=== PATIENT | female | born 1955 | race Caucasian/White ===

== ENCOUNTER 2017-03-26 12:11 | Emergency (ER) | payer OTHER ==
[2017-03-26 12:35] VITALS: BP 110/66; PULSE 65; TEMP 97.5; BMI 25.2
--- NOTE | 2017-03-26 13:30 | PDOC ---
History of Present Illness - General Chief Complaint: Abscess Boil Stated Complaint: PCP SENT Time Seen by Provider: 03/26/17 13:12 History Source: Patient Exam Limitations: No Limitations - History of Present Illness Initial Comments: 03/26/17 13:26 SEnt in for nuclear scan of left ankle by LMD Past History - Past Medical History Allergies/Adverse Reactions: Allergies Allergy/AdvReac Type Severity Reaction Status Date / Time No Known Allergies Allergy Verified 03/26/17 12:31 Home Medications: Ambulatory Orders Aspirin [ASA -] 81 mg PO DAILY 04/20/15 Furosemide [Lasix -] 40 mg PO DAILY 04/20/15 Levothyroxine [Synthroid -] 175 mcg PO DAILY 03/26/17 Mesalamine [Asacol Hd -] 800 mg PO TID 03/26/17 Raloxifene HCl 60 mg PO DAILY 03/26/17 Anemia: No Asthma: Yes Cancer: Yes (LEFT BREAST 1999) Cardiac Disorders: No CVA: No COPD: No CHF: No Dementia: No Diabetes: No GI Disorders: No Disorders: No HTN: No Hypercholesterolemia: No Liver Disease: No Seizures: No Thyroid Disease: Yes - Surgical History Abdominal Surgery: No Appendectomy: No Cardiac Surgery: No Cholecystectomy: No Lung Surgery: No Neurologic Surgery: No Orthopedic Surgery: No - Immunization History Immunization Up to Date: Yes - Psycho/Social/Smoking Cessation Hx Suicidal Ideation: No Smoking History: Never smoked Have you smoked in the past 12 months: No Hx Alcohol Use: No Drug/Substance Use Hx: No Substance Use Type: None Hx Substance Use Treatment: No Review of Systems - Review of Systems Constitutional: No: Symptoms Reported Integumentary: Yes: Lesions Neurological: No: Symptoms reported *Physical Exam - Vital Signs Last Vital Signs Temp Pulse Resp BP Pulse Ox 97.5 F L 65 17 110/66 100 03/26/17 12:31 03/26/17 12:31 03/26/17 12:31 03/26/17 12:31 03/26/17 12:31 - Physical Exam General Appearance: Yes: Appropriately Dressed Neck: positive: Tender, Supple. negative: Rigid Extremity: positive: Other (1 cm open wound left lateral ankle ; no pus expressed; no cellulitis) Medical Decision Making - Medical Decision Making 03/26/17 13:28 Referred to Xray department for [facility] nuclear scan of left ankle; no admission needed; had Recent ABX by local MD reports family *DC/Admit/Observation/Transfer Diagnosis at time of Disposition: Open wound - Discharge Dispostion Disposition: HOME Condition at time of disposition: Stable Admit: No - Patient Instructions Additional Instructions: referred to [facility] xray for nuclear scan
== END 2017-03-26 13:33 | disposition home or self-care (01) ==
LOC: JERFT 12:11
DX: S91.002A Unspecified open wound, left ankle, initial encounter (principal); X58.XXXA Exposure to other specified factors, initial encounter; Y93.9 Activity, unspecified; Y92.89 Other specified places as the place of occurrence of the external cause; E03.9 Hypothyroidism, unspecified; Z85.3 Personal history of malignant neoplasm of breast
CPT/HCPCS: 99281-25

== ENCOUNTER 2017-06-25 08:54 | Inpatient (IN) | payer OTHER ==
--- NOTE | 2017-06-25 08:58 | PDOC ---
History of Present Illness - General Stated Complaint: FALL Time Seen by Provider: 06/25/17 08:57 - History of Present Illness Initial Comments: 59 year old female with PMH of Down Syndrome and hypothyroidism presenting with decreasing ability to ambulate over the last few weeks. Per her relatives at home, they found her down by her bed and she does not remember what caused her fall. She did hit the right side of her head but denies LOC, syncope, palpitations, or new neuro deficit. The family at bedside admits that her left side has appeared weaker than usual over the past few weeks but are not sure exactly when. She has had difficulty bearing weight since the fall this morning. Denies fevers, chills, nausea, vomiting, diarrhea, constipation, cough , chest pain, or other symptoms. Patient is verbal at baseline with simple answers and can usually give moderately detailed information. 06/25/17 12:44 Past History - Past Medical History Allergies/Adverse Reactions: Allergies Allergy/AdvReac Type Severity Reaction Status Date / Time wheat Allergy Intermediate Rash Verified 06/25/17 08:59 wheat dextrin Allergy Intermediate Rash Verified 06/25/17 08:59 egg AdvReac Severe Nausea Verified 06/25/17 08:59 Egg Derived AdvReac Severe Nausea Verified 06/25/17 08:59 egg yolk AdvReac Severe Nausea Verified 06/25/17 08:59 Home Medications: Ambulatory Orders Furosemide [Lasix -] 40 mg PO DAILY 04/20/15 Levothyroxine [Synthroid -] 150 mcg PO DAILY 03/26/17 Mesalamine [Asacol Hd -] 80 mg PO TID 03/26/17 Raloxifene HCl 60 mg PO DAILY 03/26/17 Anemia: No Asthma: Yes Cancer: Yes (LEFT BREAST 1998) Cardiac Disorders: No CVA: No COPD: No CHF: No Dementia: No Diabetes: No GI Disorders: No Disorders: No HTN: No Hypercholesterolemia: No Liver Disease: No Seizures: No Thyroid Disease: Yes - Surgical History Abdominal Surgery: No Appendectomy: No Cardiac Surgery: No Cholecystectomy: No Lung Surgery: No Neurologic Surgery: No Orthopedic Surgery: No - Immunization History Immunization Up to Date: Yes - Suicide/Smoking/Psychosocial Hx Smoking History: Never smoked Have you smoked in the past 12 months: No Hx Alcohol Use: No Drug/Substance Use Hx: No Substance Use Type: None Hx Substance Use Treatment: No Review of Systems - Review of Systems Constitutional: No: Chills, Diaphoresis, Fever HEENTM: No: Blurred Vision Respiratory: No: Cough, Shortness of Breath Cardiac (ROS): Yes: Edema. No: Chest Pain, Chest Tightness ABD/GI: No: Diarrhea, Nausea, Vomiting, Tarry Stools : Yes: Incontinence. No: Burning, Dysuria, Discharge Integumentary: Yes: Bruising, Erythema Neurological: Yes: Weakness, Unsteady Gait. No: Headache, Numbness *Physical Exam - Physical Exam General Appearance: Yes: Nourished, Appropriately Dressed. No: Apparent Distress HEENT: positive: EOMI, ALECIA. negative: Normal ENT Inspection (ENT inspection consistent with downs syndrome. Bruising with some slight erythema over right supraorbital scalp.) Neck: positive: Trachea midline, Supple. negative: Tender, Rigid Respiratory/Chest: positive: Lungs Clear, Normal Breath Sounds. negative: Chest Tender, Respiratory Distress, Accessory Muscle Use Cardiovascular: positive: Regular Rhythm, Regular Rate Gastrointestinal/Abdominal: positive: Normal Bowel Sounds, Flat, Soft. negative : Tender Musculoskeletal: negative: Normal Inspection (Clean and dry wound over the left lateral malleolus. Swollen bilateral lower extremities with only trace pitting. ) Extremity: positive: Pelvis Stable. negative: Normal Inspection (Per above), Normal Range of Motion (Generally weak in bilateral lower extremities), Tender Integumentary: positive: Normal Color, Dry, Warm, Erythema, Bruising Neurologic: positive: legal transcriptionist II-XII NML intact, Alert. negative: Fully Oriented ( Person and place), Normal Mood/Affect (Consistent with downs. responsive with slight delay in answers.), Motor Strength 5/5 (Generally weak in bilateral lower extremities) ED Treatment Course - LABORATORY CBC & Chemistry Diagram: 06/25/17 09:22 06/25/17 09:22 Medical Decision Making - Medical Decision Making 61 year old with down syndrome presenting with two falls in the past month. Unclear etiology as she seems to have had progressive weakness and difficulty ambulating with acute disability this AM. Presented with hypothermia to 96 degrees All of her labs are WNL and her head CT does not show acute hemorrhage or defect. There is some comment regarding the odontoid process contacting the ventral medulla. This, along with the patient's hypothermia need to be worked up further potentially in the inpatient setting. Spoke to Dr. Birch and there will be further work up performed. This is likely advancement of early onset dementia which is common in patients with trisomy 13. 06/25/17 14:29 *DC/Admit/Observation/Transfer Diagnosis at time of Disposition: Weakness Hypothermia Qualifiers: Encounter type: initial encounter Qualified Code(s): T68.XXXA - Hypothermia, initial encounter - Discharge Dispostion Condition at time of disposition: Stable Admit: Yes - Referrals - Patient Instructions - Post Discharge Activity
--- NOTE | 2017-06-25 09:28 | PDOC ---
Attending Attestation - Resident Resident Name: JuliánAbameredithsandra - ED Attending Attestation I have performed the following: I have examined & evaluated the patient, The case was reviewed & discussed with the resident, I agree w/resident's findings & plan, Exceptions are as noted - HPI HPI: 61 yo F history , hypothyroid presents s/p mechanical fall. She denies any complaints at present, but is unable to give a reliable history. As per family, patient has been refusing to ambulate since the fall despite denying any pain. - Physicial Exam PE: GENERAL: Awake, alert, and fully oriented, in no acute distress HEAD: +Abrasions to R upper forehead. EYES: PERRLA, EOMI, sclera anicteric, conjunctiva clear ENT: Auricles normal inspection, hearing grossly normal, nares patent, oropharynx clear without exudates. Moist mucosa NECK: Normal ROM, supple, no lymphadenopathy, JVD, or masses LUNGS: Breath sounds equal, clear to auscultation bilaterally. No wheezes, and no crackles HEART: Regular rate and rhythm, normal S1 and S2, no murmurs, rubs or gallops ABDOMEN: Soft, nontender, normoactive bowel sounds. No guarding, no rebound. No masses EXTREMITIES: Normal range of motion, no edema. No clubbing or cyanosis. No cords, erythema, or tenderness NEUROLOGICAL: Cranial nerves II through XII grossly intact. Normal speech. Motor and sensation intact. SKIN: Warm, Dry, normal turgor, no rashes or lesions noted. - Medical Decision Making Pt with hypothermia, presenting s/p fall, refusing to ambulate. No obvious bony deformity, no bony tenderness. XR no fx. CTH no acute findings. Labs unremarkable (noted to have hypocalcemia, however, it corrects with the albumin) .
[2017-06-25 09:48] LABS: VENOUS PC02 44.8 mmHg (38-52); VENOUS PH 7.39 (7.32-7.42); VENOUS PO2 36.4 mmHg (28-48)
[2017-06-25 09:49] LABS: BASO % 1.1 % (0-2.0); EOS % 1.4 % (0-4.5); HEMATOCRIT 38.3 % (32.4-45.2); HEMOGLOBIN 12.5 GM/dL (10.7-15.3); LYMPH % 16.5 % (8-40); MCH 32.2 pg (25.7-33.7); MCHC 32.7 g/dl (32.0-36.0); MEAN CELL VOLUME 98.7 fl (80-96); MONO % 7.5 % (3.8-10.2); NEUT % 73.5 % (42.8-82.8); PLATELET COUNT 170 K/MM3 (134-434); RBC 3.88 M/mm3 (3.60-5.2); RDW 15.6 % (11.6-15.6)
[2017-06-25 10:08] LABS: INR 0.98 (0.82-1.09); PROTHROMBIN TIME (PATIENT) 11.1 SEC (9.98-11.88)
[2017-06-25 10:11] LABS: ACTIVATED PTT 26.4 SECONDS (26.9-34.4)
[2017-06-25 10:27] LABS: ANION GAP 5 (8-16); BILIRUBIN,TOTAL 0.4 mg/dL (0.2-1.0); BLOOD UREA NITROGEN 18 mg/dL (7-18); CALCIUM 7.8 mg/dL (8.5-10.1); CHLORIDE 106 mmol/L (98-107); CO2 27 mmol/L (21-32); GLUCOSE,RANDOM 116 mg/dL (74-106); POTASSIUM 3.6 mmol/L (3.5-5.1); SGOT/AST 25 U/L (15-37); SGPT/ALT 25 U/L (12-78); SODIUM 138 mmol/L (136-145); TOT PROT 7.3 g/dl (6.4-8.2)
[2017-06-25 10:29] LABS: ALK PHOS 105 U/L (45-117)
[2017-06-25 10:52] LABS: URINE APPEARANCE SLCLOUDY; URINE BILIRUBIN NEGATIVE (NEGATIVE); URINE BLOOD NEGATIVE (NEGATIVE); URINE COLOR YELLOW; URINE GLUCOSE (UA) NEGATIVE (NEGATIVE); URINE KETONE TRACE (NEGATIVE); URINE LEUK ESTERASE NEGATIVE (NEGATIVE); URINE NITRITE NEGATIVE (NEGATIVE); URINE UROBILINOGEN NEGATIVE mg/dL (0.2-1.0)
[2017-06-25 11:02] LABS: URINE PROTEIN 2+ (NEGATIVE)
[2017-06-25 12:08] LABS: EPI CELLS RARE /HPF (FEW); URINE MUCUS RARE
[2017-06-25] MEDS ORDERED: methylPREDNISolone NA SUCC 125 MG/2 ML VIAL IVPB ONE (12:28)
[2017-06-25] MEDS ORDERED: LEVOTHYROXINE NA 150 MCG TABLET PO ONE (13:23)
[2017-06-25] MEDS ORDERED: MESALAMINE 800 MG TABLET.DR PO SCH (14:00)
[2017-06-25] MEDS: LEVOTHYROXINE NA 150 MCG TABLET PO SCH (15:54)
[2017-06-25] MEDS: MESALAMINE 800 MG TABLET.DR PO SCH ×2 (15:54→22:00)
[2017-06-26 02:52] VITALS: BMI 28.7
[2017-06-26] MEDS: LEVOTHYROXINE NA 150 MCG TABLET PO SCH (06:23)
[2017-06-26] MEDS: MESALAMINE 800 MG TABLET.DR PO SCH ×3 (06:23→22:33)
--- NOTE | 2017-06-26 07:48 | CONSULT ---
Consultation: REQUESTING PROVIDER: CONSULT REQUEST: We have been asked to medically evaluate this patient for hypothermia. HISTORY OF PRESENT ILLNESS: 59 y/o F with PMH Down's syndrome, hypothyroidism, recent hospitalization in Dec for L ankle pressure ulcer-stage 3, who presented to ED s/p fall. As per pt' s family and nurse, pt has decreased ambulation over the last month and was found on the ground by family on AM of ED arrival. Pt injured R side of forehead and lacerated lip during fall. Denied LOC, syncope, palpitations before the event, and denied fever, chills, chest pain, or recent illnesses at time of admission. While in ED, pt was found to be hypothermic with temp 95.3F which has subsequently resolved. While in ED, pt had CXR, R and L foot x-rays, R and L hip x-rays, which were all WNL. Only notable finding was a decreased albumin level of 3, elevated TSH 5.04, and head CT which revealed odontoid process projecting into the foramen magnum and mass effect of ventral medulla and craniocervical junction. ID team consulted for hypothermia. PMH: Down's syndrome, hypothyroid PsxH: denies Meds: synthroid, ecotrin, asacol allergies: wheat, wheat dextrin, egg FH: pt denies SH: denies smoking, alcohol, or drug use denies infection, pet exposure REVIEW OF SYSTEMS: CONSTITUTIONAL: Absent: fever, chills, diaphoresis, generalized weakness, malaise, loss of appetite, weight change HEENT: Absent: rhinorrhea, nasal congestion, throat pain, throat swelling, difficulty swallowing, mouth swelling, ear pain, eye pain, visual changes CARDIOVASCULAR: Absent: chest pain, syncope, palpitations, irregular heart rate, lightheadedness , peripheral edema RESPIRATORY: Absent: cough, shortness of breath, dyspnea with exertion, orthopnea, wheezing, stridor, hemoptysis GASTROINTESTINAL: Absent: abdominal pain, abdominal distension, nausea, vomiting, diarrhea, constipation, melena, hematochezia GENITOURINARY: Absent: dysuria, frequency, urgency, hesitancy, hematuria, flank pain, genital pain MUSCULOSKELETAL: Absent: myalgia, arthralgia, joint swelling, back pain, neck pain SKIN: Absent: rash, itching, pallor HEMATOLOGIC/IMMUNOLOGIC: Absent: easy bleeding, easy bruising, lymphadenopathy, frequent infections ENDOCRINE: Absent: unexplained weight gain, unexplained weight loss, heat intolerance, cold intolerance NEUROLOGIC: Absent: headache, focal weakness or paresthesias, dizziness, unsteady gait, seizure, mental status changes, bladder or bowel incontinence PSYCHIATRIC: Absent: anxiety, depression, suicidal or homicidal ideation, hallucinations. PHYSICAL EXAMINATION Vital Signs - 24 hr 06/26/17 04:10 Temperature 97.7 F Pulse Rate 72 Pulse Rate [ Left Apical] Respiratory 18 Rate Blood Pressure 118/62 GENERAL: AAOx 1 (only to self), in no acute distress. HEAD: abrasions on R frontotemporal side of forehead EYES: Pupils equal, round and reactive to light, extraocular movements intact, sclera anicteric, conjunctiva clear. EARS, NOSE, THROAT: Ears normal, nares patent, oropharynx clear without exudates. LUNGS: Breath sounds equal, clear to auscultation bilaterally. No wheezes, and no crackles. No accessory muscle use. HEART: Regular rate and rhythm, normal S1 and S2 without murmur, rub or gallop. ABDOMEN: Soft, diffusely tender to palpation, not distended, normoactive bowel sounds, no guarding, no rebound, MUSCULOSKELETAL: Normal range of motion at all joints. LOWER EXTREMITIES: 2+ posterior tibial pulses, warm, well-perfused. L lateral malleolus ulcer appreciated- pink with heaped borders, mild purulent discharge. NEUROLOGICAL: Cranial nerves II-XII intact. PSYCHIATRIC: Cooperative. Laboratory Tests 06/25/17 06/25/17 06/25/17 09:22 09:22 10:35 WBC 5.0 D Hgb 12.5 Hct 38.3 Plt Count 170 D Albumin 3.0 L TSH 5.04 H Urine Protein 2+ H Urine Ketones Trace H Active Medications Generic Name Dose Route Start Last Admin Trade Name Freq PRN Reason Stop Dose Admin Aspirin 81 mg 06/26/17 10:00 Ecotrin - PO DAILY KELLE Levothyroxine Sodium 150 mcg 06/25/17 13:25 06/26/17 06:23 Synthroid - PO 150 mcg DAILY@0600 KELLE Administration Mesalamine 800 mg 06/25/17 14:00 06/26/17 06:23 Asacol Hd - PO 800 mg TID KELLE Administration Microbiology 06/25/17 09:22 Blood - Peripheral Venous Blood Culture - Preliminary NO GROWTH OBTAINED AFTER 24 HOURS, INCUBATION TO CONTINUE FOR 4 DAYS. 06/25/17 09:22 Blood - Peripheral Venous Blood Culture - Preliminary NO GROWTH OBTAINED AFTER 24 HOURS, INCUBATION TO CONTINUE FOR 4 DAYS. ASSESSMENT/PLAN: #Hypothermia-resolved -95.3F while in ED -has subsequently resolved, currently 97.7F -No overt signs of infectious process currently- pt afebrile, without white count -Blood cx (-) -F/u urine cx #L lateral malleolus pressure ulcer -L malleolus pressure ulcer- pink with heaped border, mild purulent drainage. Surrounding erythema -Wound care -As afebrile, without white count would not recommend need for current abx Pina Mckinney MD PGY-1 ID Team Dispo: We will continue to follow the patient. Thank you for this consultative opportunity. Visit type - Emergency Visit Emergency Visit: No - New Patient This patient is new to me today: Yes Date on this admission: 06/26/17 - Critical Care Critical Care patient: No
[2017-06-26] MEDS: ASPIRIN COATED 81 MG TABLET.EC PO SCH (09:24)
--- NOTE | 2017-06-26 10:10 | HP ---
Admitting History and Physical - Admission Chief Complaint: 59y/o fell last 2 days ago sustained rt forehead abration. h/ o trip fall 1 mth ago. sister stated weak legs ct braian neg. 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) Cardiovascular: Yes: Aortic Insufficiency, Mitral Insufficiency Pulmonary: Yes: Other Gastrointestinal: Yes: Ulcerative Colitis Hepatobiliary: Yes: Hepatitis B Reproductive: Yes: Other (unable to get preg) Heme/Onc: Yes: Myeloproliferative Synd Musculoskeletal: Yes: Other (c/s fusions) Endocrine: Yes: Hypothyroidism - Smoking History Smoking history: Never smoked Have you smoked in the past 12 months: No - Alcohol/Substance Use Hx Alcohol Use: No Home Medications - Allergies Allergies/Adverse Reactions: Allergies Allergy/AdvReac Type Severity Reaction Status Date / Time wheat Allergy Intermediate Rash Verified 06/25/17 08:59 wheat dextrin Allergy Intermediate Rash Verified 06/25/17 08:59 egg AdvReac Severe Nausea Verified 06/25/17 08:59 Egg Derived AdvReac Severe Nausea Verified 06/25/17 08:59 egg yolk AdvReac Severe Nausea Verified 06/25/17 08:59 - Home Medications Home Medications: Ambulatory Orders Furosemide [Lasix -] 40 mg PO DAILY 04/20/15 Levothyroxine [Synthroid -] 150 mcg PO DAILY 03/26/17 Mesalamine [Asacol Hd -] 800 mg PO TID 03/26/17 Raloxifene HCl 60 mg PO DAILY 03/26/17 Family Disease History - Family Disease History Family Disease History: Heart Disease: Mother Review of Systems - Review of Systems Constitutional: reports: Weakness Eyes: reports: Other (epicanthis eyes) HENT: reports: No Symptoms Neck: reports: Stiffness (neck) Cardiovascular: reports: No Symptoms Respiratory: reports: No Symptoms Gastrointestinal: reports: Other Genitourinary: reports: No Symptoms Breasts: reports: No Symptoms Reported Musculoskeletal: reports: No Symptoms Integumentary: reports: Wound (lt foot healing w good wd care) Neurological: reports: Weakness Endocrine: reports: No Symptoms Hematology/Lymphatic: reports: No Symptoms Psychiatric: reports: No Symptoms Physical Examination Vital Signs: Vital Signs Temperature 97.6 F 06/26/17 09:00 Pulse Rate 71 06/26/17 09:00 Respiratory Rate 20 06/26/17 09:00 Blood Pressure 92/40 06/26/17 09:00 O2 Sat by Pulse Oximetry (%) 98 06/25/17 20:00 Constitutional: Yes: Well Nourished Eyes: Yes: WNL HENT: Yes: WNL Neck: Yes: WNL Cardiovascular: Yes: WNL Respiratory: Yes: WNL Gastrointestinal: Yes: WNL, Soft ...Rectal Exam: Yes: Deferred Renal/: Yes: WNL Breast(s): Yes: WNL Musculoskeletal: Yes: WNL Extremities: Yes: Other (lt foot stage 2 ulcer healing) Edema: No Peripheral Pulses WNL: Yes Integumentary: Yes: WNL Wound/Incision: Yes: Clean/Dry Neurological: Yes: Unsteady Gait Labs: CBC, BMP 06/25/17 09:22 06/25/17 09:22 Problem List - Problems (1) Down syndrome Code(s): Q90.9 - DOWN SYNDROME, UNSPECIFIED (2) Puncture wound of left foot excluding toes with infection Code(s): S91.332A - PUNCTURE WOUND WITHOUT FOREIGN BODY, LEFT FOOT, INIT ENCNTR ; L08.9 - LOCAL INFECTION OF THE SKIN AND SUBCUTANEOUS TISSUE, UNSP (3) CHF (congestive heart failure) Code(s): I50.9 - HEART FAILURE, UNSPECIFIED (4) Mitral and aortic insufficiency Code(s): I08.0 - RHEUMATIC DISORDERS OF BOTH MITRAL AND AORTIC VALVES Assessment/Plan up synthroid to .175 po get mri brain brain local wd care lt foot consulst on going daniela
--- NOTE | 2017-06-26 10:16 | PN ---
Teaching Attending Note Name of Resident: Pina Mckinney ATTENDING PHYSICIAN STATEMENT I saw and evaluated the patient. I reviewed the resident's note and discussed the case with the resident. I agree with the resident's findings and plan as documented. SUBJECTIVE:Seen and examined with resident OBJECTIVE:Hypthermia transient Currently in NAD ASSESSMENT AND PLAN: Selected Entries 06/26/17 09:00 Temperature 97.6 F Pulse Rate 71 Respiratory 20 Rate Blood Pressure 92/40 Assessment NO indication for antibiotics at this time Lorna YOUNG
--- NOTE | 2017-06-27 01:35 | EKG ---
Test Reason : Blood Pressure : / mmHG Vent. Rate : 054 BPM Atrial Rate : 054 BPM P-R Int : 170 ms QRS Dur : 084 ms QT Int : 496 ms P-R-T Axes : 057 -16 013 degrees QTc Int : 470 ms SINUS BRADYCARDIA MODERATE VOLTAGE CRITERIA FOR LVH, MAY BE NORMAL VARIANT BORDERLINE ECG NO PREVIOUS ECGS AVAILABLE Confirmed by VISH MARQUEZ MD ([id number]) on 06/27/2017 1:35:30 AM Referred By: Confirmed By:VISH MARQUEZ MD
[2017-06-27] MEDS ORDERED: LEVOTHYROXINE NA 100 MCG TABLET (FP) ONE (06:15)
[2017-06-27] MEDS ORDERED: LEVOTHYROXINE NA 75 MCG TABLET (FP) ONE (06:15)
[2017-06-27] MEDS: MESALAMINE 800 MG TABLET.DR PO SCH ×2 (06:17→13:53)
[2017-06-27] MEDS: LEVOTHYROXINE 100 MCG, LEVOTHYROXINE 75 MCG PO SCH (06:18)
[2017-06-27] MEDS ORDERED: LEVOTHYROXINE NA 175 MCG TABLET PO SCH (07:00)
[2017-06-27 07:57] LABS: BASO % 1.9 % (0-2.0); EOS % 0.8 % (0-4.5); HEMATOCRIT 34.5 % (32.4-45.2); HEMOGLOBIN 11.4 GM/dL (10.7-15.3); LYMPH % 15.6 % (8-40); MCH 32.6 pg (25.7-33.7); MEAN CELL VOLUME 98.8 fl (80-96); MEAN PLT VOLUME 9.7 fl (7.5-11.1); MONO % 7.4 % (3.8-10.2); NEUT % 74.3 % (42.8-82.8); PLATELET COUNT 169 K/MM3 (134-434); RBC 3.49 M/mm3 (3.60-5.2); RDW 15.5 % (11.6-15.6); WHITE BLOOD COUNT 5.4 K/mm3 (4.0-10.0)
[2017-06-27 08:14] LABS: ANION GAP 10 (8-16); BLOOD UREA NITROGEN 15 mg/dL (7-18); CALCIUM 7.8 mg/dL (8.5-10.1); CHLORIDE 108 mmol/L (98-107); CO2 24 mmol/L (21-32); GLUCOSE,RANDOM 104 mg/dL (74-106); POTASSIUM 3.4 mmol/L (3.5-5.1); SODIUM 142 mmol/L (136-145)
[2017-06-27] MEDS ORDERED: POTASSIUM CHLORIDE TABS 20 MEQ TABLET.ER (FP) PO ONE (08:48)
--- NOTE | 2017-06-27 09:03 | PN ---
Progress Note, Physician - Current Medication List Current Medications: Active Medications Aspirin (Ecotrin -) 81 mg PO DAILY [facility] Last Admin: 06/26/17 09:24 Dose: 81 mg Levothyroxine Sodium 100 mcg/ (Levothyroxine Sodium 75 mcg) 175 mcg PO DAILY@ 0700 [facility] Last Admin: 06/27/17 06:18 Dose: 175 mcg Mesalamine (Asacol Hd -) 800 mg PO TID [facility] Last Admin: 06/27/17 06:17 Dose: 800 mg - Objective Vital Signs: Vital Signs Temperature 98.2 F 06/27/17 06:06 Pulse Rate 77 06/27/17 06:06 Respiratory Rate 20 06/27/17 06:06 Blood Pressure 128/60 06/27/17 06:06 O2 Sat by Pulse Oximetry (%) 96 06/26/17 22:00 Labs: CBC, BMP 06/27/17 06:00 06/27/17 06:00 INR, PTT INR 0.98 (0.82-1.09) 06/25/17 09:22 Problem List - Problems (1) Down syndrome Code(s): Q90.9 - DOWN SYNDROME, UNSPECIFIED (2) Puncture wound of left foot excluding toes with infection Code(s): S91.332A - PUNCTURE WOUND WITHOUT FOREIGN BODY, LEFT FOOT, INIT ENCNTR ; L08.9 - LOCAL INFECTION OF THE SKIN AND SUBCUTANEOUS TISSUE, UNSP (3) CHF (congestive heart failure) Code(s): I50.9 - HEART FAILURE, UNSPECIFIED (4) Mitral and aortic insufficiency Code(s): I08.0 - RHEUMATIC DISORDERS OF BOTH MITRAL AND AORTIC VALVES Assessment/Plan called and awaiying neuro eval to get mri brain narinder today p/t eval vns servs ? d/c rehab vs home ? in am ? replaced k po
[2017-06-27] MEDS: ASPIRIN COATED 81 MG TABLET.EC PO SCH (09:12)
--- NOTE | 2017-06-27 16:26 | PN ---
Physical Exam: SUBJECTIVE: Patient seen and examined at bedside. Resting comfortably, in NAD. Denies WARD, fever, chills, changes in urinary or bowel habits. No acute events overnight, pt has been afebrile. OBJECTIVE: Vital Signs Period Temp Pulse Resp BP Sys/Guo Pulse Ox Last 24 Hr 98.0 F-98.8 F 74-79 20-20 102-128/48-60 96 GENERAL: The patient is AAOx 1. NAD, resting comfortably. HEAD: abrasions on R frontotemporal side of forehead EYES: Pupils equal, round and reactive to light, extraocular movements intact, sclera anicteric, conjunctiva clear LUNGS: Breath sounds equal, clear to auscultation bilaterally. No wheezes, and no crackles. No accessory muscle use. HEART: Regular rate and rhythm, normal S1 and S2 without murmur, rub or gallop. ABDOMEN: Soft, nontender to palpation, not distended, normoactive bowel sounds, no guarding, no rebound MUSCULOSKELETAL: Normal range of motion at all joints. LOWER EXTREMITIES: 2+ posterior tibial pulses, warm, well-perfused. L lateral malleolus ulcer-no discharge noted today NEUROLOGICAL: Cranial nerves II-XII appear to be grossly intact. Laboratory Results - last 24 hr 06/27/17 06/27/17 06:00 06:00 WBC 5.4 RBC 3.49 L Hgb 11.4 Hct 34.5 MCV 98.8 H MCH 32.6 MCHC 33.0 RDW 15.5 Plt Count 169 MPV 9.7 Neutrophils % 74.3 Lymphocytes % 15.6 Monocytes % 7.4 Eosinophils % 0.8 Basophils % 1.9 Sodium 142 Potassium 3.4 L Chloride 108 H Carbon Dioxide 24 Anion Gap 10 BUN 15 Creatinine 1.0 Random Glucose 104 Calcium 7.8 L Active Medications Generic Name Dose Route Start Last Admin Trade Name Freq PRN Reason Stop Dose Admin Aspirin 81 mg 06/26/17 10:00 06/27/17 09:12 Ecotrin - PO 81 mg DAILY KELLE Administration Levothyroxine Sodium 100 mcg/ 175 mcg 06/27/17 07:00 06/27/17 06:18 Levothyroxine Sodium 75 mcg PO 175 mcg DAILY@0700 KELLE Administration Mesalamine 800 mg 06/25/17 14:00 06/27/17 13:53 Asacol Hd - PO 800 mg TID KELLE Administration ASSESSMENT/PLAN: #Hypothermia-resolved -95.3F while in ED -has subsequently resolved- -No overt signs of infectious process currently- pt afebrile, without white count -Blood cx (-) -urine cx (-) #L lateral malleolus pressure ulcer -L malleolus pressure ulcer- pink with heaped border, today without drainage. Surrounding erythema -Wound care -As afebrile, without white count- still would not recommend abx Thank you Pina Mckinney MD PGY-1 ID Team Visit type - Emergency Visit Emergency Visit: No - New Patient This patient is new to me today: No - Critical Care Critical Care patient: No
--- NOTE | 2017-06-27 19:29 | CON.NEURO ---
Consult - History of Present Illness History of Present Illness: 59 y/o F with PMH Down's syndrome, hypothyroidism, recent hospitalization in [facility] for L ankle pressure ulcer-stage 3, who presented to ED s/p fall. As per pt' s family and nurse, pt has decreased ambulation over the last month and was found on the ground by family on AM of ED arrival. Pt injured R side of forehead and lacerated lip during fall. Denied LOC, syncope, palpitations before the event, and denied fever, chills, chest pain, or recent illnesses at time of admission. as per family walks at baseline, hx of ulcer, though balance has been more of an issue over 1-2 months; she has left sided weakness post fall. CT HD Impression: 1. No acute intracranial hemorrhage. 2. No compelling evidence of cerebral infarction at this time. Please note that subacute cerebral infarctions may be indistinct on CT due to "fogging effect" approximately 2-3 weeks following infarction, requiring clinical correlation. If warranted, MRI may be obtained for further evaluation. 3. 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 MRI prelim : high signal upper spinal cord L; no acute stroke. 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) Cardio/Vascular: Yes: Aortic Insufficiency, Mitral Insufficiency Pulmonary: Yes: Other Gastrointestinal: Yes: Ulcerative Colitis Hepatobiliary: Yes: Hepatitis B Musculoskeletal: Yes: Other (c/s fusions) Endocrine: Yes: Hypothyroidism - Alcohol/Substance Use Hx Alcohol Use: No - Smoking History Smoking history: Never smoked Have you smoked in the past 12 months: No Home Medications - Allergies Allergies/Adverse Reactions: Allergies Allergy/AdvReac Type Severity Reaction Status Date / Time raspberry Allergy Severe Rash Verified 06/27/17 14:48 strawberry Allergy Severe Rash Verified 06/27/17 14:49 barley Allergy Intermediate Rash Verified 06/27/17 14:47 wheat Allergy Intermediate Rash Verified 06/25/17 08:59 egg AdvReac Severe Nausea Verified 06/25/17 08:59 egg yolk AdvReac Severe Nausea Verified 06/25/17 08:59 - Home Medications Home Medications: Ambulatory Orders Furosemide [Lasix -] 40 mg PO DAILY 04/20/15 Levothyroxine [Synthroid -] 150 mcg PO DAILY 03/26/17 Mesalamine [Asacol Hd -] 800 mg PO TID 03/26/17 Raloxifene HCl 60 mg PO DAILY 03/26/17 Family Disease History - Family Disease History Family Disease History: Heart Disease: Mother Physical Exam-Neuro Vital Signs: Vital Signs Temperature 98.0 F 06/27/17 14:00 Pulse Rate 74 06/27/17 09:00 Respiratory Rate 20 06/27/17 09:00 Blood Pressure 102/51 06/27/17 09:00 O2 Sat by Pulse Oximetry (%) 96 06/26/17 22:00 Constitutional: Yes: Well Nourished Labs: CBC, BMP 06/27/17 06:00 06/27/17 06:00 INR, PTT INR 0.98 (0.82-1.09) 06/25/17 09:22 - Neuro Exam Level Of Consciousness: Yes: Alert (awake, pleasant, family bedside, EOMI, no facila, left arm weakness TR 4/5, hand grasp 4/5, BL leg weakness, (? tetraplegic -limited effort), distal movements r foot only, plantars up BL, left leg inc tone >right, unable to ambulate ) Problem List - Problems (1) CHF (congestive heart failure) Code(s): I50.9 - HEART FAILURE, UNSPECIFIED (2) Down syndrome Code(s): Q90.9 - DOWN SYNDROME, UNSPECIFIED (3) Weakness Code(s): R53.1 - WEAKNESS Assessment/Plan 59 y/o F with PMH Down's syndrome, hypothyroidism, recent hospitalization in [facility] for L ankle pressure ulcer-stage 3, who presented to ED s/p fall. As per pt' s family and nurse, pt has decreased ambulation over the last month and was found on the ground by family on AM of ED arrival. Pt injured R side of forehead and lacerated lip during fall. on exam appears to have new left side and BL LE weakness, long tract pattern-- concerning for upper spinal cord compression HD suggested odontoid invagination into FM-- will review MRI brain and base of skull discussed with neurosurgery, Dr Sotelo, likely will need stabilization C1/C2 will get MRI C Spine and CT Cspine Start Solumedrol 1gm now rehab when stable D/W family Dr Alexis
--- NOTE | 2017-06-27 19:47 | PN ---
Progress Note, Physician Chief Complaint: n/c in statis - Current Medication List Current Medications: Active Medications Aspirin (Ecotrin -) 81 mg PO DAILY [facility] Last Admin: 06/27/17 09:12 Dose: 81 mg Levothyroxine Sodium 100 mcg/ (Levothyroxine Sodium 75 mcg) 175 mcg PO DAILY@ 0700 [facility] Last Admin: 06/27/17 06:18 Dose: 175 mcg Mesalamine (Asacol Hd -) 800 mg PO TID [facility] Last Admin: 06/27/17 13:53 Dose: 800 mg - Objective Vital Signs: Vital Signs Temperature 98.0 F 06/27/17 14:00 Pulse Rate 74 06/27/17 09:00 Respiratory Rate 20 06/27/17 09:00 Blood Pressure 102/51 06/27/17 09:00 O2 Sat by Pulse Oximetry (%) 96 06/26/17 22:00 Constitutional: Yes: Well Nourished Eyes: Yes: WNL HENT: Yes: WNL Neck: Yes: WNL Cardiovascular: Yes: WNL Respiratory: Yes: WNL Gastrointestinal: Yes: WNL ...Rectal Exam: Yes: Deferred Genitourinary: Yes: WNL Breast(s): Yes: WNL Musculoskeletal: Yes: WNL Extremities: Yes: WNL Edema: No Peripheral Pulses WNL: Yes Integumentary: Yes: WNL Neurological: Yes: Other (lt side weak) ...Motor Strength: LLE Psychiatric: Yes: Other (mild retardayion) Labs: CBC, BMP 06/27/17 06:00 06/27/17 06:00 INR, PTT INR 0.98 (0.82-1.09) 06/25/17 09:22 Problem List - Problems (1) Down syndrome Code(s): Q90.9 - DOWN SYNDROME, UNSPECIFIED (2) Puncture wound of left foot excluding toes with infection Code(s): S91.332A - PUNCTURE WOUND WITHOUT FOREIGN BODY, LEFT FOOT, INIT ENCNTR ; L08.9 - LOCAL INFECTION OF THE SKIN AND SUBCUTANEOUS TISSUE, UNSP (3) CHF (congestive heart failure) Code(s): I50.9 - HEART FAILURE, UNSPECIFIED (4) Mitral and aortic insufficiency Code(s): I08.0 - RHEUMATIC DISORDERS OF BOTH MITRAL AND AORTIC VALVES Assessment/Plan neurosx eval ct spine
[2017-06-27] MEDS ORDERED: methylPREDNISolone NA SUCC 1000 MG/8 ML VIAL IVPB ONE ×2 (20:05→23:30)
--- NOTE | 2017-06-27 22:33 | CONSULT ---
Consult - text type - Consultation Consultation Note: Neurosurgery Consultation Melany Santos is a 61 year old female with a past medical history of Trisomy 21, CHF and hypothyroidism who has a one month history of progressive gait decline. She fell on Monday night and struck her head with resulting Right forehead brusing and a small lip laceration/abrasion. She had no loss of consciousness noted and was brought to the [facility] ER by her family where she was noted to be weak in the Left upper and lower extremities. Concern for CVA prompted MRI and CT of the brain which did not suggest any ischemia. The patient is also noted to have Right leg weakness. Further review of this imaging suggested abnormalities at the craniocervical junction with some compression of the cervical-medullary junction from ventral pseudopannus surrounding the odontoid and severe degenerative stairstep deformity in the immediate subaxial cervical spine. The CT suggested that the atlantodental interval may be hypermobile (4mm on MRI and 2mm on CT) and there is significant sclerosis of the bones of the craniocervical junction. 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 There is Grade 2 spondylolisthesis of C7 on T1 which may be partially fused. There is severe canal stenosis and spondylosis resulting in spinal cord compression and deformation with T2 signal change at C34 & C45. I had a long discussion with the patient and family (mother and sister) regarding the nature of these findings and the natural history of such severe spinal cord compression. I discussed the risks, benefits and alternatives to Occipital Cervical Decompression and Fusion in great detail. I explained that the risks included, but were not limited to: , coma, paralysis, bleeding, infection, CSF leakage possibly requiring spinal drainage or additional surgery , instrumentation migration/malposition/malfunction and the failure to improve after surgery. I offered them the option of seeking another opinion or another surgeon. All questions were answered. Informed consent was obtained. I recommend that the patient be monitored in the ICU with a pulse oximeter since she may progress to respiratory compromise. Will discuss with Pulmonary and Anesthesia regarding the potential role for prophylactic intubation. I agree with the recommendation of Dr. Alexis to start Solumedrol with GI prophylaxis. PLAN - Transfer to ICU tonight - Cervical Collar - Solumedrol with GI Prophylaxis - NPO p Midnight for potential Surgery in AM - CT Cervical spine with Sagittal and Coronal Reconstructions for Surgical planning.
[2017-06-27] MEDS: PANTOPRAZOLE SODIUM 40 MG VIAL IVPUSH SCH (23:31)
--- NOTE | 2017-06-27 23:43 | CONSULT ---
Consult Consult Specialty:: Pulm/CCM Reason for Consultation:: Spinal injury - History of Present Illness Chief Complaint: LE weakness History of Present Illness: 61 zeinab with a PMHx Down's syndrome, CHF and hypothyroidism who was brought to the ED from home by family after a fall at home. Family reports that over 1 month has had progressive gait decline with weakness in the left upper and lower extremities. Fall resulted in rt foerhead bruising and lip laceration. She fell on Monday night and struck her head with resulting Right forehead brusing and a small lip laceration/abrasion. Imaging of spine and brain s/f abnormalities at the craniocervical junction with some compression of the cervical-medullary junction, cervical spinal fusion and some spondylolisthesis with resultant spinal cord compression. She was seen by Dr Jensen from neurosurgery with a plan to stabilize o/n with high dose steroids and repair in OR in the morning. She was transferred to ICU for monitoring. 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) Cardio/Vascular: Yes: Aortic Insufficiency, Mitral Insufficiency Pulmonary: Yes: Other Gastrointestinal: Yes: Ulcerative Colitis Hepatobiliary: Yes: Hepatitis B Musculoskeletal: Yes: Other (c/s fusions) Endocrine: Yes: Hypothyroidism - Alcohol/Substance Use Hx Alcohol Use: No - Smoking History Smoking history: Never smoked Have you smoked in the past 12 months: No Home Medications - Allergies Allergies/Adverse Reactions: Allergies Allergy/AdvReac Type Severity Reaction Status Date / Time raspberry Allergy Severe Rash Verified 06/27/17 14:48 strawberry Allergy Severe Rash Verified 06/27/17 14:49 barley Allergy Intermediate Rash Verified 06/27/17 14:47 wheat Allergy Intermediate Rash Verified 06/25/17 08:59 egg AdvReac Severe Nausea Verified 06/25/17 08:59 egg yolk AdvReac Severe Nausea Verified 06/25/17 08:59 - Home Medications Home Medications: Ambulatory Orders Furosemide [Lasix -] 40 mg PO DAILY 04/20/15 Levothyroxine [Synthroid -] 150 mcg PO DAILY 03/26/17 Mesalamine [Asacol Hd -] 800 mg PO TID 03/26/17 Raloxifene HCl 60 mg PO DAILY 03/26/17 Family Disease History - Family Disease History Family History: Unable to Obtain Family Disease History: Heart Disease: Mother Review of Systems Unable to obtain ROS, reason: Unable Physical Exam Vital Signs: Vital Signs Temperature 99.1 F 06/27/17 18:00 Pulse Rate 69 06/27/17 18:00 Respiratory Rate 20 06/27/17 21:00 Blood Pressure 105/52 06/27/17 18:00 O2 Sat by Pulse Oximetry (%) 96 06/26/17 22:00 Constitutional: Yes: Well Nourished, No Distress Eyes: Yes: PERRL HENT: Yes: Other (rt forehead and rt periorbital bruising) Neck: Yes: Supple Cardiovascular: Yes: Regular Rate and Rhythm, Murmur, S1, S2 Respiratory: Yes: CTA Bilaterally Gastrointestinal: Yes: Normal Bowel Sounds, Soft Renal/: Yes: Hill Present Edema: No Peripheral Pulses WNL: Yes Neurological: Yes: Alert, Oriented ...Motor Strength: LLE (weak and painful with movememnt) Psychiatric: Yes: Alert Labs: CBC, BMP 06/27/17 06:00 06/27/17 06:00 Imaging - Results Chest X-ray: Report Reviewed Cat Scan: Report Reviewed Problem List - Problems (1) CHF (congestive heart failure) Code(s): I50.9 - HEART FAILURE, UNSPECIFIED (2) Down syndrome Code(s): Q90.9 - DOWN SYNDROME, UNSPECIFIED (3) Weakness Code(s): R53.1 - WEAKNESS Assessment/Plan 61yow with Down's syndrome, CHF presenting with progressive Lt sided weakness and fall. Found to have cervical and thoracic spinal abnormalities leading to cord compression and resulting weakness. Transferred to ICU to monitor for respiratory or cardiac compromise. Plan for OR for repair in am Plan: -Pre-op plan as per neurosurgery -NCO2 for O2 sat>92% -Steroids-solumedrol 1G -IVF -NPO after MN -Neuro checks -Pulse ox monitor -GI proph ARTEMIO Irwin CC Time 35mins
[2017-06-28] MEDS: LEVOTHYROXINE 100 MCG, LEVOTHYROXINE 75 MCG PO SCH (06:20)
[2017-06-28 07:01] LABS: ANION GAP 5 (8-16); BLOOD UREA NITROGEN 17 mg/dL (7-18); CALCIUM 7.4 mg/dL (8.5-10.1); CHLORIDE 108 mmol/L (98-107); CO2 27 mmol/L (21-32); CREATININE 1.1 mg/dL (0.55-1.02); GLUCOSE,RANDOM 168 mg/dL (74-106); POTASSIUM 4.5 mmol/L (3.5-5.1); SODIUM 140 mmol/L (136-145)
[2017-06-28] MEDS ORDERED: LEVOTHYROXINE NA 100 MCG TABLET (FP) ONE (07:46)
[2017-06-28] MEDS ORDERED: LEVOTHYROXINE NA 75 MCG TABLET (FP) ONE (07:47)
[2017-06-28] MEDS: MESALAMINE 800 MG TABLET.DR PO SCH ×3 (07:57→22:00)
[2017-06-28] MEDS ORDERED: LIDOCAINE 1%/EPI 1:100000 (20 ML MULTI DOSE VIAL) ONE ×2 (09:01→10:09)
[2017-06-28] MEDS ORDERED: VANCOMYCIN 1,000 MG VIAL (RESTRICTED TO ID ONLY) ONE ×2 (09:01→12:42)
[2017-06-28] MEDS ORDERED: GENTAMICIN SO4 80 MG/2 ML VIAL ONE ×2 (09:01→10:27)
[2017-06-28] MEDS ORDERED: THROMBIN (BOVINE) 5,000 UNIT VIAL TP ONE (09:02)
[2017-06-28] MEDS ORDERED: BUPIVACAINE HCL/PF 0.5% (5MG/ML) 10 ML VIAL ONE ×2 (09:02→10:09)
[2017-06-28] MEDS: DEXAMETHASONE SOD PHOSPHATE 4 MG/1 ML VIAL IVPUSH SCH ×2 (09:33→17:09)
[2017-06-28] MEDS: ASPIRIN COATED 81 MG TABLET.EC PO SCH (09:34)
[2017-06-28] MEDS: PANTOPRAZOLE SODIUM 40 MG VIAL IVPUSH SCH (09:34)
[2017-06-28] MEDS ORDERED: DEXAMETHASONE 4 MG TABLET (FP) PO SCH (10:00)
[2017-06-28] MEDS ORDERED: GLYCOPYRROLATE 0.2 MG/1 ML VIAL ONE ×2 (10:02→15:17)
[2017-06-28] MEDS ORDERED: ROCURONIUM BROMIDE 50 MG/5 ML VIAL ONE ×2 (10:02→12:43)
[2017-06-28] MEDS ORDERED: fentaNYL CITRATE 250 MCG/5 ML VIAL ONE (10:02)
[2017-06-28] MEDS ORDERED: MIDAZOLAM HCL 2 MG/2 ML SINGLE DOSE VIAL ONE ×2 (10:02)
[2017-06-28] MEDS ORDERED: PROPOFOL 20 ML ONE ×2 (10:02→14:58)
[2017-06-28] MEDS ORDERED: SUCCINYLCHOLINE CHLORIDE 200 MG/10 ML VIAL ONE (10:02)
[2017-06-28] MEDS ORDERED: KETAMINE HCL 200 MG/20 ML VIAL ONE (10:02)
[2017-06-28] MEDS ORDERED: LIDOCAINE HCL/PF 2% SDV 5ML VIAL ONE (10:02)
[2017-06-28] MEDS ORDERED: ATROPINE SULFATE 1 MG/10 ML DISP.SYRIN ONE (10:02)
[2017-06-28] MEDS ORDERED: BACITRACIN 15 GM TUBE TOPICAL OINTMENT ONE (10:16)
--- NOTE | 2017-06-28 11:06 | PN ---
Physical Exam: SUBJECTIVE: Patient seen and examined No acute events overnight. Patient had minimal SOB this am, but patient denied SOB at the time she was examined. Vital signs were noted and unremarkable. OBJECTIVE: Vital Signs Period Temp Pulse Resp BP Sys/Guo Pulse Ox Last 24 Hr 97.7 F-99.1 F 47-69 16-20 88-122/52-62 95 GENERAL: The patient is awake, alert, and fully oriented, in no acute distress. HEAD: Normal with no signs of trauma. EYES: Extraocular movements intact, sclera anicteric, conjunctiva clear. No ptosis. ENT: Oropharynx clear without exudates, moist mucous membranes. NECK: Trachea midline, full range of motion, supple. LUNGS: Breath sounds equal--decreased at bases, clear to auscultation bilaterally, no wheezes, no crackles, no accessory muscle use. HEART: Regular rate and rhythm, S1, S2 without murmur, rub or gallop. ABDOMEN: Soft, nontender, nondistended, normoactive bowel sounds, no guarding, no rebound, no hepatosplenomegaly, no masses. EXTREMITIES: 2+ pulses, warm, well-perfused, no edema. PSYCH: Normal mood, normal affect. SKIN: Warm, dry, normal turgor, no rashes or lesions noted Laboratory Results - last 24 hr 06/28/17 06/28/17 06:20 10:20 Sodium 140 Potassium 4.5 D Chloride 108 H Carbon Dioxide 27 Anion Gap 5 L BUN 17 Creatinine 1.1 H Random Glucose 168 H D Calcium 7.4 L Crossmatch See Detail Active Medications Generic Name Dose Route Start Last Admin Trade Name Elise PRN Reason Stop Dose Admin Aspirin 81 mg 06/26/17 10:00 06/28/17 09:34 Ecotrin - PO Not Given DAILY KELLE Dexamethasone Sodium Phosphate 4 mg 06/28/17 10:00 06/28/17 09:33 Decadron Injection - IVPUSH 4 mg Q8H-IV KELLE Administration Levothyroxine Sodium 100 mcg/ 175 mcg 06/27/17 07:00 06/28/17 06:20 Levothyroxine Sodium 75 mcg PO Not Given DAILY@0700 KELLE Mesalamine 800 mg 06/25/17 14:00 06/28/17 07:57 Asacol Hd - PO Not Given TID KELLE Pantoprazole Sodium 40 mg 06/27/17 20:15 06/28/17 09:34 Protonix Iv IVPUSH 40 mg DAILY KELLE Administration ASSESSMENT/PLAN: 61 year old F with pmh of down syndrome, CHF, hypothyroidism presenting with progressive gait decline found to have craniocervical abnormalities on MRI admitted to surgery Neuro POD 0 s/p exploration of spinal fusion w/ C1-C6 laminectomies with occipital cervical fusion -Continue patient's decadron -Ancef 1gm q8h -Neurosurgery, Dr. Cruz Resp Monitor respiratory status Maintain O2 >90% Pulse ox checks FEN/GI -IVF @ 125 cc/hr -WNL -NPO, advance to clears and advance as tolerated PPx -heparin 5000 u sq tid for DVT ppx -IV protonix Dispo: continue to monitor in ICU Post-op Visit type - Emergency Visit Emergency Visit: Yes ED Registration Date: 06/25/17 Care time: The patient presented to the Emergency Department on the above date and was hospitalized for further evaluation of their emergent condition. - New Patient This patient is new to me today: Yes Date on this admission: 06/28/17 - Critical Care Critical Care patient: Yes Total Critical Care Time (in minutes): 35 Critical Care Statement: The care of this patient involved high complexity decision making to prevent further life threatening deterioration of the patient 's condition and/or to evaluate & treat vital organ system(s) failure or risk of failure.
--- NOTE | 2017-06-28 11:45 | PN ---
Teaching Attending Note Name of Resident: Heri Edwards ATTENDING PHYSICIAN STATEMENT I saw and evaluated the patient. I reviewed the resident's note and discussed the case with the resident. I agree with the resident's findings and plan as documented. SUBJECTIVE: Pt seen and examined in the ICU. Denies shortness of breath or chest pain. Some neck discomfort. OBJECTIVE: Last Vital Signs Temp Pulse Resp BP Pulse Ox 98 F 56 L 18 98/58 95 06/28/17 10:00 06/28/17 10:00 06/28/17 10:00 06/28/17 10:00 06/28/17 06:54 Intake & Output 06/25/17 06/26/17 06/27/17 06/28/17 23:59 23:59 23:59 23:59 Intake Total 200 480 320 250 Balance 200 480 320 250 Weight 147 lb 148 lb Gen: NAD at rest Heart: RRR Lung: decreased breath sounds at the bases Abd: soft, nontender Ext: no edema CBC, BMP 06/27/17 06:00 06/28/17 06:20 Active Medications Aspirin (Ecotrin -) 81 mg PO DAILY [facility] Last Admin: 06/28/17 09:34 Dose: Not Given Dexamethasone Sodium Phosphate (Decadron Injection -) 4 mg IVPUSH Q8H-IV [facility] Last Admin: 06/28/17 09:33 Dose: 4 mg Levothyroxine Sodium 100 mcg/ (Levothyroxine Sodium 75 mcg) 175 mcg PO DAILY@ 0700 [facility] Last Admin: 06/28/17 06:20 Dose: Not Given Mesalamine (Asacol Hd -) 800 mg PO TID [facility] Last Admin: 06/28/17 07:57 Dose: Not Given Pantoprazole Sodium (Protonix Iv) 40 mg IVPUSH DAILY [facility] Last Admin: 06/28/17 09:34 Dose: 40 mg ASSESSMENT AND PLAN: C3-C4 spinal stenosis with cord compression Down Syndrome CHF Hypothyroidism - continue decadron - IVF - O2 to keep SpO2 >90% - for OR today - ICU montoring post-op
[2017-06-28] MEDS ORDERED: ePHEDrine SULFATE 50 MG/1 ML AMPULE ONE (12:03)
[2017-06-28] MEDS ORDERED: ceFAZolin SODIUM 1 GM VIAL ONE (12:39)
[2017-06-28] MEDS ORDERED: ceFAZolin SODIUM 1 GM VIAL IVPB ONE (12:41)
[2017-06-28] MEDS ORDERED: VANCOMYCIN 1,000 MG VIAL (RESTRICTED TO ID ONLY) IVPB ONE (12:45)
[2017-06-28] MEDS ORDERED: LIDOCAINE 1%/EPI 1:100000 (20 ML MULTI DOSE VIAL) IJ ONE (12:46)
[2017-06-28] MEDS ORDERED: ESMOLOL HCL 100,000 MCG/10 ML VIAL ONE (12:54)
[2017-06-28] MEDS ORDERED: ONDANSETRON 4 MG/2 ML VIAL ONE (12:58)
[2017-06-28] MEDS ORDERED: SODIUM CHLORIDE 0.9% P/F 10 ML VIAL IJ ONE (12:58)
[2017-06-28] MEDS ORDERED: PHENYLEPHRINE HCL 10 MG/1 ML SINGLE DOSE VIAL ONE (12:59)
[2017-06-28] MEDS ORDERED: NEOSTIGMINE METHYLSULFATE 0.5 MG/ML - 10 ML MDV ONE (15:16)
[2017-06-28] MEDS ORDERED: BUPIVACAINE HCL/PF 0.5% (5MG/ML) 10 ML VIAL IJ ONE (15:20)
[2017-06-28] MEDS ORDERED: NALOXONE HCL 0.4 MG/ML VIAL ONE ×3 (16:24→16:25)
[2017-06-28] MEDS ORDERED: FLUMAZENIL 0.5 MG/5 ML VIAL ONE (16:50)
[2017-06-28] MEDS: SODIUM CHLORIDE 1,000 ML IV SCH (17:04)
[2017-06-28] MEDS: CEFAZOLIN 1 GM PUSH 1 GM/10 ML DISP.SYRIN IVPUSH SCH (17:09)
--- NOTE | 2017-06-28 17:45 | OP ---
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
--- NOTE | 2017-06-28 17:50 | SURG ---
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 For further detail, please refer to operative report. Visit type - Case Type Case Type: ED Admission - Emergency Emergency Visit: Yes ED Registration Date: 06/25/17 Care time: The patient presented to the Emergency Department on the above date and was hospitalized for further evaluation of their emergent condition. - New patient This patient is new to me today: Yes Date on this admission: 06/28/17
[2017-06-28] MEDS ORDERED: SODIUM CHLORIDE 500 ML IV STA (17:57)
--- NOTE | 2017-06-28 18:30 | PN ---
Progress Note (short form) - Note Progress Note: 59 y/o F with PMH Down's syndrome, hypothyroidism, recent hospitalization in [facility] for L ankle pressure ulcer-stage 3, who presented to ED s/p fall. As per pt' s family and nurse, pt has decreased ambulation over the last month and was found on the ground by family on AM of ED arrival. Pt injured R side of forehead and lacerated lip during fall. Denied LOC, syncope, palpitations before the event, and denied fever, chills, chest pain, or recent illnesses at time of admission. as per family walks at baseline, hx of ulcer, though balance has been more of an issue over 1-2 months; she has left sided weakness post fall. CT HD Impression: 1. No acute intracranial hemorrhage. 2. No compelling evidence of cerebral infarction at this time. Please note that subacute cerebral infarctions may be indistinct on CT due to "fogging effect" approximately 2-3 weeks following infarction, requiring clinical correlation. If warranted, MRI may be obtained for further evaluation. 3. 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) Cardio/Vascular: Yes: Aortic Insufficiency, Mitral Insufficiency Pulmonary: Yes: Other Gastrointestinal: Yes: Ulcerative Colitis Hepatobiliary: Yes: Hepatitis B Musculoskeletal: Yes: Other (c/s fusions) Endocrine: Yes: Hypothyroidism - Alcohol/Substance Use Hx Alcohol Use: No - Smoking History Smoking history: Never smoked Have you smoked in the past 12 months: No Home Medications - Allergies Allergies/Adverse Reactions: Allergies Allergy/AdvReac Type Severity Reaction Status Date / Time raspberry Allergy Severe Rash Verified 06/27/17 14:48 strawberry Allergy Severe Rash Verified 06/27/17 14:49 barley Allergy Intermediate Rash Verified 06/27/17 14:47 wheat Allergy Intermediate Rash Verified 06/25/17 08:59 egg AdvReac Severe Nausea Verified 06/25/17 08:59 egg yolk AdvReac Severe Nausea Verified 06/25/17 08:59 - Home Medications Home Medications: Ambulatory Orders Furosemide [Lasix -] 40 mg PO DAILY 04/20/15 Levothyroxine [Synthroid -] 150 mcg PO DAILY 03/26/17 Mesalamine [Asacol Hd -] 800 mg PO TID 03/26/17 Raloxifene HCl 60 mg PO DAILY 03/26/17 Family Disease History - Family Disease History Family Disease History: Heart Disease: Mother Physical Exam-Neuro Vital Signs: Vital Signs Temperature 94 F L 06/28/17 17:49 Pulse Rate 57 L 06/28/17 17:49 Respiratory Rate 13 06/28/17 17:49 Blood Pressure 85/55 06/28/17 17:49 O2 Sat by Pulse Oximetry (%) 99 06/28/17 17:49 Constitutional: Yes: Well Nourished Labs: CBC, BMP 06/27/17 06:00 06/27/17 06:00 INR, PTT INR 0.98 (0.82-1.09) 06/25/17 09:22 - Neuro Exam Level Of Consciousness: Yes: Alert (awake, pleasant, family bedside, EOMI, no facila, left arm weakness TR 4/5, hand grasp 4/5, BL leg weakness, (? tetraplegic -limited effort), distal movements r foot only, plantars up BL, left leg inc tone >right, unable to ambulate ) Problem List - Problems (1) CHF (congestive heart failure) Code(s): I50.9 - HEART FAILURE, UNSPECIFIED (2) Down syndrome Code(s): Q90.9 - DOWN SYNDROME, UNSPECIFIED (3) Weakness Code(s): R53.1 - WEAKNESS Assessment/Plan 59 y/o F with PMH Down's syndrome, hypothyroidism, recent hospitalization in [facility] for L ankle pressure ulcer-stage 3, who presented to ED s/p fall. As per pt' s family and nurse, pt has decreased ambulation over the last month and was found on the ground by family on AM of ED arrival. Pt injured R side of forehead and lacerated lip during fall. on exam appears to have new left side and BL LE weakness, long tract pattern-- concerning for upper spinal cord compression for high cervical decompression today Dr Alexis Problem List - Problems (1) CHF (congestive heart failure) Code(s): I50.9 - HEART FAILURE, UNSPECIFIED (2) Down syndrome Code(s): Q90.9 - DOWN SYNDROME, UNSPECIFIED (3) Weakness Code(s): R53.1 - WEAKNESS
[2017-06-28] MEDS ORDERED: PT OWN MED DRAWER 7, Y5N ONE (21:28)
[2017-06-28] MEDS: HEPARIN NA (PORCINE) 5,000 UNITS/ML 1ML VIAL SQ SCH (22:00)
[2017-06-28] MEDS: CHLORHEXIDINE GLUCONATE 4% CLEANSER FOR DECOLONIZATION TP SCH (22:00)
[2017-06-28] MEDS: MUPIROCIN 2% TOPICAL OINTMENT FOR DECOLONIZATION NS SCH (22:00)
[2017-06-28] MEDS: HYDROmorphone HCL CARPU-JECT 2 MG/1 ML DISP.SYRIN IVPB PRN (22:08)
[2017-06-29] MEDS: CEFAZOLIN 1 GM PUSH 1 GM/10 ML DISP.SYRIN IVPUSH SCH ×3 (02:38→17:19)
[2017-06-29] MEDS: DEXAMETHASONE SOD PHOSPHATE 4 MG/1 ML VIAL IVPUSH SCH ×3 (02:40→17:19)
[2017-06-29] MEDS ORDERED: LEVOTHYROXINE NA 100 MCG TABLET (FP) ONE (06:13)
[2017-06-29] MEDS ORDERED: PT OWN MED DRAWER 7, Y5N ONE ×2 (06:14→14:47)
[2017-06-29] MEDS ORDERED: LEVOTHYROXINE NA 75 MCG TABLET (FP) ONE (06:14)
[2017-06-29] MEDS: HEPARIN NA (PORCINE) 5,000 UNITS/ML 1ML VIAL SQ SCH ×3 (06:18→21:24)
[2017-06-29] MEDS: MESALAMINE 800 MG TABLET.DR PO SCH ×3 (06:18→21:25)
[2017-06-29] MEDS: LEVOTHYROXINE 100 MCG, LEVOTHYROXINE 75 MCG PO SCH (06:18)
[2017-06-29 06:25] LABS: HEMATOCRIT 33.3 % (32.4-45.2); HEMOGLOBIN 10.9 GM/dL (10.7-15.3); LYMPH % 3.2 % (8-40); MCH 32.3 pg (25.7-33.7); MCHC 32.6 g/dl (32.0-36.0); MEAN CELL VOLUME 99.4 fl (80-96); MEAN PLT VOLUME 10.1 fl (7.5-11.1); MONO % 6.3 % (3.8-10.2); NEUT % 90.5 % (42.8-82.8); PLATELET COUNT 183 K/MM3 (134-434); RBC 3.35 M/mm3 (3.60-5.2); WHITE BLOOD COUNT 16.5 K/mm3 (4.0-10.0)
[2017-06-29 06:42] LABS: ANION GAP 8 (8-16); BLOOD UREA NITROGEN 17 mg/dL (7-18); CALCIUM 7.2 mg/dL (8.5-10.1); CHLORIDE 112 mmol/L (98-107); CO2 24 mmol/L (21-32); CREATININE 0.9 mg/dL (0.55-1.02); GLUCOSE,RANDOM 128 mg/dL (74-106); POTASSIUM 4.4 mmol/L (3.5-5.1); SODIUM 144 mmol/L (136-145)
[2017-06-29] MEDS: MUPIROCIN 2% TOPICAL OINTMENT FOR DECOLONIZATION NS SCH ×2 (09:32→21:26)
[2017-06-29] MEDS: SODIUM CHLORIDE 1,000 ML IV SCH (09:39)
[2017-06-29] MEDS: PANTOPRAZOLE SODIUM 40 MG VIAL IVPUSH SCH (09:41)
--- NOTE | 2017-06-29 09:59 | PN ---
Progress Note (short form) - Note Progress Note: Patient sleeping in NAD. Left arm and bilateral leg weakness persists. Patient without complaints of pain. Nursing reported some drainage on dressing. Will coat wound with Dermabond and will follow with team. Patient will likely need to go to Rehab once medically stable and we are certain that the wound is healing. Case and surgery discussed with sister and mother in detail yesterday. All questions answered. I gave them contact information as well.
--- NOTE | 2017-06-29 10:03 | PN ---
Progress Note, Physician Chief Complaint: appers comfotable lt side exts slight movement to verbal commands low bp plan bolus 500cc slowly remember card stitus in downs compromoised [ain meds if needed cont steroids? f/u neurosx ? p/t today do not move out of icu yet cl levels high ? multifactoray h2o boluses may correct it f/ulabs in am - Current Medication List Current Medications: Active Medications Chlorhexidine Gluconate (Hibiclens For Decolonization -) 1 applic TP HS KELLE Last Admin: 06/28/17 22:00 Dose: 1 applic Dexamethasone Sodium Phosphate (Decadron Injection -) 4 mg IVPUSH Q8H-IV [facility] Last Admin: 06/29/17 09:40 Dose: 4 mg Heparin Sodium (Porcine) (Heparin -) 5,000 unit SQ TID [facility] Last Admin: 06/29/17 06:18 Dose: 5,000 unit Hydromorphone HCl (Dilaudid Injection -) 0.5 mg IVPB Q4H PRN PRN Reason: PAIN Last Admin: 06/28/17 22:08 Dose: 0.5 mg Cefazolin Sodium (Ancef -) 1 gm in 10 mls @ 100 mls/hr IVPUSH Q8H-IV [facility] Last Admin: 06/29/17 09:32 Dose: 100 mls/hr Sodium Chloride (Normal Saline -) 1,000 mls @ 125 mls/hr IV ASDIR KELLE Stop: 06/29/17 12:00 Last Admin: 06/29/17 09:39 Dose: 125 mls/hr Levothyroxine Sodium 100 mcg/ (Levothyroxine Sodium 75 mcg) 175 mcg PO DAILY@ 0700 [facility] Mesalamine (Asacol Hd -) 800 mg PO TID [facility] Mupirocin (Bactroban Ointment (For Decolonization) -) 1 applic NS BID KELLE Stop: 07/03/17 21:59 Last Admin: 06/29/17 09:32 Dose: 1 applic Pantoprazole Sodium (Protonix Iv) 40 mg IVPUSH DAILY [facility] Last Admin: 06/29/17 09:41 Dose: 40 mg - Objective Vital Signs: Vital Signs Temperature 98.5 F 06/29/17 08:00 Pulse Rate 61 06/29/17 08:00 Respiratory Rate 18 06/29/17 08:00 Blood Pressure 89/51 12/21/17 08:00 O2 Sat by Pulse Oximetry (%) 95 06/29/17 08:00 Labs: CBC, BMP 06/29/17 06:00 06/29/17 06:00 INR, PTT INR 0.98 (0.82-1.09) 06/25/17 09:22 Problem List - Problems (1) Down syndrome Code(s): Q90.9 - DOWN SYNDROME, UNSPECIFIED (2) Puncture wound of left foot excluding toes with infection Code(s): S91.332A - PUNCTURE WOUND WITHOUT FOREIGN BODY, LEFT FOOT, INIT ENCNTR ; L08.9 - LOCAL INFECTION OF THE SKIN AND SUBCUTANEOUS TISSUE, UNSP (3) CHF (congestive heart failure) Code(s): I50.9 - HEART FAILURE, UNSPECIFIED (4) Mitral and aortic insufficiency Code(s): I08.0 - RHEUMATIC DISORDERS OF BOTH MITRAL AND AORTIC VALVES
[2017-06-29] MEDS ORDERED: SODIUM CHLORIDE 500 ML IV STA ×2 (10:05→19:18)
--- NOTE | 2017-06-29 12:31 | PN ---
Physical Exam: SUBJECTIVE: Patient seen and examined Patient is POD#1 s/p cervical decompression, c1-c6 laminectomy, and repair of dural tear. Patient with pain overnight, but no complaints this am. OBJECTIVE: Vital Signs Period Temp Pulse Resp BP Sys/Guo Pulse Ox Last 24 Hr 94 F-100.2 F 57-77 13-20 80-117/50-64 94-99 GENERAL: The patient is awake, alert, and fully oriented, in no acute distress. HEAD: Normal with no signs of trauma. +right forehead abrasion. C-collar in place EYES: Extraocular movements intact, sclera anicteric, conjunctiva clear. No ptosis. ENT: Oropharynx clear without exudates, moist mucous membranes. NECK: Trachea midline, full range of motion, supple. LUNGS: Breath sounds equal--decreased at bases, clear to auscultation bilaterally, no wheezes, no crackles, no accessory muscle use. HEART: Regular rate and rhythm, S1, S2 without murmur, rub or gallop. ABDOMEN: Soft, nontender, nondistended, normoactive bowel sounds, no guarding, no rebound, no hepatosplenomegaly, no masses. EXTREMITIES: 2+ pulses, warm, well-perfused, no edema. PSYCH: Normal mood, normal affect. SKIN: Warm, dry, normal turgor, no rashes or lesions noted Neuro: B/l UE weakness (L>R), B/L LE weakness, moves toes and fingers. Unable to ambulate currently Laboratory Results - last 24 hr 06/29/17 06/29/17 06:00 06:00 WBC 16.5 H D RBC 3.35 L Hgb 10.9 Hct 33.3 MCV 99.4 H MCH 32.3 MCHC 32.6 RDW 16.0 H Plt Count 183 MPV 10.1 Neutrophils % 90.5 H D Lymphocytes % 3.2 L D Monocytes % 6.3 Eosinophils % 0.0 D Basophils % 0.0 Sodium 144 Potassium 4.4 Chloride 112 H Carbon Dioxide 24 Anion Gap 8 BUN 17 Creatinine 0.9 Random Glucose 128 H D Calcium 7.2 L Active Medications Generic Name Dose Route Start Last Admin Trade Name Freq PRN Reason Stop Dose Admin Chlorhexidine Gluconate 1 applic 06/28/17 22:00 06/28/17 22:00 Hibiclens For Decolonization - TP 1 applic HS KELLE Administration Dexamethasone Sodium Phosphate 4 mg 06/29/17 10:00 06/29/17 09:40 Decadron Injection - IVPUSH 4 mg Q8H-IV KELLE Administration Heparin Sodium (Porcine) 5,000 unit 06/28/17 22:00 06/29/17 06:18 Heparin - SQ 5,000 unit TID KELLE Administration Hydromorphone HCl 0.5 mg 06/28/17 16:29 06/28/17 22:08 Dilaudid Injection - IVPB 0.5 mg Q4H PRN Administration PAIN Cefazolin Sodium 1 gm in 10 mls @ 100 mls/hr 06/28/17 18:00 06/29/17 09:32 Ancef - IVPUSH 100 mls/hr Q8H-IV KELLE Administration Levothyroxine Sodium 100 mcg/ 175 mcg 06/30/17 07:00 Levothyroxine Sodium 75 mcg PO DAILY@0700 [facility] Mesalamine 800 mg 06/29/17 14:00 Asacol Hd - PO TID KELLE Mupirocin 1 applic 06/28/17 22:00 06/29/17 09:32 Bactroban Ointment (For Decolonization) - NS 07/03/17 21:59 1 applic BID KELLE Administration Pantoprazole Sodium 40 mg 06/29/17 10:00 06/29/17 09:41 Protonix Iv IVPUSH 40 mg DAILY [facility]LE Administration ASSESSMENT/PLAN: 61 year old F with pmh of down syndrome, CHF, hypothyroidism presenting with progressive gait decline found to have craniocervical abnormalities on MRI admitted to surgery Neuro POD 1 s/p exploration of spinal fusion w/ C1-C6 laminectomies with occipital cervical fusion -Continue decadron -Continue Ancef 1gm q8h -Continue pain control, IV dilaudid -Cervical collar in place -Neurosurgery, Dr. Cruz Resp Monitor respiratory status Maintain O2 >90% Pulse ox checks CV CHF Patient receiving IVF boluses for BP maintenance ENDO Hypothyroidism -Continue synthroid FEN/GI -IVF @ 125 cc/hr -WNL -NPO, advance to clears and advance as tolerated PPx -heparin 5000 u sq tid for DVT ppx -IV protonix 40 mg Dispo: continue to monitor in ICU Post-op Visit type - Emergency Visit Emergency Visit: Yes ED Registration Date: 06/25/17 Care time: The patient presented to the Emergency Department on the above date and was hospitalized for further evaluation of their emergent condition. - New Patient This patient is new to me today: Yes Date on this admission: 06/29/17 - Critical Care Critical Care patient: Yes Total Critical Care Time (in minutes): 35 Critical Care Statement: The care of this patient involved high complexity decision making to prevent further life threatening deterioration of the patient 's condition and/or to evaluate & treat vital organ system(s) failure or risk of failure.
--- NOTE | 2017-06-29 13:18 | PN ---
Teaching Attending Note Name of Resident: Heri Edwards ATTENDING PHYSICIAN STATEMENT I saw and evaluated the patient. I reviewed the resident's note and discussed the case with the resident. I agree with the resident's findings and plan as documented. SUBJECTIVE: Pt seen and examined in the ICU. s/p posterior laminectomy with fusion of C1-C6 , repair of dural tear. Currently denies pain. Weakness in all extremities but RUE still appears strongest. OBJECTIVE: Last Vital Signs Temp Pulse Resp BP Pulse Ox 98.6 F 60 18 104/56 96 06/29/17 12:00 06/29/17 12:47 06/29/17 12:47 06/29/17 12:47 06/29/17 10:37 Intake & Output 06/26/17 06/27/17 06/28/17 06/29/17 23:59 23:59 23:59 23:59 Intake Total 712 573 4237 700 Output Total 575 500 Balance 669 775 0258 200 Weight 67.132 kg 70.579 kg Gen: NAD in cervical collar Heart: RRR Lung: decreased breath sounds at the bases Abd: soft, nontender Ext: no edema CBC, BMP 06/29/17 06:00 06/29/17 06:00 Active Medications Chlorhexidine Gluconate (Hibiclens For Decolonization -) 1 applic TP HS [facility] Last Admin: 06/28/17 22:00 Dose: 1 applic Dexamethasone Sodium Phosphate (Decadron Injection -) 4 mg IVPUSH Q8H-IV [facility]EL[facility] Last Admin: 06/29/17 09:40 Dose: 4 mg Heparin Sodium (Porcine) (Heparin -) 5,000 unit SQ TID [facility] Last Admin: 06/29/17 06:18 Dose: 5,000 unit Hydromorphone HCl (Dilaudid Injection -) 0.5 mg IVPB Q4H PRN PRN Reason: PAIN Last Admin: 06/28/17 22:08 Dose: 0.5 mg Cefazolin Sodium (Ancef -) 1 gm in 10 mls @ 100 mls/hr IVPUSH Q8H-IV [facility] Last Admin: 06/29/17 09:32 Dose: 100 mls/hr Levothyroxine Sodium 100 mcg/ (Levothyroxine Sodium 75 mcg) 175 mcg PO DAILY@ 0700 [facility] Mesalamine (Asacol Hd -) 800 mg PO TID [facility] Mupirocin (Bactroban Ointment (For Decolonization) -) 1 applic NS BID [facility] Stop: 07/03/17 21:59 Last Admin: 06/29/17 09:32 Dose: 1 applic Pantoprazole Sodium (Protonix Iv) 40 mg IVPUSH DAILY [facility] Last Admin: 06/29/17 09:41 Dose: 40 mg ASSESSMENT AND PLAN: C3-C4 spinal stenosis with cord compression s/p posterior laminectomy with fusion of C1-C6, repair of dural tear Down Syndrome CHF Hypothyroidism - pain control - continue decadron - O2 to keep SpO2 >90% - PO as tolerated - continue ICU monitoring post-op
--- NOTE | 2017-06-29 13:26 | PN ---
Progress Note (short form) - Note Progress Note: Anesthesia post op note 61 y/o F s/p GA for cervical fusion POD#1, vss, alert and awake, in icu, no complaints. No anesthesia complications.
[2017-06-29] MEDS: HYDROmorphone HCL CARPU-JECT 2 MG/1 ML DISP.SYRIN IVPB PRN ×2 (14:39→21:49)
--- NOTE | 2017-06-29 15:32 | PN ---
Progress Note (short form) - Note Progress Note: 59 y/o F with PMH Down's syndrome, hypothyroidism, recent hospitalization in [facility] for L ankle pressure ulcer-stage 3, who presented to ED s/p fall. As per pt' s family and nurse, pt has decreased ambulation over the last month and was found on the ground by family on AM of ED arrival. Pt injured R side of forehead and lacerated lip during fall. Denied LOC, syncope, palpitations before the event, and denied fever, chills, chest pain, or recent illnesses at time of admission. as per family walks at baseline, hx of ulcer, though balance has been more of an issue over 1-2 months; she has left sided weakness post fall. CT HD Impression: 1. No acute intracranial hemorrhage. 2. No compelling evidence of cerebral infarction at this time. Please note that subacute cerebral infarctions may be indistinct on CT due to "fogging effect" approximately 2-3 weeks following infarction, requiring clinical correlation. If warranted, MRI may be obtained for further evaluati 3. 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 FU : s/p cervical spine surgery/fusion pt awake -- + weakness in Bl UE and LE wearing C collar - Past Medical History [employer]: Yes: Other (miid cognition impaired downs syn) Cardio/Vascular: Yes: Aortic Insufficiency, Mitral Insufficiency Pulmonary: Yes: Other Gastrointestinal: Yes: Ulcerative Colitis Hepatobiliary: Yes: Hepatitis B Musculoskeletal: Yes: Other (c/s fusions) Endocrine: Yes: Hypothyroidism - Alcohol/Substance Use Hx Alcohol Use: No - Smoking History Smoking history: Never smoked Have you smoked in the past 12 months: No Home Medications - Allergies Allergies/Adverse Reactions: Allergies Allergy/AdvReac Type Severity Reaction Status Date / Time raspberry Allergy Severe Rash Verified 06/27/17 14:48 strawberry Allergy Severe Rash Verified 06/27/17 14:49 barley Allergy Intermediate Rash Verified 06/27/17 14:47 wheat Allergy Intermediate Rash Verified 06/25/17 08:59 egg AdvReac Severe Nausea Verified 06/25/17 08:59 egg yolk AdvReac Severe Nausea Verified 06/25/17 08:59 - Home Medications Home Medications: Ambulatory Orders Furosemide [Lasix -] 40 mg PO DAILY 04/20/15 Levothyroxine [Synthroid -] 150 mcg PO DAILY 03/26/17 Mesalamine [Asacol Hd -] 800 mg PO TID 03/26/17 Raloxifene HCl 60 mg PO DAILY 03/26/17 Family Disease History - Family Disease History Family Disease History: Heart Disease: Mother Physical Exam-Neuro Vital Signs: Vital Signs Temperature 98.2 F 06/29/17 14:00 Pulse Rate 70 06/29/17 14:00 Respiratory Rate 18 06/29/17 14:00 Blood Pressure 91/50 06/29/17 14:00 O2 Sat by Pulse Oximetry (%) 96 06/29/17 10:37 Constitutional: Yes: Well Nourished Labs: CBCD WBC 16.5 K/mm3 (4.0-10.0) H D 06/29/17 06:00 RBC 3.35 M/mm3 (3.60-5.2) L 06/29/17 06:00 Hgb 10.9 GM/dL (10.7-15.3) 06/29/17 06:00 Hct 33.3 % (32.4-45.2) 06/29/17 06:00 MCV 99.4 fl (80-96) H 06/29/17 06:00 MCHC 32.6 g/dl (32.0-36.0) 06/29/17 06:00 RDW 16.0 % (11.6-15.6) H 06/29/17 06:00 Plt Count 183 K/MM3 (134-434) 06/29/17 06:00 MPV 10.1 fl (7.5-11.1) 06/29/17 06:00 CMP Sodium 144 mmol/L (136-145) 06/29/17 06:00 Potassium 4.4 mmol/L (3.5-5.1) 06/29/17 06:00 Chloride 112 mmol/L (98-107) H 06/29/17 06:00 Carbon Dioxide 24 mmol/L (21-32) 06/29/17 06:00 Anion Gap 8 (8-16) 06/29/17 06:00 BUN 17 mg/dL (7-18) 06/29/17 06:00 Creatinine 0.9 mg/dL (0.55-1.02) 06/29/17 06:00 Creat Clearance w eGFR 56.75 (>60) 06/25/17 09:22 Calcium 7.2 mg/dL (8.5-10.1) L 06/29/17 06:00 Total Bilirubin 0.4 mg/dL (0.2-1.0) D 06/25/17 09:22 AST 25 U/L (15-37) D 06/25/17 09:22 ALT 25 U/L (12-78) 06/25/17 09:22 Alkaline Phosphatase 105 U/L (45-117) D 06/25/17 09:22 Total Protein 7.3 g/dl (6.4-8.2) 06/25/17 09:22 Albumin 3.0 g/dl (3.4-5.0) L 06/25/17 09:22 - Neuro Exam Level Of Consciousness: Yes: Alert (awake, pleasant, family bedside, EOMI, no facila, left arm weakness TR 4/5, hand grasp 4/5, BL leg weakness, (? tetraplegic -limited effort), distal movements r foot only, plantars up BL, left leg inc tone >right, unable to ambulate ) Problem List - Problems (1) CHF (congestive heart failure) Code(s): I50.9 - HEART FAILURE, UNSPECIFIED (2) Down syndrome Code(s): Q90.9 - DOWN SYNDROME, UNSPECIFIED (3) Weakness Code(s): R53.1 - WEAKNESS Assessment/Plan 59 y/o F with PMH Down's syndrome, hypothyroidism, recent hospitalization in [facility] for L ankle pressure ulcer-stage 3, who presented to ED s/p fall. As per pt' s family and nurse, pt has decreased ambulation over the last month and was found on the ground by family on AM of ED arrival. found to have base of skull and high cervical spine deformity-- odontoid/dens instability s/p surgery Day 1 -- slight inc weakness of 4 limbs -- ? post surgical swelling NTD re screw placement adjancent to vert- no isgns of stroke etc --NS aware cont steroids x 24 hours then Dc by AM Rehab Dr Alexis Problem List - Problems (1) CHF (congestive heart failure) Code(s): I50.9 - HEART FAILURE, UNSPECIFIED (2) Down syndrome Code(s): Q90.9 - DOWN SYNDROME, UNSPECIFIED (3) Weakness Code(s): R53.1 - WEAKNESS
--- NOTE | 2017-06-29 16:10 | PN ---
Progress Note (short form) - Note Progress Note: Surgery POD #1 s/p posterior laminectomy with fusion of C1-C6, repair of dural tear, Patient seen and examined at bedside with nurse. Patient resting comfortably and responsive. Patient denies any headache, radicular pain, or paresthesias in upper and lower extremities. Nursing reports notable drainage on dressing overnight but not other concerns. Vital Signs Temp 98.2 F 06/29/17 14:00 Pulse 70 06/29/17 14:00 Resp 18 06/29/17 14:00 BP 91/50 06/29/17 14:00 Pulse Ox 96 06/29/17 10:37 Intake & Output 06/28/17 06/29/17 06/29/17 23:59 11:59 23:59 Intake Total 1050 700 620 Output Total 575 500 350 Balance 475 200 270 Weight 155 lb 9.6 oz Intake: IV 1050 700 500 18 L Hand 06/28 1000 700 Normal Saline - 1,000 ml 50 @ 125 mls/hr IV ASDIR KELLE Rx#:[id number] Normal Saline - 500 ml @ 500 500 mls/hr IV ASDIR STA Rx#:[id number] Oral 120 Output: Urine 375 500 350 Hill 500 350 Void 50 Estimated Blood Loss 200 Other: Voiding Method Indwelling Catheter Indwelling Catheter Bowel Movement No Weight Measurement Method Built in Bedscale CBC, BMP 06/29/17 06:00 06/29/17 06:00 PE: Patient is alert and responsive but unable to fully cooperate with exam, specifically motor/ strength testing but patient did demonstrate firm gripping with b/l upper extremities when turning on side. Unlabored resp on 2L NC Dressing completely saturated with olivia, dark blood most prominent at distal site. Incision with Serosanginous d/c oozing-light in color at distal incision, although when pressure applied to margins throughout, no evidence of fluctuance , or collection or active d/c. Surrounding tissue in tact with mild edema and no tracking erythema. Ava insitu. Redressed with dermabond and aquacel Patient moving all limbs without restriction or limitation b/l LE compartments soft, supple and non-tender with scds in place. Pediatric Karnes c-collar re-applied Assessment and Plan: POD #1 multilevel cerivcal fusion and repair or dural tear with immediate post op drainage, now appears to be slowing to a stop with mild oozing. 1) Continue Karnes collar at all times-removing only to shower 2) NO pillow behind head 3) Keep dressing clean and dry with daily changes -evaluate wound drainage 4) OOB to chair for meals and ambulate as tolerated with PT 5) Continue DVT prophylaxis with b/l tesd, scds and sq heparin. Evaluation and plan discussed with Dr Cruz
[2017-06-29] MEDS: CHLORHEXIDINE GLUCONATE 4% CLEANSER FOR DECOLONIZATION TP SCH (21:25)
[2017-06-30] MEDS: CEFAZOLIN 1 GM PUSH 1 GM/10 ML DISP.SYRIN IVPUSH SCH ×3 (01:02→17:14)
[2017-06-30] MEDS: DEXAMETHASONE SOD PHOSPHATE 4 MG/1 ML VIAL IVPUSH SCH ×2 (01:03→09:40)
[2017-06-30] MEDS: MESALAMINE 800 MG TABLET.DR PO SCH ×3 (05:13→21:33)
[2017-06-30] MEDS: HEPARIN NA (PORCINE) 5,000 UNITS/ML 1ML VIAL SQ SCH ×3 (05:13→21:33)
[2017-06-30] MEDS ORDERED: LEVOTHYROXINE NA 75 MCG TABLET (FP) ONE (06:13)
[2017-06-30] MEDS ORDERED: LEVOTHYROXINE NA 100 MCG TABLET (FP) ONE (06:13)
[2017-06-30 06:39] LABS: BASO % 0.1 % (0-2.0); HEMATOCRIT 29.9 % (32.4-45.2); HEMOGLOBIN 9.8 GM/dL (10.7-15.3); LYMPH % 2.7 % (8-40); MCH 32.7 pg (25.7-33.7); MCHC 32.8 g/dl (32.0-36.0); MEAN CELL VOLUME 99.5 fl (80-96); MEAN PLT VOLUME 10.2 fl (7.5-11.1); MONO % 3.7 % (3.8-10.2); NEUT % 93.5 % (42.8-82.8); PLATELET COUNT 149 K/MM3 (134-434); RDW 16.1 % (11.6-15.6); WHITE BLOOD COUNT 15.1 K/mm3 (4.0-10.0)
[2017-06-30] MEDS ORDERED: LEVOTHYROXINE 100 MCG, LEVOTHYROXINE 75 MCG PO SCH (07:00)
[2017-06-30 07:04] LABS: ANION GAP 7 (8-16); BLOOD UREA NITROGEN 16 mg/dL (7-18); CHLORIDE 114 mmol/L (98-107); CO2 23 mmol/L (21-32); CREATININE 0.9 mg/dL (0.55-1.02); GLUCOSE,RANDOM 128 mg/dL (74-106); POTASSIUM 4.3 mmol/L (3.5-5.1); SODIUM 144 mmol/L (136-145)
[2017-06-30] MEDS ORDERED: PT OWN MED DRAWER 7, Y5N ONE (09:38)
[2017-06-30] MEDS: PANTOPRAZOLE SODIUM 40 MG VIAL IVPUSH SCH (09:41)
[2017-06-30] MEDS: MUPIROCIN 2% TOPICAL OINTMENT FOR DECOLONIZATION NS SCH (09:41)
--- NOTE | 2017-06-30 12:54 | PN ---
Teaching Attending Note Name of Resident: Heri Edwards ATTENDING PHYSICIAN STATEMENT I saw and evaluated the patient. I reviewed the resident's note and discussed the case with the resident. I agree with the resident's findings and plan as documented. SUBJECTIVE: Patient seen and examined in the ICU. Awake and alert. Moving both LE (Left > Right) and right upper extremity. Not able to move LUE. Denies CP or SOB. Intake & Output 06/27/17 06/28/17 06/29/17 06/30/17 23:59 23:59 23:59 23:59 Intake Total 320 2700 2545 600 Output Total 575 1100 300 Balance 320 2125 1445 300 Weight 148 lb 155 lb 9.6 oz 160 lb 1 oz Last Vital Signs Temp Pulse Resp BP Pulse Ox 99.6 F 63 14 100/49 99 06/30/17 10:00 06/30/17 10:00 06/30/17 10:00 06/30/17 10:00 06/30/17 09:00 Active Medications Chlorhexidine Gluconate (Hibiclens For Decolonization -) 1 applic TP HS [facility] Last Admin: 06/29/17 21:25 Dose: 1 applic Dexamethasone Sodium Phosphate (Decadron Injection -) 4 mg IVPUSH Q8H-IV [facility] Last Admin: 06/30/17 09:40 Dose: 4 mg Heparin Sodium (Porcine) (Heparin -) 5,000 unit SQ TID [facility] Last Admin: 06/30/17 05:13 Dose: 5,000 unit Hydromorphone HCl (Dilaudid Injection -) 0.5 mg IVPB Q4H PRN PRN Reason: PAIN Last Admin: 06/29/17 21:49 Dose: 0.5 mg Cefazolin Sodium (Ancef -) 1 gm in 10 mls @ 100 mls/hr IVPUSH Q8H-IV [facility] Last Admin: 06/30/17 09:40 Dose: 100 mls/hr Levothyroxine Sodium 100 mcg/ (Levothyroxine Sodium 75 mcg) 175 mcg PO DAILY@ 0700 [facility] Last Admin: 06/30/17 06:14 Dose: 175 mcg Mesalamine (Asacol Hd -) 800 mg PO TID [facility] Last Admin: 06/30/17 05:13 Dose: 800 mg Mupirocin (Bactroban Ointment (For Decolonization) -) 1 applic NS BID [facility] Stop: 07/03/17 21:59 Last Admin: 06/30/17 09:41 Dose: 1 applic Pantoprazole Sodium (Protonix Iv) 40 mg IVPUSH DAILY [facility] Last Admin: 06/30/17 09:41 Dose: 40 mg Gen: NAD in cervical collar Heart: RRR Lung: decreased breath sounds at the bases Abd: soft, nontender Ext: no edema Laboratory Results - last 24 hr 06/30/17 06/30/17 06:20 06:20 WBC 15.1 H RBC 3.00 L Hgb 9.8 L D Hct 29.9 L MCV 99.5 H MCH 32.7 MCHC 32.8 RDW 16.1 H Plt Count 149 MPV 10.2 Absolute Neuts (auto) 14.1 L Absolute Lymphs (auto) 0.4 L Absolute Monos (auto) 0.6 L Absolute Eos (auto) 0.0 Absolute Basos (auto) 0.0 L Neutrophils % 93.5 H Lymphocytes % 2.7 L Monocytes % 3.7 L Eosinophils % 0.0 Basophils % 0.1 D Sodium 144 Potassium 4.3 Chloride 114 H Carbon Dioxide 23 Anion Gap 7 L BUN 16 Creatinine 0.9 Random Glucose 128 H Calcium 7.0 L ASSESSMENT AND PLAN: C3-C4 spinal stenosis with cord compression s/p posterior laminectomy with fusion of C1-C6, repair of dural tear Down Syndrome CHF Hypothyroidism - pain control - Decadron - O2 to keep SpO2 >90% - PO as tolerated - Floor if OK with Neurosurgery - VTE prophylaxis Dr Restrepo Critical care time spent in reviewing chart, evaluating patient and formulating plan - 36 minutes.
--- NOTE | 2017-06-30 13:26 | PN ---
Progress Note, Physician Chief Complaint: resting comfotably no upperexts bluishness no cold ness felt or noted - Current Medication List Current Medications: Active Medications Chlorhexidine Gluconate (Hibiclens For Decolonization -) 1 applic TP HS [facility] Last Admin: 06/29/17 21:25 Dose: 1 applic Dexamethasone Sodium Phosphate (Decadron Injection -) 4 mg IVPUSH Q8H-IV [facility] Last Admin: 06/30/17 09:40 Dose: 4 mg Heparin Sodium (Porcine) (Heparin -) 5,000 unit SQ TID [facility] Last Admin: 06/30/17 05:13 Dose: 5,000 unit Hydromorphone HCl (Dilaudid Injection -) 0.5 mg IVPB Q4H PRN PRN Reason: PAIN Last Admin: 06/29/17 21:49 Dose: 0.5 mg Cefazolin Sodium (Ancef -) 1 gm in 10 mls @ 100 mls/hr IVPUSH Q8H-IV [facility] Last Admin: 06/30/17 09:40 Dose: 100 mls/hr Levothyroxine Sodium 100 mcg/ (Levothyroxine Sodium 75 mcg) 175 mcg PO DAILY@ 0700 [facility] Last Admin: 06/30/17 06:14 Dose: 175 mcg Mesalamine (Asacol Hd -) 800 mg PO TID [facility] Last Admin: 06/30/17 05:13 Dose: 800 mg Mupirocin (Bactroban Ointment (For Decolonization) -) 1 applic NS BID [facility] Stop: 07/03/17 21:59 Last Admin: 06/30/17 09:41 Dose: 1 applic Pantoprazole Sodium (Protonix Iv) 40 mg IVPUSH DAILY [facility] Last Admin: 06/30/17 09:41 Dose: 40 mg - Objective Vital Signs: Vital Signs Temperature 99.6 F 06/30/17 10:00 Pulse Rate 63 06/30/17 10:00 Respiratory Rate 14 06/30/17 10:00 Blood Pressure 100/49 06/30/17 10:00 O2 Sat by Pulse Oximetry (%) 99 06/30/17 09:00 Constitutional: Yes: No Distress, Calm Eyes: Yes: WNL HENT: Yes: Other (neck brace) Cardiovascular: Yes: Regular Rate and Rhythm Respiratory: Yes: WNL Gastrointestinal: Yes: WNL ...Rectal Exam: Yes: Deferred Genitourinary: Yes: WNL Breast(s): Yes: WNL Musculoskeletal: Yes: Joint Stiffness Extremities: Yes: WNL Edema: No Peripheral Pulses WNL: Yes Integumentary: Yes: WNL Neurological: Yes: Other (downs snydrome related mild retardation) ...Motor Strength: WNL Psychiatric: Yes: WNL Labs: CBC, BMP 06/30/17 06:20 06/30/17 06:20 INR, PTT INR 0.98 (0.82-1.09) 06/25/17 09:22 Problem List - Problems (1) Down syndrome Code(s): Q90.9 - DOWN SYNDROME, UNSPECIFIED (2) Puncture wound of left foot excluding toes with infection Code(s): S91.332A - PUNCTURE WOUND WITHOUT FOREIGN BODY, LEFT FOOT, INIT ENCNTR ; L08.9 - LOCAL INFECTION OF THE SKIN AND SUBCUTANEOUS TISSUE, UNSP (3) CHF (congestive heart failure) Code(s): I50.9 - HEART FAILURE, UNSPECIFIED (4) Mitral and aortic insufficiency Code(s): I08.0 - RHEUMATIC DISORDERS OF BOTH MITRAL AND AORTIC VALVES Assessment/Plan vasc ? may not bbe needed p/t tx as per neurosx cont tx as is
--- NOTE | 2017-06-30 14:04 | PN ---
Physical Exam: SUBJECTIVE: Patient seen and examined No acute events overnight. Patient states pain is well controlled. Patient denies fever, chills, chest pain, shortness of breath OBJECTIVE: Vital Signs Period Temp Pulse Resp BP Sys/Guo Pulse Ox Last 24 Hr 98 F-99.6 F 63-77 12-27 89-104/43-64 96-99 GENERAL: The patient is awake, alert, and fully oriented, in no acute distress. HEAD: Normal with no signs of trauma. +right forehead abrasion. C-collar in place EYES: Extraocular movements intact, sclera anicteric, conjunctiva clear. No ptosis. ENT: Oropharynx clear without exudates, moist mucous membranes. NECK: Trachea midline, full range of motion, supple. LUNGS: Breath sounds equal--decreased at bases, clear to auscultation bilaterally, no wheezes, no crackles, no accessory muscle use. HEART: Regular rate and rhythm, S1, S2 without murmur, rub or gallop. ABDOMEN: Soft, nontender, nondistended, normoactive bowel sounds, no guarding, no rebound, no hepatosplenomegaly, no masses. EXTREMITIES: 2+ pulses, warm, well-perfused, no edema. PSYCH: Normal mood, normal affect. SKIN: Warm, dry, normal turgor, no rashes or lesions noted Neuro: B/l UE weakness (L>R), B/L LE weakness, moves toes and fingers. Unable to ambulate currently Laboratory Results - last 24 hr 06/30/17 06/30/17 06:20 06:20 WBC 15.1 H RBC 3.00 L Hgb 9.8 L D Hct 29.9 L MCV 99.5 H MCH 32.7 MCHC 32.8 RDW 16.1 H Plt Count 149 MPV 10.2 Absolute Neuts (auto) 14.1 L Absolute Lymphs (auto) 0.4 L Absolute Monos (auto) 0.6 L Absolute Eos (auto) 0.0 Absolute Basos (auto) 0.0 L Neutrophils % 93.5 H Lymphocytes % 2.7 L Monocytes % 3.7 L Eosinophils % 0.0 Basophils % 0.1 D Sodium 144 Potassium 4.3 Chloride 114 H Carbon Dioxide 23 Anion Gap 7 L BUN 16 Creatinine 0.9 Random Glucose 128 H Calcium 7.0 L Active Medications Generic Name Dose Route Start Last Admin Trade Name Freq PRN Reason Stop Dose Admin Chlorhexidine Gluconate 1 applic 06/28/17 22:00 06/29/17 21:25 Hibiclens For Decolonization - TP 1 applic HS KELLE Administration Dexamethasone Sodium Phosphate 4 mg 06/29/17 10:00 06/30/17 09:40 Decadron Injection - IVPUSH 4 mg Q8H-IV KELLE Administration Heparin Sodium (Porcine) 5,000 unit 06/28/17 22:00 06/30/17 05:13 Heparin - SQ 5,000 unit TID KELLE Administration Hydromorphone HCl 0.5 mg 06/28/17 16:29 06/29/17 21:49 Dilaudid Injection - IVPB 0.5 mg Q4H PRN Administration PAIN Cefazolin Sodium 1 gm in 10 mls @ 100 mls/hr 06/28/17 18:00 06/30/17 09:40 Ancef - IVPUSH 100 mls/hr Q8H-IV KELLE Administration Levothyroxine Sodium 100 mcg/ 175 mcg 06/30/17 07:00 06/30/17 06:14 Levothyroxine Sodium 75 mcg PO 175 mcg DAILY@0700 KELLE Administration Mesalamine 800 mg 06/29/17 14:00 06/30/17 05:13 Asacol Hd - PO 800 mg TID KELLE Administration Mupirocin 1 applic 06/28/17 22:00 06/30/17 09:41 Bactroban Ointment (For Decolonization) - NS 07/03/17 21:59 1 applic BID KELLE Administration Pantoprazole Sodium 40 mg 06/29/17 10:00 06/30/17 09:41 Protonix Iv IVPUSH 40 mg DAILY KELLE Administration ASSESSMENT/PLAN: 61 year old F with pmh of down syndrome, CHF, hypothyroidism presenting with progressive gait decline found to have craniocervical abnormalities on MRI admitted to surgery Neuro POD 1 s/p exploration of spinal fusion w/ C1-C6 laminectomies with occipital cervical fusion -Continue decadron -Continue Ancef 1gm q8h -Continue pain control, IV dilaudid -Cervical collar in place -Neurosurgery, Dr. Cruz Resp Monitor respiratory status Maintain O2 >90% Pulse ox checks CV CHF -Patient receiving IVF boluses for BP maintenance ENDO Hypothyroidism -Continue synthroid FEN/GI -No fluids -WNL -Puree diet PPx -heparin 5000 u sq tid for DVT ppx -IV protonix 40 mg Dispo: Transfer to med-surg Visit type - Emergency Visit Emergency Visit: Yes ED Registration Date: 06/25/17 Care time: The patient presented to the Emergency Department on the above date and was hospitalized for further evaluation of their emergent condition. - New Patient This patient is new to me today: Yes Date on this admission: 06/30/17 - Critical Care Critical Care patient: Yes Total Critical Care Time (in minutes): 35 Critical Care Statement: The care of this patient involved high complexity decision making to prevent further life threatening deterioration of the patient 's condition and/or to evaluate & treat vital organ system(s) failure or risk of failure.
--- NOTE | 2017-06-30 15:06 | PN ---
Progress Note (short form) - Note Progress Note: 59 y/o F with PMH Down's syndrome, hypothyroidism, recent hospitalization in [facility] for L ankle pressure ulcer-stage 3, who presented to ED s/p fall. As per pt' s family and nurse, pt has decreased ambulation over the last month and was found on the ground by family on AM of ED arrival. Pt injured R side of forehead and lacerated lip during fall. Denied LOC, syncope, palpitations before the event, and denied fever, chills, chest pain, or recent illnesses at time of admission. as per family walks at baseline, hx of ulcer, though balance has been more of an issue over 1-2 months; she has left sided weakness post fall. CT HD Impression: 1. No acute intracranial hemorrhage. 2. No compelling evidence of cerebral infarction at this time. Please note that subacute cerebral infarctions may be indistinct on CT due to "fogging effect" approximately 2-3 weeks following infarction, requiring clinical correlation. If warranted, MRI may be obtained for further evaluati 3. 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) Cardio/Vascular: Yes: Aortic Insufficiency, Mitral Insufficiency Pulmonary: Yes: Other Gastrointestinal: Yes: Ulcerative Colitis Hepatobiliary: Yes: Hepatitis B Musculoskeletal: Yes: Other (c/s fusions) Endocrine: Yes: Hypothyroidism - Alcohol/Substance Use Hx Alcohol Use: No - Smoking History Smoking history: Never smoked Have you smoked in the past 12 months: No Home Medications - Allergies Allergies/Adverse Reactions: Allergies Allergy/AdvReac Type Severity Reaction Status Date / Time raspberry Allergy Severe Rash Verified 06/27/17 14:48 strawberry Allergy Severe Rash Verified 06/27/17 14:49 barley Allergy Intermediate Rash Verified 06/27/17 14:47 wheat Allergy Intermediate Rash Verified 06/25/17 08:59 egg AdvReac Severe Nausea Verified 06/25/17 08:59 egg yolk AdvReac Severe Nausea Verified 06/25/17 08:59 - Home Medications Home Medications: Ambulatory Orders Furosemide [Lasix -] 40 mg PO DAILY 04/20/15 Levothyroxine [Synthroid -] 150 mcg PO DAILY 03/26/17 Mesalamine [Asacol Hd -] 800 mg PO TID 03/26/17 Raloxifene HCl 60 mg PO DAILY 03/26/17 Family Disease History - Family Disease History Family Disease History: Heart Disease: Mother Physical Exam-Neuro Vital Signs: Vital Signs Temperature 98.1 F 06/30/17 15:03 Pulse Rate 81 06/30/17 15:03 Respiratory Rate 18 06/30/17 15:03 Blood Pressure 109/50 06/30/17 15:03 O2 Sat by Pulse Oximetry (%) 99 06/30/17 09:00 Constitutional: Yes: Well Nourished Labs: CBCD WBC 16.5 K/mm3 (4.0-10.0) H D 06/29/17 06:00 RBC 3.35 M/mm3 (3.60-5.2) L 06/29/17 06:00 Hgb 10.9 GM/dL (10.7-15.3) 06/29/17 06:00 Hct 33.3 % (32.4-45.2) 06/29/17 06:00 MCV 99.4 fl (80-96) H 06/29/17 06:00 MCHC 32.6 g/dl (32.0-36.0) 06/29/17 06:00 RDW 16.0 % (11.6-15.6) H 06/29/17 06:00 Plt Count 183 K/MM3 (134-434) 06/29/17 06:00 MPV 10.1 fl (7.5-11.1) 06/29/17 06:00 CMP Sodium 144 mmol/L (136-145) 06/29/17 06:00 Potassium 4.4 mmol/L (3.5-5.1) 06/29/17 06:00 Chloride 112 mmol/L (98-107) H 06/29/17 06:00 Carbon Dioxide 24 mmol/L (21-32) 06/29/17 06:00 Anion Gap 8 (8-16) 06/29/17 06:00 BUN 17 mg/dL (7-18) 06/29/17 06:00 Creatinine 0.9 mg/dL (0.55-1.02) 06/29/17 06:00 Creat Clearance w eGFR 56.75 (>60) 06/25/17 09:22 Calcium 7.2 mg/dL (8.5-10.1) L 06/29/17 06:00 Total Bilirubin 0.4 mg/dL (0.2-1.0) D 06/25/17 09:22 AST 25 U/L (15-37) D 06/25/17 09:22 ALT 25 U/L (12-78) 06/25/17 09:22 Alkaline Phosphatase 105 U/L (45-117) D 06/25/17 09:22 Total Protein 7.3 g/dl (6.4-8.2) 06/25/17 09:22 Albumin 3.0 g/dl (3.4-5.0) L 06/25/17 09:22 - Neuro Exam Level Of Consciousness: Yes: Alert (awake, pleasant, family bedside, EOMI, no facila, left arm weakness TR 4/5, hand grasp 4/5, BL leg weakness, (? tetraplegic -limited effort), RUE 3-4/5 , distal movements feet BL , plantars up BL, left leg inc tone >right, unable to ambulate ) Problem List - Problems (1) CHF (congestive heart failure) Code(s): I50.9 - HEART FAILURE, UNSPECIFIED (2) Down syndrome Code(s): Q90.9 - DOWN SYNDROME, UNSPECIFIED (3) Weakness Code(s): R53.1 - WEAKNESS Assessment/Plan 59 y/o F with PMH Down's syndrome, hypothyroidism, recent hospitalization in [facility] for L ankle pressure ulcer-stage 3, who presented to ED s/p fall. As per pt' s family and nurse, pt has decreased ambulation over the last month and was found on the ground by family on AM of ED arrival. s/p posterior laminectomy with fusion of C1-C6, repair of dural tear neuro status stable, warm exe, RUe strength improving , BL leg weakness Dc decadron, to enhance healing recovery rehab when able Dr Alexis Problem List - Problems (1) CHF (congestive heart failure) Code(s): I50.9 - HEART FAILURE, UNSPECIFIED (2) Down syndrome Code(s): Q90.9 - DOWN SYNDROME, UNSPECIFIED (3) Weakness Code(s): R53.1 - WEAKNESS
[2017-06-30] MEDS ORDERED: DEXAMETHASONE SOD PHOSPHATE 4 MG/1 ML VIAL IVPUSH SCH (18:00)
--- NOTE | 2017-06-30 18:13 | PN ---
Progress Note (short form) - Note Progress Note: Vascular Surgery Pt seen and examined at bedside with family. Bilateral finger tips are pink and warm. Good cap refill. Pt has good radial and ulnar pulse. Cont present care. Jim Abdul DO
[2017-07-01] MEDS: CEFAZOLIN 1 GM PUSH 1 GM/10 ML DISP.SYRIN IVPUSH SCH ×3 (02:10→17:13)
[2017-07-01] MEDS: oxyCODONE HCL 5 MG TABLET PO PRN ×2 (02:20→07:58)
[2017-07-01] MEDS ORDERED: LEVOTHYROXINE NA 75 MCG TABLET (FP) ONE (06:10)
[2017-07-01] MEDS ORDERED: LEVOTHYROXINE NA 100 MCG TABLET (FP) ONE (06:11)
[2017-07-01] MEDS: LEVOTHYROXINE 100 MCG, LEVOTHYROXINE 75 MCG PO SCH (06:11)
[2017-07-01] MEDS: HEPARIN NA (PORCINE) 5,000 UNITS/ML 1ML VIAL SQ SCH ×3 (06:12→21:10)
[2017-07-01] MEDS: MESALAMINE 800 MG TABLET.DR PO SCH ×3 (06:12→21:10)
[2017-07-01] MEDS: PANTOPRAZOLE SODIUM 40 MG VIAL IVPUSH SCH (10:01)
[2017-07-01] MEDS: ACETAMINOPHEN 325 MG TABLET (FP) PO PRN ×2 (13:10→21:11)
--- NOTE | 2017-07-01 13:18 | PN ---
Progress Note (short form) - Note Progress Note: Pt. seen & examined last night on behalf of Dr. Cruz last night 06/30/2017. 61F s/p posterior decompression, C1-C6 posterior instrumented spinal fusion, & repair of dural tear POD #2. Pain well controlled. Pt. denies headache/chest pain/shortness of breath/nausea/vomiting/chills/ sweats. (+) Post-op wound drainage. No other acute post-op events. All labs and vitals reviewed. No pyrexia. PE: Alert & oriented, NAD. C-Spine: (+) Sero-sanguinous drainage on pillow. (+) Upper [place]-J collar intact & in place, w/sero-sanguinous fluid saturation. Dressing saturated with (+) sero- sanguinous drainage. No chanda-incisional erythema or inflammation. (+) Trickle of pink sero-sanguinous drainage from distal wound apex. Compressive gauze & combine dressing applied to incision. Unable to accurately assess UE & LE NV status d/t patient refusal to participate in exam. A/P: 61F p/w wound drainage s/p posterior decompression, C1-C6 posterior instrumented spinal fusion, & repair of dural tear POD #2. -Pain control. -Dry, compressive dressing changes as needed. -Head of bed elevated to 45-60 degrees at all times. -Incentive spirometry/aggressive pulmonary toilet. -PT/OT/Rehab, OOB. -WBAT B/L UE & LE. -f/u labs & vitals. -f/u medicine hospitalist team rec's. -Hill catheter care; remove Hill when patient is ambulating. -Will follow.
--- NOTE | 2017-07-01 14:48 | PN ---
Progress Note, Physician Chief Complaint: comfotable vss temp 100.3 this am lt side weakness n/c oob rehab p/t narinder ? nh for shor term rehab w/u temp insentive spiratomy cxr - Current Medication List Current Medications: Active Medications Acetaminophen (Tylenol -) 650 mg PO Q4H PRN PRN Reason: FEVER OR PAIN Last Admin: 07/01/17 13:10 Dose: 650 mg Heparin Sodium (Porcine) (Heparin -) 5,000 unit SQ TID [facility] Last Admin: 07/01/17 13:10 Dose: 5,000 unit Cefazolin Sodium (Ancef -) 1 gm in 10 mls @ 100 mls/hr IVPUSH Q8H-IV [facility] Last Admin: 07/01/17 10:02 Dose: 100 mls/hr Levothyroxine Sodium 100 mcg/ (Levothyroxine Sodium 75 mcg) 175 mcg PO DAILY@ 0700 [facility] Last Admin: 07/01/17 06:11 Dose: 175 mcg Mesalamine (Asacol Hd -) 800 mg PO TID [facility] Last Admin: 07/01/17 13:10 Dose: 800 mg Oxycodone HCl (Roxicodone -) 5 mg PO Q4H PRN PRN Reason: PAIN Last Admin: 07/01/17 07:58 Dose: 5 mg Pantoprazole Sodium (Protonix Iv) 40 mg IVPUSH DAILY [facility] Last Admin: 07/01/17 10:01 Dose: 40 mg - Objective Vital Signs: Vital Signs Temperature 98 F 07/01/17 08:36 Pulse Rate 64 07/01/17 08:36 Respiratory Rate 20 07/01/17 08:45 Blood Pressure 111/50 07/01/17 08:36 O2 Sat by Pulse Oximetry (%) 98 07/01/17 08:45 Labs: CBC, BMP 06/30/17 06:20 06/30/17 06:20 INR, PTT INR 0.98 (0.82-1.09) 06/25/17 09:22 Problem List - Problems (1) Down syndrome Code(s): Q90.9 - DOWN SYNDROME, UNSPECIFIED (2) Puncture wound of left foot excluding toes with infection Code(s): S91.332A - PUNCTURE WOUND WITHOUT FOREIGN BODY, LEFT FOOT, INIT ENCNTR ; L08.9 - LOCAL INFECTION OF THE SKIN AND SUBCUTANEOUS TISSUE, UNSP (3) CHF (congestive heart failure) Code(s): I50.9 - HEART FAILURE, UNSPECIFIED (4) Mitral and aortic insufficiency Code(s): I08.0 - RHEUMATIC DISORDERS OF BOTH MITRAL AND AORTIC VALVES
--- NOTE | 2017-07-01 16:04 | PN ---
Progress Note (short form) - Note Progress Note: 59 y/o F with PMH Down's syndrome, hypothyroidism, recent hospitalization in [facility] for L ankle pressure ulcer-stage 3, who presented to ED s/p fall. As per pt' s family and nurse, pt has decreased ambulation over the last month and was found on the ground by family on AM of ED arrival. Pt injured R side of forehead and lacerated lip during fall. Denied LOC, syncope, palpitations before the event, and denied fever, chills, chest pain, or recent illnesses at time of admission. as per family walks at baseline, hx of ulcer, though balance has been more of an issue over 1-2 months; she has left sided weakness post fall. CT HD Impression: 1. No acute intracranial hemorrhage. 2. No compelling evidence of cerebral infarction at this time. Please note that subacute cerebral infarctions may be indistinct on CT due to "fogging effect" approximately 2-3 weeks following infarction, requiring clinical correlation. If warranted, MRI may be obtained for further evaluati 3. 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 FU : s/p cervical spine surgery/fusion pt very sleepy now -- limited movements in exe mild fever-- chxry P, started on ancef, - Past Medical History [employer]: Yes: Other (miid cognition impaired downs syn) Cardio/Vascular: Yes: Aortic Insufficiency, Mitral Insufficiency Pulmonary: Yes: Other Gastrointestinal: Yes: Ulcerative Colitis Hepatobiliary: Yes: Hepatitis B Musculoskeletal: Yes: Other (c/s fusions) Endocrine: Yes: Hypothyroidism - Alcohol/Substance Use Hx Alcohol Use: No - Smoking History Smoking history: Never smoked Have you smoked in the past 12 months: No Home Medications - Allergies Allergies/Adverse Reactions: Allergies Allergy/AdvReac Type Severity Reaction Status Date / Time raspberry Allergy Severe Rash Verified 06/27/17 14:48 strawberry Allergy Severe Rash Verified 06/27/17 14:49 barley Allergy Intermediate Rash Verified 06/27/17 14:47 wheat Allergy Intermediate Rash Verified 06/25/17 08:59 egg AdvReac Severe Nausea Verified 06/25/17 08:59 egg yolk AdvReac Severe Nausea Verified 06/25/17 08:59 - Home Medications Home Medications: Ambulatory Orders Furosemide [Lasix -] 40 mg PO DAILY 04/20/15 Levothyroxine [Synthroid -] 150 mcg PO DAILY 03/26/17 Mesalamine [Asacol Hd -] 800 mg PO TID 03/26/17 Raloxifene HCl 60 mg PO DAILY 03/26/17 Family Disease History - Family Disease History Family Disease History: Heart Disease: Mother Physical Exam-Neuro Vital Signs: CBCD WBC 15.1 K/mm3 (4.0-10.0) H 06/30/17 06:20 RBC 3.00 M/mm3 (3.60-5.2) L 06/30/17 06:20 Hgb 9.8 GM/dL (10.7-15.3) L D 06/30/17 06:20 Hct 29.9 % (32.4-45.2) L 06/30/17 06:20 MCV 99.5 fl (80-96) H 06/30/17 06:20 MCHC 32.8 g/dl (32.0-36.0) 06/30/17 06:20 RDW 16.1 % (11.6-15.6) H 06/30/17 06:20 Plt Count 149 K/MM3 (134-434) 06/30/17 06:20 MPV 10.2 fl (7.5-11.1) 06/30/17 06:20 CMP Sodium 144 mmol/L (136-145) 06/30/17 06:20 Potassium 4.3 mmol/L (3.5-5.1) 06/30/17 06:20 Chloride 114 mmol/L (98-107) H 06/30/17 06:20 Carbon Dioxide 23 mmol/L (21-32) 06/30/17 06:20 Anion Gap 7 (8-16) L 06/30/17 06:20 BUN 16 mg/dL (7-18) 06/30/17 06:20 Creatinine 0.9 mg/dL (0.55-1.02) 06/30/17 06:20 Creat Clearance w eGFR 56.75 (>60) 06/25/17 09:22 Calcium 7.0 mg/dL (8.5-10.1) L 06/30/17 06:20 Total Bilirubin 0.4 mg/dL (0.2-1.0) D 06/25/17 09:22 AST 25 U/L (15-37) D 06/25/17 09:22 ALT 25 U/L (12-78) 06/25/17 09:22 Alkaline Phosphatase 105 U/L (45-117) D 06/25/17 09:22 Total Protein 7.3 g/dl (6.4-8.2) 06/25/17 09:22 Albumin 3.0 g/dl (3.4-5.0) L 06/25/17 09:22 Constitutional: Yes: Well Nourished Labs: CBCD WBC 16.5 K/mm3 (4.0-10.0) H D 06/29/17 06:00 RBC 3.35 M/mm3 (3.60-5.2) L 06/29/17 06:00 Hgb 10.9 GM/dL (10.7-15.3) 06/29/17 06:00 Hct 33.3 % (32.4-45.2) 06/29/17 06:00 MCV 99.4 fl (80-96) H 06/29/17 06:00 MCHC 32.6 g/dl (32.0-36.0) 06/29/17 06:00 RDW 16.0 % (11.6-15.6) H 06/29/17 06:00 Plt Count 183 K/MM3 (134-434) 06/29/17 06:00 MPV 10.1 fl (7.5-11.1) 06/29/17 06:00 CMP Sodium 144 mmol/L (136-145) 06/29/17 06:00 Potassium 4.4 mmol/L (3.5-5.1) 06/29/17 06:00 Chloride 112 mmol/L (98-107) H 06/29/17 06:00 Carbon Dioxide 24 mmol/L (21-32) 06/29/17 06:00 Anion Gap 8 (8-16) 06/29/17 06:00 BUN 17 mg/dL (7-18) 06/29/17 06:00 Creatinine 0.9 mg/dL (0.55-1.02) 06/29/17 06:00 Creat Clearance w eGFR 56.75 (>60) 06/25/17 09:22 Calcium 7.2 mg/dL (8.5-10.1) L 06/29/17 06:00 Total Bilirubin 0.4 mg/dL (0.2-1.0) D 06/25/17 09:22 AST 25 U/L (15-37) D 06/25/17 09:22 ALT 25 U/L (12-78) 06/25/17 09:22 Alkaline Phosphatase 105 U/L (45-117) D 06/25/17 09:22 Total Protein 7.3 g/dl (6.4-8.2) 06/25/17 09:22 Albumin 3.0 g/dl (3.4-5.0) L 06/25/17 09:22 - Neuro Exam Level Of Consciousness: Yes: Alert (awake, pleasant, family bedside, EOMI, no facila, left arm weakness TR 4/5, hand grasp 4/5, BL leg weakness, (? tetraplegic -limited effort), RUE 3-4/5 , distal movements feet BL , plantars up BL, left leg inc tone >right, unable to ambulate ) Problem List - Problems (1) CHF (congestive heart failure) Code(s): I50.9 - HEART FAILURE, UNSPECIFIED (2) Down syndrome Code(s): Q90.9 - DOWN SYNDROME, UNSPECIFIED (3) Weakness Code(s): R53.1 - WEAKNESS Assessment/Plan 59 y/o F with PMH Down's syndrome, hypothyroidism, recent hospitalization in [facility] for L ankle pressure ulcer-stage 3, who presented to ED s/p fall. As per pt' s family and nurse, pt has decreased ambulation over the last month and was found on the ground by family on AM of ED arrival. s/p posterior laminectomy with fusion of C1-C6, repair of dural tear neuro status stable, warm exe, RUe strength improving , BL leg weakness fever monitor and [place], will cltx if fever returns rehab when able Dr Alexis Problem List - Problems (1) CHF (congestive heart failure) Code(s): I50.9 - HEART FAILURE, UNSPECIFIED (2) Down syndrome Code(s): Q90.9 - DOWN SYNDROME, UNSPECIFIED (3) Weakness Code(s): R53.1 - WEAKNESS
[2017-07-01] MEDS ORDERED: PT OWN MED DRAWER 7, Y5N ONE (17:09)
--- NOTE | 2017-07-01 21:29 | PN ---
Progress Note (short form) - Note Progress Note: 61F s/p posterior decompression, C1-C6 posterior instrumented spinal fusion, & repair of dural tear POD #3. Pain well controlled. No acute events overnight. Pt. denies headache/chest pain/shortness of breath/nausea/vomiting/chills/sweats All labs and vitals reviewed. No concerning pyrexia. PE: Alert & oriented, NAD. C-Spine: Dressing C/D/I. Global L-side hemiparesis c/w reported post-traumatic NV status. A/P: 61F p/w wound drainage s/p posterior decompression, C1-C6 posterior instrumented spinal fusion, & repair of dural tear POD #3. -Pain control. -Dry, compressive dressing changes as needed. -Head of bed elevated to 45-60 degrees at all times. -Please emphasize incentive spirometry/aggressive pulmonary toilet d/t concern for pulmonary congestion. -PT/OT/Rehab, OOB. -WBAT B/L UE & LE. -f/u labs & vitals. -f/u medicine hospitalist team rec's. -Hill catheter care; remove Hill when patient is ambulating. -Will follow.
[2017-07-02] MEDS: oxyCODONE HCL 5 MG TABLET PO PRN (00:24)
[2017-07-02] MEDS: CEFAZOLIN 1 GM PUSH 1 GM/10 ML DISP.SYRIN IVPUSH SCH ×3 (02:35→17:26)
[2017-07-02] MEDS: MESALAMINE 800 MG TABLET.DR PO SCH ×3 (05:48→22:03)
[2017-07-02] MEDS: HEPARIN NA (PORCINE) 5,000 UNITS/ML 1ML VIAL SQ SCH ×3 (05:48→22:03)
[2017-07-02] MEDS ORDERED: LEVOTHYROXINE NA 100 MCG TABLET (FP) ONE (05:49)
[2017-07-02] MEDS ORDERED: LEVOTHYROXINE NA 75 MCG TABLET (FP) ONE (05:49)
[2017-07-02] MEDS: LEVOTHYROXINE 100 MCG, LEVOTHYROXINE 75 MCG PO SCH (05:59)
[2017-07-02 08:25] LABS: BASO % 0.1 % (0-2.0); EOS % 1.4 % (0-4.5); HEMATOCRIT 30.9 % (32.4-45.2); LYMPH % 13.7 % (8-40); MCH 32.1 pg (25.7-33.7); MCHC 32.2 g/dl (32.0-36.0); MEAN CELL VOLUME 99.6 fl (80-96); MEAN PLT VOLUME 10.1 fl (7.5-11.1); MONO % 9.4 % (3.8-10.2); NEUT % 75.4 % (42.8-82.8); PLATELET COUNT 129 K/MM3 (134-434); RBC 3.11 M/mm3 (3.60-5.2); RDW 15.3 % (11.6-15.6); WHITE BLOOD COUNT 8.5 K/mm3 (4.0-10.0)
[2017-07-02 08:56] LABS: ANION GAP 5 (8-16); BLOOD UREA NITROGEN 18 mg/dL (7-18); CALCIUM 7.2 mg/dL (8.5-10.1); CHLORIDE 111 mmol/L (98-107); CO2 26 mmol/L (21-32); CREATININE 0.9 mg/dL (0.55-1.02); GLUCOSE,RANDOM 97 mg/dL (74-106); POTASSIUM 3.8 mmol/L (3.5-5.1); SODIUM 142 mmol/L (136-145)
[2017-07-02] MEDS: PANTOPRAZOLE SODIUM 40 MG VIAL IVPUSH SCH (10:58)
--- NOTE | 2017-07-02 12:21 | PN ---
Progress Note (short form) - Note Progress Note: 61F s/p posterior decompression, C1-C6 posterior instrumented spinal fusion, & repair of dural tear POD #4. Pain well controlled. No acute events overnight. Pt. denies headache/chest pain/shortness of breath/nausea/vomiting/chills/sweats All labs and vitals reviewed. No pyrexia. No leukocytosis. PE: Alert & oriented, NAD. C-Spine: Dressing C/D/I. Incision/wound is dry. No changes. LUE & LLE Motor: Unchanged global left-sided hemiparesis; All muscles supplying left shoulder, elbow, wrist, hand, hip, knee, ankle, hind-foot, mid- foot, & fore-foot 1/5. RUE & RLE Motor: All muscles supplying right shoulder, elbow, wrist, hand, hip, knee, ankle, hind-foot, mid-foot, & fore-foot 3/5. Unable to assess sensation secondary to communication difficulties with patient. A/P: 61F p/w wound drainage s/p posterior decompression, C1-C6 posterior instrumented spinal fusion, & repair of dural tear POD #4. -Pain control. -Dry, compressive dressing changes as needed. -Head of bed elevated to 45-60 degrees at all times. -Please emphasize incentive spirometry/aggressive pulmonary toilet q1h. -PT/OT/Rehab, OOB: Long conversation held with patient and PT team to put all UE & LE joints through passive range of motion throughout the day. -WBAT B/L UE & LE. -Log roll q1-2h for position changes to minimize risk for decubitus ulcer formation; recommend air mattress. -f/u labs & vitals. -f/u medicine hospitalist team rec's. -Hill catheter care; remove Hill when patient is ambulating. -Will follow.
[2017-07-02] MEDS ORDERED: FUROSEMIDE 40 MG TABLET (FP) PO ONE (13:00)
[2017-07-02] MEDS ORDERED: PT OWN MED DRAWER 7, Y5N ONE (22:00)
[2017-07-03] MEDS: CEFAZOLIN 1 GM PUSH 1 GM/10 ML DISP.SYRIN IVPUSH SCH ×3 (02:02→18:19)
[2017-07-03] MEDS: oxyCODONE HCL 5 MG TABLET PO PRN ×2 (02:06→21:34)
[2017-07-03] MEDS ORDERED: LEVOTHYROXINE NA 75 MCG TABLET (FP) ONE (06:13)
[2017-07-03] MEDS ORDERED: LEVOTHYROXINE NA 100 MCG TABLET (FP) ONE (06:13)
[2017-07-03] MEDS: MESALAMINE 800 MG TABLET.DR PO SCH ×3 (06:19→21:34)
[2017-07-03] MEDS: HEPARIN NA (PORCINE) 5,000 UNITS/ML 1ML VIAL SQ SCH ×3 (06:19→21:34)
[2017-07-03] MEDS: LEVOTHYROXINE 100 MCG, LEVOTHYROXINE 75 MCG PO SCH (06:19)
[2017-07-03 08:13] LABS: HEMATOCRIT 30.8 % (32.4-45.2); MCH 31.7 pg (25.7-33.7); MCHC 32.4 g/dl (32.0-36.0); MEAN CELL VOLUME 97.9 fl (80-96); MEAN PLT VOLUME 10.4 fl (7.5-11.1); PLATELET COUNT 137 K/MM3 (134-434); RBC 3.15 M/mm3 (3.60-5.2); RDW 15.3 % (11.6-15.6); WHITE BLOOD COUNT 10.7 K/mm3 (4.0-10.0)
[2017-07-03 08:24] LABS: CHLORIDE 106 mmol/L (98-107); POTASSIUM 3.5 mmol/L (3.5-5.1); SODIUM 140 mmol/L (136-145)
[2017-07-03 08:28] LABS: ANION GAP 9 (8-16); BLOOD UREA NITROGEN 16 mg/dL (7-18); CALCIUM 7.2 mg/dL (8.5-10.1); CO2 25 mmol/L (21-32); CREATININE 0.9 mg/dL (0.55-1.02); GLUCOSE,RANDOM 103 mg/dL (74-106)
[2017-07-03] MEDS ORDERED: PT OWN MED DRAWER 7, Y5N ONE ×2 (09:51→18:07)
[2017-07-03] MEDS: PANTOPRAZOLE SODIUM 40 MG VIAL IVPUSH SCH (09:57)
--- NOTE | 2017-07-03 11:41 | PN ---
Progress Note, Physician Chief Complaint: resting po good bm nl History of Present Illness: pt doing rom exercizing only states pain when moving exts - Current Medication List Current Medications: Active Medications Acetaminophen (Tylenol -) 650 mg PO Q4H PRN PRN Reason: FEVER OR PAIN Last Admin: 07/01/17 21:11 Dose: 650 mg Furosemide (Lasix -) 20 mg PO DAILY [facility] Heparin Sodium (Porcine) (Heparin -) 5,000 unit SQ TID [facility] Last Admin: 07/03/17 06:19 Dose: 5,000 unit Cefazolin Sodium (Ancef -) 1 gm in 10 mls @ 100 mls/hr IVPUSH Q8H-IV [facility] Last Admin: 07/03/17 09:57 Dose: 100 mls/hr Levothyroxine Sodium 100 mcg/ (Levothyroxine Sodium 75 mcg) 175 mcg PO DAILY@ 0700 [facility] Last Admin: 07/03/17 06:19 Dose: 175 mcg Mesalamine (Asacol Hd -) 800 mg PO TID [facility] Last Admin: 07/03/17 06:19 Dose: 800 mg Oxycodone HCl (Roxicodone -) 5 mg PO Q4H PRN PRN Reason: PAIN Last Admin: 07/03/17 02:06 Dose: 5 mg Pantoprazole Sodium (Protonix Iv) 40 mg IVPUSH DAILY [facility] Last Admin: 07/03/17 09:57 Dose: 40 mg - Objective Vital Signs: Vital Signs Temperature 98.6 F 07/03/17 10:00 Pulse Rate 70 07/03/17 10:00 Respiratory Rate 20 07/03/17 10:00 Blood Pressure 112/62 07/03/17 10:00 O2 Sat by Pulse Oximetry (%) 95 07/03/17 09:00 Constitutional: Yes: Well Nourished Eyes: Yes: WNL HENT: Yes: Other (less pain in brace) Cardiovascular: Yes: Murmur Respiratory: Yes: WNL Gastrointestinal: Yes: WNL ...Rectal Exam: Yes: Deferred Genitourinary: Yes: WNL Breast(s): Yes: WNL Musculoskeletal: Yes: Joint Stiffness Extremities: Yes: WNL Edema: No Peripheral Pulses WNL: Yes Integumentary: Yes: Other (lt foot ulcer n/c) Wound/Incision: Yes: Clean/Dry Neurological: Yes: Unsteady Gait, Weakness Psychiatric: Yes: Other (mild retardation) Labs: CBC, BMP 07/03/17 06:30 07/03/17 06:30 INR, PTT INR 0.98 (0.82-1.09) 06/25/17 09:22 Problem List - Problems (1) Down syndrome Code(s): Q90.9 - DOWN SYNDROME, UNSPECIFIED (2) Puncture wound of left foot excluding toes with infection Code(s): S91.332A - PUNCTURE WOUND WITHOUT FOREIGN BODY, LEFT FOOT, INIT ENCNTR ; L08.9 - LOCAL INFECTION OF THE SKIN AND SUBCUTANEOUS TISSUE, UNSP (3) CHF (congestive heart failure) Code(s): I50.9 - HEART FAILURE, UNSPECIFIED (4) Mitral and aortic insufficiency Code(s): I08.0 - RHEUMATIC DISORDERS OF BOTH MITRAL AND AORTIC VALVES Assessment/Plan cont p/t nh adir short term f/u temps and wbc pton lasix 20 [place] now
--- NOTE | 2017-07-03 12:02 | PN ---
Progress Note (short form) - Note Progress Note: 59 y/o F with PMH Down's syndrome, hypothyroidism, recent hospitalization in [facility] for L ankle pressure ulcer-stage 3, who presented to ED s/p fall. As per pt' s family and nurse, pt has decreased ambulation over the last month and was found on the ground by family on AM of ED arrival. Pt injured R side of forehead and lacerated lip during fall. Denied LOC, syncope, palpitations before the event, and denied fever, chills, chest pain, or recent illnesses at time of admission. as per family walks at baseline, hx of ulcer, though balance has been more of an issue over 1-2 months; she has left sided weakness post fall. CT HD Impression: 1. No acute intracranial hemorrhage. 2. No compelling evidence of cerebral infarction at this time. Please note that subacute cerebral infarctions may be indistinct on CT due to "fogging effect" approximately 2-3 weeks following infarction, requiring clinical correlation. If warranted, MRI may be obtained for further evaluati 3. 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 FU : s/p cervical spine surgery/fusion Left arm plegic , right arm inconsistent effort R TR and hand grasp 3-4 /5 , LE moves toes distally, plantars up denies WARD, neck pain, SOB stage 2 sacral decub - Past Medical History [employer]: Yes: Other (miid cognition impaired downs syn) Cardio/Vascular: Yes: Aortic Insufficiency, Mitral Insufficiency Pulmonary: Yes: Other Gastrointestinal: Yes: Ulcerative Colitis Hepatobiliary: Yes: Hepatitis B Musculoskeletal: Yes: Other (c/s fusions) Endocrine: Yes: Hypothyroidism - Alcohol/Substance Use Hx Alcohol Use: No - Smoking History Smoking history: Never smoked Have you smoked in the past 12 months: No Home Medications - Allergies Allergies/Adverse Reactions: Allergies Allergy/AdvReac Type Severity Reaction Status Date / Time raspberry Allergy Severe Rash Verified 06/27/17 14:48 strawberry Allergy Severe Rash Verified 06/27/17 14:49 barley Allergy Intermediate Rash Verified 06/27/17 14:47 wheat Allergy Intermediate Rash Verified 06/25/17 08:59 egg AdvReac Severe Nausea Verified 06/25/17 08:59 egg yolk AdvReac Severe Nausea Verified 06/25/17 08:59 - Home Medications Home Medications: Ambulatory Orders Furosemide [Lasix -] 40 mg PO DAILY 04/20/15 Levothyroxine [Synthroid -] 150 mcg PO DAILY 03/26/17 Mesalamine [Asacol Hd -] 800 mg PO TID 03/26/17 Raloxifene HCl 60 mg PO DAILY 03/26/17 Family Disease History - Family Disease History Family Disease History: Heart Disease: Mother Physical Exam-Neuro Vital Signs: Vital Signs Temp 98.6 F 07/03/17 10:00 Pulse 70 07/03/17 10:00 Resp 20 07/03/17 10:00 BP 112/62 07/03/17 10:00 Pulse Ox 95 07/03/17 09:00 Intake & Output 07/02/17 07/03/17 07/03/17 23:59 11:59 23:59 Intake Total 600 Output Total 1650 225 Balance -1050 -225 Weight 158 lb Intake: Oral 600 Output: Urine 1650 225 O[place]nell 1650 225 Other: Voiding Method Indwelling Catheter Indwelling Catheter Bowel Movement No No Weight Measurement Method Built in [facility] Constitutional: Yes: Well Nourished Labs: 07/03/17 06:30 07/03/17 06:30 - Neuro Exam Level Of Consciousness: Yes: Alert (awake, pleasant, family bedside, EOMI, no facila, left arm weakness TR 4/5, hand grasp 4/5, BL leg weakness, (? tetraplegic -limited effort), RUE 3-4/5 , distal movements feet BL , plantars up BL, left leg inc tone >right, unable to ambulate ) Problem List - Problems (1) CHF (congestive heart failure) Code(s): I50.9 - HEART FAILURE, UNSPECIFIED (2) Down syndrome Code(s): Q90.9 - DOWN SYNDROME, UNSPECIFIED (3) Weakness Code(s): R53.1 - WEAKNESS Assessment/Plan 59 y/o F with PMH Down's syndrome, hypothyroidism, recent hospitalization in [facility] for L ankle pressure ulcer-stage 3, who presented to ED s/p fall. As per pt' s family and nurse, pt has decreased ambulation over the last month and was found on the ground by family on AM of ED arrival. s/p posterior laminectomy with fusion of C1-C6, afebrile, no neck pain needs continuous wound care was unable to sit /ambulate-- will need to DC odonnell wound care of incision and sacral decub stage 2 as per nurse rehab when able Dr Alexis Problem List - Problems (1) CHF (congestive heart failure) Code(s): I50.9 - HEART FAILURE, UNSPECIFIED (2) Down syndrome Code(s): Q90.9 - DOWN SYNDROME, UNSPECIFIED (3) Weakness Code(s): R53.1 - WEAKNESS
[2017-07-04] MEDS: CEFAZOLIN 1 GM PUSH 1 GM/10 ML DISP.SYRIN IVPUSH SCH ×3 (01:41→18:03)
[2017-07-04] MEDS ORDERED: LEVOTHYROXINE NA 75 MCG TABLET (FP) ONE (05:51)
[2017-07-04] MEDS ORDERED: LEVOTHYROXINE NA 100 MCG TABLET (FP) ONE (05:52)
[2017-07-04] MEDS: LEVOTHYROXINE 100 MCG, LEVOTHYROXINE 75 MCG PO SCH (05:59)
[2017-07-04] MEDS: MESALAMINE 800 MG TABLET.DR PO SCH ×3 (06:00→21:59)
[2017-07-04] MEDS: HEPARIN NA (PORCINE) 5,000 UNITS/ML 1ML VIAL SQ SCH ×3 (06:00→21:59)
[2017-07-04 08:29] LABS: HEMATOCRIT 30.1 % (32.4-45.2); HEMOGLOBIN 9.9 GM/dL (10.7-15.3); MCH 32.3 pg (25.7-33.7); MEAN CELL VOLUME 97.9 fl (80-96); MEAN PLT VOLUME 10.6 fl (7.5-11.1); PLATELET COUNT 146 K/MM3 (134-434); RBC 3.07 M/mm3 (3.60-5.2); RDW 15.4 % (11.6-15.6); WHITE BLOOD COUNT 8.9 K/mm3 (4.0-10.0)
[2017-07-04 08:55] LABS: ANION GAP 7 (8-16); BLOOD UREA NITROGEN 16 mg/dL (7-18); CALCIUM 7.2 mg/dL (8.5-10.1); CHLORIDE 105 mmol/L (98-107); CO2 27 mmol/L (21-32); CREATININE 0.8 mg/dL (0.55-1.02); GLUCOSE,RANDOM 109 mg/dL (74-106); POTASSIUM 3.7 mmol/L (3.5-5.1); SODIUM 139 mmol/L (136-145)
[2017-07-04] MEDS ORDERED: PT OWN MED DRAWER 7, Y5N ONE ×2 (09:17→16:42)
[2017-07-04] MEDS: PANTOPRAZOLE SODIUM 40 MG VIAL IVPUSH SCH (09:18)
[2017-07-04] MEDS: FUROSEMIDE 20 MG TABLET (FP) PO SCH (09:18)
--- NOTE | 2017-07-04 10:19 | PN ---
Progress Note, Physician Chief Complaint: no complaints nl bm good apetite History of Present Illness: sacral ulcer n/c lt foot n/c neck oozing slightly ser[place]anganouis fl legs less edemaeouis - Current Medication List Current Medications: Active Medications Acetaminophen (Tylenol -) 650 mg PO Q4H PRN PRN Reason: FEVER OR PAIN Last Admin: 07/01/17 21:11 Dose: 650 mg Furosemide (Lasix -) 20 mg PO DAILY [facility] Last Admin: 07/04/17 09:18 Dose: 20 mg Heparin Sodium (Porcine) (Heparin -) 5,000 unit SQ TID [facility] Last Admin: 07/04/17 06:00 Dose: 5,000 unit Cefazolin Sodium (Ancef -) 1 gm in 10 mls @ 100 mls/hr IVPUSH Q8H-IV [facility] Last Admin: 07/04/17 09:18 Dose: 100 mls/hr Levothyroxine Sodium 100 mcg/ (Levothyroxine Sodium 75 mcg) 175 mcg PO DAILY@ 0700 [facility] Last Admin: 07/04/17 05:59 Dose: 175 mcg Mesalamine (Asacol Hd -) 800 mg PO TID [facility] Last Admin: 07/04/17 06:00 Dose: 800 mg Oxycodone HCl (Roxicodone -) 5 mg PO Q4H PRN PRN Reason: PAIN Last Admin: 07/03/17 21:34 Dose: 5 mg Pantoprazole Sodium (Protonix Iv) 40 mg IVPUSH DAILY [facility] Last Admin: 07/04/17 09:18 Dose: 40 mg - Objective Vital Signs: Vital Signs Temperature 98.3 F 07/04/17 08:12 Pulse Rate 64 07/04/17 08:12 Respiratory Rate 20 07/04/17 08:12 Blood Pressure 108/60 07/04/17 08:12 O2 Sat by Pulse Oximetry (%) 95 07/03/17 09:00 Constitutional: Yes: No Distress, Calm Eyes: Yes: WNL Genitourinary: Yes: Hill Present Breast(s): Yes: WNL Musculoskeletal: Yes: WNL Extremities: Yes: WNL Edema: No Labs: CBC, BMP 07/04/17 07:45 07/04/17 07:45 INR, PTT INR 0.98 (0.82-1.09) 06/25/17 09:22 Problem List - Problems (1) Down syndrome Code(s): Q90.9 - DOWN SYNDROME, UNSPECIFIED (2) Puncture wound of left foot excluding toes with infection Code(s): S91.332A - PUNCTURE WOUND WITHOUT FOREIGN BODY, LEFT FOOT, INIT ENCNTR ; L08.9 - LOCAL INFECTION OF THE SKIN AND SUBCUTANEOUS TISSUE, UNSP (3) CHF (congestive heart failure) Code(s): I50.9 - HEART FAILURE, UNSPECIFIED (4) Mitral and aortic insufficiency Code(s): I08.0 - RHEUMATIC DISORDERS OF BOTH MITRAL AND AORTIC VALVES Assessment/Plan keep foly in until we see if improves ambulation vasc dr gusman ti see lt foot and sacral cont local wd care cont p/t tx neurosx f/u for incision neck site chk labs in am
--- NOTE | 2017-07-04 11:12 | PN ---
Progress Note, Physician History of Present Illness: F/U today ; No new complaints ; she denies any headache or neck pain . PE: Alert & awake, pleasant,NAD ; EOMI, no facial asymmetria or gaze preference Left arm weakness , only mildly squeeze my finger ; RUE 3-4/5 ; distal movements feet BL , plantars up BL, left leg inc tone >right, unable to ambulate - Current Medication List Current Medications: Active Medications Acetaminophen (Tylenol -) 650 mg PO Q4H PRN PRN Reason: FEVER OR PAIN Last Admin: 07/01/17 21:11 Dose: 650 mg Furosemide (Lasix -) 20 mg PO DAILY [facility] Last Admin: 07/04/17 09:18 Dose: 20 mg Heparin Sodium (Porcine) (Heparin -) 5,000 unit SQ TID [facility] Last Admin: 07/04/17 06:00 Dose: 5,000 unit Cefazolin Sodium (Ancef -) 1 gm in 10 mls @ 100 mls/hr IVPUSH Q8H-IV [facility] Last Admin: 07/04/17 09:18 Dose: 100 mls/hr Levothyroxine Sodium 100 mcg/ (Levothyroxine Sodium 75 mcg) 175 mcg PO DAILY@ 0700 [facility] Last Admin: 07/04/17 05:59 Dose: 175 mcg Mesalamine (Asacol Hd -) 800 mg PO TID [facility] Last Admin: 07/04/17 06:00 Dose: 800 mg Pantoprazole Sodium (Protonix Iv) 40 mg IVPUSH DAILY [facility] Last Admin: 07/04/17 09:18 Dose: 40 mg - Objective Vital Signs: Vital Signs Temperature 98.3 F 07/04/17 08:12 Pulse Rate 64 07/04/17 08:12 Respiratory Rate 20 07/04/17 08:12 Blood Pressure 108/60 07/04/17 08:12 O2 Sat by Pulse Oximetry (%) 95 07/03/17 09:00 Labs: CBC, BMP 07/04/17 07:45 07/04/17 07:45 INR, PTT INR 0.98 (0.82-1.09) 06/25/17 09:22 Assessment/Plan 59 y/o F with PMH Down's syndrome, hypothyroidism, recent hospitalization in [facility] for L ankle pressure ulcer-stage 3, who presented to ED s/p fall. As per pt' s family and nurse, pt has decreased ambulation over the last month and was found on the ground by family on AM of ED arrival. s/p posterior laminectomy with fusion of C1-C6, afebrile, no neck pain needs continuous wound care was unable to sit /ambulate-- will need to DC odonnell whenever possible. wound care of incision and sacral decub stage 2 as per nurse Rehab when able Health maintenance per primary team. Thank you. Chad Parrish MD [phone]
--- NOTE | 2017-07-04 11:18 | PN ---
Progress Note (short form) - Note Progress Note: Vascular Surgery Pt seen and examined. Dressings changed. Sacrum -- stage 2 ulcer. 4x1cm. Clean, pink, good granulation. Santyl to area daily. Please offload area. Left lateral ankle -- stage 2 ulcer. with some slough in center. 2x2cm. Santyl to area daily. offload. Will follow Jim gusman DO
[2017-07-04 12:30] LABS: PLATELET ESTIMATE DECREASED; TEAR DROP CELLS 1+
[2017-07-04] MEDS: COLLAGENASE CLOSTRIDIUM HIST. 30 GRAMS TUBE TP SCH (13:39)
--- NOTE | 2017-07-04 14:50 | PN ---
Progress Note (short form) - Note Progress Note: Surgery POD #6 s/p posterior laminectomy with fusion of C1-C6, repair of dural tear, Patient seen and examined at bedside. Patient resting comfortably and responsive. Patient denies any headache. Nursing reports no concerns or issues overnight. Dressing over incision was changed at 4:30pm last night. Vital Signs Temp 98.3 F 07/04/17 08:12 Pulse 64 07/04/17 08:12 Resp 20 07/04/17 08:12 BP 108/60 07/04/17 08:12 Pulse Ox 95 07/03/17 09:00 Intake & Output 07/03/17 12/07/04/17 23:59 11:59 23:59 Intake Total 100 300 Output Total 550 300 200 Balance -550 -200 100 Weight 156 lb 6 oz Intake: Oral 100 300 Output: Urine 550 300 200 Hill 550 300 200 Other: Voiding Method Indwelling Catheter Indwelling Catheter Incontinent Weight Measurement Method Built in [facility] CBC, BMP 07/04/17 07:45 07/04/17 07:45 PE: Patient is alert and responsive but unable to fully cooperate with exam, specifically motor/ strength testing. 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 Right LE with 4 /5 dorsi/plantar flexion. Left LE unable to dosri/plantar flex of wiggle toes on command. Unlabored resp on RA Dressing saturated with light pink d/c over distal site. Incision with light Serosanginous d/c oozing at distal incision, although when pressure applied to margins throughout, no evidence of fluctuance, or collection or active d/c. Surrounding tissue in tact without edema or tracking erythema. Ava insitu. Redressed with 4x4 pressure dressing b/l LE compartments soft, supple and non-tender with scds in place. pressure ulcer dressing over left ankle LE- c/d/i with surrounding tissue intact. Right Ankle and heel without evidence of breakdown. Pediatric Cantwell c-collar re-applied Assessment and Plan: POD #6 multilevel cervical fusion and repair or dural tear with immediate post op drainage, now appears to be slowing with mild oozing. 1) Continue Cantwell collar at all times-removing only to shower 2) NO pillow behind head 3) Keep dressing clean and dry with daily changes -evaluate wound drainage 4) OOB to chair for meals and ambulate as tolerated with PT, ROM or all joints if unable to get OOB 5) Continue DVT prophylaxis with b/l tesd, scds and sq heparin. Evaluation and plan discussed with Dr Cruz
[2017-07-04] MEDS: FERROUS SO4 325 MG TABLET (FP) PO SCH (18:03)
[2017-07-05] MEDS ORDERED: PT OWN MED DRAWER 7, Y5N ONE (01:05)
[2017-07-05] MEDS: CEFAZOLIN 1 GM PUSH 1 GM/10 ML DISP.SYRIN IVPUSH SCH ×3 (01:25→17:08)
[2017-07-05] MEDS ORDERED: LEVOTHYROXINE NA 75 MCG TABLET (FP) ONE (05:57)
[2017-07-05] MEDS ORDERED: LEVOTHYROXINE NA 100 MCG TABLET (FP) ONE (05:57)
[2017-07-05] MEDS: LEVOTHYROXINE 100 MCG, LEVOTHYROXINE 75 MCG PO SCH (06:08)
[2017-07-05] MEDS: MESALAMINE 800 MG TABLET.DR PO SCH ×3 (06:08→21:58)
[2017-07-05] MEDS: HEPARIN NA (PORCINE) 5,000 UNITS/ML 1ML VIAL SQ SCH ×3 (06:08→21:58)
[2017-07-05 08:47] LABS: HEMATOCRIT 30.8 % (32.4-45.2); MCH 31.7 pg (25.7-33.7); MCHC 32.5 g/dl (32.0-36.0); MEAN CELL VOLUME 97.4 fl (80-96); MEAN PLT VOLUME 10.4 fl (7.5-11.1); PLATELET COUNT 183 K/MM3 (134-434); RBC 3.16 M/mm3 (3.60-5.2); RDW 15.4 % (11.6-15.6); WHITE BLOOD COUNT 8.9 K/mm3 (4.0-10.0)
[2017-07-05 09:17] LABS: BLOOD UREA NITROGEN 14 mg/dL (7-18); CHLORIDE 102 mmol/L (98-107); POTASSIUM 3.6 mmol/L (3.5-5.1); SODIUM 136 mmol/L (136-145)
[2017-07-05 09:45] LABS: ANION GAP 9 (8-16); CO2 25 mmol/L (21-32); CREATININE 0.7 mg/dL (0.55-1.02); GLUCOSE,RANDOM 110 mg/dL (74-106)
[2017-07-05] MEDS: PANTOPRAZOLE SODIUM 40 MG VIAL IVPUSH SCH (10:22)
[2017-07-05] MEDS: FERROUS SO4 325 MG TABLET (FP) PO SCH ×2 (10:33→16:48)
[2017-07-05] MEDS: FUROSEMIDE 20 MG TABLET (FP) PO SCH (10:34)
[2017-07-05] MEDS: COLLAGENASE CLOSTRIDIUM HIST. 30 GRAMS TUBE TP SCH (10:35)
--- NOTE | 2017-07-05 13:05 | PN ---
Progress Note (short form) - Note Progress Note: 59 y/o F with PMH Down's syndrome, hypothyroidism, recent hospitalization in [facility] for L ankle pressure ulcer-stage 3, who presented to ED s/p fall. As per pt' s family and nurse, pt has decreased ambulation over the last month and was found on the ground by family on AM of ED arrival. Pt injured R side of forehead and lacerated lip during fall. Denied LOC, syncope, palpitations before the event, and denied fever, chills, chest pain, or recent illnesses at time of admission. as per family walks at baseline, hx of ulcer, though balance has been more of an issue over 1-2 months; she has left sided weakness post fall. CT HD Impression: 1. No acute intracranial hemorrhage. 2. No compelling evidence of cerebral infarction at this time. Please note that subacute cerebral infarctions may be indistinct on CT due to "fogging effect" approximately 2-3 weeks following infarction, requiring clinical correlation. If warranted, MRI may be obtained for further evaluati 3. 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 FU : s/p cervical spine surgery/fusion , remains weak L UE >R UE and distal LE denies WARD, neck pain, SOB seen by vascular wound care - Past Medical History [employer]: Yes: Other (miid cognition impaired downs syn) Cardio/Vascular: Yes: Aortic Insufficiency, Mitral Insufficiency Pulmonary: Yes: Other Gastrointestinal: Yes: Ulcerative Colitis Hepatobiliary: Yes: Hepatitis B Musculoskeletal: Yes: Other (c/s fusions) Endocrine: Yes: Hypothyroidism - Alcohol/Substance Use Hx Alcohol Use: No - Smoking History Smoking history: Never smoked Have you smoked in the past 12 months: No Home Medications - Allergies Allergies/Adverse Reactions: Allergies Allergy/AdvReac Type Severity Reaction Status Date / Time raspberry Allergy Severe Rash Verified 06/27/17 14:48 strawberry Allergy Severe Rash Verified 06/27/17 14:49 barley Allergy Intermediate Rash Verified 06/27/17 14:47 wheat Allergy Intermediate Rash Verified 06/25/17 08:59 egg AdvReac Severe Nausea Verified 06/25/17 08:59 egg yolk AdvReac Severe Nausea Verified 06/25/17 08:59 - Home Medications Home Medications: Ambulatory Orders Furosemide [Lasix -] 40 mg PO DAILY 04/20/15 Levothyroxine [Synthroid -] 150 mcg PO DAILY 03/26/17 Mesalamine [Asacol Hd -] 800 mg PO TID 03/26/17 Raloxifene HCl 60 mg PO DAILY 03/26/17 Family Disease History - Family Disease History Family Disease History: Heart Disease: Mother Physical Exam-Neuro Vital Signs: Vital Signs Temperature 99.2 F 07/05/17 06:00 Pulse Rate 75 07/05/17 06:00 Respiratory Rate 18 07/05/17 06:00 Blood Pressure 104/49 07/05/17 06:00 O2 Sat by Pulse Oximetry (%) 95 07/04/17 22:00 Constitutional: Yes: Well Nourished Labs: CBCD WBC 8.9 K/mm3 (4.0-10.0) 07/05/17 06:00 RBC 3.16 M/mm3 (3.60-5.2) L 07/05/17 06:00 Hgb 10.0 GM/dL (10.7-15.3) L 07/05/17 06:00 Hct 30.8 % (32.4-45.2) L 07/05/17 06:00 MCV 97.4 fl (80-96) H 07/05/17 06:00 MCHC 32.5 g/dl (32.0-36.0) 07/05/17 06:00 RDW 15.4 % (11.6-15.6) 07/05/17 06:00 Plt Count 183 K/MM3 (134-434) D 07/05/17 06:00 MPV 10.4 fl (7.5-11.1) 07/05/17 06:00 CMP Sodium 136 mmol/L (136-145) 07/05/17 06:00 Potassium 3.6 mmol/L (3.5-5.1) 07/05/17 06:00 Chloride 102 mmol/L (98-107) 07/05/17 06:00 Carbon Dioxide 25 mmol/L (21-32) 07/05/17 06:00 Anion Gap 9 (8-16) 07/05/17 06:00 BUN 14 mg/dL (7-18) 07/05/17 06:00 Creatinine 0.7 mg/dL (0.55-1.02) 07/05/17 06:00 Creat Clearance w eGFR 56.75 (>60) 06/25/17 09:22 Calcium 7.0 mg/dL (8.5-10.1) L 07/05/17 06:00 Total Bilirubin 0.4 mg/dL (0.2-1.0) D 06/25/17 09:22 AST 25 U/L (15-37) D 06/25/17 09:22 ALT 25 U/L (12-78) 06/25/17 09:22 Alkaline Phosphatase 105 U/L (45-117) D 06/25/17 09:22 Total Protein 7.3 g/dl (6.4-8.2) 06/25/17 09:22 Albumin 3.0 g/dl (3.4-5.0) L 06/25/17 09:22 - Neuro Exam Level Of Consciousness: Yes: Alert (awake, pleasant, family bedside, EOMI, no facila, left arm weakness TR 4/5, hand grasp 4/5, BL leg weakness, (? tetraplegic -limited effort), RUE 3-4/5 , distal movements feet BL , plantars up BL, left leg inc tone >right, unable to ambulate ) Problem List - Problems (1) CHF (congestive heart failure) Code(s): I50.9 - HEART FAILURE, UNSPECIFIED (2) Down syndrome Code(s): Q90.9 - DOWN SYNDROME, UNSPECIFIED (3) Weakness Code(s): R53.1 - WEAKNESS Assessment/Plan 59 y/o F with PMH Down's syndrome, hypothyroidism, recent hospitalization in [facility] for L ankle pressure ulcer-stage 3, who presented to ED s/p fall. As per pt' s family and nurse, pt has decreased ambulation over the last month and was found on the ground by family on AM of ED arrival. s/p posterior laminectomy with fusion of C1-C6, afebrile, no neck pain wound care odonnell care and Dc odonnell when able awaiting rehab Dr Alexis Problem List - Problems (1) CHF (congestive heart failure) Code(s): I50.9 - HEART FAILURE, UNSPECIFIED (2) Down syndrome Code(s): Q90.9 - DOWN SYNDROME, UNSPECIFIED (3) Weakness Code(s): R53.1 - WEAKNESS
[2017-07-05 13:45] LABS: PLATELET ESTIMATE ADEQUATE
--- NOTE | 2017-07-05 18:21 | PROC ---
Procedure Note Procedure: dressing changed with family at bedside. old dressing saturated with SS d/c light in color, unchanged from previous dressing change. Incision c/d/i with no active d/c surrounding tissue with no erythema or edema, no fluctuance or collection. no d/c when pressure applied to margins of incisions. redressed with dermabond application and 4x4 in pressure dressing fashion.
[2017-07-06] MEDS ORDERED: PT OWN MED DRAWER 7, Y5N ONE ×2 (01:18→06:27)
[2017-07-06] MEDS: CEFAZOLIN 1 GM PUSH 1 GM/10 ML DISP.SYRIN IVPUSH SCH ×3 (01:20→17:26)
[2017-07-06] MEDS ORDERED: LEVOTHYROXINE NA 75 MCG TABLET (FP) ONE (06:27)
[2017-07-06] MEDS ORDERED: LEVOTHYROXINE NA 100 MCG TABLET (FP) ONE (06:27)
[2017-07-06] MEDS: LEVOTHYROXINE 100 MCG, LEVOTHYROXINE 75 MCG PO SCH (06:28)
[2017-07-06] MEDS: MESALAMINE 800 MG TABLET.DR PO SCH ×3 (06:28→21:43)
[2017-07-06] MEDS: HEPARIN NA (PORCINE) 5,000 UNITS/ML 1ML VIAL SQ SCH ×3 (06:28→21:43)
[2017-07-06] MEDS: FERROUS SO4 325 MG TABLET (FP) PO SCH ×2 (08:12→17:26)
[2017-07-06 09:07] LABS: ANION GAP 7 (8-16); BLOOD UREA NITROGEN 15 mg/dL (7-18); CALCIUM 7.2 mg/dL (8.5-10.1); CHLORIDE 101 mmol/L (98-107); CO2 28 mmol/L (21-32); CREATININE 0.9 mg/dL (0.55-1.02); GLUCOSE,RANDOM 113 mg/dL (74-106); POTASSIUM 3.7 mmol/L (3.5-5.1); SODIUM 136 mmol/L (136-145)
--- NOTE | 2017-07-06 09:34 | PN ---
Progress Note, Physician - Current Medication List Current Medications: Active Medications Acetaminophen (Tylenol -) 650 mg PO Q4H PRN PRN Reason: FEVER OR PAIN Last Admin: 07/01/17 21:11 Dose: 650 mg Collagenase (Santyl -) 1 applic TP DAILY [facility] Last Admin: 07/05/17 10:35 Dose: 1 applic Ferrous Sulfate (Feosol -) 325 mg PO BIDWM [facility] Last Admin: 07/06/17 08:12 Dose: 325 mg Furosemide (Lasix -) 20 mg PO DAILY [facility] Last Admin: 07/05/17 10:34 Dose: 20 mg Heparin Sodium (Porcine) (Heparin -) 5,000 unit SQ TID [facility] Last Admin: 07/06/17 06:28 Dose: 5,000 unit Cefazolin Sodium (Ancef -) 1 gm in 10 mls @ 100 mls/hr IVPUSH Q8H-IV [facility] Last Admin: 07/06/17 01:20 Dose: 100 mls/hr Levothyroxine Sodium 100 mcg/ (Levothyroxine Sodium 75 mcg) 175 mcg PO DAILY@ 0700 [facility] Last Admin: 07/06/17 06:28 Dose: 175 mcg Mesalamine (Asacol Hd -) 800 mg PO TID [facility] Last Admin: 07/06/17 06:28 Dose: 800 mg Pantoprazole Sodium (Protonix Iv) 40 mg IVPUSH DAILY [facility] Last Admin: 07/05/17 10:22 Dose: 40 mg - Objective Vital Signs: Vital Signs Temperature 99.0 F 07/06/17 05:46 Pulse Rate 64 07/06/17 05:46 Respiratory Rate 18 07/06/17 05:46 Blood Pressure 99/51 07/06/17 05:46 O2 Sat by Pulse Oximetry (%) 96 07/05/17 21:00 Labs: CBC, BMP 07/05/17 06:00 07/06/17 08:00 INR, PTT INR 0.98 (0.82-1.09) 06/25/17 09:22 Problem List - Problems (1) Down syndrome Code(s): Q90.9 - DOWN SYNDROME, UNSPECIFIED (2) Puncture wound of left foot excluding toes with infection Code(s): S91.332A - PUNCTURE WOUND WITHOUT FOREIGN BODY, LEFT FOOT, INIT ENCNTR ; L08.9 - LOCAL INFECTION OF THE SKIN AND SUBCUTANEOUS TISSUE, UNSP (3) CHF (congestive heart failure) Code(s): I50.9 - HEART FAILURE, UNSPECIFIED (4) Mitral and aortic insufficiency Code(s): I08.0 - RHEUMATIC DISORDERS OF BOTH MITRAL AND AORTIC VALVES Assessment/Plan no d/c until we see serdical site leak csf vs debri from sx spoke to ortho sx dr nelson regarding pt and agrees ? may do c/s athrogram
--- NOTE | 2017-07-06 10:41 | PN ---
Progress Note (short form) - Note Progress Note: Surgery POD #8 s/p posterior laminectomy with fusion of C1-C6, repair of dural tear, Patient seen and examined at bedside. Patient resting comfortably and responsive. Patient denies any headache. Nursing reports no concerns or issues overnight. Spoke with care team including Dr Alexis, Dr Ozuna and Dr Birch regarding continued leak that appears to be improving as of today. Dr Cruz states the dressing must remain dry with no evidence of leak and patient must remain asymptomatic for 48-72 hours before discharge to rehab can be considered. Team agrees that we must also focus on mobilizing the patient. Nursing reports the patient was up to chair today for 3.5 hours via robert lift. Vital Signs Temp 99.0 F 07/06/17 05:46 Pulse 68 07/06/17 10:00 Resp 18 07/06/17 10:00 BP 95/44 07/06/17 10:00 Pulse Ox 96 07/05/17 21:00 Intake & Output 07/05/17 07/06/17 07/06/17 23:59 11:59 23:59 Intake Total 950 10 Output Total 800 150 Balance 150 -140 Weight 166 lb 7 oz Intake: IVPB 10 10 Oral 940 Output: Urine 800 150 Odonnell 800 150 Other: Voiding Method Indwelling Catheter Bedpan Bowel Movement No Yes # Bowel Movements 1 Weight Measurement Method Built in [facility] PE: Patient is alert and responsive but unable to fully cooperate with exam, right upper and extremity good gripping and motor testing 4/5. Right LE with 4/5 dorsi /plantar flexion. Left upper extremity exam slightly improved with more purposeful movement when prompted, still unable to tailor men's ready to wear or oppose digits. Left LE unable to dosri/plantar flex or wiggle toes on command but 3/5 resistance LE flexion when I attempt to straighten her leg. all extremities warm to touch and well perfused. Left ankle with 1cmx 1cm pressure ulcer clean with minimal slough , surrounding tissue in good condition with no evidence of breakdown. Stage 2 decubitus ulcer on buttocks with granulation tissue seen at base, surrounding tissue intact. Unlabored resp on RA. pressure dressing applied last night still completely dry and intact with no sign of d/c today. Surrounding tissue no evidence of erythema, edema or collection, non-tender to palpation at margins. b/l LE compartments soft, supple and non-tender with scds in place. Right Ankle and heel without evidence of breakdown. Pediatric Torres Martinez c-collar re-applied Assessment and Plan: POD #8 multilevel cervical fusion and repair or dural tear with immediate post op drainage, now appears to be improving. Left sided hemparesis also appears to be improving but difficult to gauge given minimal effort on exam. 1) Continue Torres Martinez collar at all times (23 hours/day)-removing only to shower 2) NO pillow behind head 3) Keep dressing clean and dry 4) OOB to chair for meals and ambulate as tolerated with PT, ROM or all joints if unable to get OOB 5) Continue DVT prophylaxis with b/l tesd, scds and sq heparin. 6) odonnell removed this morning- post void bladder scan ordered. 7) continue daily dressings to ulcers over buttocks and left ankle and continue Q2 positioning. 8) Dietary consult for nutrition status in regards to ulcers Evaluation and plan discussed with Dr Cruz
--- NOTE | 2017-07-06 10:47 | PN ---
Progress Note, Physician Chief Complaint: pain when touching knees no other complaints neck wd dry today - Current Medication List Current Medications: Active Medications Acetaminophen (Tylenol -) 650 mg PO Q4H PRN PRN Reason: FEVER OR PAIN Last Admin: 07/01/17 21:11 Dose: 650 mg Collagenase (Santyl -) 1 applic TP DAILY [facility] Last Admin: 07/05/17 10:35 Dose: 1 applic Ferrous Sulfate (Feosol -) 325 mg PO BIDWM [facility] Last Admin: 07/06/17 08:12 Dose: 325 mg Furosemide (Lasix -) 20 mg PO DAILY [facility] Last Admin: 07/05/17 10:34 Dose: 20 mg Heparin Sodium (Porcine) (Heparin -) 5,000 unit SQ TID [facility] Last Admin: 07/06/17 06:28 Dose: 5,000 unit Cefazolin Sodium (Ancef -) 1 gm in 10 mls @ 100 mls/hr IVPUSH Q8H-IV [facility] Last Admin: 07/06/17 01:20 Dose: 100 mls/hr Levothyroxine Sodium 100 mcg/ (Levothyroxine Sodium 75 mcg) 175 mcg PO DAILY@ 0700 [facility] Last Admin: 07/06/17 06:28 Dose: 175 mcg Mesalamine (Asacol Hd -) 800 mg PO TID [facility] Last Admin: 07/06/17 06:28 Dose: 800 mg Pantoprazole Sodium (Protonix Iv) 40 mg IVPUSH DAILY [facility] Last Admin: 07/05/17 10:22 Dose: 40 mg - Objective Vital Signs: Vital Signs Temperature 99.0 F 07/06/17 05:46 Pulse Rate 64 07/06/17 05:46 Respiratory Rate 18 07/06/17 05:46 Blood Pressure 99/51 07/06/17 05:46 O2 Sat by Pulse Oximetry (%) 96 07/05/17 21:00 Constitutional: Yes: No Distress, Calm Eyes: Yes: WNL HENT: Yes: Other (dry wd today durobond intact) Cardiovascular: Yes: Murmur Respiratory: Yes: WNL Genitourinary: Yes: Other (out today) Breast(s): Yes: WNL Musculoskeletal: Yes: Joint Stiffness Extremities: Yes: WNL Edema: No Peripheral Pulses WNL: Yes Integumentary: Yes: Other (lt foot sacral ulceres n/c) Neurological: Yes: Weakness Psychiatric: Yes: Other (downs syn feasures) Labs: CBC, BMP 07/05/17 06:00 07/06/17 08:00 INR, PTT INR 0.98 (0.82-1.09) 06/25/17 09:22 Problem List - Problems (1) Down syndrome Code(s): Q90.9 - DOWN SYNDROME, UNSPECIFIED (2) Puncture wound of left foot excluding toes with infection Code(s): S91.332A - PUNCTURE WOUND WITHOUT FOREIGN BODY, LEFT FOOT, INIT ENCNTR ; L08.9 - LOCAL INFECTION OF THE SKIN AND SUBCUTANEOUS TISSUE, UNSP (3) CHF (congestive heart failure) Code(s): I50.9 - HEART FAILURE, UNSPECIFIED (4) Mitral and aortic insufficiency Code(s): I08.0 - RHEUMATIC DISORDERS OF BOTH MITRAL AND AORTIC VALVES Assessment/Plan spoke to ortho covering dr dragan rudd to neuro rad dr frank mri will only show fl not site dranage arthrogram not done here mylogram needs to be done bl neurosx ? may dilute fluid by time gets to neck reasonable to wait 46?72 hrs to see if neckwd dry cont p/t d/c odonnell cont tx as is
[2017-07-06] MEDS: FUROSEMIDE 20 MG TABLET (FP) PO SCH (10:57)
[2017-07-06] MEDS: COLLAGENASE CLOSTRIDIUM HIST. 30 GRAMS TUBE TP SCH (10:58)
[2017-07-06] MEDS: PANTOPRAZOLE SODIUM 40 MG VIAL IVPUSH SCH (10:58)
--- NOTE | 2017-07-06 18:02 | PN ---
Progress Note (short form) - Note Progress Note: 59 y/o F with PMH Down's syndrome, hypothyroidism, recent hospitalization in [facility] for L ankle pressure ulcer-stage 3, who presented to ED s/p fall. As per pt' s family and nurse, pt has decreased ambulation over the last month and was found on the ground by family on AM of ED arrival. Pt injured R side of forehead and lacerated lip during fall. Denied LOC, syncope, palpitations before the event, and denied fever, chills, chest pain, or recent illnesses at time of admission. as per family walks at baseline, hx of ulcer, though balance has been more of an issue over 1-2 months; she has left sided weakness post fall. CT HD Impression: 1. No acute intracranial hemorrhage. 2. No compelling evidence of cerebral infarction at this time. Please note that subacute cerebral infarctions may be indistinct on CT due to "fogging effect" approximately 2-3 weeks following infarction, requiring clinical correlation. If warranted, MRI may be obtained for further evaluati 3. 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 (miid cognition impaired downs syn) Cardio/Vascular: Yes: Aortic Insufficiency, Mitral Insufficiency Pulmonary: Yes: Other Gastrointestinal: Yes: Ulcerative Colitis Hepatobiliary: Yes: Hepatitis B Musculoskeletal: Yes: Other (c/s fusions) Endocrine: Yes: Hypothyroidism - Alcohol/Substance Use Hx Alcohol Use: No - Smoking History Smoking history: Never smoked Have you smoked in the past 12 months: No Home Medications - Allergies Allergies/Adverse Reactions: Allergies Allergy/AdvReac Type Severity Reaction Status Date / Time raspberry Allergy Severe Rash Verified 06/27/17 14:48 strawberry Allergy Severe Rash Verified 06/27/17 14:49 barley Allergy Intermediate Rash Verified 06/27/17 14:47 wheat Allergy Intermediate Rash Verified 06/25/17 08:59 egg AdvReac Severe Nausea Verified 06/25/17 08:59 egg yolk AdvReac Severe Nausea Verified 06/25/17 08:59 - Home Medications Home Medications: Ambulatory Orders Furosemide [Lasix -] 40 mg PO DAILY 04/20/15 Levothyroxine [Synthroid -] 150 mcg PO DAILY 03/26/17 Mesalamine [Asacol Hd -] 800 mg PO TID 03/26/17 Raloxifene HCl 60 mg PO DAILY 03/26/17 Family Disease History - Family Disease History Family Disease History: Heart Disease: Mother Physical Exam-Neuro Vital Signs: Vital Signs Temperature 99.0 F 07/06/17 05:46 Pulse Rate 68 07/06/17 10:00 Respiratory Rate 18 07/06/17 10:00 Blood Pressure 95/44 07/06/17 10:00 O2 Sat by Pulse Oximetry (%) 96 07/05/17 21:00 Constitutional: Yes: Well Nourished Labs: CBCD WBC 8.9 K/mm3 (4.0-10.0) 07/05/17 06:00 RBC 3.16 M/mm3 (3.60-5.2) L 07/05/17 06:00 Hgb 10.0 GM/dL (10.7-15.3) L 07/05/17 06:00 Hct 30.8 % (32.4-45.2) L 07/05/17 06:00 MCV 97.4 fl (80-96) H 07/05/17 06:00 MCHC 32.5 g/dl (32.0-36.0) 07/05/17 06:00 RDW 15.4 % (11.6-15.6) 07/05/17 06:00 Plt Count 183 K/MM3 (134-434) D 07/05/17 06:00 MPV 10.4 fl (7.5-11.1) 07/05/17 06:00 CMP Sodium 136 mmol/L (136-145) 07/06/17 08:00 Potassium 3.7 mmol/L (3.5-5.1) 07/06/17 08:00 Chloride 101 mmol/L (98-107) 07/06/17 08:00 Carbon Dioxide 28 mmol/L (21-32) 07/06/17 08:00 Anion Gap 7 (8-16) L 07/06/17 08:00 BUN 15 mg/dL (7-18) 07/06/17 08:00 Creatinine 0.9 mg/dL (0.55-1.02) D 07/06/17 08:00 Creat Clearance w eGFR 56.75 (>60) 06/25/17 09:22 Calcium 7.2 mg/dL (8.5-10.1) L 07/06/17 08:00 Total Bilirubin 0.4 mg/dL (0.2-1.0) D 06/25/17 09:22 AST 25 U/L (15-37) D 06/25/17 09:22 ALT 25 U/L (12-78) 06/25/17 09:22 Alkaline Phosphatase 105 U/L (45-117) D 06/25/17 09:22 Total Protein 7.3 g/dl (6.4-8.2) 06/25/17 09:22 Albumin 3.0 g/dl (3.4-5.0) L 06/25/17 09:22 - Neuro Exam Level Of Consciousness: Yes: Alert (awake, pleasant, family bedside, EOMI, no facila, left arm weakness TR 4/5, hand grasp 4/5, BL leg weakness, (? tetraplegic -limited effort), RUE 3-4/5 , distal movements feet BL , plantars up BL, left leg inc tone >right, unable to ambulate ) Problem List - Problems (1) CHF (congestive heart failure) Code(s): I50.9 - HEART FAILURE, UNSPECIFIED (2) Down syndrome Code(s): Q90.9 - DOWN SYNDROME, UNSPECIFIED (3) Weakness Code(s): R53.1 - WEAKNESS Assessment/Plan 59 y/o F with PMH Down's syndrome, hypothyroidism, recent hospitalization in [facility] for L ankle pressure ulcer-stage 3, who presented to ED s/p fall. As per pt' s family and nurse, pt has decreased ambulation over the last month and was found on the ground by family on AM of ED arrival. s/p posterior laminectomy with fusion of C1-C6, with weakness L >R residual afebrile, wound care spoke to surgical PA -- agree to OOB to chair if possible remove odnonell if possible HEP SQ as per surgical PA , NS to see on monday rehab planning Dr Reuben Problem List - Problems (1) CHF (congestive heart failure) Code(s): I50.9 - HEART FAILURE, UNSPECIFIED (2) Down syndrome Code(s): Q90.9 - DOWN SYNDROME, UNSPECIFIED (3) Weakness Code(s): R53.1 - WEAKNESS
[2017-07-07] MEDS: CEFAZOLIN 1 GM PUSH 1 GM/10 ML DISP.SYRIN IVPUSH SCH ×2 (02:46→10:32)
[2017-07-07] MEDS ORDERED: LEVOTHYROXINE NA 75 MCG TABLET (FP) ONE (05:35)
[2017-07-07] MEDS ORDERED: LEVOTHYROXINE NA 100 MCG TABLET (FP) ONE (05:35)
[2017-07-07] MEDS: LEVOTHYROXINE 100 MCG, LEVOTHYROXINE 75 MCG PO SCH (06:15)
[2017-07-07] MEDS: MESALAMINE 800 MG TABLET.DR PO SCH ×3 (06:15→21:21)
[2017-07-07] MEDS: HEPARIN NA (PORCINE) 5,000 UNITS/ML 1ML VIAL SQ SCH ×3 (06:16→21:21)
[2017-07-07 07:33] LABS: BASO % 0.8 % (0-2.0); HEMATOCRIT 28.5 % (32.4-45.2); HEMOGLOBIN 9.3 GM/dL (10.7-15.3); LYMPH % 8.7 % (8-40); MCHC 32.8 g/dl (32.0-36.0); MEAN CELL VOLUME 97.6 fl (80-96); MEAN PLT VOLUME 10.5 fl (7.5-11.1); MONO % 4.7 % (3.8-10.2); NEUT % 83.8 % (42.8-82.8); PLATELET COUNT 188 K/MM3 (134-434); RBC 2.92 M/mm3 (3.60-5.2); RDW 15.6 % (11.6-15.6); WHITE BLOOD COUNT 9.5 K/mm3 (4.0-10.0)
[2017-07-07 07:58] LABS: ANION GAP 7 (8-16); BLOOD UREA NITROGEN 14 mg/dL (7-18); CALCIUM 7.4 mg/dL (8.5-10.1); CHLORIDE 104 mmol/L (98-107); CO2 27 mmol/L (21-32); CREATININE 0.7 mg/dL (0.55-1.02); GLUCOSE,RANDOM 95 mg/dL (74-106); SODIUM 138 mmol/L (136-145)
[2017-07-07 08:04] LABS: POTASSIUM 3.5 mmol/L (3.5-5.1)
[2017-07-07 08:29] LABS: PLATELET ESTIMATE ADEQUATE
--- NOTE | 2017-07-07 08:30 | PN ---
Progress Note (short form) - Note Progress Note: 59 y/o F with PMH Down's syndrome, hypothyroidism, recent hospitalization in [facility] for L ankle pressure ulcer-stage 3, who presented to ED s/p fall. As per pt' s family and nurse, pt has decreased ambulation over the last month and was found on the ground by family on AM of ED arrival. Pt injured R side of forehead and lacerated lip during fall. Denied LOC, syncope, palpitations before the event, and denied fever, chills, chest pain, or recent illnesses at time of admission. as per family walks at baseline, hx of ulcer, though balance has been more of an issue over 1-2 months; she has left sided weakness post fall. CT HD Impression: 1. No acute intracranial hemorrhage. 2. No compelling evidence of cerebral infarction at this time. Please note that subacute cerebral infarctions may be indistinct on CT due to "fogging effect" approximately 2-3 weeks following infarction, requiring clinical correlation. If warranted, MRI may be obtained for further evaluati 3. 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 (miid cognition impaired downs syn) Cardio/Vascular: Yes: Aortic Insufficiency, Mitral Insufficiency Pulmonary: Yes: Other Gastrointestinal: Yes: Ulcerative Colitis Hepatobiliary: Yes: Hepatitis B Musculoskeletal: Yes: Other (c/s fusions) Endocrine: Yes: Hypothyroidism - Alcohol/Substance Use Hx Alcohol Use: No - Smoking History Smoking history: Never smoked Have you smoked in the past 12 months: No Home Medications - Allergies Allergies/Adverse Reactions: Allergies Allergy/AdvReac Type Severity Reaction Status Date / Time raspberry Allergy Severe Rash Verified 06/27/17 14:48 strawberry Allergy Severe Rash Verified 06/27/17 14:49 barley Allergy Intermediate Rash Verified 06/27/17 14:47 wheat Allergy Intermediate Rash Verified 06/25/17 08:59 egg AdvReac Severe Nausea Verified 06/25/17 08:59 egg yolk AdvReac Severe Nausea Verified 06/25/17 08:59 - Home Medications Home Medications: Ambulatory Orders Furosemide [Lasix -] 40 mg PO DAILY 04/20/15 Levothyroxine [Synthroid -] 150 mcg PO DAILY 03/26/17 Mesalamine [Asacol Hd -] 800 mg PO TID 03/26/17 Raloxifene HCl 60 mg PO DAILY 03/26/17 Family Disease History - Family Disease History Family Disease History: Heart Disease: Mother Physical Exam-Neuro Vital Signs: Vital Signs Temperature 98.4 F 07/07/17 05:29 Pulse Rate 72 07/07/17 05:29 Respiratory Rate 18 07/07/17 05:29 Blood Pressure 106/48 07/07/17 05:29 O2 Sat by Pulse Oximetry (%) 96 07/06/17 21:00 Constitutional: Yes: Well Nourished Labs: CBCD WBC 9.5 K/mm3 (4.0-10.0) 07/07/17 06:50 RBC 2.92 M/mm3 (3.60-5.2) L 07/07/17 06:50 Hgb 9.3 GM/dL (10.7-15.3) L 07/07/17 06:50 Hct 28.5 % (32.4-45.2) L 07/07/17 06:50 MCV 97.6 fl (80-96) H 07/07/17 06:50 MCHC 32.8 g/dl (32.0-36.0) 07/07/17 06:50 RDW 15.6 % (11.6-15.6) 07/07/17 06:50 Plt Count 188 K/MM3 (134-434) 07/07/17 06:50 MPV 10.5 fl (7.5-11.1) 07/07/17 06:50 CMP Sodium 138 mmol/L (136-145) 07/07/17 06:50 Potassium 3.5 mmol/L (3.5-5.1) 07/07/17 06:50 Chloride 104 mmol/L (98-107) 07/07/17 06:50 Carbon Dioxide 27 mmol/L (21-32) 07/07/17 06:50 Anion Gap 7 (8-16) L 07/07/17 06:50 BUN 14 mg/dL (7-18) 07/07/17 06:50 Creatinine 0.7 mg/dL (0.55-1.02) D 07/07/17 06:50 Creat Clearance w eGFR 56.75 (>60) 06/25/17 09:22 Calcium 7.4 mg/dL (8.5-10.1) L 07/07/17 06:50 Total Bilirubin 0.4 mg/dL (0.2-1.0) D 06/25/17 09:22 AST 25 U/L (15-37) D 06/25/17 09:22 ALT 25 U/L (12-78) 06/25/17 09:22 Alkaline Phosphatase 105 U/L (45-117) D 06/25/17 09:22 Total Protein 7.3 g/dl (6.4-8.2) 06/25/17 09:22 Albumin 3.0 g/dl (3.4-5.0) L 06/25/17 09:22 - Neuro Exam Level Of Consciousness: Yes: Alert (awake, pleasant, family bedside, EOMI, no facila, left arm weakness TR 4/5, hand grasp 4/5, BL leg weakness, (? tetraplegic -limited effort), RUE 3-4/5 , distal movements feet BL , plantars up BL, left leg inc tone >right, unable to ambulate ) Problem List - Problems (1) CHF (congestive heart failure) Code(s): I50.9 - HEART FAILURE, UNSPECIFIED (2) Down syndrome Code(s): Q90.9 - DOWN SYNDROME, UNSPECIFIED (3) Weakness Code(s): R53.1 - WEAKNESS Assessment/Plan 59 y/o F with PMH Down's syndrome, hypothyroidism, recent hospitalization in [facility] for L ankle pressure ulcer-stage 3, who presented to ED s/p fall. As per pt' s family and nurse, pt has decreased ambulation over the last month and was found on the ground by family on AM of ED arrival. s/p posterior laminectomy with fusion of C1-C6, with weakness L >R residual afebrile, wound care as per surgical PA -- OOB to chair if possible HEP SQ as per surgical PA , NS to see on monday rehab planning / aggressive PT in meantime Dr Alexis Problem List - Problems (1) CHF (congestive heart failure) Code(s): I50.9 - HEART FAILURE, UNSPECIFIED (2) Down syndrome Code(s): Q90.9 - DOWN SYNDROME, UNSPECIFIED (3) Weakness Code(s): R53.1 - WEAKNESS
[2017-07-07] MEDS: FUROSEMIDE 20 MG TABLET (FP) PO SCH (10:36)
[2017-07-07] MEDS: FERROUS SO4 325 MG TABLET (FP) PO SCH ×2 (10:36→17:49)
[2017-07-07] MEDS: PANTOPRAZOLE SODIUM 40 MG VIAL IVPUSH SCH (10:36)
[2017-07-07] MEDS: COLLAGENASE CLOSTRIDIUM HIST. 30 GRAMS TUBE TP SCH (10:37)
--- NOTE | 2017-07-07 12:25 | PN ---
Progress Note (short form) - Note Progress Note: POD #9 Patient seen and examined at bedside with no new complaints, resting comfortably. Dressing over C-spine examined, still c/D/I with no evidence of d/c. surrounding tissue with no evidence of erythema, edema fluctuance or colleciton. area non-tender to palpation. Evaluation discussed with Dr Cruz. Plan to leave dressing in place as long as it remains dry. Nancy to see patient monday vs monday. d/c planning to rehab on Monday provided wound remains dry and patient remains stable.
[2017-07-08] MEDS ORDERED: LEVOTHYROXINE NA 100 MCG TABLET (FP) ONE (05:11)
[2017-07-08] MEDS ORDERED: LEVOTHYROXINE NA 75 MCG TABLET (FP) ONE (05:11)
[2017-07-08] MEDS: LEVOTHYROXINE 100 MCG, LEVOTHYROXINE 75 MCG PO SCH (06:27)
[2017-07-08] MEDS: MESALAMINE 800 MG TABLET.DR PO SCH ×3 (06:27→22:14)
[2017-07-08] MEDS: HEPARIN NA (PORCINE) 5,000 UNITS/ML 1ML VIAL SQ SCH ×3 (06:27→22:15)
[2017-07-08] MEDS: FERROUS SO4 325 MG TABLET (FP) PO SCH ×2 (08:53→17:49)
[2017-07-08] MEDS: FUROSEMIDE 20 MG TABLET (FP) PO SCH (09:00)
[2017-07-08] MEDS: PANTOPRAZOLE SODIUM 40 MG VIAL IVPUSH SCH (09:00)
[2017-07-08] MEDS: COLLAGENASE CLOSTRIDIUM HIST. 30 GRAMS TUBE TP SCH (11:07)
--- NOTE | 2017-07-08 11:30 | PN ---
Progress Note (short form) - Note Progress Note: Pt. seen and examined last night 07/07/2017 at 6:30pm. 61F s/p posterior decompression, C1-C6 posterior instrumented spinal fusion, & repair of dural tear POD #9. Pain well controlled. No acute events overnight. Pt. denies headache/chest pain/shortness of breath/nausea/vomiting/chills/ sweats. (+) Voiding; (+) Flatus; (+) BM. All labs and vitals reviewed. Again, no pyrexia & no leukocytosis. PE: Alert & oriented, NAD. C-Spine: Dressing C/D/I. No changes. LUE & LLE Motor: Unchanged global left-sided hemiparesis; All muscles supplying left shoulder, elbow, wrist, hand, hip, knee, ankle, hind-foot, mid- foot, & fore-foot 1/5. RUE & RLE Motor: All muscles supplying right shoulder, elbow, wrist, hand, hip, knee, ankle, hind-foot, mid-foot, & fore-foot 3/5. LUE & LLE Sensation: C5-T1 0/2; L2-S1 1/2. RUE & RLE Sensation: C5-T1, L2-S1 1/2. B/L UE & LE Vacular: Normal arterial supply & venous drainage B/L UE & LE. A/P: 61F p/w wound drainage s/p posterior decompression, C1-C6 posterior instrumented spinal fusion, & repair of dural tear POD #9. -Pain control. -Dry, compressive dressing changes as needed. -Head of bed elevated to 45-60 degrees at all times. -Please emphasize incentive spirometry/aggressive pulmonary toilet q1h. -PT/OT/Rehab, OOB: Long conversation held with patient & family to put all UE & LE joints through passive range of motion throughout the day. -WBAT B/L UE & LE. -Log roll q1-2h for position changes to minimize risk for decubitus ulcer formation; recommend air mattress. -f/u labs & vitals. -f/u medicine hospitalist team rec's. -Will follow.
[2017-07-08] MEDS ORDERED: guaiFENesin 200 MG/10 ML 10 ML UNIT-DOSE CUPS PO PRN (12:05)
--- NOTE | 2017-07-08 12:05 | PN ---
Progress Note, Physician - Current Medication List Current Medications: Active Medications Acetaminophen (Tylenol -) 650 mg PO Q4H PRN PRN Reason: FEVER OR PAIN Last Admin: 07/01/17 21:11 Dose: 650 mg Collagenase (Santyl -) 1 applic TP DAILY [facility] Last Admin: 07/08/17 11:07 Dose: 1 applic Ferrous Sulfate (Feosol -) 325 mg PO BIDWM [facility] Last Admin: 07/08/17 08:53 Dose: 325 mg Furosemide (Lasix -) 20 mg PO DAILY [facility] Last Admin: 07/08/17 09:00 Dose: 20 mg Heparin Sodium (Porcine) (Heparin -) 5,000 unit SQ TID [facility] Last Admin: 07/08/17 06:27 Dose: 5,000 unit Levothyroxine Sodium 100 mcg/ (Levothyroxine Sodium 75 mcg) 175 mcg PO DAILY@ 0700 [facility] Last Admin: 07/08/17 06:27 Dose: 175 mcg Mesalamine (Asacol Hd -) 800 mg PO TID [facility] Last Admin: 07/08/17 06:27 Dose: 800 mg Pantoprazole Sodium (Protonix Iv) 40 mg IVPUSH DAILY [facility] Last Admin: 07/08/17 09:00 Dose: 40 mg - Objective Vital Signs: Vital Signs Temperature 99.1 F 07/08/17 06:44 Pulse Rate 77 07/08/17 06:44 Respiratory Rate 20 07/08/17 06:44 Blood Pressure 109/60 07/08/17 06:44 O2 Sat by Pulse Oximetry (%) 96 07/06/17 21:00 Labs: CBC, BMP 07/07/17 06:50 07/07/17 06:50 INR, PTT INR 0.98 (0.82-1.09) 06/25/17 09:22 Problem List - Problems (1) Down syndrome Code(s): Q90.9 - DOWN SYNDROME, UNSPECIFIED (2) Puncture wound of left foot excluding toes with infection Code(s): S91.332A - PUNCTURE WOUND WITHOUT FOREIGN BODY, LEFT FOOT, INIT ENCNTR ; L08.9 - LOCAL INFECTION OF THE SKIN AND SUBCUTANEOUS TISSUE, UNSP (3) CHF (congestive heart failure) Code(s): I50.9 - HEART FAILURE, UNSPECIFIED (4) Mitral and aortic insufficiency Code(s): I08.0 - RHEUMATIC DISORDERS OF BOTH MITRAL AND AORTIC VALVES Assessment/Plan pt coughing ? phlem cxr wmusidanie prn hard for vhere to do incentive spiratomy cont tx as is ? d/c to [facility]? monday if cleared by neurosx dr gerardo
[2017-07-08] MEDS: ACETAMINOPHEN 325 MG TABLET (FP) PO PRN ×3 (12:19→23:54)
--- NOTE | 2017-07-08 14:45 | PN ---
Progress Note (short form) - Note Progress Note: called to re-assess for new fever to 102 today she is awake baseline mental status poor appetite congested cough Vital Signs Period Temp Pulse Resp BP Sys/Guo Pulse Ox Last 24 Hr 97.8 F-102.2 F 62-77 20-20 109-127/60-74 95 cor-rrr dressing over posterior neck is dry- changes per surgery lungs decreased bs at bases abd soft,nt ext no edema small ulcer left foot no erythema or drainage CBC, BMP 07/07/17 06:50 07/07/17 06:50 a/p new fevers post op day #10 s/p posterior cervical laminectomy blood cultures urine culture ua cxray influenza screen ordered vancomycin/zosyn pending the above surgery f/u for evaluation of surgical incision
[2017-07-08] MEDS ORDERED: PIPERACILLIN/TAZOB 3.375 GM/50 ML PRE-DOCKED IVPB SCH (15:00)
[2017-07-08] MEDS: PIPERACILLIN/TAZOB 3.375 GM 3.375 GM in DEXTROSE 5%-WATER - 100 ML IVPB SCH ×2 (15:38→22:00)
[2017-07-08 16:03] LABS: URINE APPEARANCE CLOUDY; URINE BILIRUBIN NEGATIVE (NEGATIVE); URINE BLOOD 1+ (NEGATIVE); URINE COLOR YELLOW; URINE GLUCOSE (UA) NEGATIVE (NEGATIVE); URINE KETONE NEGATIVE (NEGATIVE); URINE NITRITE NEGATIVE (NEGATIVE); URINE PROTEIN NEGATIVE (NEGATIVE); URINE UROBILINOGEN NEGATIVE mg/dL (0.2-1.0)
[2017-07-08 16:05] LABS: URINE LEUK ESTERASE 3+ (NEGATIVE)
[2017-07-08 16:08] LABS: EPI CELLS RARE /HPF (FEW); URINE BACTERIA MODERATE /hpf (NONE SEEN); URINE MUCUS RARE
[2017-07-08] MEDS: VANCOMYCIN 1,000 MG in DEXTROSE 5%-WATER - 250 ML IVPB SCH (16:16)
--- NOTE | 2017-07-08 19:12 | PN ---
Progress Note, Physician History of Present Illness: 59 y/o F with PMH Down's syndrome, hypothyroidism, recent hospitalization in [facility] for L ankle pressure ulcer-stage 3, who presented to ED s/p fall. As per pt' s family and nurse, pt has decreased ambulation over the last month and was found on the ground by family on AM of ED arrival. Pt injured R side of forehead and lacerated lip during fall. Denied LOC, syncope, palpitations before the event, and denied fever, chills, chest pain, or recent illnesses at time of admission. as per family walks at baseline, hx of ulcer, though balance has been more of an issue over 1-2 months; she has left sided weakness post fall. FU : s/p cervical spine surgery/fusion , moving R UE and L LE better ; has fever , flu +rajni. - Current Medication List Current Medications: Active Medications Acetaminophen (Tylenol -) 650 mg PO Q4H PRN PRN Reason: FEVER OR PAIN Last Admin: 07/08/17 18:52 Dose: 650 mg Collagenase (Santyl -) 1 applic TP DAILY [facility] Last Admin: 07/08/17 11:07 Dose: 1 applic Ferrous Sulfate (Feosol -) 325 mg PO BIDWM [facility] Last Admin: 07/08/17 17:49 Dose: 325 mg Furosemide (Lasix -) 20 mg PO DAILY [facility] Last Admin: 07/08/17 09:00 Dose: 20 mg Guaifenesin (Robitussin -) 10 ml PO Q8H PRN PRN Reason: COUGH Heparin Sodium (Porcine) (Heparin -) 5,000 unit SQ TID [facility] Last Admin: 07/08/17 15:07 Dose: 5,000 unit Vancomycin HCl 1,000 mg/ (Dextrose) 250 mls @ 250 mls/hr IVPB 0300,1500 [facility] PRN Reason: Protocol Last Admin: 07/08/17 16:16 Dose: 250 mls/hr Piperacillin Sod/Tazobactam (Sod 3.375 gm/ Dextrose) 100 mls @ 200 mls/hr IVPB Q6H-IV [facility] Last Admin: 07/08/17 15:38 Dose: 200 mls/hr Levothyroxine Sodium 100 mcg/ (Levothyroxine Sodium 75 mcg) 175 mcg PO DAILY@ 0700 [facility] Last Admin: 07/08/17 06:27 Dose: 175 mcg Mesalamine (Asacol Hd -) 800 mg PO TID [facility] Last Admin: 07/08/17 15:07 Dose: 800 mg Pantoprazole Sodium (Protonix Iv) 40 mg IVPUSH DAILY [facility] Last Admin: 07/08/17 09:00 Dose: 40 mg - Objective Vital Signs: Vital Signs Temperature 100.3 F H 07/08/17 18:53 Pulse Rate 67 07/08/17 15:09 Respiratory Rate 20 07/08/17 15:09 Blood Pressure 100/43 07/08/17 15:09 O2 Sat by Pulse Oximetry (%) 95 07/08/17 09:00 Labs: CBC, BMP 07/07/17 06:50 07/07/17 06:50 INR, PTT INR 0.98 (0.82-1.09) 06/25/17 09:22 Assessment/Plan - Neuro Exam Level Of Consciousness: Yes: Alert (awake, pleasant, family bedside, EOMI, no facila, left arm weakness TR 4/5, hand grasp 4/5, BL leg weakness, (? tetraplegic -limited effort), RUE 3-4/5 , distal movements feet BL , plantars up BL, left leg inc tone >right, unable to ambulate ) Problem List - Problems (1) CHF (congestive heart failure) Code(s): I50.9 - HEART FAILURE, UNSPECIFIED (2) Down syndrome Code(s): Q90.9 - DOWN SYNDROME, UNSPECIFIED (3) Weakness Code(s): R53.1 - WEAKNESS 59 y/o F with PMH Down's syndrome, hypothyroidism, recent hospitalization in [facility] for L ankle pressure ulcer-stage 3, who presented to ED s/p fall. As per pt' s family and nurse, pt has decreased ambulation over the last month and was found on the ground by family on AM of ED arrival. s/p posterior laminectomy with fusion of C1-C6, with weakness L >R residual . Pt has developed fever , flu +rajni isolation f/u ID wound care as per surgical PA -- OOB to chair if possible HEP SQ as per surgical PA , NS to see on monday rehab planning / aggressive PT in meantime Health maintenance per primary team. Thank you. Chad Parrish MD
[2017-07-08] MEDS: OSELTAMIVIR PHOSPHATE 75 MG CAPSULE PO SCH (22:14)
[2017-07-09] MEDS: PIPERACILLIN/TAZOB 3.375 GM 3.375 GM in DEXTROSE 5%-WATER - 100 ML IVPB SCH ×4 (02:17→21:06)
[2017-07-09] MEDS: VANCOMYCIN 1,000 MG in DEXTROSE 5%-WATER - 250 ML IVPB SCH ×2 (02:17→16:22)
[2017-07-09] MEDS ORDERED: LEVOTHYROXINE NA 100 MCG TABLET (FP) ONE (06:30)
[2017-07-09] MEDS ORDERED: LEVOTHYROXINE NA 75 MCG TABLET (FP) ONE (06:30)
[2017-07-09] MEDS: ACETAMINOPHEN 325 MG TABLET (FP) PO PRN ×2 (06:32→22:05)
[2017-07-09] MEDS: HEPARIN NA (PORCINE) 5,000 UNITS/ML 1ML VIAL SQ SCH ×3 (06:32→21:06)
[2017-07-09] MEDS: LEVOTHYROXINE 100 MCG, LEVOTHYROXINE 75 MCG PO SCH (06:32)
[2017-07-09] MEDS: MESALAMINE 800 MG TABLET.DR PO SCH ×3 (06:33→21:06)
[2017-07-09] MEDS: FERROUS SO4 325 MG TABLET (FP) PO SCH ×2 (08:11→17:12)
[2017-07-09 08:25] LABS: HEMOGLOBIN 8.6 GM/dL (10.7-15.3); MCH 31.6 pg (25.7-33.7); MCHC 31.9 g/dl (32.0-36.0); PLATELET COUNT 161 K/MM3 (134-434); RBC 2.73 M/mm3 (3.60-5.2); WHITE BLOOD COUNT 6.2 K/mm3 (4.0-10.0)
[2017-07-09 09:11] LABS: ANION GAP 11 (8-16); BLOOD UREA NITROGEN 13 mg/dL (7-18); CHLORIDE 102 mmol/L (98-107); CO2 25 mmol/L (21-32); GLUCOSE,RANDOM 95 mg/dL (74-106); POTASSIUM 3.1 mmol/L (3.5-5.1); SODIUM 138 mmol/L (136-145)
[2017-07-09 09:12] LABS: CREATININE 0.9 mg/dL (0.55-1.02)
[2017-07-09] MEDS ORDERED: KCL 10 MEQ IVPB 10 MEQ/100 ML INFUS.BAG IVPB SCH (10:00)
[2017-07-09] MEDS ORDERED: PT OWN MED DRAWER 7, Y5N ONE ×3 (10:01→20:36)
[2017-07-09] MEDS: PANTOPRAZOLE SODIUM 40 MG VIAL IVPUSH SCH (10:15)
[2017-07-09] MEDS ORDERED: POTASSIUM CHLORIDE 20 MEQ in SODIUM CHLORIDE 250 ML IVPB ONE (10:15)
[2017-07-09] MEDS: OSELTAMIVIR PHOSPHATE 75 MG CAPSULE PO SCH ×2 (10:15→21:06)
[2017-07-09] MEDS: FUROSEMIDE 20 MG TABLET (FP) PO SCH (10:15)
[2017-07-09 10:24] LABS: PLATELET ESTIMATE NORMAL
[2017-07-09] MEDS: COLLAGENASE CLOSTRIDIUM HIST. 30 GRAMS TUBE TP SCH (10:26)
[2017-07-09 10:40] LABS: CALCIUM 6.9 mg/dL (8.5-10.1)
--- NOTE | 2017-07-09 11:00 | PN ---
Progress Note (short form) - Note Progress Note: awake and alert neck collar in place poor appetite congested cough Vital Signs Period Temp Pulse Resp BP Sys/Guo Pulse Ox Last 24 Hr 99.8 F-101.7 F 67-68 20-20 99-116/43-49 cor-rrr llungs bilateral rhonchi abd soft,nt ext no edema CBC, BMP 07/09/17 07:17 07/09/17 07:17 Microbiology 07/08/17 19:50 Nasopharyngeal Swab Influenza Types A,B Antigen (MATILDE) - Final 07/08/17 19:50 Nasopharyngeal Swab - Final ua 90 wbc Active Medications Generic Name Dose Route Start Last Admin Trade Name Freq PRN Reason Stop Dose Admin Acetaminophen 650 mg 07/01/17 12:41 07/09/17 06:32 Tylenol - PO 650 mg Q4H PRN Administration FEVER OR PAIN Collagenase 1 applic 07/04/17 12:00 07/09/17 10:26 Santyl - TP 1 applic DAILY [facility] Administration Ferrous Sulfate 325 mg 07/04/17 17:30 07/09/17 08:11 Feosol - PO 325 mg BIDWM [facility] Administration Furosemide 20 mg 07/04/17 10:00 07/09/17 10:15 Lasix - PO 20 mg DAILY [facility] Administration Guaifenesin 10 ml 07/08/17 12:05 Robitussin - PO Q8H PRN COUGH Heparin Sodium (Porcine) 5,000 unit 06/30/17 22:00 07/09/17 06:32 Heparin - SQ 5,000 unit TID [facility] Administration Vancomycin HCl 1,000 mg/ 250 mls @ 250 mls/hr 07/08/17 15:00 07/09/17 02:17 Dextrose IVPB 250 mls/hr 0300,1500 [facility] Administration Protocol Piperacillin Sod/Tazobactam 100 mls @ 200 mls/hr 07/08/17 15:00 07/09/17 10: 15 Sod 3.375 gm/ Dextrose IVPB 200 mls/hr Q6H-IV [facility] Administration Potassium Chloride 20 meq/ 260 mls @ 130 mls/hr 07/09/17 10:15 Sodium Chloride IVPB 07/09/17 12:14 ONCE ONE Levothyroxine Sodium 100 mcg/ 175 mcg 07/01/17 07:00 07/09/17 06:32 Levothyroxine Sodium 75 mcg PO 175 mcg DAILY@0700 [facility] Administration Mesalamine 800 mg 06/30/17 22:00 07/09/17 06:33 Asacol Hd - PO 800 mg TID [facility] Administration Oseltamivir Phosphate 75 mg 07/08/17 22:00 07/09/17 10:15 Tamiflu - PO 07/13/17 10:01 75 mg BID [facility] Administration Pantoprazole Sodium 40 mg 07/01/17 10:00 07/09/17 10:15 Protonix Iv IVPUSH 40 mg DAILY [facility] Administration a/p new fevers-positive influenza A! post op day #11 s/p posterior cervical laminectomy cultures pending pyuria c/w UTI influenza A- on tamiflu uti- f/u cultures blood and urine- continue vanco/zosyn surgery to f/u to evaluate neck incision
[2017-07-09] MEDS ORDERED: CALCIUM GLUCONATE 10% - 1,000 MG/10 ML VIAL IVPB ONE (13:00)
[2017-07-09 13:39] LABS: ALBUMIN 1.7 g/dl (3.4-5.0)
--- NOTE | 2017-07-09 13:46 | PN ---
Progress Note, Physician History of Present Illness: nl bm good apetite vss vo temp today dx low calcium albumin stat correct w josue gluc if needed ekg t abn new ? low josue s/p fusion sx neck cont tx as is f/u nuerosx skip he back from vacation hypothriodism cont tx as is flu btpype a tamiflu id wants vanco continued? exts more movment pnd adir p/t tx if cleared bt nuerosx lt foot and sacral ulser slght improvment sx on mark f/u card enzymes pnd covering dr dr brock hospitalist [facility] - Current Medication List Current Medications: Active Medications Acetaminophen (Tylenol -) 650 mg PO Q4H PRN PRN Reason: FEVER OR PAIN Last Admin: 07/09/17 06:32 Dose: 650 mg Collagenase (Santyl -) 1 applic TP DAILY [facility] Last Admin: 07/09/17 10:26 Dose: 1 applic Ferrous Sulfate (Feosol -) 325 mg PO BIDWM [facility] Last Admin: 07/09/17 08:11 Dose: 325 mg Furosemide (Lasix -) 20 mg PO DAILY [facility] Last Admin: 07/09/17 10:15 Dose: 20 mg Guaifenesin (Robitussin -) 10 ml PO Q8H PRN PRN Reason: COUGH Heparin Sodium (Porcine) (Heparin -) 5,000 unit SQ TID [facility] Last Admin: 07/09/17 06:32 Dose: 5,000 unit Vancomycin HCl 1,000 mg/ (Dextrose) 250 mls @ 250 mls/hr IVPB 0300,1500 [facility] PRN Reason: Protocol Last Admin: 07/09/17 02:17 Dose: 250 mls/hr Piperacillin Sod/Tazobactam (Sod 3.375 gm/ Dextrose) 100 mls @ 200 mls/hr IVPB Q6H-IV [facility] Last Admin: 07/09/17 10:15 Dose: 200 mls/hr Levothyroxine Sodium 100 mcg/ (Levothyroxine Sodium 75 mcg) 175 mcg PO DAILY@ 0700 [facility] Last Admin: 07/09/17 06:32 Dose: 175 mcg Mesalamine (Asacol Hd -) 800 mg PO TID [facility] Last Admin: 07/09/17 06:33 Dose: 800 mg Oseltamivir Phosphate (Tamiflu -) 75 mg PO BID [facility] Stop: 07/13/17 10:01 Last Admin: 07/09/17 10:15 Dose: 75 mg Pantoprazole Sodium (Protonix Iv) 40 mg IVPUSH DAILY [facility] Last Admin: 07/09/17 10:15 Dose: 40 mg - Objective Vital Signs: Vital Signs Temperature 98.2 F 07/09/17 09:00 Pulse Rate 98 H 07/09/17 09:00 Respiratory Rate 20 07/09/17 09:00 Blood Pressure 109/46 07/09/17 09:00 O2 Sat by Pulse Oximetry (%) 95 07/09/17 09:00 Labs: CBC, BMP 07/09/17 07:17 07/09/17 07:17 INR, PTT INR 0.98 (0.82-1.09) 06/25/17 09:22 Problem List - Problems (1) Down syndrome Code(s): Q90.9 - DOWN SYNDROME, UNSPECIFIED (2) Puncture wound of left foot excluding toes with infection Code(s): S91.332A - PUNCTURE WOUND WITHOUT FOREIGN BODY, LEFT FOOT, INIT ENCNTR ; L08.9 - LOCAL INFECTION OF THE SKIN AND SUBCUTANEOUS TISSUE, UNSP (3) CHF (congestive heart failure) Code(s): I50.9 - HEART FAILURE, UNSPECIFIED (4) Mitral and aortic insufficiency Code(s): I08.0 - RHEUMATIC DISORDERS OF BOTH MITRAL AND AORTIC VALVES
--- NOTE | 2017-07-09 14:45 | EKG ---
Test Reason : Blood Pressure : / mmHG Vent. Rate : 067 BPM Atrial Rate : 067 BPM P-R Int : 154 ms QRS Dur : 090 ms QT Int : 410 ms P-R-T Axes : 042 -07 120 degrees QTc Int : 433 ms NORMAL SINUS RHYTHM T WAVE ABNORMALITY, CONSIDER LATERAL ISCHEMIA ABNORMAL ECG WHEN COMPARED WITH ECG OF 25-JUN-2017 10:06, NON-SPECIFIC CHANGE IN ST SEGMENT IN LATERAL LEADS CLINICAL CORRELATION IS RECOMMENDED Confirmed by KACY YOUNG, JEANCARLOS ([id number]) on 07/09/2017 2:44:49 PM Referred By: Dread FUNK Confirmed By:JEANCARLOS WOODRUFF MD
[2017-07-10] MEDS: PIPERACILLIN/TAZOB 3.375 GM 3.375 GM in DEXTROSE 5%-WATER - 100 ML IVPB SCH ×4 (02:00→21:44)
[2017-07-10] MEDS: VANCOMYCIN 1,000 MG in DEXTROSE 5%-WATER - 250 ML IVPB SCH ×2 (02:38→17:24)
[2017-07-10] MEDS ORDERED: LEVOTHYROXINE NA 100 MCG TABLET (FP) ONE (06:30)
[2017-07-10] MEDS ORDERED: LEVOTHYROXINE NA 75 MCG TABLET (FP) ONE (06:30)
[2017-07-10] MEDS: HEPARIN NA (PORCINE) 5,000 UNITS/ML 1ML VIAL SQ SCH ×3 (06:36→21:43)
[2017-07-10] MEDS: MESALAMINE 800 MG TABLET.DR PO SCH ×3 (06:37→21:43)
[2017-07-10] MEDS: LEVOTHYROXINE 100 MCG, LEVOTHYROXINE 75 MCG PO SCH (06:37)
[2017-07-10 07:59] LABS: BASO % 1.2 % (0-2.0); EOS % 1.2 % (0-4.5); HEMATOCRIT 29.8 % (32.4-45.2); HEMOGLOBIN 9.7 GM/dL (10.7-15.3); LYMPH % 19.8 % (8-40); MCH 32.2 pg (25.7-33.7); MCHC 32.5 g/dl (32.0-36.0); MEAN CELL VOLUME 98.9 fl (80-96); MEAN PLT VOLUME 10.2 fl (7.5-11.1); MONO % 8.8 % (3.8-10.2); PLATELET COUNT 173 K/MM3 (134-434); RBC 3.02 M/mm3 (3.60-5.2)
[2017-07-10 08:35] LABS: ALBUMIN 1.6 g/dl (3.4-5.0); ANION GAP 7 (8-16); BLOOD UREA NITROGEN 10 mg/dL (7-18); CHLORIDE 100 mmol/L (98-107); CO2 29 mmol/L (21-32); GLUCOSE,RANDOM 96 mg/dL (74-106); SGOT/AST 25 U/L (15-37); SGPT/ALT 15 U/L (12-78); SODIUM 136 mmol/L (136-145)
[2017-07-10 08:37] LABS: ALK PHOS 73 U/L (45-117); BILIRUBIN,TOTAL 0.5 mg/dL (0.2-1.0); TOT PROT 4.8 g/dl (6.4-8.2)
[2017-07-10 09:02] LABS: POTASSIUM 2.9 mmol/L (3.5-5.1)
[2017-07-10 09:03] LABS: CALCIUM 6.4 mg/dL (8.5-10.1)
[2017-07-10] MEDS ORDERED: POTASSIUM CHLORIDE TABS 20 MEQ TABLET.ER (FP) PO ONE (09:08)
[2017-07-10] MEDS ORDERED: PT OWN MED DRAWER 7, Y5N ONE (09:28)
[2017-07-10] MEDS: FUROSEMIDE 20 MG TABLET (FP) PO SCH (09:36)
[2017-07-10] MEDS: PANTOPRAZOLE SODIUM 40 MG VIAL IVPUSH SCH (09:36)
[2017-07-10] MEDS: FERROUS SO4 325 MG TABLET (FP) PO SCH ×2 (09:36→17:25)
[2017-07-10] MEDS: OSELTAMIVIR PHOSPHATE 75 MG CAPSULE PO SCH ×2 (09:36→21:43)
--- NOTE | 2017-07-10 11:09 | PN ---
Progress Note, Physician Chief Complaint: ID Temps trending down still low grade Zosyn and Oseltamivir ( 2) - Current Medication List Current Medications: Active Medications Acetaminophen (Tylenol -) 650 mg PO Q4H PRN PRN Reason: FEVER OR PAIN Last Admin: 07/09/17 22:05 Dose: 650 mg Collagenase (Santyl -) 1 applic TP DAILY [facility] Last Admin: 07/09/17 10:26 Dose: 1 applic Ferrous Sulfate (Feosol -) 325 mg PO BIDWM [facility] Last Admin: 07/10/17 09:36 Dose: 325 mg Furosemide (Lasix -) 20 mg PO DAILY [facility] Last Admin: 07/10/17 09:36 Dose: 20 mg Guaifenesin (Robitussin -) 10 ml PO Q8H PRN PRN Reason: COUGH Heparin Sodium (Porcine) (Heparin -) 5,000 unit SQ TID [facility] Last Admin: 07/10/17 06:36 Dose: 5,000 unit Vancomycin HCl 1,000 mg/ (Dextrose) 250 mls @ 250 mls/hr IVPB 0300,1500 [facility] PRN Reason: Protocol Last Admin: 07/10/17 02:38 Dose: 250 mls/hr Piperacillin Sod/Tazobactam (Sod 3.375 gm/ Dextrose) 100 mls @ 200 mls/hr IVPB Q6H-IV [facility] Last Admin: 07/10/17 09:35 Dose: 200 mls/hr Potassium Chloride (Potassium Chloride 10 Meq Premix Ivpb -) 30 meq in 300 mls @ 100 mls/hr IVPB Q60M [facility] Stop: 07/10/17 12:14 Potassium Chloride 30 meq/ (Sodium Chloride) 315 mls @ 88.333 mls/hr IVPB ONCE ONE Stop: 07/10/17 14:48 Levothyroxine Sodium 100 mcg/ (Levothyroxine Sodium 75 mcg) 175 mcg PO DAILY@ 0700 [facility] Last Admin: 07/10/17 06:37 Dose: 175 mcg Mesalamine (Asacol Hd -) 800 mg PO TID [facility] Last Admin: 07/10/17 06:37 Dose: 800 mg Oseltamivir Phosphate (Tamiflu -) 75 mg PO BID [facility] Stop: 07/13/17 10:01 Last Admin: 07/10/17 09:36 Dose: 75 mg Pantoprazole Sodium (Protonix Iv) 40 mg IVPUSH DAILY [facility] Last Admin: 07/10/17 09:36 Dose: 40 mg - Objective Vital Signs: Vital Signs Temperature 100 F H 07/10/17 09:49 Pulse Rate 66 07/10/17 09:49 Respiratory Rate 20 07/10/17 09:49 Blood Pressure 99/52 07/10/17 09:49 O2 Sat by Pulse Oximetry (%) 95 07/09/17 22:00 Neck: Yes: Other (Cervical collar) Labs: CBC, BMP 07/10/17 06:30 07/10/17 06:30 INR, PTT INR 0.98 (0.82-1.09) 06/25/17 09:22 Assessment/Plan Microbiology 07/08/17 19:50 Nasopharyngeal Swab Influenza Types A,B Antigen (MATILDE) - Final 07/08/17 19:50 Nasopharyngeal Swab - Final 07/08/17 15:00 Urine - Urine - Catheterized Urine Culture - Preliminary Non Lactose Fermenting Gnb 06/25/17 09:22 Blood - Peripheral Venous Blood Culture - Preliminary NO GROWTH OBTAINED AFTER 24 HOURS, INCUBATION TO CONTINUE FOR 4 DAYS. 06/25/17 09:22 Blood - Peripheral Venous Blood Culture - Preliminary NO GROWTH OBTAINED AFTER 24 HOURS, INCUBATION TO CONTINUE FOR 4 DAYS. Laboratory Tests 06/25/17 06/25/17 07/08/17 09:22 10:35 15:00 WBC 5.0 D Hgb 12.5 Hct 38.3 Plt Count 170 D Potassium Creatinine Creat Clearance w eGFR Ur Leukocyte Esterase 3+ H Urine WBC (Auto) 8 90 Urine RBC (Auto) 8 07/10/17 07/10/17 06:30 06:30 WBC 6.0 Hgb 9.7 L D Hct Plt Count 173 Potassium 2.9 L* Creatinine 1.0 Creat Clearance w eGFR 56.75 Ur Leukocyte Esterase Urine WBC (Auto) Urine RBC (Auto) Assessment Fever secondary influenza Incidental urinary infection gram neg Low potassium may due Zosyn Plan Continue current therapy Lorna YOUNG
[2017-07-10] MEDS ORDERED: POTASSIUM CHLORIDE 30 MEQ in SODIUM CHLORIDE 300 ML IVPB ONE (11:15)
[2017-07-10] MEDS: KCL 10 MEQ IVPB 30 MEQ/300 ML INFUS.BAG IVPB SCH (11:37)
--- NOTE | 2017-07-10 12:06 | PN ---
Progress Note (short form) - Note Progress Note: Medical coverage for Dr. Satya Birch Subjective: The patient was seen and examined at the bedside, she has no complaints at this time Current Medications Generic Name Dose Route Start Last Admin Trade Name Freq PRN Reason Stop Dose Admin Acetaminophen 650 mg 07/01/17 12:41 07/09/17 22:05 Tylenol - PO 650 mg Q4H PRN Administration FEVER OR PAIN Collagenase 1 applic 07/04/17 12:00 07/09/17 10:26 Santyl - TP 1 applic DAILY [facility] Administration Ferrous Sulfate 325 mg 07/04/17 17:30 07/10/17 09:36 Feosol - PO 325 mg BIDWM [facility] Administration Furosemide 20 mg 07/04/17 10:00 07/10/17 09:36 Lasix - PO 20 mg DAILY [facility] Administration Guaifenesin 10 ml 07/08/17 12:05 Robitussin - PO Q8H PRN COUGH Heparin Sodium (Porcine) 5,000 unit 06/30/17 22:00 07/10/17 06:36 Heparin - SQ 5,000 unit TID [facility] Administration Vancomycin HCl 1,000 mg/ 250 mls @ 250 mls/hr 07/08/17 15:00 07/10/17 02:38 Dextrose IVPB 250 mls/hr 0300,1500 [facility] Administration Protocol Piperacillin Sod/Tazobactam 100 mls @ 200 mls/hr 07/08/17 15:00 07/10/17 09: 35 Sod 3.375 gm/ Dextrose IVPB 200 mls/hr Q6H-IV [facility] Administration Potassium Chloride 30 meq/ 315 mls @ 88.333 mls/hr 07/10/17 11:15 Sodium Chloride IVPB 07/10/17 14:48 ONCE ONE Levothyroxine Sodium 100 mcg/ 175 mcg 07/01/17 07:00 07/10/17 06:37 Levothyroxine Sodium 75 mcg PO 175 mcg DAILY@0700 [facility] Administration Mesalamine 800 mg 06/30/17 22:00 07/10/17 06:37 Asacol Hd - PO 800 mg TID [facility] Administration Oseltamivir Phosphate 75 mg 07/08/17 22:00 07/10/17 09:36 Tamiflu - PO 07/13/17 10:01 75 mg BID [facility] Administration Pantoprazole Sodium 40 mg 07/01/17 10:00 07/10/17 09:36 Protonix Iv IVPUSH 40 mg DAILY [facility] Administration Objective: Vital Signs Period Temp Pulse Resp BP Sys/Guo Pulse Ox Last 24 Hr 98.2 F-101.0 F 63-83 20-20 99-110/45-52 95-95 Physical Exam: General: NAD Neck: C-collar in place. Dressing over c-spine Heart: RRR, S1S2 Lungs: B/l rhonchi, +cough Ext: warm, well-perfused. no edema CBCD WBC 6.0 K/mm3 (4.0-10.0) 07/10/17 06:30 RBC 3.02 M/mm3 (3.60-5.2) L 07/10/17 06:30 Hgb 9.7 GM/dL (10.7-15.3) L D 07/10/17 06:30 Hct 29.8 % (32.4-45.2) L 07/10/17 06:30 MCV 98.9 fl (80-96) H 07/10/17 06:30 MCHC 32.5 g/dl (32.0-36.0) 07/10/17 06:30 RDW 16.0 % (11.6-15.6) H 07/10/17 06:30 Plt Count 173 K/MM3 (134-434) 07/10/17 06:30 MPV 10.2 fl (7.5-11.1) 07/10/17 06:30 CMP Sodium 136 mmol/L (136-145) 07/10/17 06:30 Potassium 2.9 mmol/L (3.5-5.1) L* 07/10/17 06:30 Chloride 100 mmol/L (98-107) 07/10/17 06:30 Carbon Dioxide 29 mmol/L (21-32) 07/10/17 06:30 Anion Gap 7 (8-16) L 07/10/17 06:30 BUN 10 mg/dL (7-18) D 07/10/17 06:30 Creatinine 1.0 mg/dL (0.55-1.02) 07/10/17 06:30 Creat Clearance w eGFR 56.75 (>60) 07/10/17 06:30 Random Glucose 96 mg/dL (74-106) 07/10/17 06:30 Calcium 6.4 mg/dL (8.5-10.1) L* 07/10/17 06:30 Total Bilirubin 0.5 mg/dL (0.2-1.0) D 07/10/17 06:30 AST 25 U/L (15-37) 07/10/17 06:30 ALT 15 U/L (12-78) D 07/10/17 06:30 Alkaline Phosphatase 73 U/L (45-117) D 07/10/17 06:30 Total Protein 4.8 g/dl (6.4-8.2) L D 07/10/17 06:30 Albumin 1.6 g/dl (3.4-5.0) L 07/10/17 06:30 CARDIAC ENZYMES Creatine Kinase 283 IU/L (26-192) H 07/10/17 06:30 Troponin I 0.23 ng/ml (0.00-0.05) H 07/10/17 06:30 Microbiology 07/08/17 15:00 Urine - Urine - Catheterized Urine Culture - Preliminary Non Lactose Fermenting Gnb 07/08/17 14:30 Blood - Peripheral Venous Blood Culture - Preliminary NO GROWTH OBTAINED AFTER 24 HOURS, INCUBATION TO CONTINUE FOR 4 DAYS. 07/08/17 14:20 Blood - Peripheral Venous Blood Culture - Preliminary NO GROWTH OBTAINED AFTER 24 HOURS, INCUBATION TO CONTINUE FOR 4 DAYS. 07/08/17 19:50 Nasopharyngeal Swab Influenza Types A,B Antigen (MATILDE) - Final 07/08/17 19:50 Nasopharyngeal Swab - Final 06/25/17 09:22 Blood - Peripheral Venous Blood Culture - Final Propionibacterium Acnes 06/25/17 09:22 Blood - Peripheral Venous Blood Culture - Final NO GROWTH AFTER 5 DAYS INCUBATION 06/25/17 10:35 Urine - Urine Clean Catch Urine Culture - Final Assessment: This is a 61 year old female with PMHx of down syndrome and hypothyroidism who presented to the ED with decreasing ability to ambulate over the last few weeks. 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 - S/p posterior laminectomy with fusion of C1-C6, repair of dural tear on - Continue c-collar - Head of bed elevated to 45-60 degrees at all times - Pain control - WBAT per surgeon - Incentive spirometer - Appreciate surgical consult 2) Elevated troponins - Demand ischemia, NSTEMI - 0.14->0.23->0.2 - Start ASA - Start Toprol XL - Start Diovan - Conservative management - ECHO 06/30/2017: normal LV size and function, mild AI, trace TR with RVSP between 30-40 mmHg - F/u EKG - Appreciate cardiology consult 3) Post op fevers, Influenza A positive - Continue Tamiflu UTI - Urine culture with non-lactose fermenting GNB - Continue Zosyn and Vanco - Awaiting final culture 4) Hypothyroidism - Continue synthroid 5) F/E/N: - High protein diet - Monitor electrolytes 6) Prophylaxis: - Heparin 5,000u sq tid - PT 7) Dispo: - Requires continued inpatient care CODE STATUS: FULL CODE Visit type - Emergency Visit Emergency Visit: Yes ED Registration Date: 06/25/17 Care time: The patient presented to the Emergency Department on the above date and was hospitalized for further evaluation of their emergent condition. - New Patient This patient is new to me today: Yes Date on this admission: 07/10/17 - Critical Care Critical Care patient: No
[2017-07-10] MEDS: COLLAGENASE CLOSTRIDIUM HIST. 30 GRAMS TUBE TP SCH (12:34)
--- NOTE | 2017-07-10 13:06 | PN ---
Progress Note (short form) - Note Progress Note: Chief Complaint: Events noted, notes reviewed, no reported chest pain History of Present Illness: Seen and examined on telemetry. Full consult dictated Echocardiography dated 06/30/2017 revealed normal LV size and function, mild AI , trace TR with RVSP between 30-40 mmHg - Current Medication List Current Medications Acetaminophen (Tylenol -) 650 mg PO Q4H PRN PRN Reason: FEVER OR PAIN Last Admin: 07/09/17 22:05 Dose: 650 mg Collagenase (Santyl -) 1 applic TP DAILY [facility] Last Admin: 07/10/17 12:34 Dose: 1 applic Ferrous Sulfate (Feosol -) 325 mg PO BIDWM [facility] Last Admin: 07/10/17 09:36 Dose: 325 mg Furosemide (Lasix -) 20 mg PO DAILY [facility] Last Admin: 07/10/17 09:36 Dose: 20 mg Guaifenesin (Robitussin -) 10 ml PO Q8H PRN PRN Reason: COUGH Heparin Sodium (Porcine) (Heparin -) 5,000 unit SQ TID [facility] Last Admin: 07/10/17 06:36 Dose: 5,000 unit Vancomycin HCl 1,000 mg/ (Dextrose) 250 mls @ 250 mls/hr IVPB 0300,1500 [facility] PRN Reason: Protocol Last Admin: 07/10/17 02:38 Dose: 250 mls/hr Piperacillin Sod/Tazobactam (Sod 3.375 gm/ Dextrose) 100 mls @ 200 mls/hr IVPB Q6H-IV [facility] Last Admin: 07/10/17 09:35 Dose: 200 mls/hr Potassium Chloride 30 meq/ (Sodium Chloride) 315 mls @ 88.333 mls/hr IVPB ONCE ONE Stop: 07/10/17 14:48 Last Admin: 07/10/17 12:35 Dose: 88.333 mls/hr Levothyroxine Sodium 100 mcg/ (Levothyroxine Sodium 75 mcg) 175 mcg PO DAILY@ 0700 [facility] Last Admin: 07/10/17 06:37 Dose: 175 mcg Mesalamine (Asacol Hd -) 800 mg PO TID [facility] Last Admin: 07/10/17 06:37 Dose: 800 mg Oseltamivir Phosphate (Tamiflu -) 75 mg PO BID [facility] Stop: 07/13/17 10:01 Last Admin: 07/10/17 09:36 Dose: 75 mg Pantoprazole Sodium (Protonix Iv) 40 mg IVPUSH DAILY [facility] Last Admin: 07/10/17 09:36 Dose: 40 mg Review of Systems Unable to obtain - Objective Vital Signs: Last Vital Signs Temp Pulse Resp BP Pulse Ox 100 F H 66 20 99/52 95 07/10/17 09:49 07/10/17 09:49 07/10/17 09:49 07/10/17 09:49 07/10/17 09:00 Intake & Output 07/07/17 07/08/17 07/09/17 07/10/17 23:59 23:59 23:59 23:59 Intake Total 528 065 7975 450 Output Total 600 Balance -462 243 6697 450 Weight 150 lb 156 lb 3 oz 165 lb 6 oz 151 lb 9 oz Constitutional: No Distress Calm Neck: Supple Negative JVD No Bruit Respiratory: Diminished Breath Sounds at the Bases Cardiovascular: S1 S2 Regular Rate and Rhythm Gastrointestinal: Soft Benign Normal Bowel Sounds Ext: Negative Edema Labs: CBC, BMP 07/10/17 06:30 07/10/17 06:30 Hepatic Panel Total Bilirubin 0.5 mg/dL (0.2-1.0) D 07/10/17 06:30 AST 25 U/L (15-37) 07/10/17 06:30 ALT 15 U/L (12-78) D 07/10/17 06:30 Alkaline Phosphatase 73 U/L (45-117) D 07/10/17 06:30 Albumin 1.6 g/dl (3.4-5.0) L 07/10/17 06:30 INR, PTT INR 0.98 (0.82-1.09) 06/25/17 09:22 Assessment/Plan Assessment: 1. CAD with evidence of demand ischemic injury, non ST segment elevation [place], anterior lateral EKG changes, clinically difficult to assess related to Down syndrome 2. Transient LV dysfunction with class I NYHA classification LV failure, ischemia related resolved (diastolic LV dysfunction) 3. 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 Acute Influenza A 5. Down's syndrome 6. Hypothyroidism 7. Anemia 8. Hypokalemia PLAN: 1. Add B-Blockers with caution and hemodynamics permitting 2. Add ARBS with caution and hemodynamics permitting 3. Add ASA unless it is contraindicated 4. Lasix prn 5. Antibiotics as per the ID/primary team 6. Recommend conservative medical management for the above noted presentation considering her presentation and co-morbidities Mio Graves MD
[2017-07-10] MEDS: VALSARTAN 40 MG TABLET (FP) PO SCH (13:58)
[2017-07-10] MEDS: METOPROLOL SUCCINATE 25 MG TAB.SR.24H (FP) PO SCH (13:58)
[2017-07-10] MEDS: ASPIRIN COATED 81 MG TABLET.EC PO SCH (13:59)
--- NOTE | 2017-07-10 14:10 | EKG ---
Test Reason : Blood Pressure : / mmHG Vent. Rate : 065 BPM Atrial Rate : 065 BPM P-R Int : 140 ms QRS Dur : 080 ms QT Int : 458 ms P-R-T Axes : 060 -09 112 degrees QTc Int : 476 ms NORMAL SINUS RHYTHM T WAVE ABNORMALITY, CONSIDER ANTEROLATERAL ISCHEMIA PROLONGED QT ABNORMAL ECG WHEN COMPARED WITH ECG OF 09-JUL-2017 13:29, INVERTED T WAVES HAVE REPLACED NONSPECIFIC T WAVE ABNORMALITY IN ANTERIOR LEADS CLINICAL CORRELATION IS RECOMMENDED Confirmed by KACY YOUNG, JEANCARLOS ([id number]) on 07/10/2017 2:10:18 PM Referred By: Lucina ROJAS Confirmed By:JEANCARLOS WOODRUFF MD
--- NOTE | 2017-07-10 15:08 | CONS ---
DATE OF CONSULTATION: 07/10/2017 CONSULTATION REQUESTED BY: Hospitalist CHIEF COMPLAINT: Cardiovascular evaluation of an abnormal electrocardiogram and elevated troponin I. History was obtained from the chart. Patient with known history of Down syndrome. A 61-year-old female with known history of Down syndrome, hypothyroidism, ulcerative colitis, who was admitted to [facility] June 26, 2017 with a fall and subsequently, patient was noted to have evidence of craniocervical junction instability and tetraparesis requiring posterior laminectomy with fusion of C1 through C6, repair of dural tear, hospital course complicated by infection, sepsis and subsequently influenza A infection. The patient in addition was noted to have an abnormal chest x-ray with respiratory distress which revealed evidence of congestive heart failure requiring Lasix therapy initiation. The patient eventually was noted to have elevated troponin I level and in addition, she was noted to have ischemic EKG changes, in view of which, cardiology evaluation was requested. The patient currently is in a hard collar, does not appear to be in any distress. Upon directly questioning the patient, she denies any chest discomfort. No additional history is obtainable. PAST MEDICAL HISTORY: Down syndrome, hypothyroidism, ulcerative colitis. SOCIAL HISTORY: Resides at home. FAMILY HISTORY: No history of coronary artery disease. ALLERGIES: Multiple including RASPBERRIES, STRAWBERRIES, BARLEY, WHEAT EGG. MEDICAL THERAPY: Currently includes acetaminophen 650 mg every 4 hours as needed, Santyl applied to affected area, ferrous sulfate 325 mg twice a day, Lasix 20 mg once a day, Robitussin 10 mL every 8 hours as needed, subcutaneous heparin 5000 units 3 times a day, vancomycin once a day, piperacillin and tazobactam 3.375 g every 6 hours, potassium chloride supplementation, levothyroxine 175 mcg once a day, Asacol 800 mg 3 times a day, Tamiflu 75 mg twice a day, Protonix 40 mg IV daily. REVIEW OF SYSTEMS: Not obtainable. PHYSICAL EXAMINATION: Vital Signs: Blood pressure 99/52 mmHg, pulse rate is 66 beats per minute. Head and Neck: Pupils equally reactive to light and accommodation. Extraocular muscles intact. Anicteric sclerae. Neck: Negative JVD. No bruit appreciated. Chest: Bilateral scattered rhonchi. Cardiovascular: S1, S2 regular. No murmurs appreciated. Abdomen: Soft, benign, normoactive bowel sounds. Extremities: Negative edema. Intact distal pulses. No calf tenderness. Electrocardiogram reveals sinus rhythm with T wave inversion anterolateral leads , new in comparison to the prior study. Chest x-ray: Report was noted. CBC with a white cell count of 6.0, hemoglobin 9.7, platelet count 173. Basic metabolic profile revealed a sodium 136, potassium 2.9, BUN 10, creatinine 1.0, estimated GFR 56.75, glucose 96, calcium 6.4, albumin 1.6. Troponin 0.14, repeat 0.23 and subsequent repeat 0.20. Normal liver profile. ASSESSMENT: 1. Coronary artery disease with evidence of demand ischemic injury, non-ST segment elevation myocardial infarction, anterolateral electrocardiographic changes. Clinically difficult to assess, related to underlying Down syndrome. 2. Transient left ventricular dysfunction with class I [place] [employer] classification, left ventricular failure, ischemia related, resolved, diastolic left ventricular dysfunction. 3. 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 4. Acute influenza A infection. 5. Down syndrome. 6. Hypothyroidism. 7. Anemia. 8. Hypokalemia. RECOMMENDATIONS: 1. Additional beta blockers with caution and hemodynamics permitting. 2. Addition of angiotensin receptor demetrio therapy with caution and hemodynamics permitting. 3. Addition of aspirin unless it is absolutely contraindicated. 4. Utilization of Lasix on as-needed basis. 5. Antibiotics as per the ID and primary team. 6. Recommend conservative medical management for the above-noted cardiovascular presentation considering her general presentation and comorbidities. Thank you for the kind referral. JEANCARLOS WOODRUFF M.D. [id number] A
--- NOTE | 2017-07-10 16:10 | PN ---
Progress Note (short form) - Note Progress Note: Melany Santos is now 12 days status post posterior cervical decompression and fusion with C1-6 laminectomies for rapidly progressing tetraplegia. Patient's postoperative course has been remarkable for CSF drainage from the caudal aspect of her wound. Postoperative CT demonstrates slight lateral placement of Left C1 screw (occipital fixation not possible due to emergency nature of case and limited equipment). The patient's wound has been dry for almost 72 hours and I had recommended not disturbing the pressure dressing with the hopes that the wound will epithelialize. Patient also with recent cardiac changes and fevers with acute Influenza. I removed the dressing and note that there is some drainage on the deep guaze. I discussed the case and potential management strategies with the patient, sister and mother. The patient is making notable progress in terms of her Neurological deficits with recent improvement in Right arm function and ability to feed herself. If the wound were to be completely dry, I would feel comfortable preparing her for inpatient Rehabilitation. Given the drainage at 12 days postop, I feel that it would be best to augment the repair of the durotomy. I discussed the risks, benefits and alternatives to return to the OR and wound revision under GETA. I proposed cutting the sutures, inserting the retractors and augmenting the dural patch. This will require removal of the Left C1 screw and will allow replacement with a slightly medial trajectory. I explained that the risks included, but were not limited to: , coma, paralysis, bleeding, infection, CSF leakage possibly requiring spinal drainage or additional surgery , failure to fuse and instrumentation migration/malposition/malfunction. I explained that any potential surgery would have to be performed in the setting of coordination of her other active medical problems and their treatments. All questions were answered. Informed consent was obtained. I offered them the option of seeking another opinion or another surgeon. Will plan for patient to be NPO p Midnight and will determine whether surgery can safely be performed tomorrow.
[2017-07-11] MEDS: PIPERACILLIN/TAZOB 3.375 GM 3.375 GM in DEXTROSE 5%-WATER - 100 ML IVPB SCH ×4 (02:32→21:50)
[2017-07-11] MEDS: VANCOMYCIN 1,000 MG in DEXTROSE 5%-WATER - 250 ML IVPB SCH (03:12)
[2017-07-11] MEDS: MESALAMINE 800 MG TABLET.DR PO SCH ×3 (06:19→21:56)
[2017-07-11] MEDS ORDERED: LEVOTHYROXINE NA 100 MCG TABLET (FP) ONE (06:21)
[2017-07-11] MEDS ORDERED: LEVOTHYROXINE NA 75 MCG TABLET (FP) ONE (06:21)
[2017-07-11] MEDS: LEVOTHYROXINE 100 MCG, LEVOTHYROXINE 75 MCG PO SCH (06:23)
--- NOTE | 2017-07-11 07:46 | PN ---
Progress Note (short form) - Note Progress Note: 59 y/o F with PMH Down's syndrome, hypothyroidism, recent hospitalization in [facility] for L ankle pressure ulcer-stage 3, who presented to ED s/p fall. As per pt' s family and nurse, pt has decreased ambulation over the last month and was found on the ground by family on AM of ED arrival. Pt injured R side of forehead and lacerated lip during fall. Denied LOC, syncope, palpitations before the event, and denied fever, chills, chest pain, or recent illnesses at time of admission. as per family walks at baseline, hx of ulcer, though balance has been more of an issue over 1-2 months; she has left sided weakness post fall. CT HD Impression: 1. No acute intracranial hemorrhage. 2. No compelling evidence of cerebral infarction at this time. Please note that subacute cerebral infarctions may be indistinct on CT due to "fogging effect" approximately 2-3 weeks following infarction, requiring clinical correlation. If warranted, MRI may be obtained for further evaluati 3. 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) Cardio/Vascular: Yes: Aortic Insufficiency, Mitral Insufficiency Pulmonary: Yes: Other Gastrointestinal: Yes: Ulcerative Colitis Hepatobiliary: Yes: Hepatitis B Musculoskeletal: Yes: Other (c/s fusions) Endocrine: Yes: Hypothyroidism - Alcohol/Substance Use Hx Alcohol Use: No - Smoking History Smoking history: Never smoked Have you smoked in the past 12 months: No Home Medications - Allergies Allergies/Adverse Reactions: Allergies Allergy/AdvReac Type Severity Reaction Status Date / Time raspberry Allergy Severe Rash Verified 06/27/17 14:48 strawberry Allergy Severe Rash Verified 06/27/17 14:49 barley Allergy Intermediate Rash Verified 06/27/17 14:47 wheat Allergy Intermediate Rash Verified 06/25/17 08:59 egg AdvReac Severe Nausea Verified 06/25/17 08:59 egg yolk AdvReac Severe Nausea Verified 06/25/17 08:59 - Home Medications Home Medications: Ambulatory Orders Furosemide [Lasix -] 40 mg PO DAILY 04/20/15 Levothyroxine [Synthroid -] 150 mcg PO DAILY 03/26/17 Mesalamine [Asacol Hd -] 800 mg PO TID 03/26/17 Raloxifene HCl 60 mg PO DAILY 03/26/17 Family Disease History - Family Disease History Family Disease History: Heart Disease: Mother Physical Exam-Neuro Vital Signs: Vital Signs Temperature 98.8 F 07/11/17 06:00 Pulse Rate 64 07/11/17 06:00 Respiratory Rate 20 07/11/17 06:00 Blood Pressure 108/50 07/11/17 06:00 O2 Sat by Pulse Oximetry (%) 95 07/10/17 21:00 Constitutional: Yes: Well Nourished Labs: CBCD WBC 9.5 K/mm3 (4.0-10.0) 07/07/17 06:50 RBC 2.92 M/mm3 (3.60-5.2) L 07/07/17 06:50 Hgb 9.3 GM/dL (10.7-15.3) L 07/07/17 06:50 Hct 28.5 % (32.4-45.2) L 07/07/17 06:50 MCV 97.6 fl (80-96) H 07/07/17 06:50 MCHC 32.8 g/dl (32.0-36.0) 07/07/17 06:50 RDW 15.6 % (11.6-15.6) 07/07/17 06:50 Plt Count 188 K/MM3 (134-434) 07/07/17 06:50 MPV 10.5 fl (7.5-11.1) 07/07/17 06:50 CMP Sodium 138 mmol/L (136-145) 07/07/17 06:50 Potassium 3.5 mmol/L (3.5-5.1) 07/07/17 06:50 Chloride 104 mmol/L (98-107) 07/07/17 06:50 Carbon Dioxide 27 mmol/L (21-32) 07/07/17 06:50 Anion Gap 7 (8-16) L 07/07/17 06:50 BUN 14 mg/dL (7-18) 07/07/17 06:50 Creatinine 0.7 mg/dL (0.55-1.02) D 07/07/17 06:50 Creat Clearance w eGFR 56.75 (>60) 06/25/17 09:22 Calcium 7.4 mg/dL (8.5-10.1) L 07/07/17 06:50 Total Bilirubin 0.4 mg/dL (0.2-1.0) D 06/25/17 09:22 AST 25 U/L (15-37) D 06/25/17 09:22 ALT 25 U/L (12-78) 06/25/17 09:22 Alkaline Phosphatase 105 U/L (45-117) D 06/25/17 09:22 Total Protein 7.3 g/dl (6.4-8.2) 06/25/17 09:22 Albumin 3.0 g/dl (3.4-5.0) L 06/25/17 09:22 - Neuro Exam Level Of Consciousness: Yes: Alert (awake, pleasant, family bedside, EOMI, no facila, left arm weakness TR 4/5, hand grasp 4/5, BL leg weakness, (? tetraplegic -limited effort), RUE 3-4/5 , distal movements feet BL , plantars up BL, left leg inc tone >right, unable to ambulate ) Problem List - Problems (1) CHF (congestive heart failure) Code(s): I50.9 - HEART FAILURE, UNSPECIFIED (2) Down syndrome Code(s): Q90.9 - DOWN SYNDROME, UNSPECIFIED (3) Weakness Code(s): R53.1 - WEAKNESS Assessment/Plan 59 y/o F with PMH Down's syndrome, hypothyroidism, recent hospitalization in [facility] for L ankle pressure ulcer-stage 3, who presented to ED s/p fall. As per pt' s family and nurse, pt has decreased ambulation over the last month and was found on the ground by family on AM of ED arrival. s/p posterior laminectomy with fusion of C1-C6, with weakness L >R residual tetraparesis afebrile, planned surgical revision today Dr Alexis Problem List - Problems (1) CHF (congestive heart failure) Code(s): I50.9 - HEART FAILURE, UNSPECIFIED (2) Down syndrome Code(s): Q90.9 - DOWN SYNDROME, UNSPECIFIED (3) Weakness Code(s): R53.1 - WEAKNESS
[2017-07-11] MEDS ORDERED: PT OWN MED DRAWER 7, Y5N ONE ×3 (09:00→15:01)
[2017-07-11] MEDS: METOPROLOL SUCCINATE 25 MG TAB.SR.24H (FP) PO SCH (10:22)
[2017-07-11] MEDS: VALSARTAN 40 MG TABLET (FP) PO SCH (10:22)
[2017-07-11] MEDS: FUROSEMIDE 20 MG TABLET (FP) PO SCH (10:22)
[2017-07-11] MEDS: OSELTAMIVIR PHOSPHATE 75 MG CAPSULE PO SCH ×2 (10:22→21:57)
[2017-07-11] MEDS: PANTOPRAZOLE SODIUM 40 MG VIAL IVPUSH SCH (10:22)
[2017-07-11] MEDS: ASPIRIN COATED 81 MG TABLET.EC PO SCH (10:23)
[2017-07-11] MEDS: FERROUS SO4 325 MG TABLET (FP) PO SCH ×2 (10:24→17:07)
[2017-07-11] MEDS: ACETAMINOPHEN 325 MG TABLET (FP) PO PRN (10:27)
[2017-07-11 10:32] LABS: HEMATOCRIT 28.7 % (32.4-45.2); HEMOGLOBIN 9.3 GM/dL (10.7-15.3); MCH 31.7 pg (25.7-33.7); MCHC 32.3 g/dl (32.0-36.0); MEAN CELL VOLUME 98.3 fl (80-96); MEAN PLT VOLUME 9.9 fl (7.5-11.1); PLATELET COUNT 183 K/MM3 (134-434); RBC 2.92 M/mm3 (3.60-5.2); RDW 16.2 % (11.6-15.6); WHITE BLOOD COUNT 5.6 K/mm3 (4.0-10.0)
[2017-07-11] MEDS: COLLAGENASE CLOSTRIDIUM HIST. 30 GRAMS TUBE TP SCH (10:51)
[2017-07-11 11:14] LABS: ALBUMIN 1.6 g/dl (3.4-5.0); ANION GAP 10 (8-16); BLOOD UREA NITROGEN 10 mg/dL (7-18); CHLORIDE 99 mmol/L (98-107); CO2 25 mmol/L (21-32); GLUCOSE,RANDOM 92 mg/dL (74-106); MAGNESIUM 2.1 mg/dL (1.8-2.4); POTASSIUM 3.9 mmol/L (3.5-5.1); SODIUM 134 mmol/L (136-145)
[2017-07-11 11:19] LABS: ALK PHOS 70 U/L (45-117); BILIRUBIN,TOTAL 0.4 mg/dL (0.2-1.0); CREATININE 0.9 mg/dL (0.55-1.02); PHOSPHOROUS 2.6 mg/dL (2.5-4.9); SGOT/AST 34 U/L (15-37); SGPT/ALT 18 U/L (12-78)
[2017-07-11 11:24] LABS: CALCIUM 6.9 mg/dL (8.5-10.1)
--- NOTE | 2017-07-11 12:41 | PN ---
Progress Note (short form) - Note Progress Note: Patient with dry wound today and Cardiology concerns regarding recent myocardial ischemia. Will postpone surgical revision of wound until Monday or Monday when medically optimized. Patient to receive new ECHO to assess cardiac function. Will follow with team and will prepare for surgery once medically fit to undergo it.
--- NOTE | 2017-07-11 13:11 | PN ---
Progress Note, Physician Chief Complaint: Events noted Not in distress History of Present Illness: Patient was seen and examined. Awake and alert. Chart was reviewed Denies chest pain, SOB or palpitations - Current Medication List Current Medications: Active Medications Acetaminophen (Tylenol -) 650 mg PO Q4H PRN PRN Reason: FEVER OR PAIN Last Admin: 07/11/17 10:27 Dose: 650 mg Aspirin (Ecotrin -) 81 mg PO DAILY [facility] Last Admin: 07/11/17 10:23 Dose: 81 mg Collagenase (Santyl -) 1 applic TP DAILY [facility] Last Admin: 07/11/17 10:51 Dose: 1 applic Ferrous Sulfate (Feosol -) 325 mg PO BIDWM [facility] Last Admin: 07/11/17 10:24 Dose: 325 mg Furosemide (Lasix -) 20 mg PO DAILY [facility] Last Admin: 07/11/17 10:22 Dose: 20 mg Guaifenesin (Robitussin -) 10 ml PO Q8H PRN PRN Reason: COUGH Heparin Sodium (Porcine) (Heparin -) 5,000 unit SQ TID [facility] Last Admin: 07/10/17 21:43 Dose: 5,000 unit Vancomycin HCl 1,000 mg/ (Dextrose) 250 mls @ 250 mls/hr IVPB 0300,1500 KELLE PRN Reason: Protocol Last Admin: 07/11/17 03:12 Dose: 250 mls/hr Piperacillin Sod/Tazobactam (Sod 3.375 gm/ Dextrose) 100 mls @ 200 mls/hr IVPB Q6H-IV [facility] Last Admin: 07/11/17 10:21 Dose: 200 mls/hr Levothyroxine Sodium 100 mcg/ (Levothyroxine Sodium 75 mcg) 175 mcg PO DAILY@ 0700 [facility] Last Admin: 07/11/17 06:23 Dose: 175 mcg Mesalamine (Asacol Hd -) 800 mg PO TID [facility] Last Admin: 07/11/17 06:19 Dose: Not Given Metoprolol Succinate (Toprol Xl -) 12.5 mg PO DAILY [facility] Last Admin: 07/11/17 10:22 Dose: 12.5 mg Oseltamivir Phosphate (Tamiflu -) 75 mg PO BID [facility] Stop: 07/13/17 10:01 Last Admin: 07/11/17 10:22 Dose: 75 mg Pantoprazole Sodium (Protonix Iv) 40 mg IVPUSH DAILY [facility] Last Admin: 07/11/17 10:22 Dose: 40 mg Valsartan (Diovan -) 40 mg PO DAILY [facility] Last Admin: 07/11/17 10:22 Dose: 40 mg - Objective Vital Signs: Vital Signs Temperature 98.8 F 07/11/17 06:00 Pulse Rate 64 07/11/17 06:00 Respiratory Rate 20 07/11/17 06:00 Blood Pressure 108/50 07/11/17 06:00 O2 Sat by Pulse Oximetry (%) 95 07/10/17 21:00 Eyes: Yes: PERRL HENT: Yes: Atraumatic Neck: Yes: Supple Cardiovascular: Yes: Regular Rate and Rhythm, S1, S2 Respiratory: Yes: CTA Bilaterally Gastrointestinal: Yes: Normal Bowel Sounds, Soft. No: Tenderness Edema: No Labs: CBC, BMP 07/11/17 10:05 07/11/17 10:05 Problem List - Problems (1) CHF (congestive heart failure) Code(s): I50.9 - HEART FAILURE, UNSPECIFIED Qualifiers: Congestive heart failure type: diastolic Congestive heart failure chronicity: acute on chronic Qualified Code(s): I50.33 - Acute on chronic diastolic (congestive) heart failure (2) Down syndrome Code(s): Q90.9 - DOWN SYNDROME, UNSPECIFIED (3) Mitral and aortic insufficiency Code(s): I08.0 - RHEUMATIC DISORDERS OF BOTH MITRAL AND AORTIC VALVES (4) CAD (coronary artery disease) Code(s): I25.10 - ATHSCL HEART DISEASE OF [place] CORONARY ARTERY W/O ANG PCTRS Qualifiers: Coronary Disease-Associated Artery/Lesion type: [place] artery [place] vs. transplanted heart: [place] heart Associated angina: without angina Qualified Code(s): I25.10 - Atherosclerotic heart disease of [place] coronary artery without angina pectoris (5) Demand ischemia Code(s): I24.8 - OTHER FORMS OF ACUTE ISCHEMIC HEART DISEASE Assessment/Plan 1. CAD with evidence of demand ischemic injury, non ST segment elevation LA, anterior lateral EKG changes 2. Transient LV dysfunction with class I NYHA classification LV failure - diastolic LV dysfunction 3. 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 History of acute Influenza A 5. Down's syndrome 6. Hypothyroidism 7. Anemia 8. Hypokalemia PLAN: 1. Continue Metoprolol ER and Diovan as tolerated 2. Continue ASA as tolerated 3. Lasix as needed 4. Antibiotics coverage 5. Recommend conservative medical management for the above noted presentation considering her presentation and co-morbidities 6. Neurosurgery input noted 7. Transthoracic echocardiography to assess LV/RV and valvular function Further plans are to follow You Martin MD
--- NOTE | 2017-07-11 14:45 | PN ---
Progress Note (short form) - Note Progress Note: awake and alert neck collar in place afebrile Vital Signs Period Temp Pulse Resp BP Sys/Guo Pulse Ox Last 24 Hr 97.7 F-100 F 63-65 20-20 100-108/39-56 95-95 cor-rrr llungs clear abd soft,nt ext no edema cervical collar in place CBC, BMP 07/11/17 10:05 07/11/17 10:05 Microbiology 07/08/17 14:30 Blood - Peripheral Venous Blood Culture - Preliminary NO GROWTH OBTAINED AFTER 72 HOURS, INCUBATION TO CONTINUE FOR 2 DAYS. 07/08/17 14:20 Blood - Peripheral Venous Blood Culture - Preliminary NO GROWTH OBTAINED AFTER 72 HOURS, INCUBATION TO CONTINUE FOR 2 DAYS. 07/08/17 15:00 Urine - Urine - Catheterized Urine Culture - Final Pseudomonas Aeruginosa a/p new fevers-positive influenza A post op day #13 s/p posterior cervical laminectomy pseudomonas UTI influenza A- on tamiflu day 3 of 5 uti-pseudomonas continue zosyn cardiology evaluation neurosurgery f/u ongoing
[2017-07-11] MEDS: HEPARIN NA (PORCINE) 5,000 UNITS/ML 1ML VIAL SQ SCH ×2 (15:07→21:56)
[2017-07-12] MEDS: PIPERACILLIN/TAZOB 3.375 GM 3.375 GM in DEXTROSE 5%-WATER - 100 ML IVPB SCH ×4 (02:40→21:38)
[2017-07-12] MEDS ORDERED: LEVOTHYROXINE NA 100 MCG TABLET (FP) ONE (04:42)
[2017-07-12] MEDS ORDERED: LEVOTHYROXINE NA 75 MCG TABLET (FP) ONE (04:42)
[2017-07-12] MEDS: HEPARIN NA (PORCINE) 5,000 UNITS/ML 1ML VIAL SQ SCH ×3 (06:00→21:38)
[2017-07-12] MEDS: MESALAMINE 800 MG TABLET.DR PO SCH ×3 (06:01→21:38)
[2017-07-12] MEDS: LEVOTHYROXINE 100 MCG, LEVOTHYROXINE 75 MCG PO SCH (06:01)
[2017-07-12] MEDS: ACETAMINOPHEN 325 MG TABLET (FP) PO PRN ×2 (06:53→22:42)
[2017-07-12] MEDS: FERROUS SO4 325 MG TABLET (FP) PO SCH ×2 (07:58→17:19)
[2017-07-12 08:11] LABS: MCH 31.7 pg (25.7-33.7); MCHC 32.3 g/dl (32.0-36.0); MEAN CELL VOLUME 98.2 fl (80-96); MEAN PLT VOLUME 10.1 fl (7.5-11.1); PLATELET COUNT 181 K/MM3 (134-434); RBC 2.85 M/mm3 (3.60-5.2); WHITE BLOOD COUNT 5.9 K/mm3 (4.0-10.0)
[2017-07-12 08:21] LABS: ALBUMIN 1.7 g/dl (3.4-5.0); ALK PHOS 76 U/L (45-117); ANION GAP 7 (8-16); BILIRUBIN,TOTAL 0.4 mg/dL (0.2-1.0); BLOOD UREA NITROGEN 10 mg/dL (7-18); CHLORIDE 98 mmol/L (98-107); CO2 27 mmol/L (21-32); CREATININE 0.9 mg/dL (0.55-1.02); GLUCOSE,RANDOM 88 mg/dL (74-106); POTASSIUM 3.7 mmol/L (3.5-5.1); SGOT/AST 31 U/L (15-37); SGPT/ALT 21 U/L (12-78); SODIUM 132 mmol/L (136-145); TOT PROT 5.3 g/dl (6.4-8.2)
[2017-07-12 10:31] LABS: CALCIUM 6.9 mg/dL (8.5-10.1)
--- NOTE | 2017-07-12 10:39 | PN ---
Progress Note (short form) - Note Progress Note: Patient remains stable. Awaiting Cardiology assessment as to fitness to undergo wound revision. Will take down dressing and inspect wound later today.
[2017-07-12] MEDS: METOPROLOL SUCCINATE 25 MG TAB.SR.24H (FP) PO SCH (11:08)
[2017-07-12] MEDS: ASPIRIN COATED 81 MG TABLET.EC PO SCH (11:09)
[2017-07-12] MEDS: FUROSEMIDE 20 MG TABLET (FP) PO SCH (11:09)
[2017-07-12] MEDS: OSELTAMIVIR PHOSPHATE 75 MG CAPSULE PO SCH ×2 (11:09→21:39)
[2017-07-12] MEDS: PANTOPRAZOLE SODIUM 40 MG VIAL IVPUSH SCH (11:09)
[2017-07-12] MEDS: VALSARTAN 40 MG TABLET (FP) PO SCH (11:09)
--- NOTE | 2017-07-12 12:24 | PN ---
Progress Note (short form) - Note Progress Note: Medical coverage for Dr. Satya Birch Subjective: The patient was seen and examined at the bedside, she has no complaints at this time Febrile to 101.5 this morning, cultures resent Current Medications Generic Name Dose Route Start Last Admin Trade Name Freq PRN Reason Stop Dose Admin Acetaminophen 650 mg 07/01/17 12:41 07/12/17 06:53 Tylenol - PO 650 mg Q4H PRN Administration FEVER OR PAIN Aspirin 81 mg 07/10/17 13:30 07/12/17 11:09 Ecotrin - PO 81 mg DAILY KELLE Administration Collagenase 1 applic 07/04/17 12:00 07/11/17 10:51 Santyl - TP 1 applic DAILY KELLE Administration Ferrous Sulfate 325 mg 07/04/17 17:30 07/12/17 07:58 Feosol - PO 325 mg BIDWM KELLE Administration Furosemide 20 mg 07/04/17 10:00 07/12/17 11:09 Lasix - PO 20 mg DAILY KELLE Administration Guaifenesin 10 ml 07/08/17 12:05 Robitussin - PO Q8H PRN COUGH Heparin Sodium (Porcine) 5,000 unit 06/30/17 22:00 07/12/17 06:00 Heparin - SQ 5,000 unit TID KELLE Administration Piperacillin Sod/Tazobactam 100 mls @ 200 mls/hr 07/08/17 15:00 07/12/17 11: 08 Sod 3.375 gm/ Dextrose IVPB 200 mls/hr Q6H-IV KELLE Administration Levothyroxine Sodium 100 mcg/ 175 mcg 07/01/17 07:00 07/12/17 06:01 Levothyroxine Sodium 75 mcg PO 175 mcg DAILY@0700 KELLE Administration Mesalamine 800 mg 06/30/17 22:00 07/12/17 06:01 Asacol Hd - PO 800 mg TID KELLE Administration Metoprolol Succinate 12.5 mg 07/10/17 13:30 07/12/17 11:08 Toprol Xl - PO Not Given DAILY KELLE Oseltamivir Phosphate 75 mg 07/08/17 22:00 07/12/17 11:09 Tamiflu - PO 07/13/17 10:01 75 mg BID KELLE Administration Pantoprazole Sodium 40 mg 07/01/17 10:00 07/12/17 11:09 Protonix Iv IVPUSH 40 mg DAILY KELLE Administration Valsartan 40 mg 07/10/17 13:30 07/12/17 11:09 Diovan - PO Not Given DAILY KELLE Objective: Vital Signs Period Temp Pulse Resp BP Sys/Guo Pulse Ox Last 24 Hr 98.4 F-101.5 F 55-66 20-20 97-106/45-60 95 Physical Exam: General: NAD Neck: C-collar in place. Dressing over c-spine Heart: RRR, S1S2 Lungs: B/l rhonchi, +cough Ext: warm, well-perfused. no edema CBCD WBC 5.9 K/mm3 (4.0-10.0) 07/12/17 06:30 RBC 2.85 M/mm3 (3.60-5.2) L 07/12/17 06:30 Hgb 9.0 GM/dL (10.7-15.3) L 07/12/17 06:30 Hct 28.0 % (32.4-45.2) L 07/12/17 06:30 MCV 98.2 fl (80-96) H 07/12/17 06:30 MCHC 32.3 g/dl (32.0-36.0) 07/12/17 06:30 RDW 16.0 % (11.6-15.6) H 07/12/17 06:30 Plt Count 181 K/MM3 (134-434) 07/12/17 06:30 MPV 10.1 fl (7.5-11.1) 07/12/17 06:30 CMP Sodium 132 mmol/L (136-145) L 07/12/17 06:30 Potassium 3.7 mmol/L (3.5-5.1) 07/12/17 06:30 Chloride 98 mmol/L (98-107) 07/12/17 06:30 Carbon Dioxide 27 mmol/L (21-32) 07/12/17 06:30 Anion Gap 7 (8-16) L 07/12/17 06:30 BUN 10 mg/dL (7-18) 07/12/17 06:30 Creatinine 0.9 mg/dL (0.55-1.02) 07/12/17 06:30 Creat Clearance w eGFR > 60 (>60) 07/12/17 06:30 Random Glucose 88 mg/dL (74-106) 07/12/17 06:30 Calcium 6.9 mg/dL (8.5-10.1) L* 07/12/17 06:30 Total Bilirubin 0.4 mg/dL (0.2-1.0) 07/12/17 06:30 AST 31 U/L (15-37) 07/12/17 06:30 ALT 21 U/L (12-78) 07/12/17 06:30 Alkaline Phosphatase 76 U/L (45-117) 07/12/17 06:30 Total Protein 5.3 g/dl (6.4-8.2) L 07/12/17 06:30 Albumin 1.7 g/dl (3.4-5.0) L 07/12/17 06:30 CARDIAC ENZYMES Creatine Kinase 328 IU/L (26-192) H 07/10/17 12:40 Troponin I 0.20 ng/ml (0.00-0.05) H 07/10/17 12:40 Microbiology 07/08/17 14:30 Blood - Peripheral Venous Blood Culture - Preliminary NO GROWTH OBTAINED AFTER 72 HOURS, INCUBATION TO CONTINUE FOR 2 DAYS. 07/08/17 14:20 Blood - Peripheral Venous Blood Culture - Preliminary NO GROWTH OBTAINED AFTER 72 HOURS, INCUBATION TO CONTINUE FOR 2 DAYS. 07/08/17 15:00 Urine - Urine - Catheterized Urine Culture - Final Pseudomonas Aeruginosa 07/08/17 19:50 Nasopharyngeal Swab Influenza Types A,B Antigen (MATILDE) - Final 07/08/17 19:50 Nasopharyngeal Swab - Final 06/25/17 09:22 Blood - Peripheral Venous Blood Culture - Final Propionibacterium Acnes 06/25/17 09:22 Blood - Peripheral Venous Blood Culture - Final NO GROWTH AFTER 5 DAYS INCUBATION 06/25/17 10:35 Urine - Urine Clean Catch Urine Culture - Final Assessment: This is a 61 year old female with PMHx of down syndrome and hypothyroidism who presented to the ED with decreasing ability to ambulate over the last few weeks. 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 Awaiting cardiology clearance - Continue c-collar - Head of bed elevated to 45-60 degrees at all times - Pain control - WBAT per surgeon - Incentive spirometer - Appreciate surgical consult 2) Elevated troponins - Demand ischemia, NSTEMI - 0.14->0.23->0.2 - Continue ASA - Continue Toprol XL - Continue Diovan - Conservative management - ECHO 06/30/2017: normal LV size and function, mild AI, trace TR with RVSP between 30-40 mmHg - Appreciate cardiology consult 3) Post op fevers, Influenza A positive - Continue Tamiflu UTI - Urine culture with pseudomonas - Continue Zosyn - Off vancomycin - Awaiting final culture 4) Hypothyroidism - Continue synthroid 5) F/E/N: - High protein diet - Monitor electrolytes 6) Prophylaxis: - Heparin 5,000u sq tid - PT 7) Dispo: - Requires continued inpatient care CODE STATUS: FULL CODE Visit type - Emergency Visit Emergency Visit: Yes ED Registration Date: 06/25/17 Care time: The patient presented to the Emergency Department on the above date and was hospitalized for further evaluation of their emergent condition. - New Patient This patient is new to me today: No - Critical Care Critical Care patient: No
--- NOTE | 2017-07-12 12:34 | PN ---
Progress Note (short form) - Note Progress Note: Medical coverage for Dr. Satya Birch Subjective: The patient was seen and examined at the bedside, she has no complaints at this time Per surgery, to be taken to OR for surgical revision once cleared by cardiology Current Medications Generic Name Dose Route Start Last Admin Trade Name Freq PRN Reason Stop Dose Admin Acetaminophen 650 mg 07/01/17 12:41 07/12/17 06:53 Tylenol - PO 650 mg Q4H PRN Administration FEVER OR PAIN Aspirin 81 mg 07/10/17 13:30 07/12/17 11:09 Ecotrin - PO 81 mg DAILY KELLE Administration Collagenase 1 applic 07/04/17 12:00 07/11/17 10:51 Santyl - TP 1 applic DAILY KELLE Administration Ferrous Sulfate 325 mg 07/04/17 17:30 07/12/17 07:58 Feosol - PO 325 mg BIDWM KELLE Administration Furosemide 20 mg 07/04/17 10:00 07/12/17 11:09 Lasix - PO 20 mg DAILY KELLE Administration Guaifenesin 10 ml 07/08/17 12:05 Robitussin - PO Q8H PRN COUGH Heparin Sodium (Porcine) 5,000 unit 06/30/17 22:00 07/12/17 06:00 Heparin - SQ 5,000 unit TID KELLE Administration Piperacillin Sod/Tazobactam 100 mls @ 200 mls/hr 07/08/17 15:00 07/12/17 11: 08 Sod 3.375 gm/ Dextrose IVPB 200 mls/hr Q6H-IV KELLE Administration Levothyroxine Sodium 100 mcg/ 175 mcg 07/01/17 07:00 07/12/17 06:01 Levothyroxine Sodium 75 mcg PO 175 mcg DAILY@0700 KELLE Administration Mesalamine 800 mg 06/30/17 22:00 07/12/17 06:01 Asacol Hd - PO 800 mg TID KELLE Administration Metoprolol Succinate 12.5 mg 07/10/17 13:30 07/12/17 11:08 Toprol Xl - PO Not Given DAILY KELLE Oseltamivir Phosphate 75 mg 07/08/17 22:00 07/12/17 11:09 Tamiflu - PO 07/13/17 10:01 75 mg BID KELLE Administration Pantoprazole Sodium 40 mg 07/01/17 10:00 07/12/17 11:09 Protonix Iv IVPUSH 40 mg DAILY KELLE Administration Valsartan 40 mg 07/10/17 13:30 07/12/17 11:09 Diovan - PO Not Given DAILY KELLE Objective: Vital Signs Period Temp Pulse Resp BP Sys/Guo Pulse Ox Last 24 Hr 98.4 F-101.5 F 55-66 20-20 97-106/45-60 95 Physical Exam: General: NAD Neck: C-collar in place. Dressing over c-spine Heart: RRR, S1S2 Lungs: B/l rhonchi, +cough Ext: warm, well-perfused. no edema Laboratory Tests 07/09/17 07/10/17 07/10/17 13:15 06:30 12:40 WBC RBC Hgb Hct MCV MCH MCHC RDW Plt Count MPV Sodium Potassium Chloride Carbon Dioxide Anion Gap BUN Creatinine Creat Clearance w eGFR Calcium Troponin I 0.14 H 0.23 H 0.20 H Total Protein Albumin 07/11/17 07/11/17 10:05 10:05 WBC 5.6 RBC 2.92 L Hgb 9.3 L Hct 28.7 L MCV 98.3 H MCH 31.7 MCHC 32.3 RDW 16.2 H Plt Count 183 MPV 9.9 Sodium 134 L Potassium 3.9 D Chloride 99 Carbon Dioxide 25 Anion Gap 10 BUN 10 Creatinine 0.9 Creat Clearance w eGFR > 60 Calcium 6.9 L* Troponin I Total Protein 5.0 L Albumin 1.6 L Microbiology 07/08/17 14:30 Blood - Peripheral Venous Blood Culture - Preliminary NO GROWTH OBTAINED AFTER 72 HOURS, INCUBATION TO CONTINUE FOR 2 DAYS. 07/08/17 14:20 Blood - Peripheral Venous Blood Culture - Preliminary NO GROWTH OBTAINED AFTER 72 HOURS, INCUBATION TO CONTINUE FOR 2 DAYS. 07/08/17 15:00 Urine - Urine - Catheterized Urine Culture - Final Pseudomonas Aeruginosa 07/08/17 19:50 Nasopharyngeal Swab Influenza Types A,B Antigen (MATILDE) - Final 07/08/17 19:50 Nasopharyngeal Swab - Final 06/25/17 09:22 Blood - Peripheral Venous Blood Culture - Final Propionibacterium Acnes 06/25/17 09:22 Blood - Peripheral Venous Blood Culture - Final NO GROWTH AFTER 5 DAYS INCUBATION 06/25/17 10:35 Urine - Urine Clean Catch Urine Culture - Final Assessment: This is a 61 year old female with PMHx of down syndrome and hypothyroidism who presented to the ED with decreasing ability to ambulate over the last few weeks. 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 Awaiting cardiology clearance - Continue c-collar - Head of bed elevated to 45-60 degrees at all times - Pain control - WBAT per surgeon - Incentive spirometer - Appreciate surgical consult 2) Elevated troponins - Demand ischemia, NSTEMI - 0.14->0.23->0.2 - Continue ASA - Continue Toprol XL - Continue Diovan - Conservative management - ECHO 06/30/2017: normal LV size and function, mild AI, trace TR with RVSP between 30-40 mmHg - Appreciate cardiology consult 3) Post op fevers, Influenza A positive - Continue Tamiflu UTI - Urine culture with pseudomonas - Continue Zosyn and Vanco - Awaiting final culture 4) Hypothyroidism - Continue synthroid 5) F/E/N: - High protein diet - Monitor electrolytes 6) Prophylaxis: - Heparin 5,000u sq tid - PT 7) Dispo: - Requires continued inpatient care CODE STATUS: FULL CODE Visit type - Emergency Visit Emergency Visit: Yes ED Registration Date: 06/25/17 Care time: The patient presented to the Emergency Department on the above date and was hospitalized for further evaluation of their emergent condition. - New Patient This patient is new to me today: No - Critical Care Critical Care patient: No
--- NOTE | 2017-07-12 13:48 | PN ---
Progress Note (short form) - Note Progress Note: surgery Dressing change: dressing saturated with mostly clear d/c with some slight evidence of yellow and pink colored d/c. c-spine incision clean and intact with dermabond peeling away in various areas, estelle insitu. Active clear drainage dripping from distal incision site, surrounding tissue intact with no evidence of tracking erythema, edema or SQ collection. pressure dressing applied with 4x4 and op sties
[2017-07-12] MEDS ORDERED: PT OWN MED DRAWER 7, Y5N ONE ×3 (15:31→22:39)
[2017-07-12] MEDS: COLLAGENASE CLOSTRIDIUM HIST. 30 GRAMS TUBE TP SCH (15:35)
--- NOTE | 2017-07-12 16:14 | PN ---
Progress Note, Physician History of Present Illness: Denies chest pain or dyspnea. - Current Medication List Current Medications: Active Medications Acetaminophen (Tylenol -) 650 mg PO Q4H PRN PRN Reason: FEVER OR PAIN Last Admin: 07/12/17 06:53 Dose: 650 mg Aspirin (Ecotrin -) 81 mg PO DAILY [facility] Last Admin: 07/12/17 11:09 Dose: 81 mg Collagenase (Santyl -) 1 applic TP DAILY [facility] Last Admin: 07/12/17 15:35 Dose: 1 applic Ferrous Sulfate (Feosol -) 325 mg PO BIDWM [facility] Last Admin: 07/12/17 07:58 Dose: 325 mg Furosemide (Lasix -) 20 mg PO DAILY [facility] Last Admin: 07/12/17 11:09 Dose: 20 mg Guaifenesin (Robitussin -) 10 ml PO Q8H PRN PRN Reason: COUGH Heparin Sodium (Porcine) (Heparin -) 5,000 unit SQ TID [facility] Last Admin: 07/12/17 15:35 Dose: 5,000 unit Piperacillin Sod/Tazobactam (Sod 3.375 gm/ Dextrose) 100 mls @ 200 mls/hr IVPB Q6H-IV [facility] Last Admin: 07/12/17 15:36 Dose: 200 mls/hr Levothyroxine Sodium 100 mcg/ (Levothyroxine Sodium 75 mcg) 175 mcg PO DAILY@ 0700 [facility] Last Admin: 07/12/17 06:01 Dose: 175 mcg Mesalamine (Asacol Hd -) 800 mg PO TID [facility] Last Admin: 07/12/17 15:35 Dose: 800 mg Metoprolol Succinate (Toprol Xl -) 12.5 mg PO DAILY [facility] Last Admin: 07/12/17 11:08 Dose: Not Given Oseltamivir Phosphate (Tamiflu -) 75 mg PO BID [facility] Stop: 07/13/17 10:01 Last Admin: 07/12/17 11:09 Dose: 75 mg Pantoprazole Sodium (Protonix Iv) 40 mg IVPUSH DAILY [facility] Last Admin: 07/12/17 11:09 Dose: 40 mg Valsartan (Diovan -) 40 mg PO DAILY [facility] Last Admin: 07/12/17 11:09 Dose: Not Given - Objective Vital Signs: Vital Signs Temperature 98.1 F 07/12/17 15:30 Pulse Rate 59 L 07/12/17 15:30 Respiratory Rate 20 07/12/17 15:30 Blood Pressure 102/52 07/12/17 15:30 O2 Sat by Pulse Oximetry (%) 95 07/11/17 20:22 Constitutional: Yes: No Distress, Calm, Thin Neck: Yes: Supple Cardiovascular: Yes: Regular Rate and Rhythm, Murmur (1/6 SM) Respiratory: Yes: Regular, Diminished Gastrointestinal: Yes: Normal Bowel Sounds, Soft Edema: No Labs: CBC, BMP 07/12/17 06:30 07/12/17 06:30 INR, PTT INR 0.98 (0.82-1.09) 06/25/17 09:22 - ....Imaging Chest X-ray: Report Reviewed (Congestion improved with small effusions) Problem List - Problems (1) Diastolic dysfunction Code(s): I51.9 - HEART DISEASE, UNSPECIFIED (2) CAD (coronary artery disease) Code(s): I25.10 - ATHSCL HEART DISEASE OF [place] CORONARY ARTERY W/O ANG PCTRS Qualifiers: Coronary Disease-Associated Artery/Lesion type: [place] artery [place] vs. transplanted heart: [place] heart Associated angina: without angina Qualified Code(s): I25.10 - Atherosclerotic heart disease of [place] coronary artery without angina pectoris (3) Demand ischemia Code(s): I24.8 - OTHER FORMS OF ACUTE ISCHEMIC HEART DISEASE (4) Down syndrome Code(s): Q90.9 - DOWN SYNDROME, UNSPECIFIED (5) Open wound Code(s): T14.8 - OTHER INJURY OF UNSPECIFIED BODY REGION * DO NOT USE * (6) Hypothyroidism Code(s): E03.9 - HYPOTHYROIDISM, UNSPECIFIED Qualifiers: Hypothyroidism type: unspecified Qualified Code(s): E03.9 - Hypothyroidism , unspecified (7) Influenza A Code(s): J10.1 - FLU DUE TO OTH IDENT INFLUENZA VIRUS W OTH RESP MANIFEST (8) UTI (urinary tract infection) Code(s): N39.0 - URINARY TRACT INFECTION, SITE NOT SPECIFIED (9) Anemia Code(s): D64.9 - ANEMIA, UNSPECIFIED Qualifiers: Anemia type: unspecified type Qualified Code(s): D64.9 - Anemia, unspecified Assessment/Plan 06/30/2017 Echo: Normal LV fxn, mild AR, TR 1. CAD with evidence of demand ischemic injury, non ST segment elevation [place], anterior lateral EKG changes 2. Transient LV dysfunction with class I NYHA classification LV failure - diastolic LV dysfunction 3. 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 Acute Influenza A, pseudomonas UTI 5. Down's syndrome 6. Hypothyroidism 7. Anemia PLAN: 1. Continue Metoprolol ER 12.5 qd and Diovan 40 qd as tolerated 2. Continue ASA 81 qd 3. Lasix 20 qd as needed 4. Complete antibiotics and Tamiflu coverage per ID 5. Recommend conservative medical management for the above noted presentation considering her presentation and co-morbidities 6. Neurosurgery f/u appreciated
--- NOTE | 2017-07-12 17:06 | PN ---
Progress Note (short form) - Note Progress Note: much more alert still with cough mother at bedside isolated temp this am, now resolved Vital Signs Period Temp Pulse Resp BP Sys/Guo Pulse Ox Last 24 Hr 98.1 F-101.5 F 59-66 20-20 102-106/48-60 95 cervical collar intact cor-rrr lungs scattered rhonchi abd soft,nt ext no edema CBC, BMP 07/12/17 06:30 07/12/17 06:30 cxray- mild improvement Microbiology 07/08/17 14:30 Blood - Peripheral Venous Blood Culture - Preliminary NO GROWTH OBTAINED AFTER 96 HOURS, INCUBATION TO CONTINUE FOR 1 DAYS. 07/08/17 14:20 Blood - Peripheral Venous Blood Culture - Preliminary NO GROWTH OBTAINED AFTER 96 HOURS, INCUBATION TO CONTINUE FOR 1 DAYS. a/p new fevers-recultured this am, restart vancomycin post op day #14 s/p posterior cervical laminectomy-neurosurgical f/u ongoing influenza A completing 5 days tamiflu pseudomonas UTI- day #4 alejandro d/w hospitalist
[2017-07-12] MEDS ORDERED: VANCOMYCIN 1 GRAM (PRE-DOCKED) 1,000 MG/250 ML BAG IVPB SCH (22:00)
[2017-07-12] MEDS: VANCOMYCIN 1,000 MG in DEXTROSE 5%-WATER - 250 ML IVPB SCH (22:15)
[2017-07-12] MEDS ORDERED: ALBUTEROL SO4 2.5/IPRATROPIUM 0.5 INH SOL 3 ML VIAL.NEB. NEB PRN (23:40)
[2017-07-13] MEDS ORDERED: PT OWN MED DRAWER 7, Y5N ONE ×3 (02:18→12:52)
[2017-07-13] MEDS: PIPERACILLIN/TAZOB 3.375 GM 3.375 GM in DEXTROSE 5%-WATER - 100 ML IVPB SCH ×2 (02:37→08:28)
[2017-07-13] MEDS ORDERED: LEVOTHYROXINE NA 75 MCG TABLET (FP) ONE (06:47)
[2017-07-13] MEDS ORDERED: LEVOTHYROXINE NA 100 MCG TABLET (FP) ONE (06:48)
[2017-07-13] MEDS: LEVOTHYROXINE 100 MCG, LEVOTHYROXINE 75 MCG PO SCH (06:56)
[2017-07-13] MEDS: HEPARIN NA (PORCINE) 5,000 UNITS/ML 1ML VIAL SQ SCH ×3 (06:56→21:55)
[2017-07-13] MEDS: MESALAMINE 800 MG TABLET.DR PO SCH ×3 (06:57→21:55)
[2017-07-13] MEDS: FERROUS SO4 325 MG TABLET (FP) PO SCH ×2 (08:28→18:06)
[2017-07-13 08:39] LABS: HEMATOCRIT 29.8 % (32.4-45.2); HEMOGLOBIN 9.5 GM/dL (10.7-15.3); MCH 31.9 pg (25.7-33.7); MEAN CELL VOLUME 99.6 fl (80-96); MEAN PLT VOLUME 10.2 fl (7.5-11.1); PLATELET COUNT 167 K/MM3 (134-434); WHITE BLOOD COUNT 4.8 K/mm3 (4.0-10.0)
[2017-07-13 09:10] LABS: ALBUMIN 1.7 g/dl (3.4-5.0); ANION GAP 6 (8-16); BILIRUBIN,TOTAL 0.5 mg/dL (0.2-1.0); BLOOD UREA NITROGEN 10 mg/dL (7-18); CHLORIDE 100 mmol/L (98-107); CO2 28 mmol/L (21-32); CREATININE 0.9 mg/dL (0.55-1.02); GLUCOSE,RANDOM 98 mg/dL (74-106); POTASSIUM 3.4 mmol/L (3.5-5.1); SGOT/AST 22 U/L (15-37); SGPT/ALT 22 U/L (12-78); SODIUM 134 mmol/L (136-145); TOT PROT 5.3 g/dl (6.4-8.2)
[2017-07-13 09:11] LABS: ALK PHOS 80 U/L (45-117); CALCIUM 7.2 mg/dL (8.5-10.1)
[2017-07-13] MEDS: PANTOPRAZOLE SODIUM 40 MG VIAL IVPUSH SCH (10:00)
[2017-07-13] MEDS: ASPIRIN COATED 81 MG TABLET.EC PO SCH (10:00)
[2017-07-13] MEDS: METOPROLOL SUCCINATE 25 MG TAB.SR.24H (FP) PO SCH (10:01)
[2017-07-13] MEDS: OSELTAMIVIR PHOSPHATE 75 MG CAPSULE PO SCH (10:02)
[2017-07-13] MEDS: VALSARTAN 40 MG TABLET (FP) PO SCH (10:02)
[2017-07-13] MEDS: FUROSEMIDE 20 MG TABLET (FP) PO SCH (10:02)
[2017-07-13] MEDS: VANCOMYCIN 1,000 MG in DEXTROSE 5%-WATER - 250 ML IVPB SCH ×2 (10:03→10:13)
[2017-07-13] MEDS: COLLAGENASE CLOSTRIDIUM HIST. 30 GRAMS TUBE TP SCH (10:05)
--- NOTE | 2017-07-13 10:09 | PN ---
Progress Note, Physician Chief Complaint: ID Zosyn day 5 Given Vancomycin afebrile now Drainage form cerivcal area - Current Medication List Current Medications: Active Medications Acetaminophen (Tylenol -) 650 mg PO Q4H PRN PRN Reason: FEVER OR PAIN Last Admin: 07/12/17 22:42 Dose: 650 mg Albuterol/Ipratropium (Duoneb -) 1 amp NEB Q4H PRN PRN Reason: SHORTNESS OF BREATH Last Admin: 07/13/17 00:03 Dose: 1 amp Aspirin (Ecotrin -) 81 mg PO DAILY [facility] Last Admin: 07/12/17 11:09 Dose: 81 mg Collagenase (Santyl -) 1 applic TP DAILY [facility] Last Admin: 07/12/17 15:35 Dose: 1 applic Ferrous Sulfate (Feosol -) 325 mg PO BIDWM [facility] Last Admin: 07/13/17 08:28 Dose: 325 mg Furosemide (Lasix -) 20 mg PO DAILY [facility] Last Admin: 07/12/17 11:09 Dose: 20 mg Guaifenesin (Robitussin -) 10 ml PO Q8H PRN PRN Reason: COUGH Heparin Sodium (Porcine) (Heparin -) 5,000 unit SQ TID [facility] Last Admin: 07/13/17 06:56 Dose: 5,000 unit Piperacillin Sod/Tazobactam (Sod 3.375 gm/ Dextrose) 100 mls @ 200 mls/hr IVPB Q6H-IV [facility] Last Admin: 07/13/17 08:28 Dose: 200 mls/hr Vancomycin HCl 1,000 mg/ (Dextrose) 250 mls @ 166.667 mls/hr IVPB Q12H [facility] Last Admin: 07/12/17 22:15 Dose: 166.667 mls/hr Levothyroxine Sodium 100 mcg/ (Levothyroxine Sodium 75 mcg) 175 mcg PO DAILY@ 0700 [facility] Last Admin: 07/13/17 06:56 Dose: 175 mcg Mesalamine (Asacol Hd -) 800 mg PO TID [facility] Last Admin: 07/13/17 06:57 Dose: 800 mg Metoprolol Succinate (Toprol Xl -) 12.5 mg PO DAILY [facility] Last Admin: 07/12/17 11:08 Dose: Not Given Pantoprazole Sodium (Protonix Iv) 40 mg IVPUSH DAILY [facility]ELLE Last Admin: 07/12/17 11:09 Dose: 40 mg Valsartan (Diovan -) 40 mg PO DAILY [facility] Last Admin: 07/12/17 11:09 Dose: Not Given - Objective Vital Signs: Vital Signs Temperature 98.8 F 07/13/17 08:10 Pulse Rate 71 07/13/17 08:10 Respiratory Rate 18 07/13/17 08:10 Blood Pressure 105/55 07/13/17 08:10 O2 Sat by Pulse Oximetry (%) 95 07/12/17 21:00 Labs: CBC, BMP 07/13/17 08:20 07/13/17 08:20 INR, PTT INR 0.98 (0.82-1.09) 06/25/17 09:22 Problem List - Problems (1) Influenza A Code(s): J10.1 - FLU DUE TO OTH IDENT INFLUENZA VIRUS W OTH RESP MANIFEST (2) UTI (urinary tract infection) Code(s): N39.0 - URINARY TRACT INFECTION, SITE NOT SPECIFIED Assessment/Plan Microbiology 07/08/17 15:00 Urine - Urine - Catheterized Urine Culture - Final Pseudomonas Aeruginosa 06/25/17 09:22 Blood - Peripheral Venous Blood Culture - Final Propionibacterium Acnes 06/25/17 09:22 Blood - Peripheral Venous Blood Culture - Final NO GROWTH AFTER 5 DAYS INCUBATION 07/08/17 14:20 Blood - Peripheral Venous Blood Culture - Preliminary NO GROWTH OBTAINED AFTER 96 HOURS, INCUBATION TO CONTINUE FOR 1 DAYS. 07/12/17 07:05 Blood - Peripheral Venous Blood Culture - Preliminary NO GROWTH OBTAINED AFTER 24 HOURS, INCUBATION TO CONTINUE FOR 4 DAYS. 07/12/17 07:00 Blood - Peripheral Venous Blood Culture - Preliminary NO GROWTH OBTAINED AFTER 24 HOURS, INCUBATION TO CONTINUE FOR 4 DAYS. Laboratory Tests 07/13/17 07/13/17 08:20 08:20 WBC 4.8 Hgb 9.5 L Hct 29.8 L Plt Count 167 Creatinine 0.9 Creat Clearance w eGFR > 60 Assessment Post laminectomy with drainage UTI Fever ? Cultures neg this am Plan Stop all antibiotics and moniter fever Lorna YOUNG
--- NOTE | 2017-07-13 13:39 | PN ---
Physical Exam: SUBJECTIVE: Patient seen and examined OBJECTIVE: Vital Signs Period Temp Pulse Resp BP Sys/Guo Pulse Ox Last 24 Hr 97.8 F-101.5 F 59-73 18-24 98-110/43-55 95 GENERAL: The patient is awake, alert, and fully oriented, in no acute distress. HEAD: Normal with no signs of trauma. NECK: [place]-J in place. Dressing c/d/i. LUNGS: Breath sounds equal, clear to auscultation bilaterally, no wheezes, no crackles, no accessory muscle use. HEART: Regular rate and rhythm, S1, S2 without murmur, rub or gallop. ABDOMEN: SNTND NEUROLOGICAL: Cranial nerves II through XII grossly intact. Normal speech, gait not observed. Laboratory Results - last 24 hr 07/07/17 07/09/17 07/13/17 06:50 13:15 08:20 WBC 4.8 RBC 3.00 L Hgb 9.5 L Hct 29.8 L MCV 99.6 H MCH 31.9 MCHC 32.0 RDW 16.0 H Plt Count 167 MPV 10.2 Sodium Potassium Chloride Carbon Dioxide Anion Gap BUN Creatinine Creat Clearance w eGFR Random Glucose Calcium 7.1 L Total Bilirubin AST ALT Alkaline Phosphatase Total Protein Albumin Vitamin C 0.1 L PTH Intact 37 PTH Intact Intraop 0 m 07/13/17 08:20 WBC RBC Hgb Hct MCV MCH MCHC RDW Plt Count MPV Sodium 134 L Potassium 3.4 L Chloride 100 Carbon Dioxide 28 Anion Gap 6 L BUN 10 Creatinine 0.9 Creat Clearance w eGFR > 60 Random Glucose 98 Calcium 7.2 L Total Bilirubin 0.5 D AST 22 D ALT 22 Alkaline Phosphatase 80 Total Protein 5.3 L Albumin 1.7 L Vitamin C PTH Intact PTH Intact Intraop 0 m Active Medications Generic Name Dose Route Start Last Admin Trade Name Freq PRN Reason Stop Dose Admin Acetaminophen 650 mg 07/01/17 12:41 07/12/17 22:42 Tylenol - PO 650 mg Q4H PRN Administration FEVER OR PAIN Albuterol/Ipratropium 1 amp 07/12/17 23:40 07/13/17 00:03 Duoneb - NEB 1 amp Q4H PRN Administration SHORTNESS OF BREATH Aspirin 81 mg 07/10/17 13:30 07/13/17 10:00 Ecotrin - PO 81 mg DAILY KELLE Administration Collagenase 1 applic 07/04/17 12:00 07/13/17 10:05 Santyl - TP 1 applic DAILY KELLE Administration Ferrous Sulfate 325 mg 07/04/17 17:30 07/13/17 08:28 Feosol - PO 325 mg BIDWM KELLE Administration Furosemide 20 mg 07/04/17 10:00 07/13/17 10:02 Lasix - PO 20 mg DAILY KELLE Administration Guaifenesin 10 ml 07/08/17 12:05 Robitussin - PO Q8H PRN COUGH Heparin Sodium (Porcine) 5,000 unit 06/30/17 22:00 07/13/17 06:56 Heparin - SQ 5,000 unit TID KELLE Administration Levothyroxine Sodium 100 mcg/ 175 mcg 07/01/17 07:00 07/13/17 06:56 Levothyroxine Sodium 75 mcg PO 175 mcg DAILY@0700 KELLE Administration Mesalamine 800 mg 06/30/17 22:00 07/13/17 06:57 Asacol Hd - PO 800 mg TID KELLE Administration Metoprolol Succinate 12.5 mg 07/10/17 13:30 07/13/17 10:01 Toprol Xl - PO 12.5 mg DAILY KELLE Administration Pantoprazole Sodium 40 mg 07/01/17 10:00 07/13/17 10:00 Protonix Iv IVPUSH 40 mg DAILY KELLE Administration Valsartan 40 mg 07/10/17 13:30 07/13/17 10:02 Diovan - PO 40 mg DAILY KELLE Administration ECHO 06/30/2017: normal LV size and function, mild AI, trace TR with RVSP between 30-40 mmHg ASSESSMENT/PLAN: A: 61 year old female with PMHx of down syndrome and hypothyroidism who presented to the ED with decreasing ability to ambulate over the last few weeks. 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 - S/p posterior laminectomy with fusion of C1-C6, repair of dural tear on 06/28 - For OR for surgical revision s/p cardiology clearance - Continue [place]-J - Head of bed elevated to 45-60 degrees at all times - Pain control - WBAT per surgeon - IS - Neurosurg following Elevated troponins - Demand ischemia, NSTEMI - 0.14->0.23->0.2 - Continue ASA - Continue Toprol XL - Continue Diovan - Conservative management per cards - Cards following Post op fevers, Influenza A positive - Tamiflu completed UTI - abx d/c'd per ID - monitor off Abx - ID following Hypothyroidism - Continue synthroid F/E/N - High protein diet - Monitor electrolytes PPX - sqh - PT Dispo- Requires continued inpatient care Visit type - Emergency Visit Emergency Visit: Yes ED Registration Date: 06/25/17 Care time: The patient presented to the Emergency Department on the above date and was hospitalized for further evaluation of their emergent condition. - New Patient This patient is new to me today: Yes Date on this admission: 07/13/17 - Critical Care Critical Care patient: No
--- NOTE | 2017-07-13 13:52 | PN ---
Progress Note, Physician History of Present Illness: Denies chest pain or dyspnea. - Current Medication List Current Medications: Active Medications Acetaminophen (Tylenol -) 650 mg PO Q4H PRN PRN Reason: FEVER OR PAIN Last Admin: 07/12/17 22:42 Dose: 650 mg Albuterol/Ipratropium (Duoneb -) 1 amp NEB Q4H PRN PRN Reason: SHORTNESS OF BREATH Last Admin: 07/13/17 00:03 Dose: 1 amp Aspirin (Ecotrin -) 81 mg PO DAILY [facility] Last Admin: 07/13/17 10:00 Dose: 81 mg Collagenase (Santyl -) 1 applic TP DAILY [facility] Last Admin: 07/13/17 10:05 Dose: 1 applic Ferrous Sulfate (Feosol -) 325 mg PO BIDWM [facility] Last Admin: 07/13/17 08:28 Dose: 325 mg Furosemide (Lasix -) 20 mg PO DAILY [facility] Last Admin: 07/13/17 10:02 Dose: 20 mg Guaifenesin (Robitussin -) 10 ml PO Q8H PRN PRN Reason: COUGH Heparin Sodium (Porcine) (Heparin -) 5,000 unit SQ TID [facility] Last Admin: 07/13/17 06:56 Dose: 5,000 unit Levothyroxine Sodium 100 mcg/ (Levothyroxine Sodium 75 mcg) 175 mcg PO DAILY@ 0700 [facility] Last Admin: 07/13/17 06:56 Dose: 175 mcg Mesalamine (Asacol Hd -) 800 mg PO TID [facility] Last Admin: 07/13/17 06:57 Dose: 800 mg Metoprolol Succinate (Toprol Xl -) 12.5 mg PO DAILY [facility] Last Admin: 07/13/17 10:01 Dose: 12.5 mg Pantoprazole Sodium (Protonix Iv) 40 mg IVPUSH DAILY [facility] Last Admin: 07/13/17 10:00 Dose: 40 mg Valsartan (Diovan -) 40 mg PO DAILY [facility] Last Admin: 07/13/17 10:02 Dose: 40 mg - Objective Vital Signs: Vital Signs Temperature 98.8 F 07/13/17 08:10 Pulse Rate 71 07/13/17 08:10 Respiratory Rate 18 07/13/17 08:10 Blood Pressure 105/55 07/13/17 08:10 O2 Sat by Pulse Oximetry (%) 95 07/12/17 21:00 Constitutional: Yes: No Distress, Calm Neck: Yes: Supple Cardiovascular: Yes: Regular Rate and Rhythm Respiratory: Yes: Regular, Diminished Gastrointestinal: Yes: Normal Bowel Sounds, Soft Edema: No Labs: CBC, BMP 07/13/17 08:20 07/13/17 08:20 INR, PTT INR 0.98 (0.82-1.09) 06/25/17 09:22 Problem List - Problems (1) Diastolic dysfunction Code(s): I51.9 - HEART DISEASE, UNSPECIFIED (2) CAD (coronary artery disease) Code(s): I25.10 - ATHSCL HEART DISEASE OF [place] CORONARY ARTERY W/O ANG PCTRS Qualifiers: Coronary Disease-Associated Artery/Lesion type: [place] artery [place] vs. transplanted heart: [place] heart Associated angina: without angina Qualified Code(s): I25.10 - Atherosclerotic heart disease of [place] coronary artery without angina pectoris (3) Demand ischemia Code(s): I24.8 - OTHER FORMS OF ACUTE ISCHEMIC HEART DISEASE (4) Down syndrome Code(s): Q90.9 - DOWN SYNDROME, UNSPECIFIED (5) Open wound Code(s): T14.8 - OTHER INJURY OF UNSPECIFIED BODY REGION * DO NOT USE * (6) Hypothyroidism Code(s): E03.9 - HYPOTHYROIDISM, UNSPECIFIED Qualifiers: Hypothyroidism type: unspecified Qualified Code(s): E03.9 - Hypothyroidism , unspecified (7) Influenza A Code(s): J10.1 - FLU DUE TO OTH IDENT INFLUENZA VIRUS W OTH RESP MANIFEST (8) UTI (urinary tract infection) Code(s): N39.0 - URINARY TRACT INFECTION, SITE NOT SPECIFIED (9) Anemia Code(s): D64.9 - ANEMIA, UNSPECIFIED Qualifiers: Anemia type: unspecified type Qualified Code(s): D64.9 - Anemia, unspecified Assessment/Plan 06/30/2017 Echo: Normal LV fxn, mild AR, TR 1. CAD with evidence of demand ischemic injury, non ST segment elevation [place], anterior lateral EKG changes 2. Transient LV dysfunction with class I NYHA classification LV failure - diastolic LV dysfunction 3. 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 Acute Influenza A, pseudomonas UTI 5. Down's syndrome 6. Hypothyroidism 7. Anemia PLAN: 1. Continue Metoprolol ER 12.5 qd and Diovan 40 qd as tolerated 2. Continue ASA 81 qd 3. Lasix 20 qd as needed 4. Observe off antibiotics per ID 5. Recommend conservative medical management for the above noted presentation considering her presentation and co-morbidities 6. Neurosurgery f/u appreciated 7. DVT and GI prophylaxis
[2017-07-13] MEDS: ACETAMINOPHEN 325 MG TABLET (FP) PO PRN ×2 (17:05→21:55)
--- NOTE | 2017-07-13 20:27 | PN ---
Progress Note (short form) - Note Progress Note: 59 y/o F with PMH Down's syndrome, hypothyroidism, recent hospitalization in [facility] for L ankle pressure ulcer-stage 3, who presented to ED s/p fall. As per pt' s family and nurse, pt has decreased ambulation over the last month and was found on the ground by family on AM of ED arrival. Pt injured R side of forehead and lacerated lip during fall. Denied LOC, syncope, palpitations before the event, and denied fever, chills, chest pain, or recent illnesses at time of admission. as per family walks at baseline, hx of ulcer, though balance has been more of an issue over 1-2 months; she has left sided weakness post fall. CT HD Impression: 1. No acute intracranial hemorrhage. 2. No compelling evidence of cerebral infarction at this time. Please note that subacute cerebral infarctions may be indistinct on CT due to "fogging effect" approximately 2-3 weeks following infarction, requiring clinical correlation. If warranted, MRI may be obtained for further evaluati 3. 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 FU : awake , though may get confused, very pleasant and smiles, moving RUE > LUe better , residual weakness LE being treated for flu/UTI -off ABX denies WARD, neck pain, SOB - Past Medical History PROMOTIONAL MODEL: Yes: Other (miid cognition impaired downs syn) Cardio/Vascular: Yes: Aortic Insufficiency, Mitral Insufficiency Pulmonary: Yes: Other Gastrointestinal: Yes: Ulcerative Colitis Hepatobiliary: Yes: Hepatitis B Musculoskeletal: Yes: Other (c/s fusions) Endocrine: Yes: Hypothyroidism - Alcohol/Substance Use Hx Alcohol Use: No - Smoking History Smoking history: Never smoked Have you smoked in the past 12 months: No Home Medications - Allergies Allergies/Adverse Reactions: Allergies Allergy/AdvReac Type Severity Reaction Status Date / Time raspberry Allergy Severe Rash Verified 06/27/17 14:48 strawberry Allergy Severe Rash Verified 06/27/17 14:49 barley Allergy Intermediate Rash Verified 06/27/17 14:47 wheat Allergy Intermediate Rash Verified 06/25/17 08:59 egg AdvReac Severe Nausea Verified 06/25/17 08:59 egg yolk AdvReac Severe Nausea Verified 06/25/17 08:59 - Home Medications Home Medications: Ambulatory Orders Furosemide [Lasix -] 40 mg PO DAILY 04/20/15 Levothyroxine [Synthroid -] 150 mcg PO DAILY 03/26/17 Mesalamine [Asacol Hd -] 800 mg PO TID 03/26/17 Raloxifene HCl 60 mg PO DAILY 03/26/17 Family Disease History - Family Disease History Family Disease History: Heart Disease: Mother Physical Exam-Neuro Vital Signs: Vital Signs Temperature 97.8 F 07/13/17 15:39 Pulse Rate 66 07/13/17 15:39 Respiratory Rate 22 07/13/17 15:39 Blood Pressure 115/55 07/13/17 15:39 O2 Sat by Pulse Oximetry (%) 95 07/12/17 21:00 Constitutional: Yes: Well Nourished Labs: CBCD WBC 4.8 K/mm3 (4.0-10.0) 07/13/17 08:20 RBC 3.00 M/mm3 (3.60-5.2) L 07/13/17 08:20 Hgb 9.5 GM/dL (10.7-15.3) L 07/13/17 08:20 Hct 29.8 % (32.4-45.2) L 07/13/17 08:20 MCV 99.6 fl (80-96) H 07/13/17 08:20 MCHC 32.0 g/dl (32.0-36.0) 07/13/17 08:20 RDW 16.0 % (11.6-15.6) H 07/13/17 08:20 Plt Count 167 K/MM3 (134-434) 07/13/17 08:20 MPV 10.2 fl (7.5-11.1) 07/13/17 08:20 CMP Sodium 134 mmol/L (136-145) L 07/13/17 08:20 Potassium 3.4 mmol/L (3.5-5.1) L 07/13/17 08:20 Chloride 100 mmol/L (98-107) 07/13/17 08:20 Carbon Dioxide 28 mmol/L (21-32) 07/13/17 08:20 Anion Gap 6 (8-16) L 07/13/17 08:20 BUN 10 mg/dL (7-18) 07/13/17 08:20 Creatinine 0.9 mg/dL (0.55-1.02) 07/13/17 08:20 Creat Clearance w eGFR > 60 (>60) 07/13/17 08:20 Calcium 7.2 mg/dL (8.5-10.1) L 07/13/17 08:20 Total Bilirubin 0.5 mg/dL (0.2-1.0) D 07/13/17 08:20 AST 22 U/L (15-37) D 07/13/17 08:20 ALT 22 U/L (12-78) 07/13/17 08:20 Alkaline Phosphatase 80 U/L (45-117) 07/13/17 08:20 Total Protein 5.3 g/dl (6.4-8.2) L 07/13/17 08:20 Albumin 1.7 g/dl (3.4-5.0) L 07/13/17 08:20 - Neuro Exam Level Of Consciousness: Yes: Alert (awake, pleasant, family bedside, EOMI, no facila, left arm weakness TR 4/5, hand grasp 4/5, BL leg weakness, (? tetraplegic -limited effort), RUE 3-4/5 , distal movements feet BL , plantars up BL, left leg inc tone >right, unable to ambulate ) Problem List - Problems (1) CHF (congestive heart failure) Code(s): I50.9 - HEART FAILURE, UNSPECIFIED (2) Down syndrome Code(s): Q90.9 - DOWN SYNDROME, UNSPECIFIED (3) Weakness Code(s): R53.1 - WEAKNESS Assessment/Plan 59 y/o F with PMH Down's syndrome, hypothyroidism, recent hospitalization in [facility] for L ankle pressure ulcer-stage 3, who presented to ED s/p fall. As per pt' s family and nurse, pt has decreased ambulation over the last month and was found on the ground by family on AM of ED arrival. s/p posterior laminectomy with fusion of C1-C6, with weakness L >R residual tetraparesis moving UE better R >L; afebrile and off ABX rehab planning Dr Alexis Problem List - Problems (1) CHF (congestive heart failure) Code(s): I50.9 - HEART FAILURE, UNSPECIFIED Qualifiers: Congestive heart failure type: diastolic Congestive heart failure chronicity: acute on chronic Qualified Code(s): I50.33 - Acute on chronic diastolic (congestive) heart failure (2) Down syndrome Code(s): Q90.9 - DOWN SYNDROME, UNSPECIFIED (3) Weakness Code(s): R53.1 - WEAKNESS
[2017-07-14] MEDS: MESALAMINE 800 MG TABLET.DR PO SCH ×3 (06:07→21:26)
[2017-07-14] MEDS: HEPARIN NA (PORCINE) 5,000 UNITS/ML 1ML VIAL SQ SCH ×2 (06:08→21:29)
[2017-07-14] MEDS: LEVOTHYROXINE 100 MCG, LEVOTHYROXINE 75 MCG PO SCH (06:09)
[2017-07-14] MEDS ORDERED: LEVOTHYROXINE NA 75 MCG TABLET (FP) ONE (06:09)
[2017-07-14] MEDS ORDERED: LEVOTHYROXINE NA 100 MCG TABLET (FP) ONE (06:09)
--- NOTE | 2017-07-14 07:52 | PN ---
Physical Exam: SUBJECTIVE: Patient seen and examined. She denies sob, cp, palpitations, informed of possible surgery today. OBJECTIVE: Vital Signs Period Temp Pulse Resp BP Sys/Guo Pulse Ox Last 24 Hr 97.8 F-98.8 F 66-71 18-22 96-115/51-58 95 PE Neuro: alert, awake, cn 2-12intact + C collar, posterior cervical dressing in tact Pulm: b/l scattered rhonchi anteriorly CV: s1 s2 rrr no mrg Abd: s nt nd + bs Ext: b/l heel dressing, no le edema AM labs pending Laboratory Results - last 24 hr 06/28/17 07/13/17 07/13/17 10:20 08:20 08:20 WBC 4.8 RBC 3.00 L Hgb 9.5 L Hct 29.8 L MCV 99.6 H MCH 31.9 MCHC 32.0 RDW 16.0 H Plt Count 167 MPV 10.2 Sodium 134 L Potassium 3.4 L Chloride 100 Carbon Dioxide 28 Anion Gap 6 L BUN 10 Creatinine 0.9 Creat Clearance w eGFR > 60 Random Glucose 98 Calcium 7.2 L Total Bilirubin 0.5 D AST 22 D ALT 22 Alkaline Phosphatase 80 Total Protein 5.3 L Albumin 1.7 L Crossmatch See Detail Active Medications Generic Name Dose Route Start Last Admin Trade Name Freq PRN Reason Stop Dose Admin Acetaminophen 650 mg 07/01/17 12:41 07/13/17 21:55 Tylenol - PO 650 mg Q4H PRN Administration FEVER OR PAIN Albuterol/Ipratropium 1 amp 07/12/17 23:40 07/13/17 00:03 Duoneb - NEB 1 amp Q4H PRN Administration SHORTNESS OF BREATH Aspirin 81 mg 07/10/17 13:30 07/13/17 10:00 Ecotrin - PO 81 mg DAILY KELLE Administration Collagenase 1 applic 07/04/17 12:00 07/13/17 10:05 Santyl - TP 1 applic DAILY KELLE Administration Ferrous Sulfate 325 mg 07/04/17 17:30 07/13/17 18:06 Feosol - PO 325 mg BIDWM KELLE Administration Furosemide 20 mg 07/04/17 10:00 07/13/17 10:02 Lasix - PO 20 mg DAILY KELLE Administration Guaifenesin 10 ml 07/08/17 12:05 Robitussin - PO Q8H PRN COUGH Heparin Sodium (Porcine) 5,000 unit 06/30/17 22:00 07/14/17 06:08 Heparin - SQ Not Given TID KELLE Levothyroxine Sodium 100 mcg/ 175 mcg 07/01/17 07:00 07/14/17 06:09 Levothyroxine Sodium 75 mcg PO 175 mcg DAILY@0700 KELLE Administration Mesalamine 800 mg 06/30/17 22:00 07/14/17 06:07 Asacol Hd - PO Not Given TID KELLE Metoprolol Succinate 12.5 mg 07/10/17 13:30 07/13/17 10:01 Toprol Xl - PO 12.5 mg DAILY KELLE Administration Pantoprazole Sodium 40 mg 07/01/17 10:00 07/13/17 10:00 Protonix Iv IVPUSH 40 mg DAILY KELLE Administration Valsartan 40 mg 07/10/17 13:30 07/13/17 10:02 Diovan - PO 40 mg DAILY KELLE Administration Imaging: - ECHO 06/30/2017: normal LV size and function, mild AI, trace TR with RVSP between 30-40 mmHg Assessment: 61 year old female with PMHx of down syndrome and hypothyroidism presented with decreasing ability to ambulate over the last few weeks and s/p fall. Plan: 1. 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 CAD, diastolic LV dysfunction - Likely d/t demand ischemia, NSTEMI - Continue ASA - Continue Toprol XL 12.5mg daily - Continue Diovan 40mg daily 3. Influenza A positive - Off abx x24hr, afebrile - Completed Tamiflu course 4. UTI d/t pseudomonas - Zosyn stopped 06/12 5. Hypothyroidism - Continue synthroid 6. Prophylaxis - Hold Heparin 5,000u sq tid - PT Visit type - Emergency Visit Emergency Visit: Yes ED Registration Date: 06/25/17 Care time: The patient presented to the Emergency Department on the above date and was hospitalized for further evaluation of their emergent condition. - New Patient This patient is new to me today: Yes Date on this admission: 07/14/17 - Critical Care Critical Care patient: No
[2017-07-14] MEDS: FERROUS SO4 325 MG TABLET (FP) PO SCH ×2 (08:10→20:24)
[2017-07-14 08:27] LABS: BASO % 1.4 % (0-2.0); EOS % 3.9 % (0-4.5); HEMATOCRIT 31.3 % (32.4-45.2); LYMPH % 23.6 % (8-40); MCH 31.7 pg (25.7-33.7); MEAN CELL VOLUME 99.2 fl (80-96); MEAN PLT VOLUME 10.1 fl (7.5-11.1); MONO % 8.7 % (3.8-10.2); NEUT % 62.4 % (42.8-82.8); PLATELET COUNT 173 K/MM3 (134-434); RBC 3.15 M/mm3 (3.60-5.2); RDW 16.2 % (11.6-15.6); WHITE BLOOD COUNT 4.8 K/mm3 (4.0-10.0)
[2017-07-14] MEDS ORDERED: BUPIVACAINE HCL/PF 0.5% (5MG/ML) 10 ML VIAL ONE (08:29)
[2017-07-14] MEDS ORDERED: LIDOCAINE 1%/EPI 1:100000 (20 ML MULTI DOSE VIAL) ONE (08:29)
[2017-07-14] MEDS ORDERED: VANCOMYCIN 1,000 MG VIAL (RESTRICTED TO ID ONLY) ONE (08:29)
[2017-07-14] MEDS ORDERED: GENTAMICIN SO4 80 MG/2 ML VIAL ONE (08:29)
[2017-07-14] MEDS ORDERED: BACITRACIN 15 GM TUBE TOPICAL OINTMENT ONE (09:02)
[2017-07-14] MEDS: VALSARTAN 40 MG TABLET (FP) PO SCH (10:36)
[2017-07-14] MEDS: ASPIRIN COATED 81 MG TABLET.EC PO SCH (10:36)
[2017-07-14] MEDS: COLLAGENASE CLOSTRIDIUM HIST. 30 GRAMS TUBE TP SCH (10:37)
[2017-07-14] MEDS: METOPROLOL SUCCINATE 25 MG TAB.SR.24H (FP) PO SCH (10:37)
[2017-07-14] MEDS: FUROSEMIDE 20 MG TABLET (FP) PO SCH (10:37)
[2017-07-14] MEDS ORDERED: MIDAZOLAM HCL 2 MG/2 ML SINGLE DOSE VIAL ONE (10:49)
[2017-07-14] MEDS ORDERED: VANCOMYCIN 1,000 MG VIAL (RESTRICTED TO ID ONLY) IVPB ONE (11:00)
[2017-07-14] MEDS ORDERED: PROPOFOL 20 ML ONE ×2 (11:01)
[2017-07-14] MEDS ORDERED: ROCURONIUM BROMIDE 50 MG/5 ML VIAL ONE (11:01)
[2017-07-14] MEDS ORDERED: LIDOCAINE 1%/EPI 1:100000 (20 ML MULTI DOSE VIAL) IJ ONE (11:30)
[2017-07-14] MEDS ORDERED: THROMBIN (BOVINE) 5,000 UNIT VIAL TP ONE (12:00)
[2017-07-14] MEDS ORDERED: GELATIN, ABSORBABLE 100 EACH SPONGE TP ONE (12:00)
[2017-07-14] MEDS ORDERED: HYDROmorphone HCL CARPU-JECT 1 MG/1 ML DISP.SYRIN IVPB PRN (14:18)
[2017-07-14] MEDS ORDERED: ONDANSETRON 4 MG/2 ML VIAL IVPUSH PRN (14:27)
[2017-07-14 14:28] LABS: ALBUMIN 1.8 g/dl (3.4-5.0); ALK PHOS 84 U/L (45-117); ANION GAP 5 (8-16); BILIRUBIN,TOTAL 0.2 mg/dL (0.2-1.0); BLOOD UREA NITROGEN 9 mg/dL (7-18); CHLORIDE 104 mmol/L (98-107); CO2 29 mmol/L (21-32); CREATININE 0.8 mg/dL (0.55-1.02); GLUCOSE,RANDOM 88 mg/dL (74-106); POTASSIUM 3.5 mmol/L (3.5-5.1); SGOT/AST 20 U/L (15-37); SGPT/ALT 28 U/L (12-78); SODIUM 138 mmol/L (136-145); TOT PROT 5.3 g/dl (6.4-8.2)
[2017-07-14] MEDS ORDERED: LACTATED RINGERS SOLUTION 1,000 ML IV SCH (14:30)
--- NOTE | 2017-07-14 14:33 | OP ---
Operative Note - Note: Operative Date: 07/14/17 Pre-Operative Diagnosis: pseudomenigocele Operation: revision of left C1 screw, repair of meningocele, debridment and advancement flaps Surgeon: Ata Cruz Reinsurance Claim Analyst: Barbara Wallace Anesthesiologist/CARRIER LOADER: Yamileth Damico MD Anesthesia: General Specimens Removed: skin Estimated Blood Loss (mls): 30 Drains, Volume Out (mls): 200 (odonnell) Fluid Volume Replaced (mls): 700 Operative Report Dictated: Yes
--- NOTE | 2017-07-14 14:34 | SURG ---
Surgery Computer Application Developer Note Computer Application Developer: Barbara Wallace PA-C Date of Service: 07/14/17 Diagnosis: pseudomenigocele Procedure: revision of left C1 screw, repair of meningocele, debridment and advancement flaps I was present for the entirety of the operative procedure. For further detail, please refer to operative report. Visit type - Case Type Case Type: ED Admission - Emergency Emergency Visit: Yes ED Registration Date: 06/25/17 Care time: The patient presented to the Emergency Department on the above date and was hospitalized for further evaluation of their emergent condition. - New patient This patient is new to me today: No
[2017-07-14 14:43] LABS: CALCIUM 6.9 mg/dL (8.5-10.1)
[2017-07-14] MEDS ORDERED: guaiFENesin 200 MG/10 ML 10 ML UNIT-DOSE CUPS PO PRN (14:57)
[2017-07-14] MEDS ORDERED: ACETAMINOPHEN 325 MG TABLET (FP) PO PRN (14:57)
[2017-07-14] MEDS ORDERED: ALBUTEROL SO4 2.5/IPRATROPIUM 0.5 INH SOL 3 ML VIAL.NEB. NEB PRN (14:57)
--- NOTE | 2017-07-14 15:14 | EKG ---
Test Reason : Blood Pressure : / mmHG Vent. Rate : 067 BPM Atrial Rate : 067 BPM P-R Int : 152 ms QRS Dur : 082 ms QT Int : 454 ms P-R-T Axes : 051 -08 106 degrees QTc Int : 479 ms NORMAL SINUS RHYTHM T WAVE ABNORMALITY, CONSIDER LATERAL ISCHEMIA PROLONGED QT ABNORMAL ECG WHEN COMPARED WITH ECG OF 10-JUL-2017 10:14, T WAVE INVERSION LESS EVIDENT IN LATERAL LEADS Confirmed by NINFA MARTINEZ MD ([id number]) on 07/14/2017 3:13:53 PM Referred By: DEVONTE PADILLA Confirmed By:NINFA MARTINEZ MD
[2017-07-14] MEDS ORDERED: D5-1/2NS+20 MEQ KCL - 20 MEQ/1,000 ML INFUS.BAG IV SCH ×2 (15:15→18:55)
[2017-07-14 15:56] LABS: ANION GAP 8 (8-16); BLOOD UREA NITROGEN 9 mg/dL (7-18); CHLORIDE 104 mmol/L (98-107); CO2 27 mmol/L (21-32); CREATININE 0.7 mg/dL (0.55-1.02); GLUCOSE,RANDOM 112 mg/dL (74-106); POTASSIUM 3.4 mmol/L (3.5-5.1); SODIUM 139 mmol/L (136-145)
[2017-07-14] MEDS ORDERED: ceFAZolin SODIUM 1 GM VIAL IVPB ONE (20:15)
[2017-07-14] MEDS ORDERED: ceFAZolin SODIUM 1 GM VIAL ONE (20:16)
[2017-07-14] MEDS: CEFAZOLIN 1 GM PUSH 1 GM/10 ML DISP.SYRIN IVPUSH SCH (21:26)
[2017-07-14] MEDS: MUPIROCIN 2% TOPICAL OINTMENT FOR DECOLONIZATION NS SCH (21:27)
[2017-07-14] MEDS ORDERED: MUPIROCIN 2% TOPICAL OINTMENT FOR DECOLONIZATION NS SCH ×2 (22:00)
[2017-07-14] MEDS ORDERED: CHLORHEXIDINE GLUCONATE 4% CLEANSER FOR DECOLONIZATION TP SCH ×2 (22:00)
--- NOTE | 2017-07-14 23:15 | PN ---
Progress Note (short form) - Note Progress Note: PULM CCM SUBJECTIVE: Returns to ICU after :revision of left C1 screw, repair of meningocele, debridment and advancement flaps post op course uneventful Vital Signs Temp 98.6 F 07/14/17 22:00 Pulse 66 07/14/17 22:00 Resp 20 07/14/17 22:00 BP 119/53 07/14/17 22:00 Pulse Ox 100 07/14/17 21:00 Intake & Output 07/13/17 07/14/17 07/14/17 23:59 11:59 23:59 Intake Total 500 700 900 Output Total 250 650 Balance 500 450 250 Weight 71.894 kg Intake: IV 700 900 Oral 500 Output: Drainage 50 Urine 200 600 Estimated Blood Loss 50 Other: Voiding Method Incontinent Incontinent Indwelling Catheter # Unmeasured Voids Void 1 1 Bowel Movement Yes Yes # Bowel Movements 2 1 Weight Measurement Method Built in [facility] Current Medications Acetaminophen (Tylenol -) 650 mg PO Q4H PRN PRN Reason: FEVER OR PAIN Albuterol/Ipratropium (Duoneb -) 1 amp NEB Q4H PRN PRN Reason: SHORTNESS OF BREATH Aspirin (Ecotrin -) 81 mg PO DAILY [facility] Chlorhexidine Gluconate (Hibiclens For Decolonization -) 1 applic TP HS [facility] Last Admin: 07/14/17 21:29 Dose: 1 applic Collagenase (Santyl -) 1 applic TP DAILY KELLE Ferrous Sulfate (Feosol -) 325 mg PO BIDWM [facility] Last Admin: 07/14/17 20:24 Dose: Not Given Furosemide (Lasix -) 20 mg PO DAILY [facility] Guaifenesin (Robitussin -) 10 ml PO Q8H PRN PRN Reason: COUGH Heparin Sodium (Porcine) (Heparin -) 5,000 unit SQ TID [facility] Last Admin: 07/14/17 21:29 Dose: 5,000 unit Hydromorphone HCl (Dilaudid Injection -) 1 mg IVPB Q6H PRN PRN Reason: PAIN LEVEL 6-10 Cefazolin Sodium (Ancef -) 1 gm in 10 mls @ 120 mls/hr IVPUSH Q8H-IV [facility] Last Admin: 07/14/17 21:26 Dose: Not Given Potassium Chloride/Dextrose/Sod Cl (D5-1/2ns+20 Meq Kcl -) 20 meq in 1,000 mls @ 60 mls/hr IV ASDIR [facility] Stop: 07/15/17 07:54 Last Admin: 07/14/17 19:45 Dose: 0 mls Levothyroxine Sodium 100 mcg/ (Levothyroxine Sodium 75 mcg) 175 mcg PO DAILY@ 0700 [facility] Mesalamine (Asacol Hd -) 800 mg PO TID [facility] Last Admin: 07/14/17 21:26 Dose: Not Given Metoprolol Succinate (Toprol Xl -) 12.5 mg PO DAILY [facility] Mupirocin (Bactroban Ointment (For Decolonization) -) 1 applic NS BID [facility] Stop: 07/19/17 21:59 Last Admin: 07/14/17 21:27 Dose: 1 applic Ondansetron HCl (Zofran Injection) 4 mg IVPUSH Q6H PRN PRN Reason: NAUSEA AND/OR VOMITING Valsartan (Diovan -) 40 mg PO DAILY [facility] CBCD WBC 4.8 K/mm3 (4.0-10.0) 07/14/17 06:00 RBC 3.15 M/mm3 (3.60-5.2) L 07/14/17 06:00 Hgb 10.0 GM/dL (10.7-15.3) L 07/14/17 06:00 Hct 31.3 % (32.4-45.2) L 07/14/17 06:00 MCV 99.2 fl (80-96) H 07/14/17 06:00 MCHC 32.0 g/dl (32.0-36.0) 07/14/17 06:00 RDW 16.2 % (11.6-15.6) H 07/14/17 06:00 Plt Count 173 K/MM3 (134-434) 07/14/17 06:00 MPV 10.1 fl (7.5-11.1) 07/14/17 06:00 CMP Sodium 139 mmol/L (136-145) 07/14/17 15:00 Potassium 3.4 mmol/L (3.5-5.1) L 07/14/17 15:00 Chloride 104 mmol/L (98-107) 07/14/17 15:00 Carbon Dioxide 27 mmol/L (21-32) 07/14/17 15:00 Anion Gap 8 (8-16) 07/14/17 15:00 BUN 9 mg/dL (7-18) 07/14/17 15:00 Creatinine 0.7 mg/dL (0.55-1.02) 07/14/17 15:00 Creat Clearance w eGFR > 60 (>60) 07/14/17 06:00 Random Glucose 112 mg/dL (74-106) H D 07/14/17 15:00 Calcium 7.0 mg/dL (8.5-10.1) L 07/14/17 15:00 Total Bilirubin 0.2 mg/dL (0.2-1.0) D 07/14/17 06:00 AST 20 U/L (15-37) 07/14/17 06:00 ALT 28 U/L (12-78) D 07/14/17 06:00 Alkaline Phosphatase 84 U/L (45-117) 07/14/17 06:00 Total Protein 5.3 g/dl (6.4-8.2) L 07/14/17 06:00 Albumin 1.8 g/dl (3.4-5.0) L 07/14/17 06:00 CARDIAC ENZYMES Creatine Kinase 80 IU/L (26-192) 07/14/17 15:00 Troponin I 0.07 ng/ml (0.00-0.05) H 07/14/17 15:00 Gen: NAD in cervical collar Heart: RRR Lung: decreased breath sounds at the bases Abd: soft, nontender Ext: no edema ASSESSMENT AND PLAN: C3-C4 spinal stenosis with cord compression s/p posterior laminectomy with fusion of C1-C6, repair of dural tear s/p C1 screw re-op repair PSA UTI NSTEMI Down Syndrome CHF Hypothyroidism - pain control - neuro checks - Vanco and P/T for UTI and post op abx as per ID - O2 to keep SpO2 >90% - Cards following, ASA ok, BB - PO as tolerated - Floor if OK with Neurosurgery in am - VTE prophylaxis Monster Overton ACNP [id number] Critical care time spent in reviewing chart, evaluating patient and formulating plan - 36 minutes.
[2017-07-15] MEDS: CEFAZOLIN 1 GM PUSH 1 GM/10 ML DISP.SYRIN IVPUSH SCH ×3 (01:05→20:16)
[2017-07-15] MEDS: HEPARIN NA (PORCINE) 5,000 UNITS/ML 1ML VIAL SQ SCH ×2 (05:43→22:06)
[2017-07-15] MEDS ORDERED: LEVOTHYROXINE NA 75 MCG TABLET (FP) ONE (06:35)
[2017-07-15] MEDS ORDERED: LEVOTHYROXINE NA 100 MCG TABLET (FP) ONE (06:35)
[2017-07-15] MEDS: MESALAMINE 800 MG TABLET.DR PO SCH ×2 (06:38→22:06)
--- NOTE | 2017-07-15 06:57 | PN ---
Progress Note, Physician Chief Complaint: ID S/P repair of meningocele yesterday with revision of C 1 screw Uneventful night per nursing staff Afebrile and Cefazolin perioperatively Still on isolation for Influenza - Current Medication List Current Medications: Active Medications Acetaminophen (Tylenol -) 650 mg PO Q4H PRN PRN Reason: FEVER OR PAIN Albuterol/Ipratropium (Duoneb -) 1 amp NEB Q4H PRN PRN Reason: SHORTNESS OF BREATH Aspirin (Ecotrin -) 81 mg PO DAILY [facility] Chlorhexidine Gluconate (Hibiclens For Decolonization -) 1 applic TP HS [facility] Last Admin: 07/14/17 21:29 Dose: 1 applic Collagenase (Santyl -) 1 applic TP DAILY [facility] Ferrous Sulfate (Feosol -) 325 mg PO BIDWM [facility] Last Admin: 07/14/17 20:24 Dose: Not Given Furosemide (Lasix -) 20 mg PO DAILY [facility] Guaifenesin (Robitussin -) 10 ml PO Q8H PRN PRN Reason: COUGH Heparin Sodium (Porcine) (Heparin -) 5,000 unit SQ TID [facility] Last Admin: 07/15/17 05:43 Dose: 5,000 unit Hydromorphone HCl (Dilaudid Injection -) 1 mg IVPB Q6H PRN PRN Reason: PAIN LEVEL 6-10 Last Admin: 07/15/17 05:43 Dose: 1 mg Cefazolin Sodium (Ancef -) 1 gm in 10 mls @ 120 mls/hr IVPUSH Q8H-IV [facility] Last Admin: 07/15/17 01:05 Dose: 120 mls/hr Potassium Chloride/Dextrose/Sod Cl (D5-1/2ns+20 Meq Kcl -) 20 meq in 1,000 mls @ 60 mls/hr IV ASDIR [facility] Stop: 07/15/17 07:54 Last Admin: 07/14/17 19:45 Dose: 0 mls Levothyroxine Sodium 100 mcg/ (Levothyroxine Sodium 75 mcg) 175 mcg PO DAILY@ 0700 [facility] Last Admin: 07/15/17 06:38 Dose: 175 mcg Mesalamine (Asacol Hd -) 800 mg PO TID [facility] Last Admin: 07/15/17 06:38 Dose: 800 mg Metoprolol Succinate (Toprol Xl -) 12.5 mg PO DAILY [facility] Mupirocin (Bactroban Ointment (For Decolonization) -) 1 applic NS BID [facility] Stop: 07/19/17 21:59 Last Admin: 07/14/17 21:27 Dose: 1 applic Ondansetron HCl (Zofran Injection) 4 mg IVPUSH Q6H PRN PRN Reason: NAUSEA AND/OR VOMITING Valsartan (Diovan -) 40 mg PO DAILY [facility] - Objective Vital Signs: Vital Signs Temperature 98.6 F 07/15/17 06:00 Pulse Rate 66 07/15/17 06:00 Respiratory Rate 20 07/15/17 06:00 Blood Pressure 91/49 07/15/17 06:00 O2 Sat by Pulse Oximetry (%) 100 07/14/17 21:00 Constitutional: Yes: No Distress Cardiovascular: Yes: S1, S2 Respiratory: Yes: WNL, Regular, CTA Bilaterally Gastrointestinal: Yes: WNL, Normal Bowel Sounds, Soft Labs: CBC, BMP 07/14/17 06:00 INR, PTT INR 0.98 (0.82-1.09) 06/25/17 09:22 Problem List - Problems (1) Influenza A Code(s): J10.1 - FLU DUE TO OTH IDENT INFLUENZA VIRUS W OTH RESP MANIFEST (2) UTI (urinary tract infection) Code(s): N39.0 - URINARY TRACT INFECTION, SITE NOT SPECIFIED Assessment/Plan Assessment Post revision C1 screw and repair of meningocele Influenza Pseudomonas UTI Plan Continue current management and discontinue antibiotic today 3 doses
[2017-07-15] MEDS ORDERED: LEVOTHYROXINE 100 MCG, LEVOTHYROXINE 75 MCG PO SCH (07:00)
[2017-07-15 07:16] LABS: ANION GAP 8 (8-16); BLOOD UREA NITROGEN 7 mg/dL (7-18); CHLORIDE 104 mmol/L (98-107); CO2 26 mmol/L (21-32); CREATININE 0.5 mg/dL (0.55-1.02); GLUCOSE,RANDOM 122 mg/dL (74-106); POTASSIUM 3.8 mmol/L (3.5-5.1); SODIUM 138 mmol/L (136-145)
--- NOTE | 2017-07-15 09:14 | PN ---
Progress Note (short form) - Note Progress Note: POD #1 - s/p cervical wound exploration/CSF leak repair/reposition of screw under general anesthesia. VSS. Pt. resting in bed, sedated after given dilaudid. No apparent anesthetic complications noted. Continue current care.
[2017-07-15] MEDS ORDERED: METOPROLOL SUCCINATE 25 MG TAB.SR.24H (FP) PO SCH (10:00)
[2017-07-15] MEDS ORDERED: COLLAGENASE CLOSTRIDIUM HIST. 30 GRAMS TUBE TP SCH (10:00)
[2017-07-15] MEDS ORDERED: FUROSEMIDE 20 MG TABLET (FP) PO SCH (10:00)
[2017-07-15] MEDS ORDERED: VALSARTAN 40 MG TABLET (FP) PO SCH (10:00)
[2017-07-15] MEDS ORDERED: ASPIRIN COATED 81 MG TABLET.EC PO SCH (10:00)
--- NOTE | 2017-07-15 10:11 | PN ---
Physical Exam: SUBJECTIVE: Patient seen and examined in ICU. Currently appears in no distress, no post op complications. Tele: - SB OBJECTIVE: Vital Signs Period Temp Pulse Resp BP Sys/Guo Pulse Ox Last 24 Hr 97.5 F-98.6 F 57-79 16-20 85-140/36-58 98-100 PE Neuro: arousable, cn 2-12intact + C collar, posterior cervical dressing in tact HEENT: R underbaster neck MARS drain serosanguinous fluid Pulm: b/l scattered rhonchi anteriorly CV: s1 s2 rrr no mrg Abd: s nt nd + bs Ext: b/l heel dressing, no le edema, L arm a line Laboratory Results - last 24 hr 07/14/17 07/14/17 07/15/17 15:00 15:00 05:30 Sodium 139 138 Potassium 3.4 L 3.8 Chloride 104 104 Carbon Dioxide 27 26 Anion Gap 8 8 BUN 9 7 D Creatinine 0.7 0.5 L D Creat Clearance w eGFR Random Glucose 112 H D 122 H Calcium 7.0 L Cancelled 7.0 L Total Bilirubin AST ALT Alkaline Phosphatase Creatine Kinase 80 77 Troponin I 0.07 H 0.06 H Total Protein Albumin Blood Type Antibody Screen Crossmatch IS Only Active Medications Generic Name Dose Route Start Last Admin Trade Name Freq PRN Reason Stop Dose Admin Acetaminophen 650 mg 07/14/17 14:57 Tylenol - PO Q4H PRN FEVER OR PAIN Albuterol/Ipratropium 1 amp 07/14/17 14:57 Duoneb - NEB Q4H PRN SHORTNESS OF BREATH Aspirin 81 mg 07/15/17 10:00 Ecotrin - PO DAILY KELLE Chlorhexidine Gluconate 1 applic 07/14/17 22:00 07/14/17 21:29 Hibiclens For Decolonization - TP 1 applic HS KELLE Administration Collagenase 1 applic 07/15/17 10:00 Santyl - TP DAILY KELLE Ferrous Sulfate 325 mg 07/14/17 17:30 07/14/17 20:24 Feosol - PO Not Given BIDWM KELLE Furosemide 20 mg 07/15/17 10:00 Lasix - PO DAILY K[facility] Guaifenesin 10 ml 07/14/17 14:57 Robitussin - PO Q8H PRN COUGH Heparin Sodium (Porcine) 5,000 unit 07/14/17 22:00 07/15/17 05:43 Heparin - SQ 5,000 unit TID KELLE Administration Hydromorphone HCl 1 mg 07/14/17 14:18 07/15/17 05:43 Dilaudid Injection - IVPB 1 mg Q6H PRN Administration PAIN LEVEL 6-10 Cefazolin Sodium 1 gm in 10 mls @ 120 mls/hr 07/14/17 18:00 07/15/17 01:05 Ancef - IVPUSH 120 mls/hr Q8H-IV KELLE Administration Levothyroxine Sodium 100 mcg/ 175 mcg 07/15/17 07:00 07/15/17 06:38 Levothyroxine Sodium 75 mcg PO 175 mcg DAILY@0700 KELLE Administration Mesalamine 800 mg 07/14/17 22:00 07/15/17 06:38 Asacol Hd - PO 800 mg TID KELLE Administration Metoprolol Succinate 12.5 mg 07/15/17 10:00 Toprol Xl - PO DAILY [facility] Mupirocin 1 applic 07/14/17 22:00 07/14/17 21:27 Bactroban Ointment (For Decolonization) - NS 07/19/17 21:59 1 applic BID KELLE Administration Ondansetron HCl 4 mg 07/14/17 14:27 Zofran Injection IVPUSH Q6H PRN NAUSEA AND/OR VOMITING Valsartan 40 mg 07/15/17 10:00 Diovan - PO DAILY [facility] Imaging: - ECHO 06/30/2017: normal LV size and function, mild AI, trace TR with RVSP between 30-40 mmHg Assessment: 61 year old female with PMHx of down syndrome and hypothyroidism presented with decreasing ability to ambulate over the last few weeks and s/p fall,s/p posterior laminectomy with fusion of C1-C6, repair of dural tear on . Hospital Course complicated by UTI, influenza + s/p abx course, NSTEMI c/ w demand ischemia, now with cervical revision on 07/14. Plan: 1. 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 CAD, diastolic LV dysfunction - Likely d/t demand ischemia, NSTEMI - Continue ASA - Continue Toprol XL 12.5mg daily - Continue Diovan 40mg daily 3. Influenza A positive - Off abx x48hr, afebrile - Completed Tamiflu course 4. UTI d/t pseudomonas - Zosyn stopped 06/12 5. Hypothyroidism - Continue synthroid 6. Hypokalemia - Resolved - Discontinue fluids 7. Prophylaxis - Heparin 5,000u sq tid - PT Dispo: - Transfer to med surg Visit type - Emergency Visit Emergency Visit: Yes ED Registration Date: 06/25/17 Care time: The patient presented to the Emergency Department on the above date and was hospitalized for further evaluation of their emergent condition. - New Patient This patient is new to me today: No - Critical Care Critical Care patient: No
[2017-07-15] MEDS ORDERED: PT OWN MED DRAWER 7, Y5N ONE (10:40)
[2017-07-15] MEDS: FERROUS SO4 325 MG TABLET (FP) PO SCH ×2 (10:56→17:42)
[2017-07-15] MEDS: MUPIROCIN 2% TOPICAL OINTMENT FOR DECOLONIZATION NS SCH (10:57)
--- NOTE | 2017-07-15 10:58 | PN ---
Progress Note, Physician History of Present Illness: 59 y/o F with PMH Down's syndrome, hypothyroidism, recent hospitalization in [facility] for L ankle pressure ulcer-stage 3, who presented to ED s/p fall. As per pt' s family and nurse, pt has decreased ambulation over the last month and was found on the ground by family on AM of ED arrival. Pt injured R side of forehead and lacerated lip during fall. Denied LOC, syncope, palpitations before the event, and denied fever, chills, chest pain, or recent illnesses at time of admission. as per family walks at baseline, hx of ulcer, though balance has been more of an issue over 1-2 months; she has left sided weakness post fall. CT HD Impression: 1. No acute intracranial hemorrhage. 2. No compelling evidence of cerebral infarction at this time. Please note that subacute cerebral infarctions may be indistinct on CT due to "fogging effect" approximately 2-3 weeks following infarction, requiring clinical correlation. If warranted, MRI may be obtained for further evaluati 3. 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 FU : S/P sx, respond to call. PE: Respond to call, open her eyes, denies headache ; wiggle her toes , slightly squeeze r hand when asked. A/P: POD #1 , S/P repair CSF leak , C1 screw and repair Flu+ pseudomonas UTI Health maintenance per primary team. THX Chad Parrish MD - Current Medication List Current Medications: Active Medications Acetaminophen (Tylenol -) 650 mg PO Q4H PRN PRN Reason: FEVER OR PAIN Albuterol/Ipratropium (Duoneb -) 1 amp NEB Q4H PRN PRN Reason: SHORTNESS OF BREATH Aspirin (Ecotrin -) 81 mg PO DAILY [facility] Chlorhexidine Gluconate (Hibiclens For Decolonization -) 1 applic TP HS [facility] Last Admin: 07/14/17 21:29 Dose: 1 applic Collagenase (Santyl -) 1 applic TP DAILY [facility] Ferrous Sulfate (Feosol -) 325 mg PO BIDWM [facility] Last Admin: 07/14/17 20:24 Dose: Not Given Furosemide (Lasix -) 20 mg PO DAILY [facility] Guaifenesin (Robitussin -) 10 ml PO Q8H PRN PRN Reason: COUGH Heparin Sodium (Porcine) (Heparin -) 5,000 unit SQ TID [facility] Last Admin: 07/15/17 05:43 Dose: 5,000 unit Hydromorphone HCl (Dilaudid Injection -) 1 mg IVPB Q6H PRN PRN Reason: PAIN LEVEL 6-10 Last Admin: 07/15/17 05:43 Dose: 1 mg Cefazolin Sodium (Ancef -) 1 gm in 10 mls @ 120 mls/hr IVPUSH Q8H-IV [facility] Last Admin: 07/15/17 01:05 Dose: 120 mls/hr Levothyroxine Sodium 100 mcg/ (Levothyroxine Sodium 75 mcg) 175 mcg PO DAILY@ 0700 [facility] Last Admin: 07/15/17 06:38 Dose: 175 mcg Mesalamine (Asacol Hd -) 800 mg PO TID [facility] Last Admin: 07/15/17 06:38 Dose: 800 mg Metoprolol Succinate (Toprol Xl -) 12.5 mg PO DAILY [facility] Mupirocin (Bactroban Ointment (For Decolonization) -) 1 applic NS BID [facility] Stop: 07/19/17 21:59 Last Admin: 07/14/17 21:27 Dose: 1 applic Ondansetron HCl (Zofran Injection) 4 mg IVPUSH Q6H PRN PRN Reason: NAUSEA AND/OR VOMITING Valsartan (Diovan -) 40 mg PO DAILY [facility] - Objective Vital Signs: Vital Signs Temperature 98.6 F 07/15/17 06:00 Pulse Rate 58 L 07/15/17 08:00 Respiratory Rate 16 07/15/17 08:00 Blood Pressure 89/51 07/15/17 08:00 O2 Sat by Pulse Oximetry (%) 98 07/15/17 08:55 Labs: CBC, BMP 07/14/17 06:00 07/15/17 05:30 INR, PTT INR 0.98 (0.82-1.09) 06/25/17 09:22
--- NOTE | 2017-07-15 13:47 | PN ---
Progress Note (short form) - Note Progress Note: Patient stable after wound/hardware revision. Dressing is clean, dry and intact Neurologically stable Cardiac stable MARS drainage [address] shows good position of replaced Left C1 screw PLAN -continue MARS -continue collar -Physical Therapy -completion of cardiac evaluation after surgery -planning for discharge to Rehabilitation later this week
[2017-07-15] MEDS ORDERED: ONDANSETRON 4 MG/2 ML VIAL IVPUSH PRN (14:41)
--- NOTE | 2017-07-15 15:44 | PN ---
Progress Note, Physician Chief Complaint: Events noted Transferred to floor Post revision of left C1 screw, repair of meningocele, debridment and advancement flaps History of Present Illness: Patient was seen and examined. Awake and alert. Chart was reviewed Denies chest pain, SOB or palpitations - Current Medication List Current Medications: Active Medications Acetaminophen (Tylenol -) 650 mg PO Q4H PRN PRN Reason: FEVER OR PAIN Albuterol/Ipratropium (Duoneb -) 1 amp NEB Q4H PRN PRN Reason: SHORTNESS OF BREATH Aspirin (Ecotrin -) 81 mg PO DAILY [facility] Chlorhexidine Gluconate (Hibiclens For Decolonization -) 1 applic TP HS [facility] Collagenase (Santyl -) 1 applic TP DAILY [facility] Ferrous Sulfate (Feosol -) 325 mg PO BIDWM [facility] Furosemide (Lasix -) 20 mg PO DAILY [facility] Guaifenesin (Robitussin -) 10 ml PO Q8H PRN PRN Reason: COUGH Heparin Sodium (Porcine) (Heparin -) 5,000 unit SQ TID [facility] Hydromorphone HCl (Dilaudid Injection -) 1 mg IVPB Q6H PRN PRN Reason: PAIN LEVEL 6-10 Cefazolin Sodium (Ancef -) 1 gm in 10 mls @ 120 mls/hr IVPUSH Q8H-IV [facility] Levothyroxine Sodium 100 mcg/ (Levothyroxine Sodium 75 mcg) 175 mcg PO DAILY@ 0700 [facility] Mesalamine (Asacol Hd -) 800 mg PO TID [facility] Metoprolol Succinate (Toprol Xl -) 12.5 mg PO DAILY [facility] Ondansetron HCl (Zofran Injection) 4 mg IVPUSH Q6H PRN PRN Reason: NAUSEA AND/OR VOMITING Valsartan (Diovan -) 40 mg PO DAILY [facility] - Objective Vital Signs: Vital Signs Temperature 99.0 F 07/15/17 14:31 Pulse Rate 62 07/15/17 14:31 Respiratory Rate 22 07/15/17 14:31 Blood Pressure 90/59 07/15/17 14:31 O2 Sat by Pulse Oximetry (%) 98 07/15/17 08:55 Neck: Yes: Supple Cardiovascular: Yes: Regular Rate and Rhythm, S1, S2 Respiratory: Yes: Diminished Gastrointestinal: Yes: Normal Bowel Sounds, Soft. No: Tenderness Edema: No Labs: CBC, BMP 07/14/17 06:00 07/15/17 05:30 Problem List - Problems (1) CHF (congestive heart failure) Code(s): I50.9 - HEART FAILURE, UNSPECIFIED Qualifiers: Congestive heart failure type: diastolic Congestive heart failure chronicity: acute on chronic Qualified Code(s): I50.33 - Acute on chronic diastolic (congestive) heart failure (2) Down syndrome Code(s): Q90.9 - DOWN SYNDROME, UNSPECIFIED (3) Mitral and aortic insufficiency Code(s): I08.0 - RHEUMATIC DISORDERS OF BOTH MITRAL AND AORTIC VALVES (4) CAD (coronary artery disease) Code(s): I25.10 - ATHSCL HEART DISEASE OF [place] CORONARY ARTERY W/O ANG PCTRS Qualifiers: Coronary Disease-Associated Artery/Lesion type: [place] artery [place] vs. transplanted heart: [place] heart Associated angina: without angina Qualified Code(s): I25.10 - Atherosclerotic heart disease of [place] coronary artery without angina pectoris (5) Demand ischemia Code(s): I24.8 - OTHER FORMS OF ACUTE ISCHEMIC HEART DISEASE Assessment/Plan 1. CAD with evidence of demand ischemic injury, non ST segment elevation [place], anterior lateral EKG changes 2. Transient LV dysfunction with class I NYHA classification LV failure - diastolic LV dysfunction 3. 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 History of acute Influenza A 5. Down's syndrome 6. Hypothyroidism 7. Anemia 8. Hypokalemia PLAN: 1. Continue Metoprolol ER and Diovan as tolerated 2. Continue ASA as tolerated 3. Lasix as needed 4. Antibiotics coverage 5. Neurosurgery follow up 6. Post op management Patient was seen and spoke with her mother bedside 20 minutes Further plans are to follow You Martin MD
[2017-07-15] MEDS ORDERED: MUPIROCIN 2% TOPICAL OINTMENT FOR DECOLONIZATION NS SCH (22:00)
[2017-07-15] MEDS: CHLORHEXIDINE GLUCONATE 4% CLEANSER FOR DECOLONIZATION TP SCH (22:07)
[2017-07-15] MEDS: HYDROmorphone HCL CARPU-JECT 1 MG/1 ML DISP.SYRIN IVPB PRN (23:34)
[2017-07-16] MEDS: CEFAZOLIN 1 GM PUSH 1 GM/10 ML DISP.SYRIN IVPUSH SCH ×3 (03:05→18:13)
[2017-07-16] MEDS ORDERED: LEVOTHYROXINE NA 100 MCG TABLET (FP) ONE (06:02)
[2017-07-16] MEDS ORDERED: LEVOTHYROXINE NA 75 MCG TABLET (FP) ONE (06:02)
[2017-07-16] MEDS: MESALAMINE 800 MG TABLET.DR PO SCH ×5 (06:17→22:50)
[2017-07-16] MEDS: LEVOTHYROXINE 100 MCG, LEVOTHYROXINE 75 MCG PO SCH (06:17)
[2017-07-16] MEDS: HEPARIN NA (PORCINE) 5,000 UNITS/ML 1ML VIAL SQ SCH ×4 (06:17→22:51)
[2017-07-16] MEDS ORDERED: PT OWN MED DRAWER 7, Y5N ONE ×3 (06:49→13:23)
[2017-07-16] MEDS ORDERED: INSULIN DETEMIR 100 UNITS/ML MDV SQ ONE (06:49)
[2017-07-16] MEDS: FERROUS SO4 325 MG TABLET (FP) PO SCH ×2 (08:57→17:58)
[2017-07-16] MEDS: VALSARTAN 40 MG TABLET (FP) PO SCH (08:59)
[2017-07-16] MEDS: METOPROLOL SUCCINATE 25 MG TAB.SR.24H (FP) PO SCH (09:00)
[2017-07-16] MEDS: FUROSEMIDE 20 MG TABLET (FP) PO SCH (09:00)
[2017-07-16] MEDS: ASPIRIN COATED 81 MG TABLET.EC PO SCH (09:01)
[2017-07-16] MEDS: COLLAGENASE CLOSTRIDIUM HIST. 30 GRAMS TUBE TP SCH (09:05)
[2017-07-16] MEDS: HYDROmorphone HCL CARPU-JECT 1 MG/1 ML DISP.SYRIN IVPB PRN (09:17)
--- NOTE | 2017-07-16 12:25 | PN ---
Progress Note, Physician Chief Complaint: i am back for coverage notofied hosp dr brock today s/p revision neck c? jul 14 resting comfortably\tolerating clear i\liq bm ok yessterday lt side weak rt side better neurologicaly plan f/u neurosx p/t shouid be ongoing lt foot wd n/c sacral ulceer n/cdry chk labs today - Current Medication List Current Medications: Active Medications Acetaminophen (Tylenol -) 650 mg PO Q4H PRN PRN Reason: FEVER OR PAIN Albuterol/Ipratropium (Duoneb -) 1 amp NEB Q4H PRN PRN Reason: SHORTNESS OF BREATH Aspirin (Ecotrin -) 81 mg PO DAILY [facility] Last Admin: 07/16/17 09:01 Dose: 81 mg Chlorhexidine Gluconate (Hibiclens For Decolonization -) 1 applic TP HS [facility] Last Admin: 07/15/17 22:07 Dose: Not Given Collagenase (Santyl -) 1 applic TP DAILY [facility] Last Admin: 07/16/17 09:05 Dose: 1 applic Ferrous Sulfate (Feosol -) 325 mg PO BIDWM [facility] Last Admin: 07/16/17 08:57 Dose: 325 mg Furosemide (Lasix -) 20 mg PO DAILY [facility] Last Admin: 07/16/17 09:00 Dose: 20 mg Guaifenesin (Robitussin -) 10 ml PO Q8H PRN PRN Reason: COUGH Heparin Sodium (Porcine) (Heparin -) 5,000 unit SQ TID [facility] Last Admin: 07/16/17 06:17 Dose: 5,000 unit Hydromorphone HCl (Dilaudid Injection -) 1 mg IVPB Q6H PRN PRN Reason: PAIN LEVEL 6-10 Last Admin: 07/16/17 09:17 Dose: 1 mg Cefazolin Sodium (Ancef -) 1 gm in 10 mls @ 120 mls/hr IVPUSH Q8H-IV [facility] Last Admin: 07/16/17 09:01 Dose: 120 mls/hr Levothyroxine Sodium 100 mcg/ (Levothyroxine Sodium 75 mcg) 175 mcg PO DAILY@ 0700 [facility] Last Admin: 07/16/17 06:17 Dose: 175 mcg Mesalamine (Asacol Hd -) 800 mg PO TID [facility] Last Admin: 07/16/17 06:17 Dose: 800 mg Metoprolol Succinate (Toprol Xl -) 12.5 mg PO DAILY [facility] Last Admin: 07/16/17 09:00 Dose: 12.5 mg Ondansetron HCl (Zofran Injection) 4 mg IVPUSH Q6H PRN PRN Reason: NAUSEA AND/OR VOMITING Valsartan (Diovan -) 40 mg PO DAILY [facility] Last Admin: 07/16/17 08:59 Dose: 40 mg - Objective Vital Signs: Vital Signs Temperature 98.0 F 07/15/17 21:00 Pulse Rate 68 07/16/17 08:50 Respiratory Rate 18 07/16/17 08:50 Blood Pressure 114/50 07/16/17 08:50 O2 Sat by Pulse Oximetry (%) 98 07/15/17 21:00 Constitutional: Yes: Well Nourished Eyes: Yes: WNL HENT: Yes: WNL Neck: Yes: Decreased ROM, Other (neck brace) Cardiovascular: Yes: WNL, S4 Respiratory: Yes: WNL, SOB on Exertion ...Rectal Exam: Yes: Deferred Genitourinary: Yes: WNL Breast(s): Yes: WNL Musculoskeletal: Yes: Joint Stiffness Extremities: Yes: Other (lt foot wd) Edema: No Peripheral Pulses WNL: Yes Integumentary: Yes: Pressure Ulcer Wound/Incision: Yes: Clean/Dry Neurological: Yes: Weakness ...Motor Strength: LUE, LLE Psychiatric: Yes: Other (sammie n/c) Labs: CBC, BMP 07/14/17 06:00 07/15/17 05:30 INR, PTT INR 0.98 (0.82-1.09) 06/25/17 09:22 Problem List - Problems (1) Down syndrome Code(s): Q90.9 - DOWN SYNDROME, UNSPECIFIED (2) Puncture wound of left foot excluding toes with infection Code(s): S91.332A - PUNCTURE WOUND WITHOUT FOREIGN BODY, LEFT FOOT, INIT ENCNTR ; L08.9 - LOCAL INFECTION OF THE SKIN AND SUBCUTANEOUS TISSUE, UNSP (3) CHF (congestive heart failure) Code(s): I50.9 - HEART FAILURE, UNSPECIFIED Qualifiers: Congestive heart failure type: diastolic Congestive heart failure chronicity: acute on chronic Qualified Code(s): I50.33 - Acute on chronic diastolic (congestive) heart failure (4) Mitral and aortic insufficiency Code(s): I08.0 - RHEUMATIC DISORDERS OF BOTH MITRAL AND AORTIC VALVES Assessment/Plan see above fist note
--- NOTE | 2017-07-16 15:47 | PN ---
Progress Note (short form) - Note Progress Note: Patient continuing to recover after wound/hardware revision Left arm strength slightly improved no complaints of pain dressing is clean, dry and intact MARS output reducing PLAN -d/c MARS in AM -Physical Therapy -Patient should be ready for discharge to Rehabilitation early this week from Neurosurgery standpoint.
[2017-07-16] MEDS: guaiFENesin 200 MG/10 ML 10 ML UNIT-DOSE CUPS PO PRN (18:01)
--- NOTE | 2017-07-16 22:49 | PN ---
Progress Note, Physician Chief Complaint: Tolerating therapy Post revision of left C1 screw, repair of meningocele, debridment and advancement flaps Receiving pain meds History of Present Illness: Patient was seen and examined. Awake and alert. Chart was reviewed Denies chest pain, SOB or palpitations Neck brace in place - Current Medication List Current Medications: Active Medications Acetaminophen (Tylenol -) 650 mg PO Q4H PRN PRN Reason: FEVER OR PAIN Albuterol/Ipratropium (Duoneb -) 1 amp NEB Q4H PRN PRN Reason: SHORTNESS OF BREATH Aspirin (Ecotrin -) 81 mg PO DAILY [facility] Last Admin: 07/16/17 09:01 Dose: 81 mg Chlorhexidine Gluconate (Hibiclens For Decolonization -) 1 applic TP HS [facility] Last Admin: 07/15/17 22:07 Dose: Not Given Collagenase (Santyl -) 1 applic TP DAILY [facility] Last Admin: 07/16/17 09:05 Dose: 1 applic Ferrous Sulfate (Feosol -) 325 mg PO BIDWM [facility] Last Admin: 07/16/17 17:58 Dose: 325 mg Furosemide (Lasix -) 20 mg PO DAILY [facility] Last Admin: 07/16/17 09:00 Dose: 20 mg Guaifenesin (Robitussin -) 10 ml PO Q8H PRN PRN Reason: COUGH Last Admin: 07/16/17 18:01 Dose: 10 ml Heparin Sodium (Porcine) (Heparin -) 5,000 unit SQ TID [facility] Last Admin: 07/16/17 13:12 Dose: 5,000 unit Hydromorphone HCl (Dilaudid Injection -) 1 mg IVPB Q6H PRN PRN Reason: PAIN LEVEL 6-10 Last Admin: 07/16/17 09:17 Dose: 1 mg Cefazolin Sodium (Ancef -) 1 gm in 10 mls @ 120 mls/hr IVPUSH Q8H-IV [facility] Last Admin: 07/16/17 18:13 Dose: 120 mls/hr Levothyroxine Sodium 100 mcg/ (Levothyroxine Sodium 75 mcg) 175 mcg PO DAILY@ 0700 [facility] Last Admin: 07/16/17 06:17 Dose: 175 mcg Mesalamine (Asacol Hd -) 800 mg PO TID [facility] Last Admin: 07/16/17 13:33 Dose: Not Given Metoprolol Succinate (Toprol Xl -) 12.5 mg PO DAILY [facility] Last Admin: 07/16/17 09:00 Dose: 12.5 mg Ondansetron HCl (Zofran Injection) 4 mg IVPUSH Q6H PRN PRN Reason: NAUSEA AND/OR VOMITING Valsartan (Diovan -) 40 mg PO DAILY [facility] Last Admin: 07/16/17 08:59 Dose: 40 mg - Objective Vital Signs: Vital Signs Temperature 98.8 F 07/16/17 18:00 Pulse Rate 74 07/16/17 18:00 Respiratory Rate 20 07/16/17 18:00 Blood Pressure 98/43 07/16/17 18:00 O2 Sat by Pulse Oximetry (%) 95 07/16/17 09:00 HENT: Yes: Atraumatic Neck: Yes: Supple Cardiovascular: Yes: Regular Rate and Rhythm, S1, S2 Respiratory: Yes: Diminished Gastrointestinal: Yes: Normal Bowel Sounds, Soft. No: Tenderness Edema: No Problem List - Problems (1) CHF (congestive heart failure) Code(s): I50.9 - HEART FAILURE, UNSPECIFIED Qualifiers: Congestive heart failure type: diastolic Congestive heart failure chronicity: acute on chronic Qualified Code(s): I50.33 - Acute on chronic diastolic (congestive) heart failure (2) Down syndrome Code(s): Q90.9 - DOWN SYNDROME, UNSPECIFIED (3) Mitral and aortic insufficiency Code(s): I08.0 - RHEUMATIC DISORDERS OF BOTH MITRAL AND AORTIC VALVES (4) CAD (coronary artery disease) Code(s): I25.10 - ATHSCL HEART DISEASE OF [place] CORONARY ARTERY W/O ANG PCTRS Qualifiers: Coronary Disease-Associated Artery/Lesion type: [place] artery [place] vs. transplanted heart: [place] heart Associated angina: without angina Qualified Code(s): I25.10 - Atherosclerotic heart disease of [place] coronary artery without angina pectoris (5) Demand ischemia Code(s): I24.8 - OTHER FORMS OF ACUTE ISCHEMIC HEART DISEASE Assessment/Plan 1. CAD with evidence of demand ischemic injury, non ST segment elevation [place], anterior lateral EKG changes 2. Transient LV dysfunction with class I NYHA classification LV failure - diastolic LV dysfunction 3. 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 History of acute Influenza A 5. Down's syndrome 6. Hypothyroidism 7. Anemia 8. Hypokalemia PLAN: 1. Continue Metoprolol ER and Diovan as tolerated 2. Continue ASA as tolerated 3. Lasix as needed 4. Antibiotics coverage and analgesics 6. Post op management Further plans are to follow You Martin MD
[2017-07-16] MEDS: ACETAMINOPHEN 325 MG TABLET (FP) PO PRN (22:51)
[2017-07-16] MEDS: CHLORHEXIDINE GLUCONATE 4% CLEANSER FOR DECOLONIZATION TP SCH (22:52)
[2017-07-17] MEDS: CEFAZOLIN 1 GM PUSH 1 GM/10 ML DISP.SYRIN IVPUSH SCH ×3 (03:33→17:41)
[2017-07-17] MEDS ORDERED: LEVOTHYROXINE NA 100 MCG TABLET (FP) ONE (06:31)
[2017-07-17] MEDS ORDERED: LEVOTHYROXINE NA 75 MCG TABLET (FP) ONE (06:31)
[2017-07-17] MEDS: HEPARIN NA (PORCINE) 5,000 UNITS/ML 1ML VIAL SQ SCH ×3 (06:34→22:07)
[2017-07-17] MEDS: MESALAMINE 800 MG TABLET.DR PO SCH ×3 (06:34→22:07)
[2017-07-17] MEDS: LEVOTHYROXINE 100 MCG, LEVOTHYROXINE 75 MCG PO SCH (06:34)
--- NOTE | 2017-07-17 08:02 | PN ---
Progress Note (short form) - Note Progress Note: Progress Note: 59 y/o F with PMH Down's syndrome, hypothyroidism, recent hospitalization in Dec for L ankle pressure ulcer-stage 3, who presented to ED s/p fall. As per pt' s family and nurse, pt has decreased ambulation over the last month and was found on the ground by family on AM of ED arrival. Pt injured R side of forehead and lacerated lip during fall. Denied LOC, syncope, palpitations before the event, and denied fever, chills, chest pain, or recent illnesses at time of admission. as per family walks at baseline, hx of ulcer, though balance has been more of an issue over 1-2 months; she has left sided weakness post fall. CT HD Impression: 1. No acute intracranial hemorrhage. 2. No compelling evidence of cerebral infarction at this time. Please note that subacute cerebral infarctions may be indistinct on CT due to "fogging effect" approximately 2-3 weeks following infarction, requiring clinical correlation. If warranted, MRI may be obtained for further evaluati 3. 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 S/P surgical revision/screw in place. Offers no complaints now (except that my hands were cold. 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 (miid cognition impaired downs syn) Cardio/Vascular: Yes: Aortic Insufficiency, Mitral Insufficiency Pulmonary: Yes: Other Gastrointestinal: Yes: Ulcerative Colitis Hepatobiliary: Yes: Hepatitis B Musculoskeletal: Yes: Other (c/s fusions) Endocrine: Yes: Hypothyroidism - Alcohol/Substance Use Hx Alcohol Use: No - Smoking History Smoking history: Never smoked Have you smoked in the past 12 months: No Home Medications - Allergies Allergies/Adverse Reactions: Allergies Allergy/AdvReac Type Severity Reaction Status Date / Time raspberry Allergy Severe Rash Verified 06/27/17 14:48 strawberry Allergy Severe Rash Verified 06/27/17 14:49 barley Allergy Intermediate Rash Verified 06/27/17 14:47 wheat Allergy Intermediate Rash Verified 06/25/17 08:59 egg AdvReac Severe Nausea Verified 06/25/17 08:59 egg yolk AdvReac Severe Nausea Verified 06/25/17 08:59 - Home Medications Home Medications: Ambulatory Orders Furosemide [Lasix -] 40 mg PO DAILY 04/20/15 Levothyroxine [Synthroid -] 150 mcg PO DAILY 03/26/17 Mesalamine [Asacol Hd -] 800 mg PO TID 03/26/17 Raloxifene HCl 60 mg PO DAILY 03/26/17 Family Disease History - Family Disease History Family Disease History: Heart Disease: Mother Physical Exam-Neuro Vital Signs: Vital Signs Temperature 97.8 F 07/13/17 15:39 Pulse Rate 66 07/13/17 15:39 Respiratory Rate 22 07/13/17 15:39 Blood Pressure 115/55 07/13/17 15:39 O2 Sat by Pulse Oximetry (%) 95 07/12/17 21:00 Constitutional: Yes: Well Nourished Labs: CBCD WBC 4.8 K/mm3 (4.0-10.0) 07/13/17 08:20 RBC 3.00 M/mm3 (3.60-5.2) L 07/13/17 08:20 Hgb 9.5 GM/dL (10.7-15.3) L 07/13/17 08:20 Hct 29.8 % (32.4-45.2) L 07/13/17 08:20 MCV 99.6 fl (80-96) H 07/13/17 08:20 MCHC 32.0 g/dl (32.0-36.0) 07/13/17 08:20 RDW 16.0 % (11.6-15.6) H 07/13/17 08:20 Plt Count 167 K/MM3 (134-434) 07/13/17 08:20 MPV 10.2 fl (7.5-11.1) 07/13/17 08:20 CMP Sodium 134 mmol/L (136-145) L 07/13/17 08:20 Potassium 3.4 mmol/L (3.5-5.1) L 07/13/17 08:20 Chloride 100 mmol/L (98-107) 07/13/17 08:20 Carbon Dioxide 28 mmol/L (21-32) 07/13/17 08:20 Anion Gap 6 (8-16) L 07/13/17 08:20 BUN 10 mg/dL (7-18) 07/13/17 08:20 Creatinine 0.9 mg/dL (0.55-1.02) 07/13/17 08:20 Creat Clearance w eGFR > 60 (>60) 07/13/17 08:20 Calcium 7.2 mg/dL (8.5-10.1) L 07/13/17 08:20 Total Bilirubin 0.5 mg/dL (0.2-1.0) D 07/13/17 08:20 AST 22 U/L (15-37) D 07/13/17 08:20 ALT 22 U/L (12-78) 07/13/17 08:20 Alkaline Phosphatase 80 U/L (45-117) 07/13/17 08:20 Total Protein 5.3 g/dl (6.4-8.2) L 07/13/17 08:20 Albumin 1.7 g/dl (3.4-5.0) L 07/13/17 08:20 - Neuro Exam Level Of Consciousness: Yes: Alert (awake, pleasant, family bedside, EOMI, no facila, left arm weakness TR 4/5, hand grasp 4/5, BL leg weakness, (? tetraplegic -limited effort), RUE 3-4/5 , distal movements feet BL , plantars up BL, left leg inc tone >right, unable to ambulate ) Problem List - Problems (1) CHF (congestive heart failure) Code(s): I50.9 - HEART FAILURE, UNSPECIFIED (2) Down syndrome Code(s): Q90.9 - DOWN SYNDROME, UNSPECIFIED (3) Weakness Code(s): R53.1 - WEAKNESS Assessment/Plan 59 y/o F with PMH Down's syndrome, hypothyroidism, recent hospitalization in [facility] for L ankle pressure ulcer-stage 3, who presented to ED s/p fall. As per pt' s family and nurse, pt has decreased ambulation over the last month and was found on the ground by family on AM of ED arrival. s/p posterior laminectomy with fusion of C1-C6, with weakness L >R residual tetraparesis lifts both arms up from the elbow but reduced cooperation with me in legs and proximal arms. afebrile and off ABX rehab planning Problem List - Problems (1) CHF (congestive heart failure) Code(s): I50.9 - HEART FAILURE, UNSPECIFIED Qualifiers: Congestive heart failure type: diastolic Congestive heart failure chronicity: acute on chronic Qualified Code(s): I50.33 - Acute on chronic diastolic (congestive) heart failure (2) Down syndrome Code(s): Q90.9 - DOWN SYNDROME, UNSPECIFIED (3) Weakness Code(s): R53.1 - WEAKNESS
[2017-07-17 08:37] LABS: ANION GAP 6 (8-16); BLOOD UREA NITROGEN 5 mg/dL (7-18); CALCIUM 7.2 mg/dL (8.5-10.1); CHLORIDE 106 mmol/L (98-107); CO2 27 mmol/L (21-32); CREATININE 0.6 mg/dL (0.55-1.02); GLUCOSE,RANDOM 93 mg/dL (74-106); POTASSIUM 3.7 mmol/L (3.5-5.1); SODIUM 139 mmol/L (136-145)
[2017-07-17] MEDS: FERROUS SO4 325 MG TABLET (FP) PO SCH ×2 (09:00→17:41)
[2017-07-17] MEDS: ASPIRIN COATED 81 MG TABLET.EC PO SCH (09:55)
[2017-07-17] MEDS: METOPROLOL SUCCINATE 25 MG TAB.SR.24H (FP) PO SCH (09:56)
[2017-07-17] MEDS ORDERED: PT OWN MED DRAWER 7, Y5N ONE ×5 (10:08→20:13)
[2017-07-17] MEDS: COLLAGENASE CLOSTRIDIUM HIST. 30 GRAMS TUBE TP SCH (10:09)
[2017-07-17] MEDS: ALBUTEROL SO4 2.5/IPRATROPIUM 0.5 INH SOL 3 ML VIAL.NEB. NEB PRN (10:39)
--- NOTE | 2017-07-17 12:22 | CONSULT ---
Admitting History and Physical - Primary Care Physician PCP: Satya Birch - Admission History of Present Illness: Per EMR: "59 y/o F with PMH Down's syndrome, hypothyroidism, recent hospitalization in Jun for L ankle pressure ulcer-stage 3, who presented to ED s/p fall. As per pt' s family and nurse, pt has decreased ambulation over the last month and was found on the ground by family on AM of ED arrival. Pt injured R side of forehead and lacerated lip during fall. Denied LOC, syncope, palpitations before the event, and denied fever, chills, chest pain, or recent illnesses at time of admission. as per family walks at baseline, hx of ulcer, though balance has been more of an issue over 1-2 months; she has left sided weakness post fall. No acute intracranial hemorrhage. Pt was puree and thin liquid, now on clear liquid following surgery. She had the flu here, and has had a cough and congestion. Selected Entries 07/15/17 07/15/17 07/15/17 02:05 06:00 10:59 Breakfast Diet Tolerated Lunch Temperature 98.5 F 98.6 F 98 F 07/15/17 07/15/17 07/15/17 12:00 14:31 18:30 Breakfast Diet Tolerated Lunch Temperature 98.9 F 99.0 F 97.7 F 07/15/17 07/16/17 07/16/17 21:00 09:54 14:32 Breakfast 25% Diet Tolerated Fair Poor Lunch 25% Temperature 98.0 F 98.3 F 07/16/17 07/16/17 07/17/17 18:00 22:00 06:02 Breakfast Diet Tolerated Lunch Temperature 98.8 F 98.2 F 98.1 F 07/17/17 07/17/17 10:00 11:16 Breakfast 25% Diet Tolerated Poor Lunch Temperature 98.0 F Laboratory Tests 07/14/17 06:00 WBC 4.8 - Past Medical History 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) Cardiovascular: Yes: Aortic Insufficiency, Mitral Insufficiency Pulmonary: Yes: Other Gastrointestinal: Yes: Ulcerative Colitis Hepatobiliary: Yes: Hepatitis B Heme/Onc: Yes: Myeloproliferative Synd Musculoskeletal: Yes: Other (c/s fusions) Endocrine: Yes: Hypothyroidism - Smoking History Smoking history: Never smoked Have you smoked in the past 12 months: No - Alcohol/Substance Use Hx Alcohol Use: No History - Admission Reason For Visit: WEAKNESS,HYPTHERMIA - Diagnostics X-ray: Report Reviewed (CXR 07/12 improving congestion.) - General Mental Status: Awake and Alert, Able to Follow Commands Attention: Distractible, Mild Impairment Ability to Follow Directions: Fair Head/Neck Control: Needs Assist (Neck brace) - Hearing Hearing: Functional Speech Evaluation - Communication Primary Language: PORTUGUESE Communication: Yes: Simple Responses Oral Expression Ability: Yes: Mild Impairment - Speech Production Able to Make Needs Known: Yes: Mildly Impaired Intelligibility: Yes: Mildly Impaired - Speech Characteristics Voice Loudness: Mildly Soft/Quiet Voice Pitch: Yes: Normal Voice Phonatory-based Quality: Yes: Normal Speech Clarity: < 75% Nasal Resonance: Normal Articulation: Yes: Imprecise Rate of Speech: Too Fast - Language/Auditory Comprehension Follows: Yes: 1 Stage Simple Commands - Language/Verbal Expression Able to Communicate Wants and Needs: Yes: WNL - Swallow Evaluation/Bedside Assessment Current Nutritional Intake: Clear Liquids Oral Secretions: Yes: WFL (cough. congested. Last CXR 07/12 improving. Last WBC 07/14 WNL) Dentition: Yes: Missing Teeth Facial Symmetry at Rest: Symmetrical Facial Symmetry on Retraction: Symmetrical Against Resistance Opening: Normal Against Resistance Closing: Normal Pucker Lips: Normal Smile: Normal Lingual Movement: Normal, Symmetric Lingual Movement Characteristics: Normal Velopharyngeal Movement: Normal Laryngeal Movement: Able to Palpate Bolus Size: WFL Labial Seal: WFL Oral Prep Time: WFL A-P Transit: WFL Timing of Swallow: Delayed Coughing/Throat Clear: Yes (with and without po trials) Recommendations - Speech Evaluation, Impression/Plan Impression: Cough with and without po trials. Congested. Last CXR 07/12/17 improving. Last WBC 07/14/17 WNL. Overtly able to tolerate puree.Pt's sister reports she ate very soft foods at home eg fish, soft pasta, at home. - Dysphagia Impressions/Plan Dysphagia Impressions: Mild Impairment, Ongoing Evaluation *Silent aspiration: cannot be R/O at bedside Dysphagia Treatment Plan: Chin Tuck/Down (as tolerated. Can neck brace be opened for PO feedings, to facilitate improved head positioning for po diet?), Elevate HOB during feed Recommendations: Modified Barium Swallow (if cough persists meal time.) - Recommendations Diet Consistency: Dysphagia Pureed Medication Administration: Crushed with applesauce Liquids: Thin Liquids (if cough persists, consider MBS) Supplement: Ensure
[2017-07-17] MEDS: FUROSEMIDE 20 MG TABLET (FP) PO SCH (12:45)
[2017-07-17] MEDS: VALSARTAN 40 MG TABLET (FP) PO SCH (12:46)
--- NOTE | 2017-07-17 13:54 | PN ---
Progress Note, Physician History of Present Illness: Denies chest pain or dyspnea. Post revision of left C1 screw, repair of meningocele, debridment and advancement flaps - Current Medication List Current Medications: Active Medications Acetaminophen (Tylenol -) 650 mg PO Q4H PRN PRN Reason: FEVER OR PAIN Last Admin: 07/16/17 22:51 Dose: 650 mg Albuterol/Ipratropium (Duoneb -) 1 amp NEB Q4H PRN PRN Reason: SHORTNESS OF BREATH Last Admin: 07/17/17 10:39 Dose: 1 amp Aspirin (Ecotrin -) 81 mg PO DAILY [facility] Last Admin: 07/17/17 09:55 Dose: 81 mg Chlorhexidine Gluconate (Hibiclens For Decolonization -) 1 applic TP HS [facility] Last Admin: 07/16/17 22:52 Dose: Not Given Collagenase (Santyl -) 1 applic TP DAILY [facility] Last Admin: 07/17/17 10:09 Dose: 1 applic Ferrous Sulfate (Feosol -) 325 mg PO BIDWM [facility] Last Admin: 07/17/17 09:00 Dose: 325 mg Furosemide (Lasix -) 20 mg PO DAILY [facility] Last Admin: 07/17/17 12:45 Dose: Not Given Guaifenesin (Robitussin -) 10 ml PO Q8H PRN PRN Reason: COUGH Last Admin: 07/16/17 18:01 Dose: 10 ml Heparin Sodium (Porcine) (Heparin -) 5,000 unit SQ TID [facility] Last Admin: 07/17/17 06:34 Dose: 5,000 unit Cefazolin Sodium (Ancef -) 1 gm in 10 mls @ 120 mls/hr IVPUSH Q8H-IV [facility] Last Admin: 07/17/17 10:09 Dose: 120 mls/hr Levothyroxine Sodium 100 mcg/ (Levothyroxine Sodium 75 mcg) 175 mcg PO DAILY@ 0700 [facility] Last Admin: 07/17/17 06:34 Dose: 175 mcg Mesalamine (Asacol Hd -) 800 mg PO TID [facility] Last Admin: 07/17/17 06:34 Dose: 800 mg Metoprolol Succinate (Toprol Xl -) 12.5 mg PO DAILY [facility] Last Admin: 07/17/17 09:56 Dose: Not Given Ondansetron HCl (Zofran Injection) 4 mg IVPUSH Q6H PRN PRN Reason: NAUSEA AND/OR VOMITING - Objective Vital Signs: Vital Signs Temperature 98.0 F 07/17/17 10:00 Pulse Rate 73 07/17/17 10:00 Respiratory Rate 19 07/17/17 10:00 Blood Pressure 92/52 07/17/17 10:00 O2 Sat by Pulse Oximetry (%) 98 07/17/17 09:00 Constitutional: Yes: No Distress, Calm, Thin Neck: Yes: Supple Cardiovascular: Yes: Regular Rate and Rhythm Respiratory: Yes: Regular, Diminished Gastrointestinal: Yes: Normal Bowel Sounds, Soft Edema: No Labs: CBC, BMP 07/14/17 06:00 07/17/17 07:16 INR, PTT INR 0.98 (0.82-1.09) 06/25/17 09:22 Problem List - Problems (1) Diastolic dysfunction Code(s): I51.9 - HEART DISEASE, UNSPECIFIED (2) CAD (coronary artery disease) Code(s): I25.10 - ATHSCL HEART DISEASE OF [place] CORONARY ARTERY W/O ANG PCTRS Qualifiers: Coronary Disease-Associated Artery/Lesion type: [place] artery [place] vs. transplanted heart: [place] heart Associated angina: without angina Qualified Code(s): I25.10 - Atherosclerotic heart disease of [place] coronary artery without angina pectoris (3) Demand ischemia Code(s): I24.8 - OTHER FORMS OF ACUTE ISCHEMIC HEART DISEASE (4) Down syndrome Code(s): Q90.9 - DOWN SYNDROME, UNSPECIFIED (5) Hypothyroidism Code(s): E03.9 - HYPOTHYROIDISM, UNSPECIFIED Qualifiers: Hypothyroidism type: unspecified Qualified Code(s): E03.9 - Hypothyroidism , unspecified (6) Influenza A Code(s): J10.1 - FLU DUE TO OTH IDENT INFLUENZA VIRUS W OTH RESP MANIFEST (7) UTI (urinary tract infection) Code(s): N39.0 - URINARY TRACT INFECTION, SITE NOT SPECIFIED (8) Anemia Code(s): D64.9 - ANEMIA, UNSPECIFIED Qualifiers: Anemia type: unspecified type Qualified Code(s): D64.9 - Anemia, unspecified Assessment/Plan 1. CAD with evidence of demand ischemic injury, non ST segment elevation [place], anterior lateral EKG changes 2. Transient LV dysfunction with class I NYHA classification LV failure - diastolic LV dysfunction 3. 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 History of acute Influenza A 5. Down's syndrome 6. Hypothyroidism 7. Anemia PLAN: 1. Continue Metoprolol ER 12.5 qd and Diovan 40 qd held as hemodynamics tolerate 2. Continue ASA 81 qd 3. Lasix 20 qd as needed 4. Antibiotics coverage and analgesics 5. DVT prophylaxis
--- NOTE | 2017-07-17 14:09 | PN ---
Progress Note (short form) - Note Progress Note: Surgery POD#3 61 yo female s/p revision of left C1 screw, repair of meningocele, debridment and advancement flaps. Seen and examined at bedside with no new complaints. Patient resting comfortably, denies Headache Vital Signs Temp 98.0 F 07/17/17 10:00 Pulse 73 07/17/17 10:00 Resp 19 07/17/17 10:00 BP 92/52 07/17/17 10:00 Pulse Ox 98 07/17/17 09:00 Intake & Output 07/16/17 07/17/17 07/17/17 23:59 11:59 23:59 Intake Total 150 Output Total 360 970 Balance -210 -970 Intake: IVPB 50 Oral 100 Output: Drainage 110 70 right upper back 110 70 Urine 250 900 Hill 250 900 Other: Voiding Method Indwelling Catheter Indwelling Catheter Bowel Movement Yes CBC, BMP 07/14/17 06:00 07/17/17 07:16 PE: A&O, NAD audible ronchi at rest, unlabored resp on RA incision, c/d/I with estelle and dermabond, no evidence of edema or tracking erythema, no discharge or evidence of collection. Redressed with dermabond and aquacell. j/p drain in place with clear d/c Moving all extremities, strength not tested as patient not cooperative. distal extremities well perfused and warm to touch. Assessment: s/p c-spine revision and debridement with clear discharge in MARS likely CSF. Plan: 1) MARS drain to passive collection only, no suction 2) continue [place] collar 23hrs/day 3) DVT prophylaxis b/l scds and sq heparin 4) pain control 5) OOB to chair for meals and oob with PT as tolerated-mobilize all extremities daily 6) will plan for 2-4 days of passive drainage then will consider d/c to rehab if appropriate. 7) appreciate nutrition following Evaluation and plan discussed with Dr. Cruz
--- NOTE | 2017-07-17 15:38 | PN ---
Progress Note, Physician Chief Complaint: pt states no problems but pt cognition poor to beleive speech swall apreciated vss rodney drain less fluid foot sacraul ulcer better start p/t diet as recomended watch bp - Current Medication List Current Medications: Active Medications Acetaminophen (Tylenol -) 650 mg PO Q4H PRN PRN Reason: FEVER OR PAIN Last Admin: 07/16/17 22:51 Dose: 650 mg Albuterol/Ipratropium (Duoneb -) 1 amp NEB Q4H PRN PRN Reason: SHORTNESS OF BREATH Last Admin: 07/17/17 10:39 Dose: 1 amp Aspirin (Ecotrin -) 81 mg PO DAILY [facility] Last Admin: 07/17/17 09:55 Dose: 81 mg Chlorhexidine Gluconate (Hibiclens For Decolonization -) 1 applic TP HS [facility] Last Admin: 07/16/17 22:52 Dose: Not Given Collagenase (Santyl -) 1 applic TP DAILY [facility] Last Admin: 07/17/17 10:09 Dose: 1 applic Ferrous Sulfate (Feosol -) 325 mg PO BIDWM [facility] Last Admin: 07/17/17 09:00 Dose: 325 mg Furosemide (Lasix -) 20 mg PO DAILY [facility] Last Admin: 07/17/17 12:45 Dose: Not Given Guaifenesin (Robitussin -) 10 ml PO Q8H PRN PRN Reason: COUGH Last Admin: 07/16/17 18:01 Dose: 10 ml Heparin Sodium (Porcine) (Heparin -) 5,000 unit SQ TID [facility] Last Admin: 07/17/17 14:19 Dose: 5,000 unit Cefazolin Sodium (Ancef -) 1 gm in 10 mls @ 120 mls/hr IVPUSH Q8H-IV [facility] Last Admin: 07/17/17 10:09 Dose: 120 mls/hr Levothyroxine Sodium 100 mcg/ (Levothyroxine Sodium 75 mcg) 175 mcg PO DAILY@ 0700 [facility] Last Admin: 07/17/17 06:34 Dose: 175 mcg Mesalamine (Asacol Hd -) 800 mg PO TID [facility] Last Admin: 07/17/17 06:34 Dose: 800 mg Metoprolol Succinate (Toprol Xl -) 12.5 mg PO DAILY [facility] Last Admin: 07/17/17 09:56 Dose: Not Given Ondansetron HCl (Zofran Injection) 4 mg IVPUSH Q6H PRN PRN Reason: NAUSEA AND/OR VOMITING - Objective Vital Signs: Vital Signs Temperature 98.0 F 07/17/17 10:00 Pulse Rate 73 07/17/17 10:00 Respiratory Rate 19 07/17/17 10:00 Blood Pressure 92/52 07/17/17 10:00 O2 Sat by Pulse Oximetry (%) 98 07/17/17 09:00 Labs: CBC, BMP 07/14/17 06:00 07/17/17 07:16 INR, PTT INR 0.98 (0.82-1.09) 06/25/17 09:22 Problem List - Problems (1) Down syndrome Code(s): Q90.9 - DOWN SYNDROME, UNSPECIFIED (2) Puncture wound of left foot excluding toes with infection Code(s): S91.332A - PUNCTURE WOUND WITHOUT FOREIGN BODY, LEFT FOOT, INIT ENCNTR ; L08.9 - LOCAL INFECTION OF THE SKIN AND SUBCUTANEOUS TISSUE, UNSP (3) CHF (congestive heart failure) Code(s): I50.9 - HEART FAILURE, UNSPECIFIED Qualifiers: Congestive heart failure type: diastolic Congestive heart failure chronicity: acute on chronic Qualified Code(s): I50.33 - Acute on chronic diastolic (congestive) heart failure (4) Mitral and aortic insufficiency Code(s): I08.0 - RHEUMATIC DISORDERS OF BOTH MITRAL AND AORTIC VALVES
--- NOTE | 2017-07-17 16:29 | PATH ---
Surgical Pathology Report Patient Name: DANIKA RUDOLPH [facility]. Rec. #: [id number] /Age/Gender: 1955 (Age: 61) / F Account: [id number] Location: [address] [place] [address]/[facility] Taken: 07/14/2017 Received: 07/14/2017 Reported: 07/17/2017 Physicians: Domi Restrepo M.D. Specimen(s) Received SKIN EDGES FROM INCISION Clinical History C1, CSF leak Final Diagnosis SKIN, EDGES FROM INCISION, EXCISION: SKIN WITH UNDERLYING SOFT TISSUE WITH FOCAL ACUTE AND CHRONIC INFLAMMATION AND DERMAL FIBROSIS CONSISTENT WITH SCAR. Electronically Signed Danielle Irvin M.D. Gross Description Received in formalin labeled "skin edges from incision," are 2 lopez, elongated, unoriented portions of skin measuring 12.0 x 0.6 cm and 13.0 x 0.6 cm. The epidermal surfaces display a healed scar. Shirt Finisher sections are submitted in 2 cassettes. /07/14/2017 saudi07/14/2017
[2017-07-17] MEDS: ACETAMINOPHEN 325 MG TABLET (FP) PO PRN (19:46)
[2017-07-17] MEDS: CHLORHEXIDINE GLUCONATE 4% CLEANSER FOR DECOLONIZATION TP SCH (22:08)
[2017-07-18] MEDS ORDERED: PT OWN MED DRAWER 7, Y5N ONE ×3 (01:36→17:56)
[2017-07-18] MEDS: CEFAZOLIN 1 GM PUSH 1 GM/10 ML DISP.SYRIN IVPUSH SCH ×3 (01:55→18:10)
[2017-07-18] MEDS ORDERED: LEVOTHYROXINE NA 100 MCG TABLET (FP) ONE (05:37)
[2017-07-18] MEDS ORDERED: LEVOTHYROXINE NA 75 MCG TABLET (FP) ONE (05:38)
[2017-07-18] MEDS: MESALAMINE 800 MG TABLET.DR PO SCH ×3 (06:06→23:24)
[2017-07-18] MEDS: HEPARIN NA (PORCINE) 5,000 UNITS/ML 1ML VIAL SQ SCH ×3 (06:06→23:25)
[2017-07-18] MEDS: LEVOTHYROXINE 100 MCG, LEVOTHYROXINE 75 MCG PO SCH (06:07)
[2017-07-18 08:19] LABS: BASO % 1.4 % (0-2.0); HEMATOCRIT 31.9 % (32.4-45.2); HEMOGLOBIN 10.1 GM/dL (10.7-15.3); MCH 31.5 pg (25.7-33.7); MCHC 31.6 g/dl (32.0-36.0); MEAN CELL VOLUME 99.8 fl (80-96); MEAN PLT VOLUME 10.3 fl (7.5-11.1); MONO % 4.8 % (3.8-10.2); NEUT % 81.8 % (42.8-82.8); PLATELET COUNT 197 K/MM3 (134-434); RBC 3.19 M/mm3 (3.60-5.2); RDW 17.3 % (11.6-15.6); WHITE BLOOD COUNT 5.9 K/mm3 (4.0-10.0)
[2017-07-18] MEDS: FERROUS SO4 325 MG TABLET (FP) PO SCH ×2 (08:24→18:11)
[2017-07-18 08:43] LABS: ANION GAP 10 (8-16); BLOOD UREA NITROGEN 4 mg/dL (7-18); CALCIUM 7.6 mg/dL (8.5-10.1); CHLORIDE 106 mmol/L (98-107); CO2 25 mmol/L (21-32); CREATININE 0.6 mg/dL (0.55-1.02); GLUCOSE,RANDOM 92 mg/dL (74-106); SODIUM 141 mmol/L (136-145)
[2017-07-18] MEDS: FUROSEMIDE 20 MG TABLET (FP) PO SCH (10:46)
[2017-07-18] MEDS: COLLAGENASE CLOSTRIDIUM HIST. 30 GRAMS TUBE TP SCH (10:47)
--- NOTE | 2017-07-18 10:51 | PN ---
Progress Note, GAS REVERSER - Note Progress Note: Pt's diet upgraded to Dys puree/thyin liquid. Nursing has noticed increased coughing/congestion. Selected Entries 07/17/17 07/17/17 07/17/17 06:02 10:00 11:16 Breakfast 25% Lunch Supper Temperature 98.1 F 98.0 F 07/17/17 07/17/17 07/17/17 14:52 18:35 22:00 Breakfast Lunch 25% Supper 50% Temperature 99.1 F 98.2 F 98 F 07/18/17 06:00 Breakfast Lunch Supper Temperature 97.8 F Laboratory Tests 07/18/17 07:30 WBC 5.9 Consider MBS to r/o silent aspiration. Request orders by surgeon regarding if it is ok to open neck brace meal time, or contraindicated.
[2017-07-18] MEDS: ASPIRIN COATED 81 MG TABLET.EC PO SCH (10:54)
--- NOTE | 2017-07-18 11:04 | PN ---
Progress Note, Physician History of Present Illness: pt has audible crakles lung vss coghs when fed barium swallow neck brace off when feeding cxr p/t today do not add or increace bp meds if bp low - Current Medication List Current Medications: Active Medications Acetaminophen (Tylenol -) 650 mg PO Q4H PRN PRN Reason: FEVER OR PAIN Last Admin: 07/17/17 19:46 Dose: 650 mg Albuterol/Ipratropium (Duoneb -) 1 amp NEB Q4H PRN PRN Reason: SHORTNESS OF BREATH Last Admin: 07/17/17 10:39 Dose: 1 amp Aspirin (Ecotrin -) 81 mg PO DAILY [facility] Last Admin: 07/18/17 10:54 Dose: 81 mg Chlorhexidine Gluconate (Hibiclens For Decolonization -) 1 applic TP HS [facility] Last Admin: 07/17/17 22:08 Dose: Not Given Collagenase (Santyl -) 1 applic TP DAILY [facility] Last Admin: 07/18/17 10:47 Dose: 1 applic Ferrous Sulfate (Feosol -) 325 mg PO BIDWM [facility] Last Admin: 07/18/17 08:24 Dose: 325 mg Furosemide (Lasix -) 20 mg PO DAILY [facility] Last Admin: 07/18/17 10:46 Dose: 20 mg Guaifenesin (Robitussin -) 10 ml PO Q8H PRN PRN Reason: COUGH Last Admin: 07/16/17 18:01 Dose: 10 ml Heparin Sodium (Porcine) (Heparin -) 5,000 unit SQ TID [facility] Last Admin: 07/18/17 06:06 Dose: 5,000 unit Cefazolin Sodium (Ancef -) 1 gm in 10 mls @ 120 mls/hr IVPUSH Q8H-IV [facility] Last Admin: 07/18/17 10:46 Dose: 120 mls/hr Levothyroxine Sodium 100 mcg/ (Levothyroxine Sodium 75 mcg) 175 mcg PO DAILY@ 0700 [facility] Last Admin: 07/18/17 06:07 Dose: 175 mcg Mesalamine (Asacol Hd -) 800 mg PO TID [facility] Last Admin: 07/18/17 06:06 Dose: 800 mg Metoprolol Succinate (Toprol Xl -) 12.5 mg PO DAILY [facility] Last Admin: 07/17/17 09:56 Dose: Not Given Ondansetron HCl (Zofran Injection) 4 mg IVPUSH Q6H PRN PRN Reason: NAUSEA AND/OR VOMITING - Objective Vital Signs: Vital Signs Temperature 97.8 F 07/18/17 06:00 Pulse Rate 86 07/18/17 06:00 Respiratory Rate 20 07/18/17 06:00 Blood Pressure 107/70 07/18/17 06:00 O2 Sat by Pulse Oximetry (%) 98 07/17/17 20:56 Labs: CBC, BMP 07/18/17 07:30 07/18/17 07:30 INR, PTT INR 0.98 (0.82-1.09) 06/25/17 09:22 Problem List - Problems (1) Down syndrome Code(s): Q90.9 - DOWN SYNDROME, UNSPECIFIED (2) Puncture wound of left foot excluding toes with infection Code(s): S91.332A - PUNCTURE WOUND WITHOUT FOREIGN BODY, LEFT FOOT, INIT ENCNTR ; L08.9 - LOCAL INFECTION OF THE SKIN AND SUBCUTANEOUS TISSUE, UNSP (3) CHF (congestive heart failure) Code(s): I50.9 - HEART FAILURE, UNSPECIFIED Qualifiers: Congestive heart failure type: diastolic Congestive heart failure chronicity: acute on chronic Qualified Code(s): I50.33 - Acute on chronic diastolic (congestive) heart failure (4) Mitral and aortic insufficiency Code(s): I08.0 - RHEUMATIC DISORDERS OF BOTH MITRAL AND AORTIC VALVES
[2017-07-18] MEDS: METOPROLOL SUCCINATE 25 MG TAB.SR.24H (FP) PO SCH (11:34)
--- NOTE | 2017-07-18 11:59 | PN ---
Progress Note, Physician Chief Complaint: Tolerating therapy Post revision of left C1 screw, repair of meningocele, debridment and advancement flaps No in acute distress History of Present Illness: Patient was seen and examined. Awake and alert. Chart was reviewed Denies chest pain, SOB or palpitations Neck brace in place - Current Medication List Current Medications: Active Medications Acetaminophen (Tylenol -) 650 mg PO Q4H PRN PRN Reason: FEVER OR PAIN Last Admin: 07/17/17 19:46 Dose: 650 mg Albuterol/Ipratropium (Duoneb -) 1 amp NEB Q4H PRN PRN Reason: SHORTNESS OF BREATH Last Admin: 07/17/17 10:39 Dose: 1 amp Aspirin (Ecotrin -) 81 mg PO DAILY [facility] Last Admin: 07/18/17 10:54 Dose: 81 mg Chlorhexidine Gluconate (Hibiclens For Decolonization -) 1 applic TP HS [facility] Last Admin: 07/17/17 22:08 Dose: Not Given Collagenase (Santyl -) 1 applic TP DAILY [facility] Last Admin: 07/18/17 10:47 Dose: 1 applic Ferrous Sulfate (Feosol -) 325 mg PO BIDWM [facility] Last Admin: 07/18/17 08:24 Dose: 325 mg Furosemide (Lasix -) 20 mg PO DAILY [facility] Last Admin: 07/18/17 10:46 Dose: 20 mg Guaifenesin (Robitussin -) 10 ml PO Q8H PRN PRN Reason: COUGH Last Admin: 07/16/17 18:01 Dose: 10 ml Heparin Sodium (Porcine) (Heparin -) 5,000 unit SQ TID [facility] Last Admin: 07/18/17 06:06 Dose: 5,000 unit Cefazolin Sodium (Ancef -) 1 gm in 10 mls @ 120 mls/hr IVPUSH Q8H-IV [facility] Last Admin: 07/18/17 10:46 Dose: 120 mls/hr Levothyroxine Sodium 100 mcg/ (Levothyroxine Sodium 75 mcg) 175 mcg PO DAILY@ 0700 [facility] Last Admin: 07/18/17 06:07 Dose: 175 mcg Mesalamine (Asacol Hd -) 800 mg PO TID [facility] Last Admin: 07/18/17 06:06 Dose: 800 mg Metoprolol Succinate (Toprol Xl -) 12.5 mg PO DAILY [facility] Last Admin: 07/18/17 11:34 Dose: 12.5 mg Ondansetron HCl (Zofran Injection) 4 mg IVPUSH Q6H PRN PRN Reason: NAUSEA AND/OR VOMITING - Objective Vital Signs: Vital Signs Temperature 97.8 F 07/18/17 06:00 Pulse Rate 86 07/18/17 06:00 Respiratory Rate 20 07/18/17 06:00 Blood Pressure 107/70 07/18/17 06:00 O2 Sat by Pulse Oximetry (%) 98 07/17/17 20:56 Neck: Yes: Supple Cardiovascular: Yes: Regular Rate and Rhythm, S1, S2 Respiratory: Yes: CTA Bilaterally Gastrointestinal: Yes: Normal Bowel Sounds, Soft. No: Tenderness Edema: No Labs: CBC, BMP 07/18/17 07:30 07/18/17 07:30 Problem List - Problems (1) CHF (congestive heart failure) Code(s): I50.9 - HEART FAILURE, UNSPECIFIED Qualifiers: Congestive heart failure type: diastolic Congestive heart failure chronicity: acute on chronic Qualified Code(s): I50.33 - Acute on chronic diastolic (congestive) heart failure (2) Down syndrome Code(s): Q90.9 - DOWN SYNDROME, UNSPECIFIED (3) Mitral and aortic insufficiency Code(s): I08.0 - RHEUMATIC DISORDERS OF BOTH MITRAL AND AORTIC VALVES (4) CAD (coronary artery disease) Code(s): I25.10 - ATHSCL HEART DISEASE OF [place] CORONARY ARTERY W/O ANG PCTRS Qualifiers: Coronary Disease-Associated Artery/Lesion type: [place] artery [place] vs. transplanted heart: [place] heart Associated angina: without angina Qualified Code(s): I25.10 - Atherosclerotic heart disease of [place] coronary artery without angina pectoris (5) Demand ischemia Code(s): I24.8 - OTHER FORMS OF ACUTE ISCHEMIC HEART DISEASE Assessment/Plan 1. CAD with evidence of demand ischemic injury, non ST segment elevation [place] 2. Transient LV dysfunction with class I NYHA classification LV failure - diastolic LV dysfunction 3. 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 History of acute Influenza A 5. Down's syndrome 6. Hypothyroidism 7. Anemia PLAN: 1. Continue Metoprolol ER and Diovan as tolerated. BP stable at this time 2. Continue ASA as tolerated 3. Lasix as needed 4. Antibiotics coverage and analgesics 6. Post op management as per Neurosurgery. Continue thyroid replacement therapy Further plans are to follow You Martin MD
[2017-07-18 12:05] LABS: PLATELET ESTIMATE NORMAL
--- NOTE | 2017-07-18 14:49 | PN ---
Progress Note (short form) - Note Progress Note: Patient comfortable in bed. Reduced MARS drainage with passive collection. Wound clean, dry and intact. Left arm strength improving. Collar may be removed for feeding/grooming Continue passive MARS (if patient ready for discharge, will remove MARS) Continue Physical Therapy
--- NOTE | 2017-07-18 18:21 | PN ---
Progress Note (short form) - Note Progress Note: 59 y/o F with PMH Down's syndrome, hypothyroidism, recent hospitalization in [facility] for L ankle pressure ulcer-stage 3, who presented to ED s/p fall. As per pt' s family and nurse, pt has decreased ambulation over the last month and was found on the ground by family on AM of ED arrival. Pt injured R side of forehead and lacerated lip during fall. Denied LOC, syncope, palpitations before the event, and denied fever, chills, chest pain, or recent illnesses at time of admission. as per family walks at baseline, hx of ulcer, though balance has been more of an issue over 1-2 months; she has left sided weakness post fall. CT HD Impression: 1. No acute intracranial hemorrhage. 2. No compelling evidence of cerebral infarction at this time. Please note that subacute cerebral infarctions may be indistinct on CT due to "fogging effect" approximately 2-3 weeks following infarction, requiring clinical correlation. If warranted, MRI may be obtained for further evaluati 3. 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) Cardio/Vascular: Yes: Aortic Insufficiency, Mitral Insufficiency Pulmonary: Yes: Other Gastrointestinal: Yes: Ulcerative Colitis Hepatobiliary: Yes: Hepatitis B Musculoskeletal: Yes: Other (c/s fusions) Endocrine: Yes: Hypothyroidism - Alcohol/Substance Use Hx Alcohol Use: No - Smoking History Smoking history: Never smoked Have you smoked in the past 12 months: No Home Medications - Allergies Allergies/Adverse Reactions: Allergies Allergy/AdvReac Type Severity Reaction Status Date / Time raspberry Allergy Severe Rash Verified 06/27/17 14:48 strawberry Allergy Severe Rash Verified 06/27/17 14:49 barley Allergy Intermediate Rash Verified 06/27/17 14:47 wheat Allergy Intermediate Rash Verified 06/25/17 08:59 egg AdvReac Severe Nausea Verified 06/25/17 08:59 egg yolk AdvReac Severe Nausea Verified 06/25/17 08:59 - Home Medications Home Medications: Ambulatory Orders Furosemide [Lasix -] 40 mg PO DAILY 04/20/15 Levothyroxine [Synthroid -] 150 mcg PO DAILY 03/26/17 Mesalamine [Asacol Hd -] 800 mg PO TID 03/26/17 Raloxifene HCl 60 mg PO DAILY 03/26/17 Family Disease History - Family Disease History Family Disease History: Heart Disease: Mother Physical Exam-Neuro Vital Signs: Vital Signs Temperature 98.0 F 07/18/17 14:09 Pulse Rate 81 07/18/17 14:09 Respiratory Rate 20 07/18/17 14:09 Blood Pressure 118/64 07/18/17 14:09 O2 Sat by Pulse Oximetry (%) 98 07/18/17 09:00 Constitutional: Yes: Well Nourished Labs: CBCD WBC 4.8 K/mm3 (4.0-10.0) 07/13/17 08:20 RBC 3.00 M/mm3 (3.60-5.2) L 07/13/17 08:20 Hgb 9.5 GM/dL (10.7-15.3) L 07/13/17 08:20 Hct 29.8 % (32.4-45.2) L 07/13/17 08:20 MCV 99.6 fl (80-96) H 07/13/17 08:20 MCHC 32.0 g/dl (32.0-36.0) 07/13/17 08:20 RDW 16.0 % (11.6-15.6) H 07/13/17 08:20 Plt Count 167 K/MM3 (134-434) 07/13/17 08:20 MPV 10.2 fl (7.5-11.1) 07/13/17 08:20 CMP Sodium 134 mmol/L (136-145) L 07/13/17 08:20 Potassium 3.4 mmol/L (3.5-5.1) L 07/13/17 08:20 Chloride 100 mmol/L (98-107) 07/13/17 08:20 Carbon Dioxide 28 mmol/L (21-32) 07/13/17 08:20 Anion Gap 6 (8-16) L 07/13/17 08:20 BUN 10 mg/dL (7-18) 07/13/17 08:20 Creatinine 0.9 mg/dL (0.55-1.02) 07/13/17 08:20 Creat Clearance w eGFR > 60 (>60) 07/13/17 08:20 Calcium 7.2 mg/dL (8.5-10.1) L 07/13/17 08:20 Total Bilirubin 0.5 mg/dL (0.2-1.0) D 07/13/17 08:20 AST 22 U/L (15-37) D 07/13/17 08:20 ALT 22 U/L (12-78) 07/13/17 08:20 Alkaline Phosphatase 80 U/L (45-117) 07/13/17 08:20 Total Protein 5.3 g/dl (6.4-8.2) L 07/13/17 08:20 Albumin 1.7 g/dl (3.4-5.0) L 07/13/17 08:20 - Neuro Exam Level Of Consciousness: Yes: Alert (awake, pleasant, family bedside, EOMI, no facila, left arm weakness TR 4/5, hand grasp 4/5, BL leg weakness, (? tetraplegic -limited effort), RUE 3-4/5 , distal movements feet BL , plantars up BL, left leg inc tone >right, unable to ambulate ) Problem List - Problems (1) CHF (congestive heart failure) Code(s): I50.9 - HEART FAILURE, UNSPECIFIED (2) Down syndrome Code(s): Q90.9 - DOWN SYNDROME, UNSPECIFIED (3) Weakness Code(s): R53.1 - WEAKNESS Assessment/Plan 59 y/o F with PMH Down's syndrome, hypothyroidism, recent hospitalization in [facility] for L ankle pressure ulcer-stage 3, who presented to ED s/p fall. As per pt' s family and nurse, pt has decreased ambulation over the last month and was found on the ground by family on AM of ED arrival. s/p posterior laminectomy with fusion of C1-C6, with weakness L >R residual tetraparesis, s/p revision left C1 screw, repair of meningocele, moving UE better R >L; on ABX for PNA rehab planning for later this week (ideally by end of week) Dr Alexis Problem List - Problems (1) CHF (congestive heart failure) Code(s): I50.9 - HEART FAILURE, UNSPECIFIED Qualifiers: Congestive heart failure type: diastolic Congestive heart failure chronicity: acute on chronic Qualified Code(s): I50.33 - Acute on chronic diastolic (congestive) heart failure (2) Down syndrome Code(s): Q90.9 - DOWN SYNDROME, UNSPECIFIED (3) Weakness Code(s): R53.1 - WEAKNESS
[2017-07-18] MEDS: CHLORHEXIDINE GLUCONATE 4% CLEANSER FOR DECOLONIZATION TP SCH (23:25)
[2017-07-18] MEDS: ACETAMINOPHEN 325 MG TABLET (FP) PO PRN (23:26)
[2017-07-19] MEDS: CEFAZOLIN 1 GM PUSH 1 GM/10 ML DISP.SYRIN IVPUSH SCH ×3 (01:19→17:17)
[2017-07-19] MEDS ORDERED: LEVOTHYROXINE NA 75 MCG TABLET (FP) ONE (05:26)
[2017-07-19] MEDS ORDERED: LEVOTHYROXINE NA 100 MCG TABLET (FP) ONE (05:26)
[2017-07-19] MEDS: MESALAMINE 800 MG TABLET.DR PO SCH ×3 (06:04→21:20)
[2017-07-19] MEDS: LEVOTHYROXINE 100 MCG, LEVOTHYROXINE 75 MCG PO SCH (06:05)
[2017-07-19] MEDS: HEPARIN NA (PORCINE) 5,000 UNITS/ML 1ML VIAL SQ SCH ×3 (06:05→21:20)
[2017-07-19] MEDS: guaiFENesin 200 MG/10 ML 10 ML UNIT-DOSE CUPS PO PRN ×2 (06:41→17:39)
[2017-07-19] MEDS: ALBUTEROL SO4 2.5/IPRATROPIUM 0.5 INH SOL 3 ML VIAL.NEB. NEB PRN ×2 (06:45→11:05)
[2017-07-19] MEDS ORDERED: PT OWN MED DRAWER 7, Y5N ONE ×2 (08:18→16:47)
[2017-07-19 08:24] LABS: ANION GAP 10 (8-16); BLOOD UREA NITROGEN 5 mg/dL (7-18); CALCIUM 7.6 mg/dL (8.5-10.1); CHLORIDE 101 mmol/L (98-107); CO2 26 mmol/L (21-32); GLUCOSE,RANDOM 107 mg/dL (74-106); POTASSIUM 3.7 mmol/L (3.5-5.1); SODIUM 137 mmol/L (136-145)
[2017-07-19 08:26] LABS: CREATININE 0.7 mg/dL (0.55-1.02)
[2017-07-19] MEDS: ASPIRIN COATED 81 MG TABLET.EC PO SCH (09:11)
[2017-07-19] MEDS: FUROSEMIDE 20 MG TABLET (FP) PO SCH ×2 (09:11→10:16)
[2017-07-19] MEDS: FERROUS SO4 325 MG TABLET (FP) PO SCH ×2 (09:11→17:16)
[2017-07-19] MEDS: METOPROLOL SUCCINATE 25 MG TAB.SR.24H (FP) PO SCH (09:12)
[2017-07-19] MEDS: ACETAMINOPHEN 325 MG TABLET (FP) PO PRN ×2 (13:10→17:33)
[2017-07-19] MEDS: COLLAGENASE CLOSTRIDIUM HIST. 30 GRAMS TUBE TP SCH (13:29)
--- NOTE | 2017-07-19 13:31 | PN ---
Progress Note, Physician Chief Complaint: PT W COUGH N/C ASP PRECAUTIONS ON GOING TAKE NECK BRACE OFF FOR FEEDING ID TO SEE PT PULM PND - Current Medication List Current Medications: Active Medications Acetaminophen (Tylenol -) 650 mg PO Q4H PRN PRN Reason: FEVER OR PAIN Last Admin: 07/18/17 23:26 Dose: 650 mg Albuterol/Ipratropium (Duoneb -) 1 amp NEB Q4H PRN PRN Reason: SHORTNESS OF BREATH Last Admin: 07/19/17 11:05 Dose: 1 amp Aspirin (Ecotrin -) 81 mg PO DAILY [facility] Last Admin: 07/19/17 09:11 Dose: 81 mg Chlorhexidine Gluconate (Hibiclens For Decolonization -) 1 applic TP HS [facility] Last Admin: 07/18/17 23:25 Dose: Not Given Collagenase (Santyl -) 1 applic TP DAILY [facility] Last Admin: 07/18/17 10:47 Dose: 1 applic Ferrous Sulfate (Feosol -) 325 mg PO BIDWM [facility] Last Admin: 07/19/17 09:11 Dose: 325 mg Guaifenesin (Robitussin -) 10 ml PO Q8H PRN PRN Reason: COUGH Last Admin: 07/19/17 06:41 Dose: 10 ml Heparin Sodium (Porcine) (Heparin -) 5,000 unit SQ TID [facility] Last Admin: 07/19/17 06:05 Dose: 5,000 unit Cefazolin Sodium (Ancef -) 1 gm in 10 mls @ 120 mls/hr IVPUSH Q8H-IV [facility] Last Admin: 07/19/17 09:11 Dose: 120 mls/hr Levothyroxine Sodium 100 mcg/ (Levothyroxine Sodium 75 mcg) 175 mcg PO DAILY@ 0700 [facility] Last Admin: 07/19/17 06:05 Dose: 175 mcg Mesalamine (Asacol Hd -) 800 mg PO TID [facility] Last Admin: 07/19/17 06:04 Dose: 800 mg Ondansetron HCl (Zofran Injection) 4 mg IVPUSH Q6H PRN PRN Reason: NAUSEA AND/OR VOMITING - Objective Vital Signs: Vital Signs Temperature 100.0 F H 07/19/17 06:00 Pulse Rate 76 07/19/17 09:00 Respiratory Rate 20 07/19/17 09:00 Blood Pressure 92/48 07/19/17 09:00 O2 Sat by Pulse Oximetry (%) 98 07/18/17 21:00 Constitutional: Yes: Calm Eyes: Yes: WNL HENT: Yes: WNL Respiratory: Yes: Cough Gastrointestinal: Yes: WNL ...Rectal Exam: Yes: Deferred Genitourinary: Yes: Hill Present Breast(s): Yes: WNL Musculoskeletal: Yes: WNL Extremities: Yes: WNL Edema: No Peripheral Pulses WNL: Yes Integumentary: Yes: Venous Stasis Changes, Other (SACRAL LT FOOT HEALING) Wound/Incision: Yes: Clean/Dry ...Motor Strength: WNL Labs: CBC, BMP 07/18/17 07:30 07/19/17 07:00 INR, PTT INR 0.98 (0.82-1.09) 06/25/17 09:22 Problem List - Problems (1) Down syndrome Code(s): Q90.9 - DOWN SYNDROME, UNSPECIFIED (2) Puncture wound of left foot excluding toes with infection Code(s): S91.332A - PUNCTURE WOUND WITHOUT FOREIGN BODY, LEFT FOOT, INIT ENCNTR ; L08.9 - LOCAL INFECTION OF THE SKIN AND SUBCUTANEOUS TISSUE, UNSP (3) CHF (congestive heart failure) Code(s): I50.9 - HEART FAILURE, UNSPECIFIED Qualifiers: Congestive heart failure type: diastolic Congestive heart failure chronicity: acute on chronic Qualified Code(s): I50.33 - Acute on chronic diastolic (congestive) heart failure (4) Mitral and aortic insufficiency Code(s): I08.0 - RHEUMATIC DISORDERS OF BOTH MITRAL AND AORTIC VALVES Assessment/Plan PULM ID F/U FEED WITHOUT NECK BRACE RLL PNEUMONIA? CHK LAB S IN AM
--- NOTE | 2017-07-19 14:48 | PN ---
Progress Note (short form) - Note Progress Note: PULMONARY DAY # 5 CEFAZOLIN LOW GRADE TEMP FAMILY PRESENT REPORTS MORE CONGESTION ASKED TO RE-EVAL NECK BRACE/PALE BILATERAL EXP RHONCHI ANTERIOR S1S2 BS+ NO EDEMA LABS/MEDS/NOTES/IMAGES/MICRO REVIEWED FEVER/CONGESTION/INCREASED MARKINGS RIGHT BASE DOWN'S SYNDROME S/P POSTERIOR C1-C6 LAMINECTOMY W FUSION S/P REVISION LEFT C1 SCREW/REPAIR MENINGOCELE S/P LEFT ANKLE STG 3 PRESSURE ULCER HYPOTHYROIDISM RECENT INFLUENZA A PSEUDOMONAS UTI O2 SUPPLEMENTATION/BRIEF COURSE IV STEROIDS/BRONCHODILATORS ID TO ADJUST ANTIBIOTICS NEEDED REPEAT CXR Gilbert DRIVER MD
--- NOTE | 2017-07-19 15:15 | PN ---
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
[2017-07-19] MEDS: methylPREDNISolone NA SUCC 40 MG/1 ML VIAL IVPB SCH ×2 (17:16→17:53)
--- NOTE | 2017-07-19 18:44 | PN ---
Progress Note, Physician History of Present Illness: Febrile, increased congestion. Post revision of left C1 screw, repair of meningocele, debridment and advancement flaps - Current Medication List Current Medications: Active Medications Acetaminophen (Tylenol -) 650 mg PO Q4H PRN PRN Reason: FEVER OR PAIN Last Admin: 07/19/17 17:33 Dose: 650 mg Albuterol/Ipratropium (Duoneb -) 1 amp NEB RQID [facility] Aspirin (Ecotrin -) 81 mg PO DAILY [facility] Last Admin: 07/19/17 09:11 Dose: 81 mg Chlorhexidine Gluconate (Hibiclens For Decolonization -) 1 applic TP HS [facility] Last Admin: 07/18/17 23:25 Dose: Not Given Collagenase (Santyl -) 1 applic TP DAILY [facility] Last Admin: 07/19/17 13:29 Dose: 1 applic Ferrous Sulfate (Feosol -) 325 mg PO BIDWM [facility] Last Admin: 07/19/17 17:16 Dose: 325 mg Guaifenesin (Robitussin -) 10 ml PO Q8H PRN PRN Reason: COUGH Last Admin: 07/19/17 17:39 Dose: 10 ml Heparin Sodium (Porcine) (Heparin -) 5,000 unit SQ TID [facility] Last Admin: 07/19/17 13:29 Dose: 5,000 unit Cefazolin Sodium (Ancef -) 1 gm in 10 mls @ 120 mls/hr IVPUSH Q8H-IV [facility] Last Admin: 07/19/17 17:17 Dose: 120 mls/hr Levothyroxine Sodium 100 mcg/ (Levothyroxine Sodium 75 mcg) 175 mcg PO DAILY@ 0700 [facility] Last Admin: 07/19/17 06:05 Dose: 175 mcg Mesalamine (Asacol Hd -) 800 mg PO TID [facility] Last Admin: 07/19/17 13:29 Dose: 800 mg Methylprednisolone Sodium Succinate (Solu-Medrol -) 40 mg IVPB Q8H-IV [facility] Last Admin: 07/19/17 17:53 Dose: Not Given Ondansetron HCl (Zofran Injection) 4 mg IVPUSH Q6H PRN PRN Reason: NAUSEA AND/OR VOMITING - Objective Vital Signs: Vital Signs Temperature 101.6 F H 07/19/17 14:35 Pulse Rate 93 H 07/19/17 14:35 Respiratory Rate 20 07/19/17 14:35 Blood Pressure 109/42 07/19/17 14:35 O2 Sat by Pulse Oximetry (%) 95 07/19/17 09:00 Constitutional: Yes: No Distress, Calm Neck: Yes: Supple Cardiovascular: Yes: Regular Rate and Rhythm Respiratory: Yes: Regular, Diminished Gastrointestinal: Yes: Normal Bowel Sounds, Soft Edema: No Labs: CBC, BMP 07/18/17 07:30 07/19/17 07:00 INR, PTT INR 0.98 (0.82-1.09) 06/25/17 09:22 - ....Imaging Chest X-ray: Report Reviewed (RLL asp PNA) Problem List - Problems (1) Diastolic dysfunction Code(s): I51.9 - HEART DISEASE, UNSPECIFIED (2) CAD (coronary artery disease) Code(s): I25.10 - ATHSCL HEART DISEASE OF [place] CORONARY ARTERY W/O ANG PCTRS Qualifiers: Coronary Disease-Associated Artery/Lesion type: [place] artery [place] vs. transplanted heart: [place] heart Associated angina: without angina Qualified Code(s): I25.10 - Atherosclerotic heart disease of [place] coronary artery without angina pectoris (3) Demand ischemia Code(s): I24.8 - OTHER FORMS OF ACUTE ISCHEMIC HEART DISEASE (4) Down syndrome Code(s): Q90.9 - DOWN SYNDROME, UNSPECIFIED (5) Hypothyroidism Code(s): E03.9 - HYPOTHYROIDISM, UNSPECIFIED Qualifiers: Hypothyroidism type: unspecified Qualified Code(s): E03.9 - Hypothyroidism , unspecified (6) Influenza A Code(s): J10.1 - FLU DUE TO OTH IDENT INFLUENZA VIRUS W OTH RESP MANIFEST (7) UTI (urinary tract infection) Code(s): N39.0 - URINARY TRACT INFECTION, SITE NOT SPECIFIED (8) Anemia Code(s): D64.9 - ANEMIA, UNSPECIFIED Qualifiers: Anemia type: unspecified type Qualified Code(s): D64.9 - Anemia, unspecified Assessment/Plan 1. CAD with evidence of demand ischemic injury, non ST segment elevation [place], anterior lateral EKG changes 2. Transient LV dysfunction with class I NYHA classification LV failure - diastolic LV dysfunction 3. 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 RLL asp PNA, Pseudomonas UTI, history of acute Influenza A 5. Down's syndrome 6. Hypothyroidism 7. Anemia PLAN: 1. Continue Metoprolol ER 12.5 qd and Diovan 40 qd held as hemodynamics tolerate 2. Continue ASA 81 qd 3. Complete antibiotics coverage, O2 as needed and analgesics 4. DVT prophylaxis, Post op management as per Neurosurgery
[2017-07-19] MEDS: ALBUTEROL SO4 2.5/IPRATROPIUM 0.5 INH SOL 3 ML VIAL.NEB. NEB SCH (20:50)
[2017-07-19] MEDS: CHLORHEXIDINE GLUCONATE 4% CLEANSER FOR DECOLONIZATION TP SCH (21:21)
[2017-07-20] MEDS: CEFAZOLIN 1 GM PUSH 1 GM/10 ML DISP.SYRIN IVPUSH SCH ×2 (02:58→11:26)
[2017-07-20] MEDS: methylPREDNISolone NA SUCC 40 MG/1 ML VIAL IVPB SCH ×3 (02:58→18:33)
[2017-07-20] MEDS ORDERED: LEVOTHYROXINE NA 100 MCG TABLET (FP) ONE (06:21)
[2017-07-20] MEDS ORDERED: LEVOTHYROXINE NA 75 MCG TABLET (FP) ONE (06:22)
[2017-07-20] MEDS: LEVOTHYROXINE 100 MCG, LEVOTHYROXINE 75 MCG PO SCH (06:43)
[2017-07-20] MEDS: ACETAMINOPHEN 325 MG TABLET (FP) PO PRN ×2 (06:43→22:10)
[2017-07-20] MEDS: MESALAMINE 800 MG TABLET.DR PO SCH ×3 (06:44→22:07)
[2017-07-20] MEDS ORDERED: INSULIN DETEMIR 100 UNITS/ML MDV SQ ONE (06:58)
[2017-07-20] MEDS ORDERED: PT OWN MED DRAWER 7, Y5N ONE ×4 (06:58→21:41)
[2017-07-20] MEDS ORDERED: INSULIN (NOVOLOG) ASPART 100 UNITS/ML 10ML VIAL ONE (06:58)
[2017-07-20 08:25] LABS: BASO % 0.2 % (0-2.0); HEMATOCRIT 29.4 % (32.4-45.2); HEMOGLOBIN 9.3 GM/dL (10.7-15.3); LYMPH % 6.7 % (8-40); MCH 31.2 pg (25.7-33.7); MCHC 31.5 g/dl (32.0-36.0); MEAN CELL VOLUME 99.2 fl (80-96); MEAN PLT VOLUME 10.3 fl (7.5-11.1); MONO % 1.7 % (3.8-10.2); NEUT % 91.4 % (42.8-82.8); PLATELET COUNT 193 K/MM3 (134-434); RBC 2.97 M/mm3 (3.60-5.2); WHITE BLOOD COUNT 9.5 K/mm3 (4.0-10.0)
[2017-07-20 08:51] LABS: CHLORIDE 102 mmol/L (98-107); POTASSIUM 3.8 mmol/L (3.5-5.1); SODIUM 135 mmol/L (136-145)
[2017-07-20] MEDS: HEPARIN NA (PORCINE) 5,000 UNITS/ML 1ML VIAL SQ SCH ×3 (08:56→22:06)
[2017-07-20] MEDS: FERROUS SO4 325 MG TABLET (FP) PO SCH ×2 (08:56→18:33)
[2017-07-20 09:23] LABS: ANION GAP 10 (8-16); BLOOD UREA NITROGEN 8 mg/dL (7-18); CALCIUM 7.5 mg/dL (8.5-10.1); CO2 23 mmol/L (21-32); CREATININE 0.7 mg/dL (0.55-1.02); GLUCOSE,RANDOM 138 mg/dL (74-106)
--- NOTE | 2017-07-20 10:40 | PN ---
Progress Note (short form) - Note Progress Note: Patient is Neurologically stable with drain in place while being treated for pneumonia. PLAN -Physical Therapy -Continue, MARS drainage for now. Will d/c MARS immediately before transfer to Rehabilitation (no need to remain in hospital solely for MARS)
[2017-07-20] MEDS: COLLAGENASE CLOSTRIDIUM HIST. 30 GRAMS TUBE TP SCH (11:30)
[2017-07-20] MEDS: ASPIRIN COATED 81 MG TABLET.EC PO SCH (11:30)
--- NOTE | 2017-07-20 12:11 | PN ---
Progress Note, Physician History of Present Illness: Febrile in AM, increased congestion, arousable. Post revision of left C1 screw, repair of meningocele, debridment and advancement flaps - Current Medication List Current Medications: Active Medications Acetaminophen (Tylenol -) 650 mg PO Q4H PRN PRN Reason: FEVER OR PAIN Last Admin: 07/20/17 06:43 Dose: 650 mg Albuterol/Ipratropium (Duoneb -) 1 amp NEB RQID [facility] Last Admin: 07/19/17 20:50 Dose: 1 amp Aspirin (Ecotrin -) 81 mg PO DAILY [facility] Last Admin: 07/20/17 11:30 Dose: 81 mg Chlorhexidine Gluconate (Hibiclens For Decolonization -) 1 applic TP HS [facility] Last Admin: 07/19/17 21:21 Dose: Not Given Collagenase (Santyl -) 1 applic TP DAILY [facility] Last Admin: 07/20/17 11:30 Dose: 1 applic Ferrous Sulfate (Feosol -) 325 mg PO BIDWM [facility] Last Admin: 07/20/17 08:56 Dose: 325 mg Guaifenesin (Robitussin -) 10 ml PO Q8H PRN PRN Reason: COUGH Last Admin: 07/19/17 17:39 Dose: 10 ml Heparin Sodium (Porcine) (Heparin -) 5,000 unit SQ TID [facility] Last Admin: 07/20/17 08:56 Dose: 5,000 unit Cefazolin Sodium (Ancef -) 1 gm in 10 mls @ 120 mls/hr IVPUSH Q8H-IV [facility] Last Admin: 07/20/17 11:26 Dose: 120 mls/hr Levothyroxine Sodium 100 mcg/ (Levothyroxine Sodium 75 mcg) 175 mcg PO DAILY@ 0700 [facility] Last Admin: 07/20/17 06:43 Dose: 175 mcg Mesalamine (Asacol Hd -) 800 mg PO TID [facility] Last Admin: 07/20/17 06:44 Dose: 800 mg Methylprednisolone Sodium Succinate (Solu-Medrol -) 40 mg IVPB Q8H-IV [facility] Last Admin: 07/20/17 11:30 Dose: 40 mg Ondansetron HCl (Zofran Injection) 4 mg IVPUSH Q6H PRN PRN Reason: NAUSEA AND/OR VOMITING - Objective Vital Signs: Vital Signs Temperature 98.1 F 07/20/17 09:00 Pulse Rate 65 07/20/17 09:00 Respiratory Rate 18 07/20/17 09:00 Blood Pressure 110/49 07/20/17 09:00 O2 Sat by Pulse Oximetry (%) 99 07/19/17 21:00 Constitutional: Yes: No Distress, Calm, Thin Neck: Yes: Supple Cardiovascular: Yes: Regular Rate and Rhythm Respiratory: Yes: Regular, Diminished Gastrointestinal: Yes: Normal Bowel Sounds, Soft Edema: No Labs: CBC, BMP 07/20/17 07:00 07/20/17 07:00 INR, PTT INR 0.98 (0.82-1.09) 06/25/17 09:22 Problem List - Problems (1) Diastolic dysfunction Code(s): I51.9 - HEART DISEASE, UNSPECIFIED (2) CAD (coronary artery disease) Code(s): I25.10 - ATHSCL HEART DISEASE OF [place] CORONARY ARTERY W/O ANG PCTRS Qualifiers: Coronary Disease-Associated Artery/Lesion type: [place] artery [place] vs. transplanted heart: [place] heart Associated angina: without angina Qualified Code(s): I25.10 - Atherosclerotic heart disease of [place] coronary artery without angina pectoris (3) Demand ischemia Code(s): I24.8 - OTHER FORMS OF ACUTE ISCHEMIC HEART DISEASE (4) Down syndrome Code(s): Q90.9 - DOWN SYNDROME, UNSPECIFIED (5) Hypothyroidism Code(s): E03.9 - HYPOTHYROIDISM, UNSPECIFIED Qualifiers: Hypothyroidism type: unspecified Qualified Code(s): E03.9 - Hypothyroidism , unspecified (6) Influenza A Code(s): J10.1 - FLU DUE TO OTH IDENT INFLUENZA VIRUS W OTH RESP MANIFEST (7) UTI (urinary tract infection) Code(s): N39.0 - URINARY TRACT INFECTION, SITE NOT SPECIFIED (8) Anemia Code(s): D64.9 - ANEMIA, UNSPECIFIED Qualifiers: Anemia type: unspecified type Qualified Code(s): D64.9 - Anemia, unspecified Assessment/Plan 1. CAD with evidence of demand ischemic injury, non ST segment elevation [place], anterior lateral EKG changes 2. Transient LV dysfunction with class I NYHA classification LV failure - diastolic LV dysfunction 3. 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 RLL asp PNA, Pseudomonas UTI, history of acute Influenza A 5. Down's syndrome 6. Hypothyroidism 7. Anemia PLAN: 1. Continue Metoprolol ER 12.5 qd and Diovan 40 qd held as hemodynamics tolerate 2. Continue ASA 81 qd 3. Complete antibiotics coverage, f/u C&S, O2 as needed and analgesics 4. DVT prophylaxis, Post op management as per Neurosurgery 5. F/u CXR
--- NOTE | 2017-07-20 12:17 | PN ---
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
--- NOTE | 2017-07-20 12:18 | PN ---
Progress Note (short form) - Note Progress Note: PULMONARY Febrile this AM. +nonproductive cough. Last Vital Signs Temp Pulse Resp BP Pulse Ox 98.1 F 65 18 110/49 99 07/20/17 09:00 07/20/17 09:00 07/20/17 09:00 07/20/17 09:00 07/19/17 21:00 Gen: NAD in cervical collar Heart: RRR Lung: scattered basilar rhonchi Abd: soft, nontender Ext: no edema CBC, BMP 07/20/17 07:00 07/20/17 07:00 Active Medications Acetaminophen (Tylenol -) 650 mg PO Q4H PRN PRN Reason: FEVER OR PAIN Last Admin: 07/20/17 06:43 Dose: 650 mg Albuterol/Ipratropium (Duoneb -) 1 amp NEB RQID [facility] Last Admin: 07/19/17 20:50 Dose: 1 amp Aspirin (Ecotrin -) 81 mg PO DAILY [facility] Last Admin: 07/20/17 11:30 Dose: 81 mg Chlorhexidine Gluconate (Hibiclens For Decolonization -) 1 applic TP HS [facility] Last Admin: 07/19/17 21:21 Dose: Not Given Collagenase (Santyl -) 1 applic TP DAILY [facility] Last Admin: 07/20/17 11:30 Dose: 1 applic Ferrous Sulfate (Feosol -) 325 mg PO BIDWM [facility] Last Admin: 07/20/17 08:56 Dose: 325 mg Guaifenesin (Robitussin -) 10 ml PO Q8H PRN PRN Reason: COUGH Last Admin: 07/19/17 17:39 Dose: 10 ml Heparin Sodium (Porcine) (Heparin -) 5,000 unit SQ TID [facility] Last Admin: 07/20/17 08:56 Dose: 5,000 unit Cefazolin Sodium (Ancef -) 1 gm in 10 mls @ 120 mls/hr IVPUSH Q8H-IV [facility] Last Admin: 07/20/17 11:26 Dose: 120 mls/hr Levothyroxine Sodium 100 mcg/ (Levothyroxine Sodium 75 mcg) 175 mcg PO DAILY@ 0700 [facility] Last Admin: 07/20/17 06:43 Dose: 175 mcg Mesalamine (Asacol Hd -) 800 mg PO TID [facility] Last Admin: 07/20/17 06:44 Dose: 800 mg Methylprednisolone Sodium Succinate (Solu-Medrol -) 40 mg IVPB Q8H-IV [facility] Last Admin: 07/20/17 11:30 Dose: 40 mg Ondansetron HCl (Zofran Injection) 4 mg IVPUSH Q6H PRN PRN Reason: NAUSEA AND/OR VOMITING A/P s/p C1-C6 fusion/dural tear repair Pneumonia likely Aspiration UTI Influenza A CAD LV Diastolic Dysfunction Down Syndrome Hypothyroidism - continue antibiotics - f/u repeat cultures - repeat CXR - aspiration precautions - O2 to keep SpO2 >90% - DVT prophylaxis
--- NOTE | 2017-07-20 16:38 | PN ---
Progress Note, Physician History of Present Illness: Recurrent fever Offers no complaint No reported chills, dyspnea, cough Denies dysuria - Current Medication List Current Medications: Active Medications Acetaminophen (Tylenol -) 650 mg PO Q4H PRN PRN Reason: FEVER OR PAIN Last Admin: 07/20/17 06:43 Dose: 650 mg Albuterol/Ipratropium (Duoneb -) 1 amp NEB RQID [facility] Last Admin: 07/19/17 20:50 Dose: 1 amp Aspirin (Ecotrin -) 81 mg PO DAILY [facility] Last Admin: 07/20/17 11:30 Dose: 81 mg Cefepime HCl (Maxipime (Restricted To Id) -) 1 gm IVPB Q8H-IV [facility] PRN Reason: Protocol Chlorhexidine Gluconate (Hibiclens For Decolonization -) 1 applic TP HS [facility] Last Admin: 07/19/17 21:21 Dose: Not Given Collagenase (Santyl -) 1 applic TP DAILY [facility] Last Admin: 07/20/17 11:30 Dose: 1 applic Ferrous Sulfate (Feosol -) 325 mg PO BIDWM [facility] Last Admin: 07/20/17 08:56 Dose: 325 mg Guaifenesin (Robitussin -) 10 ml PO Q8H PRN PRN Reason: COUGH Last Admin: 07/19/17 17:39 Dose: 10 ml Heparin Sodium (Porcine) (Heparin -) 5,000 unit SQ TID [facility] Last Admin: 07/20/17 15:29 Dose: 5,000 unit Vancomycin HCl 1,000 mg/ (Dextrose) 250 mls @ 166.667 mls/hr IVPB Q12H [facility] Levothyroxine Sodium 100 mcg/ (Levothyroxine Sodium 75 mcg) 175 mcg PO DAILY@ 0700 [facility] Last Admin: 07/20/17 06:43 Dose: 175 mcg Mesalamine (Asacol Hd -) 800 mg PO TID [facility] Last Admin: 07/20/17 15:29 Dose: 800 mg Methylprednisolone Sodium Succinate (Solu-Medrol -) 40 mg IVPB Q8H-IV [facility] Last Admin: 07/20/17 11:30 Dose: 40 mg Ondansetron HCl (Zofran Injection) 4 mg IVPUSH Q6H PRN PRN Reason: NAUSEA AND/OR VOMITING - Objective Vital Signs: Vital Signs Temperature 98.7 F 07/20/17 15:39 Pulse Rate 68 07/20/17 15:39 Respiratory Rate 18 07/20/17 15:39 Blood Pressure 129/64 07/20/17 15:39 O2 Sat by Pulse Oximetry (%) 99 07/19/17 21:00 Constitutional: Yes: No Distress Eyes: Yes: Conjunctiva Clear Cardiovascular: Yes: Regular Rate and Rhythm, S1, S2 Respiratory: Yes: Rhonchi Gastrointestinal: Yes: Normal Bowel Sounds, Soft, Abdomen, Obese. No: Tenderness Edema: Yes Integumentary: Yes: Other Wound/Incision: Yes: [place] Intact (drainage in place) Labs: CBC, BMP 07/20/17 07:00 07/20/17 07:00 INR, PTT INR 0.98 (0.82-1.09) 06/25/17 09:22 Assessment/Plan New onset fever ? HCAP ? sepsis secondary to UTI Surgical dressing not removed POD# 6 repair of meningocele S/P influenza Repeat c/s pending Start vanco/ cefepime Discussed with family at bedside
[2017-07-20] MEDS ORDERED: CEFEPIME HCL 1 GM VIAL (RESTRICTED TO ID) IVPB SCH (18:00)
[2017-07-20] MEDS: CEFEPIME 1 GM in SODIUM CHLORIDE 100 ML IVPB SCH (18:34)
[2017-07-20] MEDS: VANCOMYCIN 1,000 MG in DEXTROSE 5%-WATER - 250 ML IVPB SCH (18:39)
[2017-07-20] MEDS: ALBUTEROL SO4 2.5/IPRATROPIUM 0.5 INH SOL 3 ML VIAL.NEB. NEB SCH (20:00)
[2017-07-20] MEDS: guaiFENesin 200 MG/10 ML 10 ML UNIT-DOSE CUPS PO PRN (22:07)
[2017-07-20] MEDS: CHLORHEXIDINE GLUCONATE 4% CLEANSER FOR DECOLONIZATION TP SCH (22:07)
[2017-07-20 22:26] LABS: URINE APPEARANCE CLEAR; URINE BILIRUBIN NEGATIVE (NEGATIVE); URINE BLOOD NEGATIVE (NEGATIVE); URINE COLOR YELLOW; URINE GLUCOSE (UA) NEGATIVE (NEGATIVE); URINE KETONE NEGATIVE (NEGATIVE); URINE LEUK ESTERASE TRACE (NEGATIVE); URINE NITRITE NEGATIVE (NEGATIVE); URINE UROBILINOGEN NEGATIVE mg/dL (0.2-1.0)
[2017-07-20 22:27] LABS: URINE PROTEIN 2+ (NEGATIVE)
[2017-07-21 00:13] LABS: EPI CELLS RARE /HPF (FEW); URINE BACTERIA RARE /hpf (NONE SEEN); URINE MUCUS RARE
[2017-07-21] MEDS ORDERED: PT OWN MED DRAWER 7, Y5N ONE ×5 (01:28→21:05)
[2017-07-21] MEDS: methylPREDNISolone NA SUCC 40 MG/1 ML VIAL IVPB SCH ×3 (02:06→19:23)
[2017-07-21] MEDS: CEFEPIME 1 GM in SODIUM CHLORIDE 100 ML IVPB SCH (02:06)
[2017-07-21] MEDS ORDERED: LEVOTHYROXINE NA 100 MCG TABLET (FP) ONE (05:49)
[2017-07-21] MEDS ORDERED: LEVOTHYROXINE NA 75 MCG TABLET (FP) ONE (05:50)
[2017-07-21] MEDS: VANCOMYCIN 1,000 MG in DEXTROSE 5%-WATER - 250 ML IVPB SCH ×2 (05:56→16:06)
[2017-07-21] MEDS: MESALAMINE 800 MG TABLET.DR PO SCH ×3 (05:57→21:08)
[2017-07-21] MEDS: HEPARIN NA (PORCINE) 5,000 UNITS/ML 1ML VIAL SQ SCH ×3 (05:57→21:08)
[2017-07-21] MEDS: LEVOTHYROXINE 100 MCG, LEVOTHYROXINE 75 MCG PO SCH (06:01)
[2017-07-21 08:15] LABS: BASO % 0.1 % (0-2.0); HEMOGLOBIN 9.7 GM/dL (10.7-15.3); LYMPH % 8.1 % (8-40); MCHC 31.2 g/dl (32.0-36.0); MEAN CELL VOLUME 99.3 fl (80-96); MONO % 2.6 % (3.8-10.2); NEUT % 89.2 % (42.8-82.8); PLATELET COUNT 184 K/MM3 (134-434); RBC 3.12 M/mm3 (3.60-5.2); RDW 17.3 % (11.6-15.6); WHITE BLOOD COUNT 8.6 K/mm3 (4.0-10.0)
[2017-07-21 08:43] LABS: ANION GAP 10 (8-16); BLOOD UREA NITROGEN 13 mg/dL (7-18); CALCIUM 7.8 mg/dL (8.5-10.1); CHLORIDE 101 mmol/L (98-107); CO2 27 mmol/L (21-32); GLUCOSE,RANDOM 186 mg/dL (74-106); POTASSIUM 3.7 mmol/L (3.5-5.1); SODIUM 138 mmol/L (136-145)
[2017-07-21 08:47] LABS: CREATININE 0.7 mg/dL (0.55-1.02)
[2017-07-21] MEDS: ALBUTEROL SO4 2.5/IPRATROPIUM 0.5 INH SOL 3 ML VIAL.NEB. NEB SCH ×4 (08:48→22:13)
[2017-07-21] MEDS: ASPIRIN COATED 81 MG TABLET.EC PO SCH (09:17)
[2017-07-21] MEDS: FERROUS SO4 325 MG TABLET (FP) PO SCH ×2 (09:17→18:16)
[2017-07-21] MEDS: CEFEPIME HCL/D5W 1 GM/50 ML BAG IVPB SCH ×2 (11:03→19:22)
[2017-07-21] MEDS: COLLAGENASE CLOSTRIDIUM HIST. 30 GRAMS TUBE TP SCH (11:03)
--- NOTE | 2017-07-21 11:16 | PN ---
Progress Note, Physician History of Present Illness: Temps down today Offers no complaint No reported chills, dyspnea, cough Blood c/s prelim no growth CXR congestive changes at bases bilaterally - Current Medication List Current Medications: Active Medications Acetaminophen (Tylenol -) 650 mg PO Q4H PRN PRN Reason: FEVER OR PAIN Last Admin: 07/20/17 22:10 Dose: 650 mg Albuterol/Ipratropium (Duoneb -) 1 amp NEB RQID [facility] Last Admin: 07/21/17 11:04 Dose: 1 amp Aspirin (Ecotrin -) 81 mg PO DAILY [facility] Last Admin: 07/21/17 09:17 Dose: 81 mg Chlorhexidine Gluconate (Hibiclens For Decolonization -) 1 applic TP HS [facility] Last Admin: 07/20/17 22:07 Dose: Not Given Collagenase (Santyl -) 1 applic TP DAILY [facility] Last Admin: 07/21/17 11:03 Dose: 1 applic Ferrous Sulfate (Feosol -) 325 mg PO BIDWM [facility] Last Admin: 07/21/17 09:17 Dose: 325 mg Guaifenesin (Robitussin -) 10 ml PO Q8H PRN PRN Reason: COUGH Last Admin: 07/20/17 22:07 Dose: 10 ml Heparin Sodium (Porcine) (Heparin -) 5,000 unit SQ TID [facility] Last Admin: 07/21/17 05:57 Dose: 5,000 unit Vancomycin HCl 1,000 mg/ (Dextrose) 250 mls @ 166.667 mls/hr IVPB Q12H [facility] Last Admin: 07/21/17 05:56 Dose: 166.667 mls/hr Cefepime HCl (Maxipime 1 Gm Premix Ivpb) 1 gm in 50 mls @ 100 mls/hr IVPB Q8H- IV [facility] Last Admin: 07/21/17 11:03 Dose: 100 mls/hr Levothyroxine Sodium 100 mcg/ (Levothyroxine Sodium 75 mcg) 175 mcg PO DAILY@ 0700 [facility] Last Admin: 07/21/17 06:01 Dose: 175 mcg Mesalamine (Asacol Hd -) 800 mg PO TID [facility] Last Admin: 07/21/17 05:57 Dose: 800 mg Methylprednisolone Sodium Succinate (Solu-Medrol -) 40 mg IVPB Q8H-IV [facility] Last Admin: 07/21/17 09:17 Dose: 40 mg Ondansetron HCl (Zofran Injection) 4 mg IVPUSH Q6H PRN PRN Reason: NAUSEA AND/OR VOMITING - Objective Vital Signs: Vital Signs Temperature 98.2 F 07/21/17 06:00 Pulse Rate 71 07/21/17 06:00 Respiratory Rate 07/21/17 06:00 Blood Pressure 124/64 07/21/17 06:00 O2 Sat by Pulse Oximetry (%) 96 07/20/17 21:00 Constitutional: Yes: No Distress Eyes: Yes: Conjunctiva Clear Cardiovascular: Yes: Regular Rate and Rhythm, S1, S2 Respiratory: Yes: Rhonchi Gastrointestinal: Yes: Normal Bowel Sounds, Soft. No: Tenderness Edema: Yes Labs: CBC, BMP 07/21/17 06:55 07/21/17 06:55 INR, PTT INR 0.98 (0.82-1.09) 06/25/17 09:22 Assessment/Plan New onset fever ? HCAP ? sepsis secondary to UTI POD# 6 repair of meningocele S/P influenza Repeat c/s pending Continue vanco/ cefepime ? Switch to po antibiotics next 24hr
--- NOTE | 2017-07-21 12:56 | PN ---
Progress Note, Physician History of Present Illness: Defervesced, cough improved, sensorium improved, hard cervical collar off. - Current Medication List Current Medications: Active Medications Acetaminophen (Tylenol -) 650 mg PO Q4H PRN PRN Reason: FEVER OR PAIN Last Admin: 07/20/17 22:10 Dose: 650 mg Albuterol/Ipratropium (Duoneb -) 1 amp NEB RQID [facility] Last Admin: 07/21/17 11:04 Dose: 1 amp Aspirin (Ecotrin -) 81 mg PO DAILY [facility] Last Admin: 07/21/17 09:17 Dose: 81 mg Chlorhexidine Gluconate (Hibiclens For Decolonization -) 1 applic TP HS [facility] Last Admin: 07/20/17 22:07 Dose: Not Given Collagenase (Santyl -) 1 applic TP DAILY [facility] Last Admin: 07/21/17 11:03 Dose: 1 applic Ferrous Sulfate (Feosol -) 325 mg PO BIDWM [facility] Last Admin: 07/21/17 09:17 Dose: 325 mg Guaifenesin (Robitussin -) 10 ml PO Q8H PRN PRN Reason: COUGH Last Admin: 07/20/17 22:07 Dose: 10 ml Heparin Sodium (Porcine) (Heparin -) 5,000 unit SQ TID [facility] Last Admin: 07/21/17 05:57 Dose: 5,000 unit Vancomycin HCl 1,000 mg/ (Dextrose) 250 mls @ 166.667 mls/hr IVPB Q12H [facility] Last Admin: 07/21/17 05:56 Dose: 166.667 mls/hr Cefepime HCl (Maxipime 1 Gm Premix Ivpb) 1 gm in 50 mls @ 100 mls/hr IVPB Q8H- IV [facility] Last Admin: 07/21/17 11:03 Dose: 100 mls/hr Levothyroxine Sodium 100 mcg/ (Levothyroxine Sodium 75 mcg) 175 mcg PO DAILY@ 0700 [facility] Last Admin: 07/21/17 06:01 Dose: 175 mcg Mesalamine (Asacol Hd -) 800 mg PO TID [facility] Last Admin: 07/21/17 05:57 Dose: 800 mg Methylprednisolone Sodium Succinate (Solu-Medrol -) 40 mg IVPB Q8H-IV [facility] Last Admin: 07/21/17 09:17 Dose: 40 mg Ondansetron HCl (Zofran Injection) 4 mg IVPUSH Q6H PRN PRN Reason: NAUSEA AND/OR VOMITING - Objective Vital Signs: Vital Signs Temperature 98.5 F 07/21/17 10:00 Pulse Rate 73 07/21/17 10:00 Respiratory Rate 07/21/17 10:00 Blood Pressure 146/73 07/21/17 10:00 O2 Sat by Pulse Oximetry (%) 96 07/20/17 21:00 Constitutional: Yes: No Distress, Calm, Thin Neck: Yes: Supple Cardiovascular: Yes: Regular Rate and Rhythm Respiratory: Yes: Regular, Diminished Gastrointestinal: Yes: Normal Bowel Sounds, Soft Edema: No Labs: CBC, BMP 07/21/17 06:55 07/21/17 06:55 INR, PTT INR 0.98 (0.82-1.09) 06/25/17 09:22 - ....Imaging Chest X-ray: Report Reviewed (Bilateral effusions, LLL infiltrate) Problem List - Problems (1) Diastolic dysfunction Code(s): I51.9 - HEART DISEASE, UNSPECIFIED (2) CAD (coronary artery disease) Code(s): I25.10 - ATHSCL HEART DISEASE OF [place] CORONARY ARTERY W/O ANG PCTRS Qualifiers: Coronary Disease-Associated Artery/Lesion type: [place] artery [place] vs. transplanted heart: [place] heart Associated angina: without angina Qualified Code(s): I25.10 - Atherosclerotic heart disease of [place] coronary artery without angina pectoris (3) Demand ischemia Code(s): I24.8 - OTHER FORMS OF ACUTE ISCHEMIC HEART DISEASE (4) Down syndrome Code(s): Q90.9 - DOWN SYNDROME, UNSPECIFIED (5) Hypothyroidism Code(s): E03.9 - HYPOTHYROIDISM, UNSPECIFIED Qualifiers: Hypothyroidism type: unspecified Qualified Code(s): E03.9 - Hypothyroidism , unspecified (6) Influenza A Code(s): J10.1 - FLU DUE TO OTH IDENT INFLUENZA VIRUS W OTH RESP MANIFEST (7) UTI (urinary tract infection) Code(s): N39.0 - URINARY TRACT INFECTION, SITE NOT SPECIFIED (8) Anemia Code(s): D64.9 - ANEMIA, UNSPECIFIED Qualifiers: Anemia type: unspecified type Qualified Code(s): D64.9 - Anemia, unspecified (9) Pneumonia Code(s): J18.9 - PNEUMONIA, UNSPECIFIED ORGANISM Qualifiers: Pneumonia type: due to unspecified organism Laterality: left Lung location: lower lobe of lung Qualified Code(s): J18.1 - Lobar pneumonia, unspecified organism Assessment/Plan 1. CAD with evidence of demand ischemic injury 2. Transient LV dysfunction with class I NYHA classification LV failure - diastolic LV dysfunction 3. 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 LLL Asp PNA, Pseudomonas UTI, history of acute Influenza A 5. Down's syndrome 6. Hypothyroidism 7. Anemia PLAN: 1. Resume Metoprolol ER 12.5 qd and Diovan 40 qd as hemodynamics tolerate 2. Continue ASA 81 qd and maintained on mesalamine 3. Complete antibiotics coverage per ID, f/u C&S NGTD, O2 as needed and analgesics 4. DVT prophylaxis, Post op management as per Neurosurgery
[2017-07-21] MEDS: METOPROLOL SUCCINATE 25 MG TAB.SR.24H (FP) PO SCH (13:27)
--- NOTE | 2017-07-21 13:43 | PN ---
Progress Note, Physician History of Present Illness: afeb today apetite ok\no complaints lt and rt feet healing slowly sacral ulcer better drain nmeck out - Current Medication List Current Medications: Active Medications Acetaminophen (Tylenol -) 650 mg PO Q4H PRN PRN Reason: FEVER OR PAIN Last Admin: 07/20/17 22:10 Dose: 650 mg Albuterol/Ipratropium (Duoneb -) 1 amp NEB RQID [facility] Last Admin: 07/21/17 11:04 Dose: 1 amp Aspirin (Ecotrin -) 81 mg PO DAILY [facility] Last Admin: 07/21/17 09:17 Dose: 81 mg Chlorhexidine Gluconate (Hibiclens For Decolonization -) 1 applic TP HS [facility] Last Admin: 07/20/17 22:07 Dose: Not Given Collagenase (Santyl -) 1 applic TP DAILY [facility] Last Admin: 07/21/17 11:03 Dose: 1 applic Ferrous Sulfate (Feosol -) 325 mg PO BIDWM [facility] Last Admin: 07/21/17 09:17 Dose: 325 mg Guaifenesin (Robitussin -) 10 ml PO Q8H PRN PRN Reason: COUGH Last Admin: 07/20/17 22:07 Dose: 10 ml Heparin Sodium (Porcine) (Heparin -) 5,000 unit SQ TID [facility] Last Admin: 07/21/17 13:27 Dose: 5,000 unit Vancomycin HCl 1,000 mg/ (Dextrose) 250 mls @ 166.667 mls/hr IVPB Q12H [facility] Last Admin: 07/21/17 05:56 Dose: 166.667 mls/hr Cefepime HCl (Maxipime 1 Gm Premix Ivpb) 1 gm in 50 mls @ 100 mls/hr IVPB Q8H- IV [facility] Last Admin: 07/21/17 11:03 Dose: 100 mls/hr Levothyroxine Sodium 100 mcg/ (Levothyroxine Sodium 75 mcg) 175 mcg PO DAILY@ 0700 [facility] Last Admin: 07/21/17 06:01 Dose: 175 mcg Mesalamine (Asacol Hd -) 800 mg PO TID [facility] Last Admin: 07/21/17 13:30 Dose: 800 mg Methylprednisolone Sodium Succinate (Solu-Medrol -) 40 mg IVPB Q8H-IV [facility] Last Admin: 07/21/17 09:17 Dose: 40 mg Metoprolol Succinate (Toprol Xl -) 12.5 mg PO DAILY [facility] Last Admin: 07/21/17 13:27 Dose: 12.5 mg Ondansetron HCl (Zofran Injection) 4 mg IVPUSH Q6H PRN PRN Reason: NAUSEA AND/OR VOMITING - Objective Vital Signs: Vital Signs Temperature 98.5 F 07/21/17 10:00 Pulse Rate 73 07/21/17 10:00 Respiratory Rate 18 07/21/17 10:00 Blood Pressure 146/73 07/21/17 10:00 O2 Sat by Pulse Oximetry (%) 96 07/20/17 21:00 Constitutional: Yes: No Distress Eyes: Yes: WNL HENT: Yes: Other (wd healing) Cardiovascular: Yes: Regular Rate and Rhythm Respiratory: Yes: WNL Gastrointestinal: Yes: Normal Bowel Sounds ...Rectal Exam: Yes: Deferred Genitourinary: Yes: WNL Breast(s): Yes: WNL Musculoskeletal: Yes: Joint Stiffness Extremities: Yes: WNL Edema: No Peripheral Pulses WNL: Yes Integumentary: Yes: Venous Stasis Changes Wound/Incision: Yes: Clean/Dry ...Motor Strength: WNL Labs: CBC, BMP 07/21/17 06:55 07/21/17 06:55 INR, PTT INR 0.98 (0.82-1.09) 06/25/17 09:22 Problem List - Problems (1) Down syndrome Code(s): Q90.9 - DOWN SYNDROME, UNSPECIFIED (2) Puncture wound of left foot excluding toes with infection Code(s): S91.332A - PUNCTURE WOUND WITHOUT FOREIGN BODY, LEFT FOOT, INIT ENCNTR ; L08.9 - LOCAL INFECTION OF THE SKIN AND SUBCUTANEOUS TISSUE, UNSP (3) CHF (congestive heart failure) Code(s): I50.9 - HEART FAILURE, UNSPECIFIED Qualifiers: Congestive heart failure type: diastolic Congestive heart failure chronicity: acute on chronic Qualified Code(s): I50.33 - Acute on chronic diastolic (congestive) heart failure (4) Mitral and aortic insufficiency Code(s): I08.0 - RHEUMATIC DISORDERS OF BOTH MITRAL AND AORTIC VALVES Assessment/Plan if no temp d/c ? am nh adir chk ua cults in am first cbc in am
--- NOTE | 2017-07-21 14:30 | PN ---
Progress Note, [employer] - Note Progress Note: Selected Entries 07/18/17 07/18/17 07/18/17 06:00 10:00 14:09 Breakfast Lunch 25% Supper Temperature 97.8 F 98.7 F 98.0 F 07/18/17 07/18/17 07/18/17 18:30 18:35 22:00 Breakfast Lunch Supper 50% Temperature 98.6 F 100.2 F H 07/18/17 07/19/17 07/19/17 23:50 06:00 14:35 Breakfast 75% Lunch 50% Supper Temperature 99.8 F H 100.0 F H 101.6 F H Selected Entries 07/19/17 07/19/17 14:35 18:35 Breakfast 75% Lunch 50% Supper 50% Laboratory Tests 07/18/17 07/20/17 07:30 07:00 WBC 5.9 9.5 D Selected Entries 07/20/17 07/20/17 07/20/17 02:00 06:00 09:00 Breakfast Lunch Supper Temperature 99.4 F 101.6 F H 98.1 F 07/20/17 07/20/17 07/21/17 15:39 22:00 02:00 Breakfast 50% Lunch 50% Supper 50% Temperature 98.7 F 100.0 F H 98.3 F 07/21/17 07/21/17 07/21/17 06:00 10:00 14:12 Breakfast 50% Lunch 50% Supper Temperature 98.2 F 98.5 F MBS - Safe functional swallow without aspiration demonstrated. Continue Puree/thin liquid upon d/c
[2017-07-21] MEDS: LEVOFLOXACIN 500 MG TABLET (FP) PO SCH (21:08)
[2017-07-21] MEDS: CHLORHEXIDINE GLUCONATE 4% CLEANSER FOR DECOLONIZATION TP SCH (21:09)
[2017-07-22] MEDS ORDERED: LEVOTHYROXINE NA 75 MCG TABLET (FP) ONE (06:27)
[2017-07-22] MEDS ORDERED: LEVOTHYROXINE NA 100 MCG TABLET (FP) ONE (06:27)
[2017-07-22] MEDS: LEVOTHYROXINE 100 MCG, LEVOTHYROXINE 75 MCG PO SCH (06:55)
[2017-07-22] MEDS: MESALAMINE 800 MG TABLET.DR PO SCH ×3 (06:55→21:25)
[2017-07-22] MEDS: LEVOFLOXACIN 500 MG TABLET (FP) PO SCH (06:55)
[2017-07-22] MEDS: HEPARIN NA (PORCINE) 5,000 UNITS/ML 1ML VIAL SQ SCH ×3 (06:55→21:25)
[2017-07-22 07:26] LABS: BASO % 0.1 % (0-2.0); HEMATOCRIT 28.1 % (32.4-45.2); LYMPH % 11.3 % (8-40); MCH 31.3 pg (25.7-33.7); MEAN PLT VOLUME 10.3 fl (7.5-11.1); NEUT % 81.6 % (42.8-82.8); PLATELET COUNT 176 K/MM3 (134-434); RBC 2.86 M/mm3 (3.60-5.2); RDW 16.8 % (11.6-15.6); WHITE BLOOD COUNT 8.5 K/mm3 (4.0-10.0)
[2017-07-22] MEDS: FERROUS SO4 325 MG TABLET (FP) PO SCH ×2 (09:00→17:29)
[2017-07-22] MEDS ORDERED: predniSONE 10 MG TABLET (UD) ONE (09:28)
[2017-07-22] MEDS: PREDNISONE PO SCH (09:37)
[2017-07-22] MEDS: ASPIRIN COATED 81 MG TABLET.EC PO SCH (09:37)
[2017-07-22] MEDS: METOPROLOL SUCCINATE 25 MG TAB.SR.24H (FP) PO SCH (09:39)
[2017-07-22] MEDS: COLLAGENASE CLOSTRIDIUM HIST. 30 GRAMS TUBE TP SCH (09:44)
[2017-07-22] MEDS: ALBUTEROL SO4 2.5/IPRATROPIUM 0.5 INH SOL 3 ML VIAL.NEB. NEB SCH ×4 (09:49→21:10)
--- NOTE | 2017-07-22 11:44 | PN ---
Progress Note (short form) - Note Progress Note: Chief Complaint: Events noted, notes reviewed, denies any chest pain or dyspnea History of Present Illness: Seen and examined. Events noted, notes reviewed, denies any chest pain or dyspnea Echocardiography dated 06/30/2017 revealed normal LV size and function, mild AI , trace TR with RVSP between 30-40 mmHg - Current Medication List Current Medications Acetaminophen (Tylenol -) 650 mg PO Q4H PRN PRN Reason: FEVER OR PAIN Last Admin: 07/20/17 22:10 Dose: 650 mg Albuterol/Ipratropium (Duoneb -) 1 amp NEB RQID [facility] Last Admin: 07/22/17 09:49 Dose: 1 amp Aspirin (Ecotrin -) 81 mg PO DAILY [facility] Last Admin: 07/22/17 09:37 Dose: 81 mg Chlorhexidine Gluconate (Hibiclens For Decolonization -) 1 applic TP HS [facility] Last Admin: 07/21/17 21:09 Dose: Not Given Collagenase (Santyl -) 1 applic TP DAILY [facility] Last Admin: 07/22/17 09:44 Dose: 1 applic Ferrous Sulfate (Feosol -) 325 mg PO BIDWM [facility] Last Admin: 07/22/17 09:00 Dose: 325 mg Guaifenesin (Robitussin -) 10 ml PO Q8H PRN PRN Reason: COUGH Last Admin: 07/20/17 22:07 Dose: 10 ml Heparin Sodium (Porcine) (Heparin -) 5,000 unit SQ TID [facility] Last Admin: 07/22/17 06:55 Dose: 5,000 unit Levofloxacin (Levaquin -) 500 mg PO DAILY@0600 [facility] Last Admin: 07/22/17 06:55 Dose: 500 mg Levothyroxine Sodium 100 mcg/ (Levothyroxine Sodium 75 mcg) 175 mcg PO DAILY@ 0700 [facility] Last Admin: 07/22/17 06:55 Dose: 175 mcg Mesalamine (Asacol Hd -) 800 mg PO TID [facility] Last Admin: 07/22/17 06:55 Dose: 800 mg Metoprolol Succinate (Toprol Xl -) 12.5 mg PO DAILY [facility] Last Admin: 07/22/17 09:39 Dose: 12.5 mg Ondansetron HCl (Zofran Injection) 4 mg IVPUSH Q6H PRN PRN Reason: NAUSEA AND/OR VOMITING Prednisone 30 mg/ Prednisone 5 (mg) 35 mg PO DAILY [facility] Last Admin: 07/22/17 09:37 Dose: 35 mg Review of Systems Unable to obtain - Objective Vital Signs: Last Vital Signs Temp Pulse Resp BP Pulse Ox 98.8 F 70 18 110/55 100 07/22/17 09:59 07/22/17 09:59 07/22/17 09:59 07/22/17 09:59 07/22/17 09:50 Intake & Output 07/19/17 07/20/17 07/21/17 07/22/17 23:59 23:59 23:59 23:59 Intake Total 415 350 350 Output Total 540 920 500 Balance -125 -570 -150 Weight 160 lb Constitutional: No Distress Calm Neck: Supple Negative JVD No Bruit Respiratory: Diminished Breath Sounds at the Bases Cardiovascular: S1 S2 Regular Rate and Rhythm Gastrointestinal: Soft Benign Normal Bowel Sounds Ext: Negative Edema Labs: CBC, BMP 07/22/17 07:00 07/21/17 06:55 Hepatic Panel Total Bilirubin 0.2 mg/dL (0.2-1.0) D 07/14/17 06:00 AST 20 U/L (15-37) 07/14/17 06:00 ALT 28 U/L (12-78) D 07/14/17 06:00 Alkaline Phosphatase 84 U/L (45-117) 07/14/17 06:00 Albumin 1.8 g/dl (3.4-5.0) L 07/14/17 06:00 INR, PTT INR 0.98 (0.82-1.09) 06/25/17 09:22 Assessment/Plan Assessment: 1. CAD with evidence of demand ischemic injury, non ST segment elevation [place], claudia-lateral EKG changes, clinically difficult to assess related to Down syndrome 2. Transient LV dysfunction with class I NYHA classification LV failure, ischemia related resolved (diastolic LV dysfunction) 3. 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 Left lower lobe aspiration pneumonia, resolving 5. Pseudomonas UTI, resolved 6. History of acute Influenza A, resolved 7. Down's syndrome 8. Hypothyroidism 9. Anemia PLAN: 1. Toprol XL with caution and hemodynamics permitting 2. Recommend the addition of ARBS with caution, hemodynamics permitting 3. Continue ASA 4. Add Statin therapy unless it is contraindicated 5. Antibiotics as per the ID/primary team 6. Recommend conservative medical management for the above noted CAD/ACS considering her clinical presentation and co-morbidities Mio Graves MD
--- NOTE | 2017-07-22 12:15 | PN ---
Progress Note, Physician History of Present Illness: Temps down Offers no complaint No reported chills, dyspnea, cough Blood no growth - Current Medication List Current Medications: Active Medications Acetaminophen (Tylenol -) 650 mg PO Q4H PRN PRN Reason: FEVER OR PAIN Last Admin: 07/20/17 22:10 Dose: 650 mg Albuterol/Ipratropium (Duoneb -) 1 amp NEB RQID [facility] Last Admin: 07/22/17 11:35 Dose: 1 amp Aspirin (Ecotrin -) 81 mg PO DAILY [facility] Last Admin: 07/22/17 09:37 Dose: 81 mg Chlorhexidine Gluconate (Hibiclens For Decolonization -) 1 applic TP HS [facility] Last Admin: 07/21/17 21:09 Dose: Not Given Collagenase (Santyl -) 1 applic TP DAILY [facility] Last Admin: 07/22/17 09:44 Dose: 1 applic Ferrous Sulfate (Feosol -) 325 mg PO BIDWM [facility] Last Admin: 07/22/17 09:00 Dose: 325 mg Guaifenesin (Robitussin -) 10 ml PO Q8H PRN PRN Reason: COUGH Last Admin: 07/20/17 22:07 Dose: 10 ml Heparin Sodium (Porcine) (Heparin -) 5,000 unit SQ TID [facility] Last Admin: 07/22/17 06:55 Dose: 5,000 unit Levofloxacin (Levaquin -) 500 mg PO DAILY@0600 [facility] Last Admin: 07/22/17 06:55 Dose: 500 mg Levothyroxine Sodium 100 mcg/ (Levothyroxine Sodium 75 mcg) 175 mcg PO DAILY@ 0700 [facility] Last Admin: 07/22/17 06:55 Dose: 175 mcg Mesalamine (Asacol Hd -) 800 mg PO TID [facility] Last Admin: 07/22/17 06:55 Dose: 800 mg Metoprolol Succinate (Toprol Xl -) 12.5 mg PO DAILY [facility] Last Admin: 07/22/17 09:39 Dose: 12.5 mg Ondansetron HCl (Zofran Injection) 4 mg IVPUSH Q6H PRN PRN Reason: NAUSEA AND/OR VOMITING Prednisone 30 mg/ Prednisone 5 (mg) 35 mg PO DAILY [facility] Last Admin: 07/22/17 09:37 Dose: 35 mg - Objective Vital Signs: Vital Signs Temperature 98.8 F 07/22/17 09:59 Pulse Rate 70 07/22/17 09:59 Respiratory Rate 18 07/22/17 09:59 Blood Pressure 110/55 07/22/17 09:59 O2 Sat by Pulse Oximetry (%) 100 07/22/17 09:50 Constitutional: Yes: No Distress Cardiovascular: Yes: Regular Rate and Rhythm, S1, S2 Respiratory: Yes: CTA Bilaterally Gastrointestinal: Yes: Normal Bowel Sounds, Soft. No: Tenderness Labs: CBC, BMP 07/22/17 07:00 07/21/17 06:55 INR, PTT INR 0.98 (0.82-1.09) 06/25/17 09:22 Assessment/Plan Fever- resolved POD#8 repair of meningocele S/P influenza Repeat c/s no growth Switch to po levaquin 500mg qd x7d
--- NOTE | 2017-07-22 13:22 | PN ---
Progress Note, Physician History of Present Illness: FEELS GOOD NL BM APETITE OK LT FOOT CASCRAL ULCER BETTER NECK WD HEALING CIPRO PO D/C IV ANTXB PREPARE [facility] ? ANA LUISA IF ADIR DOEST TAKE HER - Current Medication List Current Medications: Active Medications Acetaminophen (Tylenol -) 650 mg PO Q4H PRN PRN Reason: FEVER OR PAIN Last Admin: 07/20/17 22:10 Dose: 650 mg Albuterol/Ipratropium (Duoneb -) 1 amp NEB RQID [facility] Last Admin: 07/22/17 11:35 Dose: 1 amp Aspirin (Ecotrin -) 81 mg PO DAILY [facility] Last Admin: 07/22/17 09:37 Dose: 81 mg Chlorhexidine Gluconate (Hibiclens For Decolonization -) 1 applic TP HS [facility] Last Admin: 07/21/17 21:09 Dose: Not Given Collagenase (Santyl -) 1 applic TP DAILY [facility] Last Admin: 07/22/17 09:44 Dose: 1 applic Ferrous Sulfate (Feosol -) 325 mg PO BIDWM [facility] Last Admin: 07/22/17 09:00 Dose: 325 mg Guaifenesin (Robitussin -) 10 ml PO Q8H PRN PRN Reason: COUGH Last Admin: 07/20/17 22:07 Dose: 10 ml Heparin Sodium (Porcine) (Heparin -) 5,000 unit SQ TID [facility] Last Admin: 07/22/17 06:55 Dose: 5,000 unit Levofloxacin (Levaquin -) 500 mg PO DAILY@0600 [facility] Last Admin: 07/22/17 06:55 Dose: 500 mg Levothyroxine Sodium 100 mcg/ (Levothyroxine Sodium 75 mcg) 175 mcg PO DAILY@ 0700 [facility] Last Admin: 07/22/17 06:55 Dose: 175 mcg Mesalamine (Asacol Hd -) 800 mg PO TID [facility] Last Admin: 07/22/17 06:55 Dose: 800 mg Metoprolol Succinate (Toprol Xl -) 12.5 mg PO DAILY [facility] Last Admin: 07/22/17 09:39 Dose: 12.5 mg Ondansetron HCl (Zofran Injection) 4 mg IVPUSH Q6H PRN PRN Reason: NAUSEA AND/OR VOMITING Prednisone 30 mg/ Prednisone 5 (mg) 35 mg PO DAILY [facility] Last Admin: 07/22/17 09:37 Dose: 35 mg - Objective Vital Signs: Vital Signs Temperature 98.8 F 07/22/17 09:59 Pulse Rate 70 07/22/17 09:59 Respiratory Rate 18 07/22/17 09:59 Blood Pressure 110/55 07/22/17 09:59 O2 Sat by Pulse Oximetry (%) 100 07/22/17 09:50 Labs: CBC, BMP 07/22/17 07:00 07/21/17 06:55 INR, PTT INR 0.98 (0.82-1.09) 06/25/17 09:22 Problem List - Problems (1) Down syndrome Code(s): Q90.9 - DOWN SYNDROME, UNSPECIFIED (2) Puncture wound of left foot excluding toes with infection Code(s): S91.332A - PUNCTURE WOUND WITHOUT FOREIGN BODY, LEFT FOOT, INIT ENCNTR ; L08.9 - LOCAL INFECTION OF THE SKIN AND SUBCUTANEOUS TISSUE, UNSP (3) CHF (congestive heart failure) Code(s): I50.9 - HEART FAILURE, UNSPECIFIED Qualifiers: Congestive heart failure type: diastolic Congestive heart failure chronicity: acute on chronic Qualified Code(s): I50.33 - Acute on chronic diastolic (congestive) heart failure (4) Mitral and aortic insufficiency Code(s): I08.0 - RHEUMATIC DISORDERS OF BOTH MITRAL AND AORTIC VALVES
[2017-07-22] MEDS ORDERED: PT OWN MED DRAWER 7, Y5N ONE (13:31)
--- NOTE | 2017-07-22 15:19 | PN ---
Progress Note (short form) - Note Progress Note: PULMONARY No further fevers recorded. Last Vital Signs Temp Pulse Resp BP Pulse Ox 98.8 F 70 18 110/55 100 07/22/17 09:59 07/22/17 09:59 07/22/17 09:59 07/22/17 09:59 07/22/17 09:50 Gen: NAD in cervical collar Heart: RRR Lung: scattered basilar rhonchi Abd: soft, nontender Ext: no edema CBC, BMP 07/22/17 07:00 07/21/17 06:55 Active Medications Acetaminophen (Tylenol -) 650 mg PO Q4H PRN PRN Reason: FEVER OR PAIN Last Admin: 07/20/17 22:10 Dose: 650 mg Albuterol/Ipratropium (Duoneb -) 1 amp NEB RQID [facility] Last Admin: 07/22/17 11:35 Dose: 1 amp Aspirin (Ecotrin -) 81 mg PO DAILY [facility] Last Admin: 07/22/17 09:37 Dose: 81 mg Chlorhexidine Gluconate (Hibiclens For Decolonization -) 1 applic TP HS [facility] Last Admin: 07/21/17 21:09 Dose: Not Given Collagenase (Santyl -) 1 applic TP DAILY [facility] Last Admin: 07/22/17 09:44 Dose: 1 applic Ferrous Sulfate (Feosol -) 325 mg PO BIDWM [facility] Last Admin: 07/22/17 09:00 Dose: 325 mg Guaifenesin (Robitussin -) 10 ml PO Q8H PRN PRN Reason: COUGH Last Admin: 07/20/17 22:07 Dose: 10 ml Heparin Sodium (Porcine) (Heparin -) 5,000 unit SQ TID [facility] Last Admin: 07/22/17 13:44 Dose: 5,000 unit Levofloxacin (Levaquin -) 500 mg PO DAILY@0600 [facility] Last Admin: 07/22/17 06:55 Dose: 500 mg Levothyroxine Sodium 100 mcg/ (Levothyroxine Sodium 75 mcg) 175 mcg PO DAILY@ 0700 [facility] Last Admin: 07/22/17 06:55 Dose: 175 mcg Mesalamine (Asacol Hd -) 800 mg PO TID [facility] Last Admin: 07/22/17 13:44 Dose: 800 mg Metoprolol Succinate (Toprol Xl -) 12.5 mg PO DAILY [facility] Last Admin: 07/22/17 09:39 Dose: 12.5 mg Ondansetron HCl (Zofran Injection) 4 mg IVPUSH Q6H PRN PRN Reason: NAUSEA AND/OR VOMITING Prednisone 30 mg/ Prednisone 5 (mg) 35 mg PO DAILY [facility] Last Admin: 07/22/17 09:37 Dose: 35 mg A/P s/p C1-C6 fusion/dural tear repair Pneumonia likely Aspiration UTI Influenza A CAD LV Diastolic Dysfunction Down Syndrome Hypothyroidism - continue antibiotics - aspiration precautions - O2 to keep SpO2 >90% - DVT prophylaxis
[2017-07-22] MEDS: CHLORHEXIDINE GLUCONATE 4% CLEANSER FOR DECOLONIZATION TP SCH (21:26)
[2017-07-22] MEDS ORDERED: CIPROFLOXACIN 250 MG TABLET (RESTRICTED TO ID) PO SCH (22:00)
[2017-07-23] MEDS: MESALAMINE 800 MG TABLET.DR PO SCH ×3 (06:34→21:59)
[2017-07-23] MEDS: HEPARIN NA (PORCINE) 5,000 UNITS/ML 1ML VIAL SQ SCH ×3 (06:34→21:59)
[2017-07-23] MEDS: LEVOFLOXACIN 500 MG TABLET (FP) PO SCH (06:34)
[2017-07-23] MEDS ORDERED: LEVOTHYROXINE NA 75 MCG TABLET (FP) ONE (06:41)
[2017-07-23] MEDS ORDERED: LEVOTHYROXINE NA 100 MCG TABLET (FP) ONE (06:41)
[2017-07-23] MEDS: LEVOTHYROXINE 100 MCG, LEVOTHYROXINE 75 MCG PO SCH (06:43)
[2017-07-23] MEDS: ALBUTEROL SO4 2.5/IPRATROPIUM 0.5 INH SOL 3 ML VIAL.NEB. NEB SCH ×4 (08:37→21:20)
[2017-07-23] MEDS ORDERED: predniSONE 10 MG TABLET (UD) ONE (08:50)
[2017-07-23] MEDS: METOPROLOL SUCCINATE 25 MG TAB.SR.24H (FP) PO SCH (09:14)
[2017-07-23] MEDS: PREDNISONE PO SCH (09:14)
[2017-07-23] MEDS: FERROUS SO4 325 MG TABLET (FP) PO SCH ×2 (09:14→18:03)
[2017-07-23] MEDS: ASPIRIN COATED 81 MG TABLET.EC PO SCH (09:15)
[2017-07-23] MEDS: COLLAGENASE CLOSTRIDIUM HIST. 30 GRAMS TUBE TP SCH (09:20)
--- NOTE | 2017-07-23 13:02 | PN ---
Progress Note (short form) - Note Progress Note: Chief Complaint: Events noted, notes reviewed, denies any chest pain or dyspnea History of Present Illness: Seen and examined. Events noted, notes reviewed, denies any chest pain or dyspnea Echocardiography dated 06/30/2017 revealed normal LV size and function, mild AI , trace TR with RVSP between 30-40 mmHg - Current Medication List Current Medications Acetaminophen (Tylenol -) 650 mg PO Q4H PRN PRN Reason: FEVER OR PAIN Last Admin: 07/20/17 22:10 Dose: 650 mg Albuterol/Ipratropium (Duoneb -) 1 amp NEB RQID [facility] Last Admin: 07/23/17 12:30 Dose: 1 amp Aspirin (Ecotrin -) 81 mg PO DAILY [facility] Last Admin: 07/23/17 09:15 Dose: 81 mg Chlorhexidine Gluconate (Hibiclens For Decolonization -) 1 applic TP HS [facility] Last Admin: 07/22/17 21:26 Dose: Not Given Collagenase (Santyl -) 1 applic TP DAILY [facility] Last Admin: 07/23/17 09:20 Dose: 1 applic Ferrous Sulfate (Feosol -) 325 mg PO BIDWM [facility] Last Admin: 07/23/17 09:14 Dose: 325 mg Guaifenesin (Robitussin -) 10 ml PO Q8H PRN PRN Reason: COUGH Last Admin: 07/20/17 22:07 Dose: 10 ml Heparin Sodium (Porcine) (Heparin -) 5,000 unit SQ TID [facility] Last Admin: 07/23/17 06:34 Dose: 5,000 unit Levofloxacin (Levaquin -) 500 mg PO DAILY@0600 [facility] Last Admin: 07/23/17 06:34 Dose: 500 mg Levothyroxine Sodium 100 mcg/ (Levothyroxine Sodium 75 mcg) 175 mcg PO DAILY@ 0700 [facility] Last Admin: 07/23/17 06:43 Dose: 175 mcg Mesalamine (Asacol Hd -) 800 mg PO TID [facility] Last Admin: 07/23/17 06:34 Dose: 800 mg Metoprolol Succinate (Toprol Xl -) 12.5 mg PO DAILY [facility] Last Admin: 07/23/17 09:14 Dose: 12.5 mg Ondansetron HCl (Zofran Injection) 4 mg IVPUSH Q6H PRN PRN Reason: NAUSEA AND/OR VOMITING Prednisone 30 mg/ Prednisone 5 (mg) 35 mg PO DAILY [facility] Last Admin: 07/23/17 09:14 Dose: 35 mg Review of Systems Unable to obtain - Objective Vital Signs: Last Vital Signs Temp Pulse Resp BP Pulse Ox 98.4 F 73 18 123/55 97 07/23/17 08:54 07/23/17 08:54 07/23/17 08:56 07/23/17 08:54 07/23/17 08:56 Intake & Output 07/20/17 07/21/17 07/22/17 07/23/17 23:59 23:59 23:59 23:59 Intake Total 350 350 650 Output Total 920 500 Balance -570 -150 650 Constitutional: No Distress Calm Neck: Supple Negative JVD No Bruit Respiratory: Diminished Breath Sounds at the Bases Cardiovascular: S1 S2 Regular Rate and Rhythm Gastrointestinal: Soft Benign Normal Bowel Sounds Ext: Negative Edema Labs: CBC, BMP 07/22/17 07:00 07/21/17 06:55 Assessment/Plan Assessment: 1. CAD post demand ischemic injury, non ST segment elevation [place], claudia-lateral EKG changes, angina pectoris, clinically difficult to assess related to Down syndrome 2. Transient LV dysfunction with class I NYHA classification LV failure, ischemia related, resolved (diastolic LV dysfunction) 3. 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 Left lower lobe aspiration pneumonia, resolving 5. Pseudomonas UTI, resolved 6. History of acute Influenza A, resolved 7. Down's syndrome 8. Hypothyroidism 9. Anemia PLAN: 1. Toprol XL with caution hemodynamics permitting 2. As outlined in prior notes recommend the addition of ARBS with caution, hemodynamics permitting 3. Continue ASA 4. As outlined in prior notes recommend addition of Statin therapy unless it is contraindicated 5. Antibiotics as per the ID/primary team 6. Recommend conservative medical management for the above noted CAD/ACS considering her clinical presentation and co-morbidities Mio Graves MD
[2017-07-23] MEDS ORDERED: PT OWN MED DRAWER 7, Y5N ONE (14:10)
--- NOTE | 2017-07-23 14:15 | PN ---
Progress Note (short form) - Note Progress Note: PULMONARY Doing well. Denies shortness of breath, cough or fevers. Last Vital Signs Temp Pulse Resp BP Pulse Ox 98.4 F 73 18 123/55 97 07/23/17 08:54 07/23/17 08:54 07/23/17 08:56 07/23/17 08:54 07/23/17 08:56 Gen: NAD in cervical collar Heart: RRR Lung: scattered basilar rhonchi Abd: soft, nontender Ext: no edema CBC, BMP 07/22/17 07:00 07/21/17 06:55 Active Medications Acetaminophen (Tylenol -) 650 mg PO Q4H PRN PRN Reason: FEVER OR PAIN Last Admin: 07/20/17 22:10 Dose: 650 mg Albuterol/Ipratropium (Duoneb -) 1 amp NEB RQID [facility] Last Admin: 07/23/17 12:30 Dose: 1 amp Aspirin (Ecotrin -) 81 mg PO DAILY [facility] Last Admin: 07/23/17 09:15 Dose: 81 mg Chlorhexidine Gluconate (Hibiclens For Decolonization -) 1 applic TP HS [facility] Last Admin: 07/22/17 21:26 Dose: Not Given Collagenase (Santyl -) 1 applic TP DAILY [facility] Last Admin: 07/23/17 09:20 Dose: 1 applic Ferrous Sulfate (Feosol -) 325 mg PO BIDWM [facility] Last Admin: 07/23/17 09:14 Dose: 325 mg Guaifenesin (Robitussin -) 10 ml PO Q8H PRN PRN Reason: COUGH Last Admin: 07/20/17 22:07 Dose: 10 ml Heparin Sodium (Porcine) (Heparin -) 5,000 unit SQ TID [facility] Last Admin: 07/23/17 06:34 Dose: 5,000 unit Levofloxacin (Levaquin -) 500 mg PO DAILY@0600 [facility] Last Admin: 07/23/17 06:34 Dose: 500 mg Levothyroxine Sodium 100 mcg/ (Levothyroxine Sodium 75 mcg) 175 mcg PO DAILY@ 0700 [facility] Last Admin: 07/23/17 06:43 Dose: 175 mcg Mesalamine (Asacol Hd -) 800 mg PO TID [facility] Last Admin: 07/23/17 06:34 Dose: 800 mg Metoprolol Succinate (Toprol Xl -) 12.5 mg PO DAILY [facility] Last Admin: 07/23/17 09:14 Dose: 12.5 mg Ondansetron HCl (Zofran Injection) 4 mg IVPUSH Q6H PRN PRN Reason: NAUSEA AND/OR VOMITING Prednisone 30 mg/ Prednisone 5 (mg) 35 mg PO DAILY [facility] Last Admin: 07/23/17 09:14 Dose: 35 mg A/P s/p C1-C6 fusion/dural tear repair Pneumonia likely Aspiration UTI Influenza A CAD LV Diastolic Dysfunction Down Syndrome Hypothyroidism - continue antibiotics - aspiration precautions - O2 to keep SpO2 >90% - rehab/PT - DVT prophylaxis
[2017-07-23] MEDS: CHLORHEXIDINE GLUCONATE 4% CLEANSER FOR DECOLONIZATION TP SCH (21:59)
[2017-07-24] MEDS ORDERED: LEVOTHYROXINE NA 75 MCG TABLET (FP) ONE (06:01)
[2017-07-24] MEDS ORDERED: LEVOTHYROXINE NA 100 MCG TABLET (FP) ONE (06:01)
[2017-07-24] MEDS: LEVOFLOXACIN 500 MG TABLET (FP) PO SCH (06:07)
[2017-07-24] MEDS: LEVOTHYROXINE 100 MCG, LEVOTHYROXINE 75 MCG PO SCH (06:07)
[2017-07-24] MEDS: MESALAMINE 800 MG TABLET.DR PO SCH ×3 (06:07→21:22)
[2017-07-24] MEDS: HEPARIN NA (PORCINE) 5,000 UNITS/ML 1ML VIAL SQ SCH ×3 (06:08→21:22)
--- NOTE | 2017-07-24 08:12 | PN ---
Progress Note (short form) - Note Progress Note: Patient with progressive improvement in Neurological function. No complaints of pain. Collar not in place. Patient's wound is clean and dry. No bogginess/ drainage noted. PLAN -will change dressing and place additional Dermabond today -skin clip removal after August 04 (three full weeks) -Ready for Discharge to Rehab/SNF from Neurosurgery standpoint.
[2017-07-24] MEDS: ALBUTEROL SO4 2.5/IPRATROPIUM 0.5 INH SOL 3 ML VIAL.NEB. NEB SCH ×2 (08:40→12:13)
[2017-07-24] MEDS ORDERED: predniSONE 10 MG TABLET (UD) ONE (09:06)
[2017-07-24] MEDS: PREDNISONE PO SCH (09:12)
[2017-07-24] MEDS: ASPIRIN COATED 81 MG TABLET.EC PO SCH (09:14)
[2017-07-24] MEDS: FERROUS SO4 325 MG TABLET (FP) PO SCH ×2 (09:14→17:56)
[2017-07-24] MEDS: METOPROLOL SUCCINATE 25 MG TAB.SR.24H (FP) PO SCH (09:19)
--- NOTE | 2017-07-24 10:08 | PN ---
Progress Note, Physician History of Present Illness: pt comfotable vss good po nl bm p/t not ? [facility] - Current Medication List Current Medications: Active Medications Acetaminophen (Tylenol -) 650 mg PO Q4H PRN PRN Reason: FEVER OR PAIN Last Admin: 07/20/17 22:10 Dose: 650 mg Albuterol/Ipratropium (Duoneb -) 1 amp NEB RQID [facility] Last Admin: 07/24/17 08:40 Dose: 1 amp Aspirin (Ecotrin -) 81 mg PO DAILY [facility] Last Admin: 07/24/17 09:14 Dose: 81 mg Chlorhexidine Gluconate (Hibiclens For Decolonization -) 1 applic TP HS [facility] Last Admin: 07/23/17 21:59 Dose: Not Given Collagenase (Santyl -) 1 applic TP DAILY [facility] Last Admin: 07/23/17 09:20 Dose: 1 applic Ferrous Sulfate (Feosol -) 325 mg PO BIDWM [facility] Last Admin: 07/24/17 09:14 Dose: 325 mg Guaifenesin (Robitussin -) 10 ml PO Q8H PRN PRN Reason: COUGH Last Admin: 07/20/17 22:07 Dose: 10 ml Heparin Sodium (Porcine) (Heparin -) 5,000 unit SQ TID [facility] Last Admin: 07/24/17 06:08 Dose: 5,000 unit Levofloxacin (Levaquin -) 500 mg PO DAILY@0600 [facility] Last Admin: 07/24/17 06:07 Dose: 500 mg Levothyroxine Sodium 100 mcg/ (Levothyroxine Sodium 75 mcg) 175 mcg PO DAILY@ 0700 [facility] Last Admin: 07/24/17 06:07 Dose: 175 mcg Mesalamine (Asacol Hd -) 800 mg PO TID [facility] Last Admin: 07/24/17 06:07 Dose: 800 mg Metoprolol Succinate (Toprol Xl -) 12.5 mg PO DAILY [facility] Last Admin: 07/24/17 09:19 Dose: 12.5 mg Ondansetron HCl (Zofran Injection) 4 mg IVPUSH Q6H PRN PRN Reason: NAUSEA AND/OR VOMITING Prednisone 30 mg/ Prednisone 5 (mg) 35 mg PO DAILY [facility] Last Admin: 07/24/17 09:12 Dose: 35 mg - Objective Vital Signs: Vital Signs Temperature 97.0 F L 07/24/17 09:23 Pulse Rate 85 07/24/17 09:23 Respiratory Rate 20 07/24/17 09:23 Blood Pressure 118/81 07/24/17 09:23 O2 Sat by Pulse Oximetry (%) 97 07/23/17 21:00 Labs: CBC, BMP 07/22/17 07:00 07/21/17 06:55 INR, PTT INR 0.98 (0.82-1.09) 06/25/17 09:22 Problem List - Problems (1) Down syndrome Code(s): Q90.9 - DOWN SYNDROME, UNSPECIFIED (2) Puncture wound of left foot excluding toes with infection Code(s): S91.332A - PUNCTURE WOUND WITHOUT FOREIGN BODY, LEFT FOOT, INIT ENCNTR ; L08.9 - LOCAL INFECTION OF THE SKIN AND SUBCUTANEOUS TISSUE, UNSP (3) CHF (congestive heart failure) Code(s): I50.9 - HEART FAILURE, UNSPECIFIED Qualifiers: Congestive heart failure type: diastolic Congestive heart failure chronicity: acute on chronic Qualified Code(s): I50.33 - Acute on chronic diastolic (congestive) heart failure (4) Mitral and aortic insufficiency Code(s): I08.0 - RHEUMATIC DISORDERS OF BOTH MITRAL AND AORTIC VALVES
--- NOTE | 2017-07-24 10:19 | PN ---
Progress Note (short form) - Note Progress Note: Chief Complaint: Events noted, notes reviewed, denies any chest pain or dyspnea , resting comfortably History of Present Illness: Seen and examined. Events noted, notes reviewed, denies any chest pain or dyspnea, resting comfortably Echocardiography dated 06/30/2017 revealed normal LV size and function, mild AI , trace TR with RVSP between 30-40 mmHg - Current Medication List Current Medications Acetaminophen (Tylenol -) 650 mg PO Q4H PRN PRN Reason: FEVER OR PAIN Last Admin: 07/20/17 22:10 Dose: 650 mg Albuterol/Ipratropium (Duoneb -) 1 amp NEB RQID [facility] Last Admin: 07/24/17 08:40 Dose: 1 amp Aspirin (Ecotrin -) 81 mg PO DAILY [facility] Last Admin: 07/24/17 09:14 Dose: 81 mg Chlorhexidine Gluconate (Hibiclens For Decolonization -) 1 applic TP HS [facility] Last Admin: 07/23/17 21:59 Dose: Not Given Collagenase (Santyl -) 1 applic TP DAILY [facility] Last Admin: 07/23/17 09:20 Dose: 1 applic Ferrous Sulfate (Feosol -) 325 mg PO BIDWM [facility] Last Admin: 07/24/17 09:14 Dose: 325 mg Guaifenesin (Robitussin -) 10 ml PO Q8H PRN PRN Reason: COUGH Last Admin: 07/20/17 22:07 Dose: 10 ml Heparin Sodium (Porcine) (Heparin -) 5,000 unit SQ TID [facility] Last Admin: 07/24/17 06:08 Dose: 5,000 unit Levofloxacin (Levaquin -) 500 mg PO DAILY@0600 [facility] Last Admin: 07/24/17 06:07 Dose: 500 mg Levothyroxine Sodium 100 mcg/ (Levothyroxine Sodium 75 mcg) 175 mcg PO DAILY@ 0700 [facility] Last Admin: 07/24/17 06:07 Dose: 175 mcg Mesalamine (Asacol Hd -) 800 mg PO TID [facility] Last Admin: 07/24/17 06:07 Dose: 800 mg Metoprolol Succinate (Toprol Xl -) 12.5 mg PO DAILY [facility] Last Admin: 07/24/17 09:19 Dose: 12.5 mg Ondansetron HCl (Zofran Injection) 4 mg IVPUSH Q6H PRN PRN Reason: NAUSEA AND/OR VOMITING Prednisone 30 mg/ Prednisone 5 (mg) 35 mg PO DAILY [facility] Last Admin: 07/24/17 09:12 Dose: 35 mg Review of Systems Unable to obtain - Objective Vital Signs: Last Vital Signs Temp Pulse Resp BP Pulse Ox 97.0 F L 85 20 118/81 97 07/24/17 09:23 07/24/17 09:23 07/24/17 09:23 07/24/17 09:23 07/23/17 21:00 Intake & Output 07/21/17 07/22/17 07/23/17 07/24/17 23:59 23:59 23:59 23:59 Intake Total 770 693 2761 200 Output Total 500 Balance -766 269 2860 200 Weight 163 lb 162 lb 0.6 oz Constitutional: No Distress Calm Neck: Supple Negative JVD No Bruit Respiratory: Diminished Breath Sounds at the Bases Cardiovascular: S1 S2 Regular Rate and Rhythm Gastrointestinal: Soft Benign Normal Bowel Sounds Ext: Negative Edema Labs: CBC, BMP 07/22/17 07:00 07/21/17 06:55 Assessment/Plan Assessment: 1. CAD post demand ischemic injury, non ST segment elevation [place], claudia-lateral EKG changes, angina pectoris, clinically difficult to assess related to Down syndrome 2. Transient LV dysfunction with class I NYHA classification LV failure, ischemia related, resolved (diastolic LV dysfunction) 3. 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 Left lower lobe aspiration pneumonia, resolving 5. Pseudomonas UTI, resolved 6. History of acute Influenza A, resolved 7. Down's syndrome 8. Hypothyroidism 9. Anemia PLAN: 1. Toprol XL with caution hemodynamics permitting 2. As outlined in prior notes recommend the addition of ACEI or ARBS with caution, hemodynamics permitting 3. Continue ASA 4. As outlined in prior notes recommend addition of Statin therapy unless it is contraindicated 5. Antibiotics as per the ID/primary team 6. Recommend conservative medical management for the above noted CAD/ACS considering her clinical presentation and co-morbidities Mio Graves MD
[2017-07-24] MEDS: COLLAGENASE CLOSTRIDIUM HIST. 30 GRAMS TUBE TP SCH (10:47)
[2017-07-24 12:25] LABS: CHOLESTEROL 161 mg/dL (50-200); HDL CHOLESTEROL 34 mg/dL (40-60); LDL CHOLESTEROL (ONLY SJRH) 108 mg/dL (5-100); TRIGLYCERIDES 131 mg/dL (35-160)
[2017-07-24] MEDS ORDERED: PT OWN MED DRAWER 7, Y5N ONE (13:31)
--- NOTE | 2017-07-24 15:27 | PN ---
Progress Note, Physician History of Present Illness: PULMONARY ALERT,COMFORTABLE,-C/O SOB,AFEBRILE - Current Medication List Current Medications: Active Medications Acetaminophen (Tylenol -) 650 mg PO Q4H PRN PRN Reason: FEVER OR PAIN Last Admin: 07/20/17 22:10 Dose: 650 mg Albuterol/Ipratropium (Duoneb -) 1 amp NEB RQID [facility] Last Admin: 07/24/17 12:13 Dose: 1 amp Aspirin (Ecotrin -) 81 mg PO DAILY [facility] Last Admin: 07/24/17 09:14 Dose: 81 mg Atorvastatin Calcium (Lipitor -) 20 mg PO [facility] Chlorhexidine Gluconate (Hibiclens For Decolonization -) 1 applic TP HS [facility] Last Admin: 07/23/17 21:59 Dose: Not Given Collagenase (Santyl -) 1 applic TP DAILY [facility] Last Admin: 07/24/17 10:47 Dose: 1 applic Ferrous Sulfate (Feosol -) 325 mg PO BIDWM [facility] Last Admin: 07/24/17 09:14 Dose: 325 mg Furosemide (Lasix -) 20 mg PO DAILY [facility] Guaifenesin (Robitussin -) 10 ml PO Q8H PRN PRN Reason: COUGH Last Admin: 07/20/17 22:07 Dose: 10 ml Heparin Sodium (Porcine) (Heparin -) 5,000 unit SQ TID [facility] Last Admin: 07/24/17 13:47 Dose: 5,000 unit Levofloxacin (Levaquin -) 500 mg PO DAILY@0600 [facility] Last Admin: 07/24/17 06:07 Dose: 500 mg Levothyroxine Sodium 100 mcg/ (Levothyroxine Sodium 75 mcg) 175 mcg PO DAILY@ 0700 [facility] Last Admin: 07/24/17 06:07 Dose: 175 mcg Mesalamine (Asacol Hd -) 800 mg PO TID [facility] Last Admin: 07/24/17 13:47 Dose: 800 mg Metoprolol Succinate (Toprol Xl -) 12.5 mg PO DAILY [facility] Last Admin: 07/24/17 09:19 Dose: 12.5 mg Ondansetron HCl (Zofran Injection) 4 mg IVPUSH Q6H PRN PRN Reason: NAUSEA AND/OR VOMITING Prednisone 30 mg/ Prednisone 5 (mg) 35 mg PO DAILY [facility] Last Admin: 07/24/17 09:12 Dose: 35 mg - Objective Vital Signs: Vital Signs Temperature 97.9 F 07/24/17 14:59 Pulse Rate 88 07/24/17 14:59 Respiratory Rate 24 07/24/17 14:59 Blood Pressure 105/61 07/24/17 14:59 O2 Sat by Pulse Oximetry (%) 100 07/24/17 09:00 Constitutional: Yes: Well Nourished, Calm Eyes: Yes: WNL HENT: Yes: WNL Neck: Yes: Other (NECK BRACE) Cardiovascular: Yes: Regular Rate and Rhythm, S1, S2 Respiratory: Yes: Rhonchi (SCATTERED CHRISTINA RHONCHI) Gastrointestinal: Yes: Normal Bowel Sounds, Soft Extremities: Yes: WNL Edema: No Labs: CBC, BMP Problem List - Problems (1) Anemia Code(s): D64.9 - ANEMIA, UNSPECIFIED Qualifiers: Anemia type: unspecified type Qualified Code(s): D64.9 - Anemia, unspecified (2) Diastolic dysfunction Code(s): I51.9 - HEART DISEASE, UNSPECIFIED (3) Down syndrome Code(s): Q90.9 - DOWN SYNDROME, UNSPECIFIED (4) Hypothyroidism Code(s): E03.9 - HYPOTHYROIDISM, UNSPECIFIED Qualifiers: Hypothyroidism type: unspecified Qualified Code(s): E03.9 - Hypothyroidism , unspecified (5) Influenza A Code(s): J10.1 - FLU DUE TO OTH IDENT INFLUENZA VIRUS W OTH RESP MANIFEST (6) Mitral and aortic insufficiency Code(s): I08.0 - RHEUMATIC DISORDERS OF BOTH MITRAL AND AORTIC VALVES (7) Pneumonia Code(s): J18.9 - PNEUMONIA, UNSPECIFIED ORGANISM Qualifiers: Pneumonia type: due to unspecified organism Laterality: left Lung location: lower lobe of lung Qualified Code(s): J18.1 - Lobar pneumonia, unspecified organism Assessment/Plan A/P s/p C1-C6 fusion/dural tear repair Pneumonia likely Aspiration UTI Influenza A CAD LV Diastolic Dysfunction Down Syndrome Hypothyroidism - continue antibiotics - aspiration precautions - O2 to keep SpO2 >90% - DVT prophylaxis DR GUAMAN
[2017-07-24] MEDS ORDERED: ALBUTEROL SO4 2.5/IPRATROPIUM 0.5 INH SOL 3 ML VIAL.NEB. NEB PRN (20:12)
[2017-07-24] MEDS: CHLORHEXIDINE GLUCONATE 4% CLEANSER FOR DECOLONIZATION TP SCH (21:22)
[2017-07-24] MEDS: ATORVASTATIN CA 20 MG TABLET (FP) PO SCH (21:23)
[2017-07-25] MEDS ORDERED: LEVOTHYROXINE NA 100 MCG TABLET (FP) ONE (06:07)
[2017-07-25] MEDS ORDERED: LEVOTHYROXINE NA 75 MCG TABLET (FP) ONE (06:07)
[2017-07-25] MEDS: LEVOFLOXACIN 500 MG TABLET (FP) PO SCH (06:25)
[2017-07-25] MEDS: MESALAMINE 800 MG TABLET.DR PO SCH ×3 (06:25→21:59)
[2017-07-25] MEDS: LEVOTHYROXINE 100 MCG, LEVOTHYROXINE 75 MCG PO SCH (06:25)
[2017-07-25] MEDS: HEPARIN NA (PORCINE) 5,000 UNITS/ML 1ML VIAL SQ SCH ×3 (06:25→22:52)
[2017-07-25] MEDS ORDERED: predniSONE 10 MG TABLET (UD) ONE (08:52)
[2017-07-25] MEDS ORDERED: PT OWN MED DRAWER 7, Y5N ONE ×2 (08:53→10:36)
--- NOTE | 2017-07-25 09:31 | PN ---
Progress Note (short form) - Note Progress Note: Chief Complaint: Events noted, notes reviewed, denies any chest pain or dyspnea History of Present Illness: Seen and examined. Events noted, notes reviewed, denies any chest pain or dyspnea Echocardiography dated 06/30/2017 revealed normal LV size and function, mild AI , trace TR with RVSP between 30-40 mmHg - Current Medication List Current Medications Acetaminophen (Tylenol -) 650 mg PO Q4H PRN PRN Reason: FEVER OR PAIN Last Admin: 07/20/17 22:10 Dose: 650 mg Albuterol/Ipratropium (Duoneb -) 1 amp NEB Q6H PRN Aspirin (Ecotrin -) 81 mg PO DAILY [facility] Last Admin: 07/24/17 09:14 Dose: 81 mg Atorvastatin Calcium (Lipitor -) 20 mg PO HS [facility] Last Admin: 07/24/17 21:23 Dose: 20 mg Chlorhexidine Gluconate (Hibiclens For Decolonization -) 1 applic TP HS [facility] Last Admin: 07/24/17 21:22 Dose: Not Given Collagenase (Santyl -) 1 applic TP DAILY [facility] Last Admin: 07/24/17 10:47 Dose: 1 applic Ferrous Sulfate (Feosol -) 325 mg PO BIDWM [facility] Last Admin: 07/24/17 17:56 Dose: 325 mg Furosemide (Lasix -) 20 mg PO DAILY [facility] Guaifenesin (Robitussin -) 10 ml PO Q8H PRN PRN Reason: COUGH Last Admin: 07/20/17 22:07 Dose: 10 ml Heparin Sodium (Porcine) (Heparin -) 5,000 unit SQ TID [facility] Last Admin: 07/25/17 06:25 Dose: 5,000 unit Levofloxacin (Levaquin -) 500 mg PO DAILY@0600 [facility] Last Admin: 07/25/17 06:25 Dose: 500 mg Levothyroxine Sodium 100 mcg/ (Levothyroxine Sodium 75 mcg) 175 mcg PO DAILY@ 0700 [facility] Last Admin: 07/25/17 06:25 Dose: 175 mcg Mesalamine (Asacol Hd -) 800 mg PO TID [facility] Last Admin: 07/25/17 06:25 Dose: 800 mg Metoprolol Succinate (Toprol Xl -) 12.5 mg PO DAILY [facility] Last Admin: 07/24/17 09:19 Dose: 12.5 mg Ondansetron HCl (Zofran Injection) 4 mg IVPUSH Q6H PRN PRN Reason: NAUSEA AND/OR VOMITING Prednisone 30 mg/ Prednisone 5 (mg) 35 mg PO DAILY [facility] Last Admin: 07/24/17 09:12 Dose: 35 mg Review of Systems Unable to obtain - Objective Vital Signs: Last Vital Signs Temp Pulse Resp BP Pulse Ox 98.2 F 78 18 135/79 100 07/25/17 06:00 07/25/17 06:00 07/25/17 06:00 07/25/17 06:00 07/24/17 21:00 Intake & Output 07/22/17 07/23/17 07/24/17 07/25/17 23:59 23:59 23:59 23:59 Intake Total 650 1000 965 300 Balance 650 1000 965 300 Weight 163 lb 162 lb 0.6 oz Constitutional: No Distress Calm Neck: Supple Negative JVD No Bruit Respiratory: Diminished Breath Sounds at the Bases Cardiovascular: S1 S2 Regular Rate and Rhythm Gastrointestinal: Soft Benign Normal Bowel Sounds Ext: Negative Edema Labs: CBC, BMP 07/22/17 07:00 07/21/17 06:55 Assessment/Plan Assessment: 1. CAD post demand ischemic injury, non ST segment elevation RI, claudia-lateral EKG changes, angina pectoris, clinically difficult to assess related to Down syndrome 2. Transient LV dysfunction with class I NYHA classification LV failure, ischemia related, resolved (diastolic LV dysfunction) 3. 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 Left lower lobe aspiration pneumonia, resolving 5. Pseudomonas UTI, resolved 6. History of acute Influenza A, resolved 7. Down's syndrome 8. Hypothyroidism 9. Anemia PLAN: 1. Toprol XL with caution hemodynamics permitting 2. As outlined in prior notes recommend the addition of ACEI or ARBS with caution, hemodynamics permitting 3. Continue ASA 4. As outlined in prior notes recommend addition of Statin therapy unless it is contraindicated 5. Antibiotics as per the ID/primary team 6. Recommend conservative medical management for the above noted CAD/ACS considering her clinical presentation and co-morbidities Mio Graves MD
[2017-07-25] MEDS ORDERED: VALSARTAN 40 MG TABLET (FP) PO SCH (10:00)
[2017-07-25] MEDS: ASPIRIN COATED 81 MG TABLET.EC PO SCH (10:32)
[2017-07-25] MEDS: FERROUS SO4 325 MG TABLET (FP) PO SCH ×2 (10:32→17:19)
[2017-07-25] MEDS: FUROSEMIDE 20 MG TABLET (FP) PO SCH (10:32)
[2017-07-25] MEDS: METOPROLOL SUCCINATE 25 MG TAB.SR.24H (FP) PO SCH (10:32)
[2017-07-25] MEDS: PREDNISONE PO SCH (10:32)
--- NOTE | 2017-07-25 10:58 | PN ---
Progress Note, Physician Chief Complaint: status que - Current Medication List Current Medications: Active Medications Acetaminophen (Tylenol -) 650 mg PO Q4H PRN PRN Reason: FEVER OR PAIN Last Admin: 07/20/17 22:10 Dose: 650 mg Albuterol/Ipratropium (Duoneb -) 1 amp NEB Q6H PRN Aspirin (Ecotrin -) 81 mg PO DAILY [facility] Last Admin: 07/25/17 10:32 Dose: 81 mg Atorvastatin Calcium (Lipitor -) 20 mg PO HS [facility] Last Admin: 07/24/17 21:23 Dose: 20 mg Chlorhexidine Gluconate (Hibiclens For Decolonization -) 1 applic TP HS [facility] Last Admin: 07/24/17 21:22 Dose: Not Given Collagenase (Santyl -) 1 applic TP DAILY [facility] Last Admin: 07/24/17 10:47 Dose: 1 applic Ferrous Sulfate (Feosol -) 325 mg PO BIDWM [facility] Last Admin: 07/25/17 10:32 Dose: 325 mg Furosemide (Lasix -) 20 mg PO DAILY [facility] Last Admin: 07/25/17 10:32 Dose: 20 mg Guaifenesin (Robitussin -) 10 ml PO Q8H PRN PRN Reason: COUGH Last Admin: 07/20/17 22:07 Dose: 10 ml Heparin Sodium (Porcine) (Heparin -) 5,000 unit SQ TID [facility] Last Admin: 07/25/17 06:25 Dose: 5,000 unit Levofloxacin (Levaquin -) 500 mg PO DAILY@0600 [facility] Last Admin: 07/25/17 06:25 Dose: 500 mg Levothyroxine Sodium 100 mcg/ (Levothyroxine Sodium 75 mcg) 175 mcg PO DAILY@ 0700 [facility] Last Admin: 07/25/17 06:25 Dose: 175 mcg Mesalamine (Asacol Hd -) 800 mg PO TID [facility] Last Admin: 07/25/17 06:25 Dose: 800 mg Metoprolol Succinate (Toprol Xl -) 12.5 mg PO DAILY [facility] Last Admin: 07/25/17 10:32 Dose: 12.5 mg Ondansetron HCl (Zofran Injection) 4 mg IVPUSH Q6H PRN PRN Reason: NAUSEA AND/OR VOMITING Prednisone 30 mg/ Prednisone 5 (mg) 35 mg PO DAILY [facility] Last Admin: 07/25/17 10:32 Dose: 35 mg Valsartan (Diovan -) 40 mg PO DAILY [facility] Last Admin: 07/25/17 10:36 Dose: 40 mg - Objective Vital Signs: Vital Signs Temperature 98.0 F 07/25/17 09:00 Pulse Rate 68 07/25/17 09:00 Respiratory Rate 20 07/25/17 09:00 Blood Pressure 118/61 07/25/17 09:00 O2 Sat by Pulse Oximetry (%) 100 07/24/17 21:00 Constitutional: Yes: No Distress Eyes: Yes: WNL HENT: Yes: WNL Neck: Yes: Decreased ROM Cardiovascular: Yes: WNL Respiratory: Yes: WNL Gastrointestinal: Yes: WNL ...Rectal Exam: Yes: Deferred Genitourinary: Yes: WNL Breast(s): Yes: WNL Musculoskeletal: Yes: WNL Extremities: Yes: WNL Edema: No Integumentary: Yes: WNL Wound/Incision: Yes: Clean/Dry Neurological: Yes: Pre-Existing Deficit ...Motor Strength: WNL Labs: CBC, BMP 07/22/17 07:00 07/21/17 06:55 INR, PTT INR 0.98 (0.82-1.09) 06/25/17 09:22 Problem List - Problems (1) Down syndrome Code(s): Q90.9 - DOWN SYNDROME, UNSPECIFIED (2) Puncture wound of left foot excluding toes with infection Code(s): S91.332A - PUNCTURE WOUND WITHOUT FOREIGN BODY, LEFT FOOT, INIT ENCNTR ; L08.9 - LOCAL INFECTION OF THE SKIN AND SUBCUTANEOUS TISSUE, UNSP (3) CHF (congestive heart failure) Code(s): I50.9 - HEART FAILURE, UNSPECIFIED Qualifiers: Congestive heart failure type: diastolic Congestive heart failure chronicity: acute on chronic Qualified Code(s): I50.33 - Acute on chronic diastolic (congestive) heart failure (4) Mitral and aortic insufficiency Code(s): I08.0 - RHEUMATIC DISORDERS OF BOTH MITRAL AND AORTIC VALVES Assessment/Plan awaiting state to agree for d/c nh
--- NOTE | 2017-07-25 11:01 | PN ---
Progress Note (short form) - Note Progress Note: Patient making continued Neurological improvement. Now raising Left upper extremity against gravity spontaneously and using it to make gestures and fine movements. No complaints of pain. Dressing is clean, dry and intact. Upon removal of Aquacell yesterday, wound is healing and Dermabond applied. New dressing may remain until skin clip removal planned for after August 04. PLAN -Patient should ambulate with Physical Therapy and spend time in chair -Patient ready for discharge from Neurosurgery standpoint and should continue Physical Therapy/Rehabilitation. -I have not seen the family over the past week despite rounding daily at different times. Will reach out to them to discuss recovery.
--- NOTE | 2017-07-25 12:45 | PN ---
Progress Note, Physician History of Present Illness: PULMONARY ALERT,NAD,-SOB. - Current Medication List Current Medications: Active Medications Acetaminophen (Tylenol -) 650 mg PO Q4H PRN PRN Reason: FEVER OR PAIN Last Admin: 07/20/17 22:10 Dose: 650 mg Aspirin (Ecotrin -) 81 mg PO DAILY [facility] Last Admin: 07/25/17 10:32 Dose: 81 mg Atorvastatin Calcium (Lipitor -) 20 mg PO HS [facility] Last Admin: 07/24/17 21:23 Dose: 20 mg Chlorhexidine Gluconate (Hibiclens For Decolonization -) 1 applic TP HS [facility] Last Admin: 07/24/17 21:22 Dose: Not Given Collagenase (Santyl -) 1 applic TP DAILY [facility] Last Admin: 07/24/17 10:47 Dose: 1 applic Ferrous Sulfate (Feosol -) 325 mg PO BIDWM [facility] Last Admin: 07/25/17 10:32 Dose: 325 mg Furosemide (Lasix -) 20 mg PO DAILY [facility] Last Admin: 07/25/17 10:32 Dose: 20 mg Heparin Sodium (Porcine) (Heparin -) 5,000 unit SQ TID [facility] Last Admin: 07/25/17 06:25 Dose: 5,000 unit Levofloxacin (Levaquin -) 500 mg PO DAILY@0600 [facility] Last Admin: 07/25/17 06:25 Dose: 500 mg Levothyroxine Sodium 100 mcg/ (Levothyroxine Sodium 75 mcg) 175 mcg PO DAILY@ 0700 [facility] Last Admin: 07/25/17 06:25 Dose: 175 mcg Mesalamine (Asacol Hd -) 800 mg PO TID [facility] Last Admin: 07/25/17 06:25 Dose: 800 mg Metoprolol Succinate (Toprol Xl -) 12.5 mg PO DAILY [facility] Last Admin: 07/25/17 10:32 Dose: 12.5 mg Prednisone 30 mg/ Prednisone 5 (mg) 35 mg PO DAILY [facility] Last Admin: 07/25/17 10:32 Dose: 35 mg - Objective Vital Signs: Vital Signs Temperature 98.0 F 07/25/17 09:00 Pulse Rate 68 07/25/17 09:00 Respiratory Rate 20 07/25/17 09:00 Blood Pressure 118/61 07/25/17 09:00 O2 Sat by Pulse Oximetry (%) 100 01/16/18 10:00 Constitutional: Yes: Well Nourished, Calm Eyes: Yes: WNL HENT: Yes: WNL Neck: Yes: WNL Cardiovascular: Yes: Regular Rate and Rhythm, S1, S2 Respiratory: Yes: Rhonchi (FEW RHONCI) Gastrointestinal: Yes: Normal Bowel Sounds, Soft Extremities: Yes: WNL Edema: No Labs: CBC, BMP Problem List - Problems (1) Anemia Code(s): D64.9 - ANEMIA, UNSPECIFIED Qualifiers: Anemia type: unspecified type Qualified Code(s): D64.9 - Anemia, unspecified (2) Diastolic dysfunction Code(s): I51.9 - HEART DISEASE, UNSPECIFIED (3) Down syndrome Code(s): Q90.9 - DOWN SYNDROME, UNSPECIFIED (4) Hypothyroidism Code(s): E03.9 - HYPOTHYROIDISM, UNSPECIFIED Qualifiers: Hypothyroidism type: unspecified Qualified Code(s): E03.9 - Hypothyroidism , unspecified (5) Influenza A Code(s): J10.1 - FLU DUE TO OTH IDENT INFLUENZA VIRUS W OTH RESP MANIFEST (6) Mitral and aortic insufficiency Code(s): I08.0 - RHEUMATIC DISORDERS OF BOTH MITRAL AND AORTIC VALVES (7) Pneumonia Code(s): J18.9 - PNEUMONIA, UNSPECIFIED ORGANISM Qualifiers: Pneumonia type: due to unspecified organism Laterality: left Lung location: lower lobe of lung Qualified Code(s): J18.1 - Lobar pneumonia, unspecified organism Assessment/Plan A/P s/p C1-C6 fusion/dural tear repair Pneumonia likely Aspiration clinically improving UTI Influenza A CAD LV Diastolic Dysfunction Down Syndrome Hypothyroidism - continue antibiotics - aspiration precautions - O2 to keep SpO2 >90% - DVT prophylaxis DR GUAMAN
[2017-07-25] MEDS: COLLAGENASE CLOSTRIDIUM HIST. 30 GRAMS TUBE TP SCH (17:21)
[2017-07-25] MEDS: ATORVASTATIN CA 20 MG TABLET (FP) PO SCH (22:00)
[2017-07-25] MEDS: CHLORHEXIDINE GLUCONATE 4% CLEANSER FOR DECOLONIZATION TP SCH (22:00)
[2017-07-26] MEDS ORDERED: LEVOTHYROXINE NA 100 MCG TABLET (FP) ONE (06:19)
[2017-07-26] MEDS ORDERED: LEVOTHYROXINE NA 75 MCG TABLET (FP) ONE (06:19)
[2017-07-26] MEDS: LEVOFLOXACIN 500 MG TABLET (FP) PO SCH (06:44)
[2017-07-26] MEDS: MESALAMINE 800 MG TABLET.DR PO SCH ×2 (06:44→14:38)
[2017-07-26] MEDS: LEVOTHYROXINE 100 MCG, LEVOTHYROXINE 75 MCG PO SCH (06:44)
[2017-07-26] MEDS: HEPARIN NA (PORCINE) 5,000 UNITS/ML 1ML VIAL SQ SCH ×2 (06:45→14:38)
[2017-07-26] MEDS: FERROUS SO4 325 MG TABLET (FP) PO SCH ×2 (08:21→17:47)
[2017-07-26] MEDS ORDERED: predniSONE 10 MG TABLET (UD) ONE (08:37)
[2017-07-26 08:42] LABS: HEMATOCRIT 32.9 % (32.4-45.2); HEMOGLOBIN 10.2 GM/dL (10.7-15.3); MCH 30.7 pg (25.7-33.7); MCHC 30.9 g/dl (32.0-36.0); MEAN CELL VOLUME 99.3 fl (80-96); MEAN PLT VOLUME 10.4 fl (7.5-11.1); PLATELET COUNT 198 K/MM3 (134-434); RBC 3.32 M/mm3 (3.60-5.2); RDW 17.9 % (11.6-15.6); WHITE BLOOD COUNT 8.1 K/mm3 (4.0-10.0)
[2017-07-26] MEDS: PREDNISONE PO SCH (09:00)
[2017-07-26] MEDS: FUROSEMIDE 20 MG TABLET (FP) PO SCH (09:00)
[2017-07-26] MEDS: METOPROLOL SUCCINATE 25 MG TAB.SR.24H (FP) PO SCH (09:00)
[2017-07-26] MEDS: ASPIRIN COATED 81 MG TABLET.EC PO SCH (09:01)
--- NOTE | 2017-07-26 11:46 | PN ---
Progress Note (short form) - Note Progress Note: 61 y/o F with PMH Down's syndrome, hypothyroidism, recent hospitalization in [facility] for L ankle pressure ulcer-stage 3, who presented to ED s/p fall. As per pt' s family and nurse, pt has decreased ambulation over the last month and was found on the ground by family on AM of ED arrival. Pt injured R side of forehead and lacerated lip during fall. Denied LOC, syncope, palpitations before the event, and denied fever, chills, chest pain, or recent illnesses at time of admission. as per family walks at baseline, hx of ulcer, though balance has been more of an issue over 1-2 months; she has left sided weakness post fall. CT HD Impression: 1. No acute intracranial hemorrhage. 2. No compelling evidence of cerebral infarction at this time. Please note that subacute cerebral infarctions may be indistinct on CT due to "fogging effect" approximately 2-3 weeks following infarction, requiring clinical correlation. If warranted, MRI may be obtained for further evaluati 3. 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 FU : awake and no c/o moving RUE > LUe better , residual weakness LE s/p revision Post revision of left C1 screw, repair of meningocele, debridment and advancement flaps denies WARD, neck pain, SOB awaiting placement - Past Medical History TOBACCO WEIGHER: Yes: Other (miid cognition impaired downs syn) Cardio/Vascular: Yes: Aortic Insufficiency, Mitral Insufficiency Pulmonary: Yes: Other Gastrointestinal: Yes: Ulcerative Colitis Hepatobiliary: Yes: Hepatitis B Musculoskeletal: Yes: Other (c/s fusions) Endocrine: Yes: Hypothyroidism - Alcohol/Substance Use Hx Alcohol Use: No - Smoking History Smoking history: Never smoked Have you smoked in the past 12 months: No Home Medications - Allergies Allergies/Adverse Reactions: Allergies Allergy/AdvReac Type Severity Reaction Status Date / Time raspberry Allergy Severe Rash Verified 06/27/17 14:48 strawberry Allergy Severe Rash Verified 06/27/17 14:49 barley Allergy Intermediate Rash Verified 06/27/17 14:47 wheat Allergy Intermediate Rash Verified 06/25/17 08:59 egg AdvReac Severe Nausea Verified 06/25/17 08:59 egg yolk AdvReac Severe Nausea Verified 06/25/17 08:59 - Home Medications Home Medications: Ambulatory Orders Furosemide [Lasix -] 40 mg PO DAILY 04/20/15 Levothyroxine [Synthroid -] 150 mcg PO DAILY 03/26/17 Mesalamine [Asacol Hd -] 800 mg PO TID 03/26/17 Raloxifene HCl 60 mg PO DAILY 03/26/17 Family Disease History - Family Disease History Family Disease History: Heart Disease: Mother Physical Exam-Neuro Vital Signs: Vital Signs Temperature 97.4 F L 07/26/17 09:01 Pulse Rate 67 07/26/17 09:01 Respiratory Rate 18 07/26/17 09:01 Blood Pressure 117/63 07/26/17 09:01 O2 Sat by Pulse Oximetry (%) 100 07/26/17 08:24 Constitutional: Yes: Well Nourished Labs: CBCD WBC 8.1 K/mm3 (4.0-10.0) 07/26/17 07:00 RBC 3.32 M/mm3 (3.60-5.2) L 07/26/17 07:00 Hgb 10.2 GM/dL (10.7-15.3) L D 07/26/17 07:00 Hct 32.9 % (32.4-45.2) D 07/26/17 07:00 MCV 99.3 fl (80-96) H 07/26/17 07:00 MCHC 30.9 g/dl (32.0-36.0) L 07/26/17 07:00 RDW 17.9 % (11.6-15.6) H 07/26/17 07:00 Plt Count 198 K/MM3 (134-434) 07/26/17 07:00 MPV 10.4 fl (7.5-11.1) 07/26/17 07:00 CMP Sodium 138 mmol/L (136-145) 07/21/17 06:55 Potassium 3.7 mmol/L (3.5-5.1) 07/21/17 06:55 Chloride 101 mmol/L (98-107) 07/21/17 06:55 Carbon Dioxide 27 mmol/L (21-32) 07/21/17 06:55 Anion Gap 10 (8-16) 07/21/17 06:55 BUN 13 mg/dL (7-18) 07/21/17 06:55 Creatinine 0.7 mg/dL (0.55-1.02) 07/21/17 06:55 Creat Clearance w eGFR > 60 (>60) 07/14/17 06:00 Calcium 7.8 mg/dL (8.5-10.1) L 07/21/17 06:55 Total Bilirubin 0.2 mg/dL (0.2-1.0) D 07/14/17 06:00 AST 20 U/L (15-37) 07/14/17 06:00 ALT 28 U/L (12-78) D 07/14/17 06:00 Alkaline Phosphatase 84 U/L (45-117) 07/14/17 06:00 Total Protein 5.3 g/dl (6.4-8.2) L 07/14/17 06:00 Albumin 1.8 g/dl (3.4-5.0) L 07/14/17 06:00 - Neuro Exam Level Of Consciousness: Yes: Alert (awake, pleasant, family bedside, EOMI, no facila, left arm weakness TR 4/5, hand grasp 4/5, BL leg weakness, (? tetraplegic -limited effort), RUE 3-4/5 , distal movements feet BL , plantars up BL, left leg inc tone >right, unable to ambulate ) Problem List - Problems (1) CHF (congestive heart failure) Code(s): I50.9 - HEART FAILURE, UNSPECIFIED (2) Down syndrome Code(s): Q90.9 - DOWN SYNDROME, UNSPECIFIED (3) Weakness Code(s): R53.1 - WEAKNESS Assessment/Plan 59 y/o F with PMH Down's syndrome, hypothyroidism, recent hospitalization in Jun for L ankle pressure ulcer-stage 3, who presented to ED s/p fall. As per pt' s family and nurse, pt has decreased ambulation over the last month and was found on the ground by family on AM of ED arrival. s/p posterior laminectomy with fusion of C1-C6, with weakness L >R residual tetraparesis, s/p revision left C1 screw, repair of meningocele, moving UE better R >L; awaiting placement Dr Alexis Problem List - Problems (1) CHF (congestive heart failure) Code(s): I50.9 - HEART FAILURE, UNSPECIFIED Qualifiers: Congestive heart failure type: diastolic Congestive heart failure chronicity: acute on chronic Qualified Code(s): I50.33 - Acute on chronic diastolic (congestive) heart failure (2) Down syndrome Code(s): Q90.9 - DOWN SYNDROME, UNSPECIFIED (3) Weakness Code(s): R53.1 - WEAKNESS
[2017-07-26 11:50] LABS: PLATELET ESTIMATE NORMAL; TARGET CELLS 1+
--- NOTE | 2017-07-26 11:50 | PN ---
Progress Note, Physician History of Present Illness: Afebrile, cough resolved, sensorium improved. - Current Medication List Current Medications: Active Medications Acetaminophen (Tylenol -) 650 mg PO Q4H PRN PRN Reason: FEVER OR PAIN Last Admin: 07/20/17 22:10 Dose: 650 mg Aspirin (Ecotrin -) 81 mg PO DAILY [facility] Last Admin: 07/26/17 09:01 Dose: 81 mg Atorvastatin Calcium (Lipitor -) 20 mg PO HS [facility] Last Admin: 07/25/17 22:00 Dose: 20 mg Chlorhexidine Gluconate (Hibiclens For Decolonization -) 1 applic TP HS [facility] Last Admin: 07/25/17 22:00 Dose: Not Given Collagenase (Santyl -) 1 applic TP DAILY [facility] Last Admin: 07/25/17 17:21 Dose: 1 applic Ferrous Sulfate (Feosol -) 325 mg PO BIDWM [facility] Last Admin: 07/26/17 08:21 Dose: 325 mg Furosemide (Lasix -) 20 mg PO DAILY [facility] Last Admin: 07/26/17 09:00 Dose: 20 mg Heparin Sodium (Porcine) (Heparin -) 5,000 unit SQ TID [facility] Last Admin: 07/26/17 06:45 Dose: 5,000 unit Levofloxacin (Levaquin -) 500 mg PO DAILY@0600 [facility] Last Admin: 07/26/17 06:44 Dose: 500 mg Levothyroxine Sodium 100 mcg/ (Levothyroxine Sodium 75 mcg) 175 mcg PO DAILY@ 0700 [facility] Last Admin: 07/26/17 06:44 Dose: 175 mcg Mesalamine (Asacol Hd -) 800 mg PO TID [facility] Last Admin: 07/26/17 06:44 Dose: 800 mg Metoprolol Succinate (Toprol Xl -) 12.5 mg PO DAILY [facility] Last Admin: 07/26/17 09:00 Dose: 12.5 mg Prednisone 30 mg/ Prednisone 5 (mg) 35 mg PO DAILY [facility] Last Admin: 07/26/17 09:00 Dose: 35 mg - Objective Vital Signs: Vital Signs Temperature 97.4 F L 07/26/17 09:01 Pulse Rate 67 07/26/17 09:01 Respiratory Rate 18 07/26/17 09:01 Blood Pressure 117/63 07/26/17 09:01 O2 Sat by Pulse Oximetry (%) 100 07/26/17 08:24 Constitutional: Yes: No Distress, Calm, Thin Neck: Yes: Supple Cardiovascular: Yes: Regular Rate and Rhythm Respiratory: Yes: Regular, Diminished Gastrointestinal: Yes: Normal Bowel Sounds, Soft Peripheral Pulses WNL: No Labs: CBC, BMP 07/26/17 07:00 07/21/17 06:55 INR, PTT INR 0.98 (0.82-1.09) 06/25/17 09:22 Problem List - Problems (1) Diastolic dysfunction Code(s): I51.9 - HEART DISEASE, UNSPECIFIED (2) CAD (coronary artery disease) Code(s): I25.10 - ATHSCL HEART DISEASE OF [place] CORONARY ARTERY W/O ANG PCTRS Qualifiers: Coronary Disease-Associated Artery/Lesion type: [place] artery [place] vs. transplanted heart: [place] heart Associated angina: without angina Qualified Code(s): I25.10 - Atherosclerotic heart disease of [place] coronary artery without angina pectoris (3) Demand ischemia Code(s): I24.8 - OTHER FORMS OF ACUTE ISCHEMIC HEART DISEASE (4) Down syndrome Code(s): Q90.9 - DOWN SYNDROME, UNSPECIFIED (5) Hypothyroidism Code(s): E03.9 - HYPOTHYROIDISM, UNSPECIFIED Qualifiers: Hypothyroidism type: unspecified Qualified Code(s): E03.9 - Hypothyroidism , unspecified (6) Influenza A Code(s): J10.1 - FLU DUE TO OTH IDENT INFLUENZA VIRUS W OTH RESP MANIFEST (7) UTI (urinary tract infection) Code(s): N39.0 - URINARY TRACT INFECTION, SITE NOT SPECIFIED (8) Anemia Code(s): D64.9 - ANEMIA, UNSPECIFIED Qualifiers: Anemia type: unspecified type Qualified Code(s): D64.9 - Anemia, unspecified (9) Pneumonia Code(s): J18.9 - PNEUMONIA, UNSPECIFIED ORGANISM Qualifiers: Pneumonia type: due to unspecified organism Laterality: left Lung location: lower lobe of lung Qualified Code(s): J18.1 - Lobar pneumonia, unspecified organism Assessment/Plan 1. CAD post demand ischemic injury, angina pectoris, clinically difficult to assess related to Down syndrome 2. Transient LV dysfunction with class I NYHA classification LV failure, ischemia related, resolved (diastolic LV dysfunction) 3. 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 Left lower lobe aspiration pneumonia, resolving 5. Pseudomonas UTI, resolved 6. History of acute Influenza A, resolved 7. Down's syndrome 8. Hypothyroidism 9. Anemia PLAN: 1. Toprol XL 12.5 qd hemodynamics permitting 2. As outlined in prior notes recommend the addition of ACEI or ARBS with caution, hemodynamics permitting 3. Continue ASA 81 qd and Lipitor 20 qd 4. Complete antibiotic course as per the ID/primary team 5. Recommend conservative medical management for the above noted CAD/ACS considering her clinical presentation and co-morbidities 6. DVT prophylaxis
--- NOTE | 2017-07-26 13:45 | PN ---
Progress Note, Physician History of Present Illness: status quo - Current Medication List Current Medications: Active Medications Acetaminophen (Tylenol -) 650 mg PO Q4H PRN PRN Reason: FEVER OR PAIN Last Admin: 07/20/17 22:10 Dose: 650 mg Aspirin (Ecotrin -) 81 mg PO DAILY [facility] Last Admin: 07/26/17 09:01 Dose: 81 mg Atorvastatin Calcium (Lipitor -) 20 mg PO HS [facility] Last Admin: 07/25/17 22:00 Dose: 20 mg Chlorhexidine Gluconate (Hibiclens For Decolonization -) 1 applic TP HS [facility] Last Admin: 07/25/17 22:00 Dose: Not Given Collagenase (Santyl -) 1 applic TP DAILY [facility] Last Admin: 07/25/17 17:21 Dose: 1 applic Ferrous Sulfate (Feosol -) 325 mg PO BIDWM [facility] Last Admin: 07/26/17 08:21 Dose: 325 mg Furosemide (Lasix -) 20 mg PO DAILY [facility] Last Admin: 07/26/17 09:00 Dose: 20 mg Heparin Sodium (Porcine) (Heparin -) 5,000 unit SQ TID [facility] Last Admin: 07/26/17 06:45 Dose: 5,000 unit Levofloxacin (Levaquin -) 500 mg PO DAILY@0600 [facility] Last Admin: 07/26/17 06:44 Dose: 500 mg Levothyroxine Sodium 100 mcg/ (Levothyroxine Sodium 75 mcg) 175 mcg PO DAILY@ 0700 [facility] Last Admin: 07/26/17 06:44 Dose: 175 mcg Mesalamine (Asacol Hd -) 800 mg PO TID [facility] Last Admin: 07/26/17 06:44 Dose: 800 mg Metoprolol Succinate (Toprol Xl -) 12.5 mg PO DAILY [facility] Last Admin: 07/26/17 09:00 Dose: 12.5 mg Prednisone 30 mg/ Prednisone 5 (mg) 35 mg PO DAILY [facility] Last Admin: 07/26/17 09:00 Dose: 35 mg - Objective Vital Signs: Vital Signs Temperature 97.4 F L 07/26/17 09:01 Pulse Rate 67 07/26/17 09:01 Respiratory Rate 18 07/26/17 09:01 Blood Pressure 117/63 07/26/17 09:01 O2 Sat by Pulse Oximetry (%) 100 07/26/17 08:24 Constitutional: Yes: Well Nourished Eyes: Yes: WNL HENT: Yes: WNL Neck: Yes: WNL Cardiovascular: Yes: WNL Respiratory: Yes: WNL Gastrointestinal: Yes: WNL ...Rectal Exam: Yes: Deferred Genitourinary: Yes: WNL Breast(s): Yes: WNL Musculoskeletal: Yes: WNL Extremities: Yes: WNL Edema: No Peripheral Pulses WNL: Yes Integumentary: Yes: WNL Wound/Incision: Yes: Clean/Dry Neurological: Yes: WNL, Unresponsive Labs: CBC, BMP 07/26/17 07:00 07/21/17 06:55 INR, PTT INR 0.98 (0.82-1.09) 06/25/17 09:22 Problem List - Problems (1) Down syndrome Code(s): Q90.9 - DOWN SYNDROME, UNSPECIFIED (2) Puncture wound of left foot excluding toes with infection Code(s): S91.332A - PUNCTURE WOUND WITHOUT FOREIGN BODY, LEFT FOOT, INIT ENCNTR ; L08.9 - LOCAL INFECTION OF THE SKIN AND SUBCUTANEOUS TISSUE, UNSP (3) CHF (congestive heart failure) Code(s): I50.9 - HEART FAILURE, UNSPECIFIED Qualifiers: Congestive heart failure type: diastolic Congestive heart failure chronicity: acute on chronic Qualified Code(s): I50.33 - Acute on chronic diastolic (congestive) heart failure (4) Mitral and aortic insufficiency Code(s): I08.0 - RHEUMATIC DISORDERS OF BOTH MITRAL AND AORTIC VALVES Assessment/Plan awaiting instructions from state regardind d/c nh
[2017-07-26] MEDS ORDERED: PT OWN MED DRAWER 7, Y5N ONE (14:34)
[2017-07-26] MEDS: COLLAGENASE CLOSTRIDIUM HIST. 30 GRAMS TUBE TP SCH (14:39)
--- NOTE | 2017-07-26 15:01 | PN ---
Progress Note, Physician History of Present Illness: pulmonary alert,nad,-c/o sob,-cp - Current Medication List Current Medications: Active Medications Acetaminophen (Tylenol -) 650 mg PO Q4H PRN PRN Reason: FEVER OR PAIN Last Admin: 07/20/17 22:10 Dose: 650 mg Aspirin (Ecotrin -) 81 mg PO DAILY [facility] Last Admin: 07/26/17 09:01 Dose: 81 mg Atorvastatin Calcium (Lipitor -) 20 mg PO HS [facility] Last Admin: 07/25/17 22:00 Dose: 20 mg Chlorhexidine Gluconate (Hibiclens For Decolonization -) 1 applic TP HS [facility] Last Admin: 07/25/17 22:00 Dose: Not Given Collagenase (Santyl -) 1 applic TP DAILY [facility] Last Admin: 07/26/17 14:39 Dose: 1 applic Ferrous Sulfate (Feosol -) 325 mg PO BIDWM [facility] Last Admin: 07/26/17 08:21 Dose: 325 mg Furosemide (Lasix -) 20 mg PO DAILY [facility] Last Admin: 07/26/17 09:00 Dose: 20 mg Heparin Sodium (Porcine) (Heparin -) 5,000 unit SQ TID [facility] Last Admin: 07/26/17 14:38 Dose: 5,000 unit Levofloxacin (Levaquin -) 500 mg PO DAILY@0600 [facility] Last Admin: 07/26/17 06:44 Dose: 500 mg Levothyroxine Sodium 100 mcg/ (Levothyroxine Sodium 75 mcg) 175 mcg PO DAILY@ 0700 [facility] Last Admin: 07/26/17 06:44 Dose: 175 mcg Mesalamine (Asacol Hd -) 800 mg PO TID [facility] Last Admin: 07/26/17 14:38 Dose: 800 mg Metoprolol Succinate (Toprol Xl -) 12.5 mg PO DAILY [facility] Last Admin: 07/26/17 09:00 Dose: 12.5 mg Prednisone 30 mg/ Prednisone 5 (mg) 35 mg PO DAILY [facility] Last Admin: 07/26/17 09:00 Dose: 35 mg - Objective Vital Signs: Vital Signs Temperature 97.4 F L 07/26/17 09:01 Pulse Rate 67 07/26/17 09:01 Respiratory Rate 18 07/26/17 09:01 Blood Pressure 117/63 07/26/17 09:01 O2 Sat by Pulse Oximetry (%) 100 07/26/17 08:24 Constitutional: Yes: Well Nourished, Calm Eyes: Yes: WNL HENT: Yes: WNL Neck: Yes: WNL Cardiovascular: Yes: Regular Rate and Rhythm, S1, S2 Respiratory: Yes: On BiPap (few scattered rhonchi) Gastrointestinal: Yes: Normal Bowel Sounds, Soft Extremities: Yes: WNL Edema: No Labs: CBC, BMP 07/26/17 07:00 07/21/17 06:55 INR, PTT INR 0.98 (0.82-1.09) 06/25/17 09:22 Problem List - Problems (1) Anemia Code(s): D64.9 - ANEMIA, UNSPECIFIED Qualifiers: Anemia type: unspecified type Qualified Code(s): D64.9 - Anemia, unspecified (2) Diastolic dysfunction Code(s): I51.9 - HEART DISEASE, UNSPECIFIED (3) Down syndrome Code(s): Q90.9 - DOWN SYNDROME, UNSPECIFIED (4) Hypothyroidism Code(s): E03.9 - HYPOTHYROIDISM, UNSPECIFIED Qualifiers: Hypothyroidism type: unspecified Qualified Code(s): E03.9 - Hypothyroidism , unspecified (5) Influenza A Code(s): J10.1 - FLU DUE TO OTH IDENT INFLUENZA VIRUS W OTH RESP MANIFEST (6) Mitral and aortic insufficiency Code(s): I08.0 - RHEUMATIC DISORDERS OF BOTH MITRAL AND AORTIC VALVES (7) Pneumonia Code(s): J18.9 - PNEUMONIA, UNSPECIFIED ORGANISM Qualifiers: Pneumonia type: due to unspecified organism Laterality: left Lung location: lower lobe of lung Qualified Code(s): J18.1 - Lobar pneumonia, unspecified organism Assessment/Plan A/P s/p C1-C6 fusion/dural tear repair Pneumonia likely Aspiration clinically improving UTI Influenza A CAD LV Diastolic Dysfunction Down Syndrome Hypothyroidism - continue antibiotics - aspiration precautions - O2 to keep SpO2 >90% - DVT prophylaxis DR GUAMAN
[2017-07-26 15:30] VITALS: BP 105/60; PULSE 65; TEMP 98.1
--- NOTE | 2017-07-26 15:57 | DS ---
Physical Examination Vital Signs: Vital Signs Temperature 98.1 F 07/26/17 14:28 Pulse Rate 65 07/26/17 14:28 Respiratory Rate 22 07/26/17 14:28 Blood Pressure 105/60 07/26/17 14:28 O2 Sat by Pulse Oximetry (%) 100 07/26/17 08:24 Constitutional: Yes: Well Nourished Eyes: Yes: WNL HENT: Yes: WNL Neck: Yes: Decreased ROM Cardiovascular: Yes: WNL Respiratory: Yes: WNL Gastrointestinal: Yes: WNL ...Rectal Exam: Yes: Deferred Renal/: Yes: WNL Breast(s): Yes: WNL Musculoskeletal: Yes: Joint Stiffness Extremities: Yes: WNL Edema: No Peripheral Pulses WNL: Yes Peripheral Pulses: Left Radial: 2+, Right Radial: 2+, Left Doralis Pedis: 2+, Right Dorsalis Pedis: 2+ Neurological: Yes: Weakness Psychiatric: Yes: Other (downs cognition) Labs: CBC, BMP 07/26/17 07:00 07/21/17 06:55 Discharge Summary Reason For Visit: WEAKNESS,HYPTHERMIA Current Active Problems Anemia (Acute) CAD (coronary artery disease) (Acute) CHF (congestive heart failure) (Acute) Demand ischemia (Acute) Diastolic dysfunction (Acute) Down syndrome (Acute) Hypothermia (Acute) Hypothyroidism (Acute) Influenza A (Acute) Mitral and aortic insufficiency (Acute) Pneumonia (Acute) Puncture wound of left foot excluding toes with infection (Acute) UTI (urinary tract infection) (Acute) Weakness (Acute) Condition: Stable - Instructions Referrals: Satya Birch MD [Primary Care Provider] - - Home Medications Comprehensive Discharge Medication List: Ambulatory Orders Furosemide [Lasix -] 40 mg PO DAILY 04/20/15 Levothyroxine [Synthroid -] 150 mcg PO DAILY 03/26/17 Mesalamine [Asacol Hd -] 800 mg PO TID 03/26/17 Raloxifene HCl 60 mg PO DAILY 03/26/17
== END 2017-07-26 19:27 | DRG 28 ==
LOC: JER 08:54 → JERBED 14:12 → J6S 16:45 → JICU 06-27 23:10 → J6S 06-30 14:46 → UNDODISIN 07-02 15:14 → J6S 07-02 15:18 → JERBED 07-08 21:48 → J6S 07-08 21:51 → JICU 07-14 20:01 → J5S 07-15 12:59
PROVIDERS: ADMIT Family Medicine; ATTEND Family Medicine
PROC: 0RG20AJ Fusion of 2 or more Cervical Vertebral Joints with Interbody Fusion Device, Posterior Approach, Anterior Column, Open Approach (ICD-10-PCS; principal; 2017-06-25)
PROC: 00NW0ZZ Release Cervical Spinal Cord, Open Approach (ICD-10-PCS; 2017-06-25)
PROC: 0RG00AJ Fusion of Occipital-cervical Joint with Interbody Fusion Device, Posterior Approach, Anterior Column, Open Approach (ICD-10-PCS; 2017-06-25)
PROC: 0PW304Z Revision of Internal Fixation Device in Cervical Vertebra, Open Approach (ICD-10-PCS; 2017-07-14)
PROC: 0RB10ZZ Excision of Cervical Vertebral Joint, Open Approach (ICD-10-PCS; 2017-07-14)
PROC: 00QT0ZZ Repair Spinal Meninges, Open Approach (ICD-10-PCS; 2017-07-14)
DX: G82.50 Quadriplegia, unspecified (principal); I21.A1 Myocardial infarction type 2; A41.9 Sepsis, unspecified organism; J69.0 Pneumonitis due to inhalation of food and vomit; M47.12 Other spondylosis with myelopathy, cervical region; N39.0 Urinary tract infection, site not specified; G96.0 Cerebrospinal fluid leak; G97.82 Other postprocedural complications and disorders of nervous system; I50.30 Unspecified diastolic (congestive) heart failure; I24.8 Other forms of acute ischemic heart disease; G95.20 Unspecified cord compression; R68.0 Hypothermia, not associated with low environmental temperature; Q90.9 Down syndrome, unspecified; Q76.1 Klippel-Feil syndrome; J09.X2 Influenza due to identified novel influenza A virus with other respiratory manifestations; G96.19 Other disorders of meninges, not elsewhere classified; E03.9 Hypothyroidism, unspecified; D64.9 Anemia, unspecified; I25.10 Atherosclerotic heart disease of native coronary artery without angina pectoris; B96.5 Pseudomonas (aeruginosa) (mallei) (pseudomallei) as the cause of diseases classified elsewhere; E87.6 Hypokalemia; Y83.9 Surgical procedure, unspecified as the cause of abnormal reaction of the patient, or of later complication, without mention of misadventure at the time of the procedure; R53.1 Weakness; M48.02 Spinal stenosis, cervical region
CPT/HCPCS: 36415; 70450-TC; 70551-TC; 71010-TC; 71045-TC; 72125-TC; 72141-TC; 73523-TC; 73560-TC-LT; 73560-TC-RT; 73630-TC-LT; 73700-TC-RT; 74230-TC; 76000-TC; 80048; 80053; 80061; 81003; 81015; 82040; 82180; 82310; 82330; 82550; 82553; 82803; 83605; 83721; 83735; 83880; 83970; 84100; 84443; 84484; 85025; 85027; 85610; 85730; 86850; 86900; 86901; 86922; 87040; 87076; 87086; 87186; 87804; 88305-TC; 92611-GN; 93005; 93010; 93306-TC; 94002; 94010; 94640; 94760; 97116-GP; 97162-GP; 99284-25; G0480; J1644

== ENCOUNTER 2017-08-22 10:58 | Inpatient (IN) | payer OTHER ==
--- NOTE | 2017-08-22 11:14 | PDOC ---
History of Present Illness - General Chief Complaint: Respiratory Stated Complaint: FEVER Time Seen by Provider: 08/22/17 11:14 - History of Present Illness Initial Comments: 08/22/17 11:20 Ms. Santos is a 61 yo female w/ pmh of Down's syndrome, hypothyroidism, with recent discharge s/p laminectomy with fusion of C1-C6 with revision of dural tear (06/28/17) 2/2 recurrent falls (admission 06/25-07/26). She presents from [facility] as nursing staff witnessed patient to have eyes closed and "not look right" for approximately 10 seconds. On presentation rectal temperatur was 102.4. The patient denies chest pain, shortness of breath, headache and dizziness. Denies fever, chills, nausea, vomit, diarrhea and constipation. Denies dysuria, frequency, urgency and hematuria. Allergies: NKDA Past History - Past Medical History Allergies/Adverse Reactions: Allergies Allergy/AdvReac Type Severity Reaction Status Date / Time raspberry Allergy Severe Rash Verified 08/22/17 11:28 strawberry Allergy Severe Rash Verified 08/22/17 11:28 barley Allergy Intermediate Rash Verified 08/22/17 11:28 wheat Allergy Intermediate Rash Verified 08/22/17 11:28 egg AdvReac Severe Nausea Verified 08/22/17 11:28 egg yolk AdvReac Severe Nausea Verified 08/22/17 11:28 No Known Drug Allergies AdvReac Verified 08/22/17 11:28 Home Medications: Ambulatory Orders Mesalamine [Asacol HD -] 800 mg PO TID 03/26/17 Raloxifene HCl 60 mg PO DAILY 03/26/17 Aspirin Coated [Ecotrin -] 81 mg PO DAILY tablet.ec 07/26/17 Atorvastatin Ca [Lipitor] 20 mg PO HS tablet 07/26/17 Collagenase Clostridium Hist. [Santyl -] 1 applic TP DAILY tube 07/26/17 Ferrous Sulfate [Feosol] 325 mg PO BIDWM ud 07/26/17 Furosemide [Lasix -] 20 mg PO DAILY tablet 07/26/17 Levothyroxine [Synthroid -] 175 mcg PO DAILY@0700 tablet 07/26/17 Levothyroxine [Synthroid -] 175 mcg PO DAILY@0700 tablet 07/26/17 Mesalamine [Asacol HD -] 800 mg PO TID tablet. 07/26/17 Metoprolol Succinate [Toprol XL -] 12.5 mg PO DAILY tab.sr.24h 07/26/17 predniSONE [Deltasone -] 35 mg PO DAILY tablet 07/26/17 Anemia: No Asthma: Yes Cancer: Yes (LEFT BREAST 1999) Cardiac Disorders: No CVA: No COPD: No CHF: No Dementia: No Diabetes: No GI Disorders: No Disorders: No HTN: No Hypercholesterolemia: No Liver Disease: No Seizures: No Thyroid Disease: Yes - Surgical History Abdominal Surgery: No Appendectomy: No Cardiac Surgery: No Cholecystectomy: No Lung Surgery: No Neurologic Surgery: No Orthopedic Surgery: No - Immunization History Immunization Up to Date: Yes - Suicide/Smoking/Psychosocial Hx Smoking History: Never smoked Have you smoked in the past 12 months: No Hx Alcohol Use: No Drug/Substance Use Hx: No Substance Use Type: None Hx Substance Use Treatment: No Review of Systems - Review of Systems Comments:: 08/22/17 13:07 Unable to obtain *Physical Exam - Physical Exam Comments: 08/22/17 13:08 GENERAL: Awake, alert, and oriented to baseline, in no acute distress; patient in c-collar following laminectomy HEAD: No signs of trauma, normocephalic, atraumatic EYES: PERRLA, EOMI, sclera anicteric, conjunctiva clear ENT: Auricles normal inspection, hearing grossly normal, nares patent, oropharynx clear without exudates. Moist mucosa NECK: +Well healing scar from laminectomy on posterior neck without evidence of infection. Normal ROM, supple, no lymphadenopathy, JVD, or masses LUNGS: No distress, clear to auscultation bilaterally HEART: Regular rate and rhythm, normal S1 and S2, no murmurs, rubs or gallops, peripheral pulses normal and equal bilaterally. ABDOMEN: Soft, nontender, normoactive bowel sounds. No guarding, no rebound. No masses EXTREMITIES: +Decubitus ulcers grade 2 noted to midline sacrum and lateral maleous of ankle bilaterally. Appear to be well healing. Normal range of motion , no edema. No clubbing or cyanosis. NEUROLOGICAL: +Unable to assess. SKIN: Warm, Dry, normal turgor, no rashes noted. ED Treatment Course - LABORATORY CBC & Chemistry Diagram: 08/22/17 11:38 08/22/17 11:38 Medical Decision Making - Medical Decision Making 08/22/17 16:33 Ms. Santos is a 61 yo female w/ pmh as described who presents for evaluation from [facility] after PA became concerned she was having a TIA. On arrival fever by rectal temperature prompted sepsis workup. Patient found to have elevated white count as below. PCP aware and called for admission early on. Patient given sepsis fluids, blood cultures, and ABX and admitted for further patient care. Source of infection currently unknown - urine and lungs clear; no visible source of infection. *DC/Admit/Observation/Transfer Diagnosis at time of Disposition: Sepsis Qualifiers: Sepsis type: sepsis due to unspecified organism Qualified Code(s): A41.9 - Sepsis, unspecified organism - Discharge Dispostion Admit: Yes - Referrals - Patient Instructions - Post Discharge Activity
[2017-08-22] MEDS ORDERED: SODIUM CHLORIDE 0.9% 1000 ML INFUS.BAG IV STA (11:27)
[2017-08-22 11:28] VITALS: BMI 31.3
[2017-08-22] MEDS ORDERED: ACETAMINOPHEN 1000 MG/100 ML VIAL (NON FORMULARY) IVPB ONE (11:56)
[2017-08-22] MEDS ORDERED: ACETAMINOPHEN INJECTION 100 ML IVPB ONE (12:00)
[2017-08-22 12:05] LABS: HEMATOCRIT 36.5 % (32.4-45.2); HEMOGLOBIN 11.8 GM/dL (10.7-15.3); MCH 31.8 pg (25.7-33.7); MCHC 32.4 g/dl (32.0-36.0); MEAN CELL VOLUME 98.1 fl (80-96); MEAN PLT VOLUME 8.7 fl (7.5-11.1); PLATELET COUNT 277 K/MM3 (134-434); RBC 3.72 M/mm3 (3.60-5.2); RDW 19.8 % (11.6-15.6); VENOUS PC02 49.2 mmHg (38-52); VENOUS PH 7.38 (7.32-7.42); VENOUS PO2 22.1 mmHg (28-48); WHITE BLOOD COUNT 16.6 K/mm3 (4.0-10.0)
[2017-08-22 12:15] LABS: INR 1.1 (0.82-1.09); PROTHROMBIN TIME (PATIENT) 12.4 SEC (9.98-11.88)
[2017-08-22 12:18] LABS: ACTIVATED PTT 25.5 SECONDS (26.9-34.4)
--- NOTE | 2017-08-22 12:27 | PDOC ---
Attending Attestation - Resident Resident Name: Kareem Richards - ED Attending Attestation I have performed the following: I have examined & evaluated the patient, The case was reviewed & discussed with the resident, I agree w/resident's findings & plan, Exceptions are as noted - HPI HPI: 08/22/17 12:09 [id number] hx of downs syndrome, hypothryoidism, recently dc for [place]aminectomy [place] for possible syncope and 'not looking right' The patient was noted to be febrile to 102.4. on arrival she is alert, has intermittnet cough GENERAL: The patient is awake, alert, Nontoxic - in no acute distress. HEAD: Normocephalic, atraumatic. EYES: extraocular movements intact, sclera anicteric, conjunctiva clear. ENT: Normal voice, Moist mucous membranes. NECK: Normal range of motion, supple, s/p fusion sugery (neck wound is clear, non fluctuant,) c collar in place LUNGS: Breath sounds equal, clear to auscultation bilaterally. No wheezes, no rhonchi, no rales. HEART: Regular rate and rhythm, normal S1 and S2 without murmur, rub or gallop. ABDOMEN: Soft, nontender, normoactive bowel sounds. No guarding, no rebound. . No CVA tenderness EXTREMITIES: Normal range of motion, no edema. No clubbing or cyanosis. No cords, erythema, or tenderness. NEUROLOGICAL: No facial assymetry, Normal speech, PSYCH: Normal mood, normal affect. SKIN: hot to touch, Dry, normal turgor, stage 2 sacral decubitus ulcer, heeling unstageble ulcer on L heel, stage 2 sacral ulcer ddx, includes flu, pna, uti ulcers do not appear overtly infected, do not think this is the cause of her fever will ck labs sepsis workup initiated 08/22/17 13:29 08/22/17 13:32 unclear source wound appears non infected, aulcers also do not appear infected ua clear +wbc lactic acid is elevated to 3.3 = pt being hydrated and will recheck for clearance cxr clear meets sepsis criteria, source likely pulm in nature due to her hypxoia) hypoxia responds well to 2L of NC no acute distress cse dw dr. guadalupe will admit the pt for further management for evaluation of sepsis unlear source possible flu - unable to test due to lack of reagent will treat with tamiflu and broad cvoerage abx I spent ~35 minutes of Critical Care time, excluding separately billable procedures, involving high complexity decision making to assess, manipulate and support vital system function(s) to treat single or multiple vital organ system failure and/or to prevent further life threatening deterioration of the patient' s condition. - Physicial Exam PE: 08/24/17 11:07 see above - Medical Decision Making 08/24/17 11:07 see above Heart Score/ECG Review - ECG Impressions Comment:: 08/22/17 14:01 Twelve-lead EKG was performed and reviewed by me. There is normal sinus rhythm with a normal rate. rate of [address] or T wave abnormalities.
[2017-08-22 13:15] LABS: ALBUMIN 2.6 g/dl (3.4-5.0); ANION GAP 10 (8-16); BILIRUBIN,TOTAL 0.7 mg/dL (0.2-1.0); BLOOD UREA NITROGEN 13 mg/dL (7-18); CALCIUM 7.4 mg/dL (8.5-10.1); CHLORIDE 92 mmol/L (98-107); CO2 27 mmol/L (21-32); CREATININE 0.9 mg/dL (0.55-1.02); GLUCOSE,RANDOM 127 mg/dL (74-106); POTASSIUM 3.8 mmol/L (3.5-5.1); SGOT/AST 23 U/L (15-37); SGPT/ALT 35 U/L (12-78); SODIUM 129 mmol/L (136-145); TOT PROT 6.6 g/dl (6.4-8.2)
[2017-08-22 13:15] LABS: URINE APPEARANCE CLEAR; URINE BILIRUBIN NEGATIVE (NEGATIVE); URINE BLOOD NEGATIVE (NEGATIVE); URINE COLOR LTYELLOW; URINE GLUCOSE (UA) NEGATIVE (NEGATIVE); URINE KETONE NEGATIVE (NEGATIVE); URINE LEUK ESTERASE NEGATIVE (NEGATIVE); URINE NITRITE NEGATIVE (NEGATIVE); URINE PROTEIN NEGATIVE (NEGATIVE); URINE UROBILINOGEN NEGATIVE mg/dL (0.2-1.0)
[2017-08-22 13:17] LABS: ALK PHOS 114 U/L (45-117)
[2017-08-22] MEDS ORDERED: OSELTAMIVIR PHOSPHATE 75 MG CAPSULE PO ONE (13:33)
[2017-08-22] MEDS ORDERED: VANCOMYCIN 1 GRAM (PRE-DOCKED) 1,000 MG/250 ML BAG IVPB ONE ×3 (13:40→13:52)
[2017-08-22 13:43] LABS: ANISOCYTOSIS 1+; MACROCYTOSIS 1+; OVALOCYTE 1+; PLATELET ESTIMATE NORMAL; TEAR DROP CELLS 1+
[2017-08-22] MEDS ORDERED: PIPERACILLIN/TAZOB 4.5 GM/100 ML PRE-DOCKED IVPB ONE (13:45)
[2017-08-22] MEDS ORDERED: OSELTAMIVIR PHOSPHATE 75 MG CAPSULE ONE (13:51)
[2017-08-22] MEDS ORDERED: PIPERACILLIN/TAZOB 4.5 GM 4.5 GM/100 ML BAG IVPB ONE (13:52)
[2017-08-22] MEDS ORDERED: LACTATED RINGERS SOLUTION 1000 ML INFUS.BAG IV ONE (15:30)
--- NOTE | 2017-08-22 16:33 | EKG ---
Test Reason : Blood Pressure : / mmHG Vent. Rate : 078 BPM Atrial Rate : 078 BPM P-R Int : 138 ms QRS Dur : 082 ms QT Int : 392 ms P-R-T Axes : 053 -21 041 degrees QTc Int : 446 ms NORMAL SINUS RHYTHM MODERATE VOLTAGE CRITERIA FOR LVH, MAY BE NORMAL VARIANT BORDERLINE ECG WHEN COMPARED WITH ECG OF 14-JUL-2017 14:44, T WAVE INVERSION NO LONGER EVIDENT IN ANTEROLATERAL LEADS Confirmed by MD Beau, Frantz ([id number]) on 08/22/2017 4:32:59 PM Referred By: Confirmed By:Frantz Yanez MD
[2017-08-22] MEDS ORDERED: ACETAMINOPHEN 325 MG TABLET (FP) PO PRN (23:32)
[2017-08-23] MEDS ORDERED: LEVOTHYROXINE NA 150 MCG TABLET PO SCH (07:00)
[2017-08-23 07:45] LABS: HEMATOCRIT 30.6 % (32.4-45.2); HEMOGLOBIN 9.9 GM/dL (10.7-15.3); MCH 31.8 pg (25.7-33.7); MCHC 32.2 g/dl (32.0-36.0); MEAN CELL VOLUME 98.9 fl (80-96); MEAN PLT VOLUME 8.9 fl (7.5-11.1); PLATELET COUNT 226 K/MM3 (134-434); RDW 20.3 % (11.6-15.6); WHITE BLOOD COUNT 13.1 K/mm3 (4.0-10.0)
[2017-08-23 08:05] LABS: ANION GAP 9 (8-16); BLOOD UREA NITROGEN 8 mg/dL (7-18); CHLORIDE 100 mmol/L (98-107); CO2 25 mmol/L (21-32); GLUCOSE,RANDOM 72 mg/dL (74-106); POTASSIUM 3.2 mmol/L (3.5-5.1); SODIUM 134 mmol/L (136-145)
[2017-08-23 08:18] LABS: CREATININE 0.6 mg/dL (0.55-1.02)
--- NOTE | 2017-08-23 08:39 | PN ---
Progress Note, Physician Chief Complaint: ID Repair of pseudomengocele and revision cervical screw Jul 14 [facility] Presents now with fever 102 Currently afebrile and NAD Unreliable historian but no distress currently Hypoxic 90 on admission - Current Medication List Current Medications: Active Medications Acetaminophen (Tylenol -) 650 mg PO Q6H PRN PRN Reason: PAIN OR FEVER Aspirin (Ecotrin -) 81 mg PO DAILY [facility] Furosemide (Lasix -) 20 mg PO DAILY [facility] Levothyroxine Sodium (Synthroid -) 150 mcg PO DAILY@0700 [facility] Last Admin: 08/23/17 06:06 Dose: 150 mcg - Objective Vital Signs: Vital Signs Temperature 99.3 F 08/23/17 06:00 Pulse Rate 52 L 08/23/17 06:00 Respiratory Rate 20 08/23/17 06:00 Blood Pressure 119/52 08/23/17 06:00 O2 Sat by Pulse Oximetry (%) 99 08/22/17 21:00 Constitutional: Yes: Well Nourished, No Distress HENT: Yes: WNL, Atraumatic Neck: Yes: WNL, Supple Cardiovascular: Yes: S1, S2 Respiratory: Yes: WNL, Regular, CTA Bilaterally Gastrointestinal: Yes: Soft. No: Tenderness Extremities: Yes: Other (Sacral wound) Edema: No Labs: CBC, BMP 08/23/17 06:55 INR, PTT INR 1.10 (0.82-1.09) 08/22/17 11:38 Problem List - Problems (1) FUO (fever of unknown origin) Code(s): R50.9 - FEVER, UNSPECIFIED (2) Down syndrome Code(s): Q90.9 - DOWN SYNDROME, UNSPECIFIED (3) History of cervical spinal surgery Code(s): Z98.890 - OTHER SPECIFIED POSTPROCEDURAL STATES Assessment/Plan Microbiology 07/08/17 15:00 Urine - Urine - Catheterized Urine Culture - Final Pseudomonas Aeruginosa Laboratory Tests 08/22/17 08/22/17 08/22/17 11:20 11:28 11:38 WBC 16.6 H D Hgb 11.8 D Hct 36.5 Plt Count 277 D Neutrophils % (Manual) 87.6 H Band Neutrophils % 6.2 BUN Creatinine Lactic Acid 3.3 H* Total Bilirubin Ur Leukocyte Esterase Negative 08/22/17 08/23/17 08/23/17 11:38 06:55 06:55 WBC 13.1 H Hgb 9.9 L D Hct 30.6 L D Plt Count 226 Neutrophils % (Manual) Band Neutrophils % BUN 13 8 Creatinine 0.9 0.6 Lactic Acid Total Bilirubin 0.7 D Ur Leukocyte Esterase Assessment Fever ? urinary source unclear however History of pseudomonas UTI Recent cervical spine surgery as above Jul 14 [facility] cultures this am no growth Plan Continue Cefepime pending and FLu screen Lorna YOUNG
[2017-08-23] MEDS ORDERED: CEFEPIME HCL 2 GM VIAL (RESTRICTED TO ID) IVPB SCH (10:00)
--- NOTE | 2017-08-23 10:26 | CONS ---
DATE OF CONSULTATION: DATE OF DICTATION: 08/23/2017 HISTORY OF PRESENT ILLNESS: This is a 61-year-old female with a history of Down syndrome who I am asked to see for evaluation of fever to 102. The patient is in a long-term care facility, and note is made of the fact that on July 14, she underwent cervical spine surgery by Dr. Graves for revision of a C1 screw along with repair of a meningocele and debridement and advancement flaps. She apparently did well and was discharged on July 26. She had previously been diagnosed with influenza A towards the end of June,. She has multiple comorbidities in addition to her Down which include coronary artery disease, congestive heart failure, hypothyroidism, mitral and aortic insufficiency, and a left foot wound. Here, she was empirically treated with vancomycin and Zosyn. Her blood cultures this morning are no growth, and the source of the fever thus far unclear. At the present time, the patient is alert, but an unreliable historian who, though attempting to answer questions can offer no meaningful history. PAST MEDICAL HISTORY: As noted above. MEDICATIONS: Levothyroxine, Lasix, Asacol. ALLERGIES: None known drug allergies. FOOD ALLERGIES. SOCIAL HISTORY: A resident of a long-term care facility. FAMILY HISTORY: Unobtainable. REVIEW OF SYSTEMS: Respiratory: Mention made of cough in the ER note. Cardiac: No obvious chest pain, palpitations, syncope. Gastrointestinal: No abdominal pain, vomiting, diarrhea, blood per rectum. Genitourinary: Incontinent of urine. PHYSICAL EXAMINATION: General: She is an alert female in no acute distress. Vital signs: On admission, temperature 100.4, blood pressure 100/51, pulse 81, respirations 18, O2 saturation 90%. Current vital signs, temperature 99.3, pulse 52, blood pressure 120/52, respirations 20, O2 saturation 99% on 2 L. Neck: Supple. Healed posterior cervical incision. Wound is clear, non- fluctuant. Lungs: Clear to percussion and auscultation. Heart: S1, S2, regular rhythm, without audible murmur or gallop. Abdomen: Soft, nontender. Normoactive bowel sounds. No guarding or rebound. Extremities: No clubbing, cyanosis, or edema. Skin: Revealed a stage 2 sacral decubitus and a healing unstageable ulcer on the left heel. LABORATORY DATA: The white count is 16.6, hemoglobin 11.8, platelets 277. INR 1.1. BUN 13, creatinine 0.9, lactic acid 3.3. TSH of 8.53. Urinalysis screening negative for leukocyte esterase. Blood and urine cultures pending. No preliminary blood cultures. No growth. Urine culture July 08, pseudomonas aeruginosa. Influenza screening July 08 positive for influenza A. Chest x-ray was reviewed, shows no obvious infiltrate. ASSESSMENT: A 61-year-old female with Down syndrome, multiple comorbidities including hypothyroidism with marked elevated thyroid stimulating hormone, history of congestive heart failure, status post cervical surgery for pseudomeningocele July 14 at [facility], presents now with fever, source not entirely clear. Mention made of coughing in her initial notes. Influenza should be considered. Additionally, it meets criteria for sepsis. lastly her neck incision looks fine healed no infection and neck very supple and she is very alert and awake. PLAN: Would empirically treat her at this time with cefepime for gram-negative particularly pseudomonal culture and possible UTI. Will flu screen her again, though low likelihood positive at this point. Currently appears comfortable. KEESHA SCOTT M.D. [id number] MTDD
[2017-08-23] MEDS: FUROSEMIDE 20 MG TABLET (FP) PO SCH (11:26)
[2017-08-23] MEDS: CEFEPIME 2 GM in DEXTROSE 5%-WATER - 100 ML IVPB SCH ×2 (11:27→18:32)
[2017-08-23] MEDS: ASPIRIN COATED 81 MG TABLET.EC PO SCH (11:29)
[2017-08-23] MEDS: HEPARIN NA (PORCINE) 5,000 UNITS/ML 1ML VIAL SQ SCH ×2 (14:35→21:33)
--- NOTE | 2017-08-23 15:26 | CONSULT ---
Consult - text type - Consultation Consultation Note: NEUROSURGERY CONSULTATION Patient is a 61 year old female with Trisomy 21 who developed rapidly progressing tetraparesis in June 2017. I treated her with posterior cervical decompression and fusion. Her postoperative course was remarkable for CSF leak and this was addressed in July with wound/hardware revision. Patient was seen in my office last week and is recovering well. She has good function in her upper extremities and improving strength in her Right leg. Her wound is clean dry and intact. Her exam today is similar to last week and there is no suggestion of infection at the surgical site. Will follow her clinical course with the team.
--- NOTE | 2017-08-23 16:40 | HP ---
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) Cardiovascular: Yes: Aortic Insufficiency, Mitral Insufficiency Pulmonary: Yes: Other Gastrointestinal: Yes: Ulcerative Colitis Hepatobiliary: Yes: Hepatitis B ...: No Heme/Onc: Yes: Myeloproliferative Synd Musculoskeletal: Yes: Other (c/s fusions) Endocrine: Yes: Hypothyroidism - Smoking History Smoking history: Never smoked Have you smoked in the past 12 months: No - Alcohol/Substance Use Hx Alcohol Use: No Home Medications - Allergies Allergies/Adverse Reactions: Allergies Allergy/AdvReac Type Severity Reaction Status Date / Time raspberry Allergy Severe Rash Verified 08/22/17 11:28 strawberry Allergy Severe Rash Verified 08/22/17 11:28 barley Allergy Intermediate Rash Verified 08/22/17 11:28 wheat Allergy Intermediate Rash Verified 08/22/17 11:28 egg AdvReac Severe Nausea Verified 08/22/17 11:28 egg yolk AdvReac Severe Nausea Verified 08/22/17 11:28 No Known Drug Allergies AdvReac Verified 08/22/17 11:28 - Home Medications Home Medications: Ambulatory Orders Aspirin [Ecotrin] 81 mg PO DAILY 08/22/17 Atorvastatin Ca [Lipitor] 20 mg PO HS 08/22/17 Clotrimazole/Betamethasone Dip [Clotrimazole-Betamethasone Lot] 30 ml TP DAILY 08/22/17 Collagenase Clostridium Hist. [Santyl] 1 applic TP DAILY 08/22/17 Ferrous Sulfate 325 mg PO BID 08/22/17 Furosemide [Lasix] 20 mg PO DAILY 08/22/17 Levothyroxine [Synthroid -] 150 mcg PO DAILY 08/22/17 Mesalamine [Asacol Hd -] 800 mg PO TID 08/22/17 Metoprolol Succinate 25 mg PO DAILY 08/22/17 Prednisone 10 mg PO DAILY 08/22/17 Raloxifene HCl [Evista] 60 mg PO DAILY 08/22/17 Family Disease History - Family Disease History Family History: Unremarkable Family Disease History: Heart Disease: Mother Review of Systems - Review of Systems Constitutional: reports: No Symptoms Eyes: reports: No Symptoms HENT: reports: No Symptoms Neck: reports: Other (brace off) Cardiovascular: reports: No Symptoms Respiratory: reports: SOB on Exertion Gastrointestinal: reports: No Symptoms Genitourinary: reports: No Symptoms Breasts: reports: No Symptoms Reported Musculoskeletal: reports: Back Pain, Muscle Weakness Integumentary: reports: Other (sacral wd and foot healing) Neurological: reports: Weakness Endocrine: reports: Other (hypothroidism) Hematology/Lymphatic: reports: Other (msd downs assosiated) Physical Examination Vital Signs: Vital Signs Temperature 98.9 F 08/23/17 14:37 Pulse Rate 75 08/23/17 14:37 Respiratory Rate 22 08/23/17 14:37 Blood Pressure 108/52 08/23/17 10:00 O2 Sat by Pulse Oximetry (%) 99 08/23/17 09:00 Constitutional: Yes: No Distress Eyes: Yes: WNL HENT: Yes: WNL Neck: Yes: Decreased ROM Cardiovascular: Yes: WNL Respiratory: Yes: WNL Gastrointestinal: Yes: WNL ...Rectal Exam: Yes: Deferred Renal/: Yes: WNL Breast(s): Yes: WNL Musculoskeletal: Yes: Muscle Weakness Edema: No Peripheral Pulses WNL: Yes Peripheral Pulses: Left Radial: 1+, Right Radial: 1+, Left Doralis Pedis: 1+, Right Dorsalis Pedis: 1+, Left Femoral: 1+, Right Femoral: 1+ Integumentary: Yes: Other (sacral) Wound/Incision: Yes: Clean/Dry Neurological: Yes: Unsteady Gait, Weakness Psychiatric: Yes: Other (downs mental capaCITY) Labs: CBC, BMP 08/23/17 06:55 08/23/17 06:55 Assessment/Plan REPLACE K CONT WATCH FOR INFECC ? UTIU FUO CHK CULTS LATER PULM FOR 88 PERCENT SAT FU /U LABS IN AM
[2017-08-23] MEDS ORDERED: KCL 10 MEQ IVPB 10 MEQ/100 ML INFUS.BAG IVPB SCH (16:45)
[2017-08-23] MEDS ORDERED: POTASSIUM CHLORIDE 10 MEQ in SODIUM CHLORIDE 100 ML IVPB SCH (17:00)
[2017-08-23] MEDS ORDERED: SODIUM CHLORIDE 100 ML with POTASSIUM CHLORIDE 10 MEQ IVPB SCH (17:00)
[2017-08-23] MEDS ORDERED: PT OWN MED DRAWER 7, Y5N ONE (18:18)
[2017-08-24] MEDS: CEFEPIME 2 GM in DEXTROSE 5%-WATER - 100 ML IVPB SCH ×2 (01:37→09:47)
[2017-08-24] MEDS ORDERED: LEVOTHYROXINE NA 150 MCG TABLET ONE (05:38)
[2017-08-24] MEDS ORDERED: LEVOTHYROXINE NA 25 MCG TABLET (FP) ONE (05:39)
[2017-08-24] MEDS: HEPARIN NA (PORCINE) 5,000 UNITS/ML 1ML VIAL SQ SCH ×3 (06:10→21:48)
[2017-08-24] MEDS: LEVOTHYROXINE 150 MCG, LEVOTHYROXINE 25 MCG PO SCH (06:10)
[2017-08-24] MEDS ORDERED: LEVOTHYROXINE NA 175 MCG TABLET PO SCH (07:00)
[2017-08-24 07:43] LABS: HEMATOCRIT 30.5 % (32.4-45.2); HEMOGLOBIN 9.9 GM/dL (10.7-15.3); MCH 32.2 pg (25.7-33.7); MCHC 32.5 g/dl (32.0-36.0); MEAN PLT VOLUME 8.6 fl (7.5-11.1); PLATELET COUNT 210 K/MM3 (134-434); RBC 3.08 M/mm3 (3.60-5.2); RDW 20.2 % (11.6-15.6); WHITE BLOOD COUNT 6.4 K/mm3 (4.0-10.0)
[2017-08-24 07:58] LABS: CHLORIDE 100 mmol/L (98-107); POTASSIUM 3.3 mmol/L (3.5-5.1); SODIUM 134 mmol/L (136-145)
[2017-08-24 08:05] LABS: ANION GAP 9 (8-16); BLOOD UREA NITROGEN 8 mg/dL (7-18); CO2 25 mmol/L (21-32); CREATININE 0.8 mg/dL (0.55-1.02); GLUCOSE,RANDOM 79 mg/dL (74-106)
[2017-08-24] MEDS ORDERED: POTASSIUM CHLORIDE 10 MEQ in SODIUM CHLORIDE 100 ML IVPB SCH (09:30)
[2017-08-24] MEDS ORDERED: PT OWN MED DRAWER 7, Y5N ONE (09:42)
[2017-08-24] MEDS: FUROSEMIDE 20 MG TABLET (FP) PO SCH (09:47)
[2017-08-24] MEDS: ASPIRIN COATED 81 MG TABLET.EC PO SCH (09:47)
[2017-08-24 11:26] LABS: ANISOCYTOSIS 1+; MACROCYTOSIS 1+; PLATELET ESTIMATE NORMAL
--- NOTE | 2017-08-24 14:30 | PN ---
Progress Note, Physician Chief Complaint: ID Neurosurgery note seen and appreciated. This helps fill in details regarding her recent spinal surgery details She had fever on admission but this has resolved with antibiotics along with her WBC coming down Cefepime day 2 therapy - Current Medication List Current Medications: Active Medications Acetaminophen (Tylenol -) 650 mg PO Q6H PRN PRN Reason: PAIN OR FEVER Aspirin (Ecotrin -) 81 mg PO DAILY [facility] Last Admin: 08/24/17 09:47 Dose: 81 mg Collagenase (Santyl -) 1 applic TP DAILY [facility] Furosemide (Lasix -) 20 mg PO DAILY [facility] Last Admin: 08/24/17 09:47 Dose: 20 mg Heparin Sodium (Porcine) (Heparin -) 5,000 unit SQ TID [facility] Last Admin: 08/24/17 06:10 Dose: 5,000 unit Cefepime HCl 2 gm/ Dextrose 100 mls @ 200 mls/hr IVPB Q8H-IV [facility] Last Admin: 08/24/17 09:47 Dose: 200 mls/hr Levothyroxine Sodium 150 mcg/ (Levothyroxine Sodium 25 mcg) 175 mcg PO DAILY@ 0700 [facility] Last Admin: 08/24/17 06:10 Dose: 175 mcg - Objective Vital Signs: Vital Signs Temperature 98.5 F 08/24/17 10:00 Pulse Rate 69 08/24/17 10:00 Respiratory Rate 20 08/24/17 10:00 Blood Pressure 108/45 08/24/17 10:00 O2 Sat by Pulse Oximetry (%) 99 08/23/17 09:00 Constitutional: Yes: No Distress HENT: Yes: WNL, Atraumatic Neck: Yes: WNL, Supple Cardiovascular: Yes: S1, S2 Respiratory: Yes: WNL, Regular, CTA Bilaterally Gastrointestinal: Yes: WNL, Normal Bowel Sounds, Soft. No: Tenderness, Tenderness, Epigastrium Labs: CBC, BMP 08/24/17 07:00 08/24/17 07:00 INR, PTT INR 1.10 (0.82-1.09) 08/22/17 11:38 Problem List - Problems (1) FUO (fever of unknown origin) Code(s): R50.9 - FEVER, UNSPECIFIED (2) Down syndrome Code(s): Q90.9 - DOWN SYNDROME, UNSPECIFIED (3) History of cervical spinal surgery Code(s): Z98.890 - OTHER SPECIFIED POSTPROCEDURAL STATES Assessment/Plan Laboratory Tests 08/22/17 08/22/17 08/23/17 11:20 11:38 06:55 WBC 16.6 H D 13.1 H Hgb Plt Count BUN Creatinine Ur Leukocyte Esterase Negative 08/24/17 08/24/17 07:00 07:00 WBC 6.4 D Hgb 9.9 L Plt Count 210 BUN 8 Creatinine 0.8 Ur Leukocyte Esterase Assessment Fever and leukocytosis resolved cultures negative Source unclear NO evidence for meningitis Plan Stop antibiotic and observe with discharge in am if stable Lorna YOUNG
[2017-08-25] MEDS ORDERED: LEVOTHYROXINE NA 25 MCG TABLET (FP) ONE (05:06)
[2017-08-25] MEDS ORDERED: LEVOTHYROXINE NA 150 MCG TABLET ONE (05:06)
[2017-08-25] MEDS: HEPARIN NA (PORCINE) 5,000 UNITS/ML 1ML VIAL SQ SCH ×3 (06:05→21:56)
[2017-08-25] MEDS: LEVOTHYROXINE 150 MCG, LEVOTHYROXINE 25 MCG PO SCH (06:05)
[2017-08-25 08:49] LABS: ANION GAP 9 (8-16); BLOOD UREA NITROGEN 6 mg/dL (7-18); CALCIUM 7.4 mg/dL (8.5-10.1); CHLORIDE 96 mmol/L (98-107); CO2 28 mmol/L (21-32); CREATININE 0.7 mg/dL (0.55-1.02); GLUCOSE,RANDOM 81 mg/dL (74-106); POTASSIUM 3.4 mmol/L (3.5-5.1); SODIUM 133 mmol/L (136-145)
[2017-08-25] MEDS ORDERED: PT OWN MED DRAWER 7, Y5N ONE ×2 (09:43→17:47)
[2017-08-25] MEDS: ASPIRIN COATED 81 MG TABLET.EC PO SCH (09:50)
[2017-08-25] MEDS: FUROSEMIDE 20 MG TABLET (FP) PO SCH (09:50)
[2017-08-25] MEDS: COLLAGENASE CLOSTRIDIUM HIST. 30 GRAMS TUBE TP SCH (09:50)
[2017-08-25 10:48] LABS: HEMATOCRIT 32.4 % (32.4-45.2); HEMOGLOBIN 10.2 GM/dL (10.7-15.3); MCH 31.9 pg (25.7-33.7); MCHC 31.6 g/dl (32.0-36.0); MEAN CELL VOLUME 100.8 fl (80-96); MEAN PLT VOLUME 8.9 fl (7.5-11.1); PLATELET COUNT 234 K/MM3 (134-434); RBC 3.21 M/mm3 (3.60-5.2); RDW 20.4 % (11.6-15.6); WHITE BLOOD COUNT 6.5 K/mm3 (4.0-10.0)
[2017-08-25] MEDS ORDERED: POTASSIUM CHLORIDE 10 MEQ in SODIUM CHLORIDE 100 ML IVPB SCH (11:00)
[2017-08-25 11:26] LABS: PLATELET ESTIMATE NORMAL; TEAR DROP CELLS 1+
[2017-08-25 11:30] LABS: ANISOCYTOSIS 1+; MACROCYTOSIS FEW
--- NOTE | 2017-08-25 13:42 | PN ---
Progress Note, Physician History of Present Illness: statis quo vss low k ? - Current Medication List Current Medications: Active Medications Acetaminophen (Tylenol -) 650 mg PO Q6H PRN PRN Reason: PAIN OR FEVER Aspirin (Ecotrin -) 81 mg PO DAILY [facility] Last Admin: 08/25/17 09:50 Dose: 81 mg Collagenase (Santyl -) 1 applic TP DAILY [facility] Last Admin: 08/25/17 09:50 Dose: 1 applic Furosemide (Lasix -) 20 mg PO DAILY [facility] Last Admin: 08/25/17 09:50 Dose: 20 mg Heparin Sodium (Porcine) (Heparin -) 5,000 unit SQ TID [facility] Last Admin: 08/25/17 06:05 Dose: 5,000 unit Levothyroxine Sodium 150 mcg/ (Levothyroxine Sodium 25 mcg) 175 mcg PO DAILY@ 0700 [facility] Last Admin: 08/25/17 06:05 Dose: 175 mcg - Objective Vital Signs: Vital Signs Temperature 97.2 F L 08/25/17 10:00 Pulse Rate 80 08/25/17 10:00 Respiratory Rate 18 08/25/17 10:00 Blood Pressure 107/52 08/25/17 10:00 O2 Sat by Pulse Oximetry (%) 99 08/23/17 09:00 Constitutional: Yes: No Distress Labs: CBC, BMP 08/25/17 08:00 08/25/17 08:00 INR, PTT INR 1.10 (0.82-1.09) 08/22/17 11:38 Assessment/Plan d/c on monday pre post o2 prior to d/c p/t vns spoke to case services gregory christina in am
--- NOTE | 2017-08-25 16:04 | PN ---
Progress Note (short form) - Note Progress Note: awake and alert Vital Signs Period Temp Pulse Resp BP Sys/Guo Pulse Ox Last 24 Hr 97.2 F-100.8 F 78-88 18-20 107-113/52-62 cor-rrr neck- collar intact lungs clear abd soft,nt ext no edema CBC, BMP 08/25/17 08:00 08/25/17 08:00 Microbiology 08/23/17 10:50 Nasopharyngeal Swab Influenza Types A,B Antigen (MATILDE) - Final 08/23/17 10:50 Nasopharyngeal Swab - Final 08/22/17 11:24 Blood - Peripheral Venous Blood Culture - Preliminary NO GROWTH OBTAINED AFTER 72 HOURS, INCUBATION TO CONTINUE FOR 2 DAYS. 08/22/17 11:38 Blood - Peripheral Venous Blood Culture - Preliminary NO GROWTH OBTAINED AFTER 72 HOURS, INCUBATION TO CONTINUE FOR 2 DAYS. 08/22/17 11:28 Urine - Urine Clean Catch Urine Culture - Final NO GROWTH OBTAINED a/p fevers- ?FUO- cultures negative continue to observe off antibioitcs
--- NOTE | 2017-08-25 16:58 | CONSULT ---
Consult Consult Specialty:: Nephrology Reason for Consultation:: hypokalemia - History of Present Illness Chief Complaint: sent in for fever History of Present Illness: Pt is a 61 year old female with pmhx of Down Syndrome and hypothyroidism who was sent in from the [place] for fever. She is unable to give history. Discussed with pts family who are at bedside. She was found to be hypokalemic and I was called to evaluate her. She is on chronic lasix which she takes daily. She has been hypokalemic despite supplements. 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) Cardio/Vascular: Yes: Aortic Insufficiency, Mitral Insufficiency Pulmonary: Yes: Other Gastrointestinal: Yes: Ulcerative Colitis Hepatobiliary: Yes: Hepatitis B ...: No Musculoskeletal: Yes: Other (c/s fusions) Endocrine: Yes: Hypothyroidism - Alcohol/Substance Use Hx Alcohol Use: No - Smoking History Smoking history: Never smoked Have you smoked in the past 12 months: No Home Medications - Allergies Allergies/Adverse Reactions: Allergies Allergy/AdvReac Type Severity Reaction Status Date / Time raspberry Allergy Severe Rash Verified 08/22/17 11:28 strawberry Allergy Severe Rash Verified 08/22/17 11:28 barley Allergy Intermediate Rash Verified 08/22/17 11:28 wheat Allergy Intermediate Rash Verified 08/22/17 11:28 egg AdvReac Severe Nausea Verified 08/22/17 11:28 egg yolk AdvReac Severe Nausea Verified 08/22/17 11:28 No Known Drug Allergies AdvReac Verified 08/22/17 11:28 - Home Medications Home Medications: Ambulatory Orders Aspirin [Ecotrin] 81 mg PO DAILY 08/22/17 Atorvastatin Ca [Lipitor] 20 mg PO HS 08/22/17 Clotrimazole/Betamethasone Dip [Clotrimazole-Betamethasone Lot] 30 ml TP DAILY 08/22/17 Collagenase Clostridium Hist. [Santyl] 1 applic TP DAILY 08/22/17 Ferrous Sulfate 325 mg PO BID 08/22/17 Furosemide [Lasix] 20 mg PO DAILY 08/22/17 Levothyroxine [Synthroid -] 150 mcg PO DAILY 08/22/17 Mesalamine [Asacol Hd -] 800 mg PO TID 08/22/17 Metoprolol Succinate 25 mg PO DAILY 08/22/17 Prednisone 10 mg PO DAILY 08/22/17 Raloxifene HCl [Evista] 60 mg PO DAILY 08/22/17 Family Disease History - Family Disease History Family Disease History: Heart Disease: Mother Review of Systems Unable to obtain ROS, reason: pts unable to answer Physical Exam Vital Signs: Vital Signs Temperature 100.8 F H 08/25/17 15:59 Pulse Rate 78 08/25/17 16:03 Respiratory Rate 18 08/25/17 15:59 Blood Pressure 113/52 08/25/17 15:59 O2 Sat by Pulse Oximetry (%) 95 08/25/17 16:03 Constitutional: Yes: Calm Eyes: Yes: Conjunctiva Clear HENT: Yes: Atraumatic Cardiovascular: Yes: S1, S2 Respiratory: Yes: CTA Bilaterally Gastrointestinal: Yes: Soft Renal/: Yes: Incontinence Musculoskeletal: Yes: Muscle Weakness Edema: No Neurological: Yes: Pre-Existing Deficit Labs: CBC, BMP 08/25/17 08:00 08/25/17 08:00 Laboratory Tests 08/22/17 08/22/17 08/22/17 11:20 11:28 11:38 Hgb Sodium 129 L Potassium Chloride Carbon Dioxide Anion Gap BUN Creatinine 0.9 Lactic Acid 3.3 H* Urine Protein Negative Urine Blood Negative 08/22/17 08/23/17 08/24/17 14:54 06:55 07:00 Hgb 9.9 L Sodium 134 L Potassium 3.2 L Chloride Carbon Dioxide Anion Gap BUN Creatinine Lactic Acid 0.8 Urine Protein Urine Blood 08/24/17 08/25/17 08/25/17 07:00 08:00 08:00 Hgb 10.2 L Sodium 134 L 133 L Potassium 3.3 L 3.4 L Chloride 96 L Carbon Dioxide 28 Anion Gap 9 BUN 6 L Creatinine 0.7 Lactic Acid Urine Protein Urine Blood Imaging - Results Chest X-ray: Report Reviewed Problem List - Problems (1) Hypokalemia Code(s): E87.6 - HYPOKALEMIA (2) CHF (congestive heart failure) Code(s): I50.9 - HEART FAILURE, UNSPECIFIED Qualifiers: Qualified Code(s): I50.33 - Acute on chronic diastolic (congestive) heart failure Assessment/Plan Current Medications Generic Name Dose Route Start Last Admin Trade Name Freq PRN Reason Stop Dose Admin Acetaminophen 650 mg 08/22/17 23:32 Tylenol - PO Q6H PRN PAIN OR FEVER Aspirin 81 mg 08/23/17 10:00 08/25/17 09:50 Ecotrin - PO 81 mg DAILY [facility] Administration Collagenase 1 applic 08/25/17 10:00 08/25/17 09:50 Santyl - TP 1 applic DAILY [facility] Administration Furosemide 20 mg 08/23/17 10:00 08/25/17 09:50 Lasix - PO 20 mg DAILY [facility] Administration Heparin Sodium (Porcine) 5,000 unit 08/23/17 14:00 08/25/17 15:37 Heparin - SQ 5,000 unit TID [facility] Administration Levothyroxine Sodium 150 mcg/ 175 mcg 08/24/17 07:00 08/25/17 06:05 Levothyroxine Sodium 25 mcg PO 175 mcg DAILY@0700 [facility] Administration Impression 1. hypokalemia 2. Down sydrome 3. chf 4. hypothyroid Plan - replace potassium - check mag level - repeat labs in am - may have hypokalemia secondary to diuretics and may need a standing supplement - will follow Dr Rodriguez
[2017-08-26] MEDS ORDERED: LEVOTHYROXINE NA 25 MCG TABLET (FP) ONE (04:58)
[2017-08-26] MEDS ORDERED: LEVOTHYROXINE NA 150 MCG TABLET ONE (04:58)
[2017-08-26] MEDS: HEPARIN NA (PORCINE) 5,000 UNITS/ML 1ML VIAL SQ SCH (05:22)
[2017-08-26] MEDS: LEVOTHYROXINE 150 MCG, LEVOTHYROXINE 25 MCG PO SCH (06:13)
[2017-08-26 08:23] LABS: CHLORIDE 98 mmol/L (98-107); MAGNESIUM 1.9 mg/dL (1.8-2.4); POTASSIUM 3.4 mmol/L (3.5-5.1); SODIUM 132 mmol/L (136-145)
[2017-08-26 08:27] LABS: ANION GAP 7 (8-16); BLOOD UREA NITROGEN 7 mg/dL (7-18); CO2 27 mmol/L (21-32); CREATININE 0.7 mg/dL (0.55-1.02); GLUCOSE,RANDOM 112 mg/dL (74-106)
--- NOTE | 2017-08-26 09:36 | PN ---
Progress Note, Physician Chief Complaint: ID Off antibiotics and looks well. No fevers Denies any complaints No neck pain - Current Medication List Current Medications: Active Medications Acetaminophen (Tylenol -) 650 mg PO Q6H PRN PRN Reason: PAIN OR FEVER Last Admin: 08/25/17 21:57 Dose: 650 mg Aspirin (Ecotrin -) 81 mg PO DAILY [facility] Last Admin: 08/25/17 09:50 Dose: 81 mg Collagenase (Santyl -) 1 applic TP DAILY [facility] Last Admin: 08/25/17 09:50 Dose: 1 applic Furosemide (Lasix -) 20 mg PO DAILY [facility] Last Admin: 08/25/17 09:50 Dose: 20 mg Heparin Sodium (Porcine) (Heparin -) 5,000 unit SQ TID [facility] Last Admin: 08/26/17 05:22 Dose: 5,000 unit Levothyroxine Sodium 150 mcg/ (Levothyroxine Sodium 25 mcg) 175 mcg PO DAILY@ 0700 [facility] Last Admin: 08/26/17 06:13 Dose: 175 mcg - Objective Vital Signs: Vital Signs Temperature 98.4 F 08/26/17 06:00 Pulse Rate 62 08/26/17 06:00 Respiratory Rate 18 08/26/17 06:00 Blood Pressure 108/62 08/26/17 06:00 O2 Sat by Pulse Oximetry (%) 95 08/25/17 21:00 Constitutional: Yes: Well Nourished, No Distress HENT: Yes: WNL, Atraumatic Neck: Yes: WNL, Supple, Other (wound dry healed) Cardiovascular: Yes: S1, S2 Respiratory: Yes: WNL, Regular, CTA Bilaterally Gastrointestinal: Yes: Soft. No: Tenderness, Tenderness, Epigastrium Edema: No Labs: CBC, BMP 08/25/17 08:00 08/26/17 07:15 INR, PTT INR 1.10 (0.82-1.09) 08/22/17 11:38 Problem List - Problems (1) FUO (fever of unknown origin) Code(s): R50.9 - FEVER, UNSPECIFIED (2) Down syndrome Code(s): Q90.9 - DOWN SYNDROME, UNSPECIFIED (3) History of cervical spinal surgery Code(s): Z98.890 - OTHER SPECIFIED POSTPROCEDURAL STATES Assessment/Plan Microbiology 08/23/17 10:50 Nasopharyngeal Swab Influenza Types A,B Antigen (MATILDE) - Final 08/23/17 10:50 Nasopharyngeal Swab - Final 08/22/17 11:28 Urine - Urine Clean Catch Urine Culture - Final NO GROWTH OBTAINED 08/22/17 11:38 Blood - Peripheral Venous Blood Culture - Preliminary NO GROWTH OBTAINED AFTER 72 HOURS, INCUBATION TO CONTINUE FOR 2 DAYS. 08/22/17 11:24 Blood - Peripheral Venous Blood Culture - Preliminary NO GROWTH OBTAINED AFTER 72 HOURS, INCUBATION TO CONTINUE FOR 2 DAYS. Laboratory Tests 08/25/17 08/26/17 08:00 07:15 WBC 6.5 Plt Count 234 BUN 7 Creatinine 0.7 Assessment Febrile illness unclear etiology culture no growth Operative site looks fine Plan Discharge planning
[2017-08-26] MEDS: ASPIRIN COATED 81 MG TABLET.EC PO SCH (09:50)
[2017-08-26] MEDS: COLLAGENASE CLOSTRIDIUM HIST. 30 GRAMS TUBE TP SCH (09:51)
[2017-08-26] MEDS ORDERED: FUROSEMIDE 20 MG TABLET (FP) PO SCH (10:00)
--- NOTE | 2017-08-26 13:12 | DS ---
Physical Examination Vital Signs: Vital Signs Temperature 98.4 F 08/26/17 06:00 Pulse Rate 62 08/26/17 06:00 Respiratory Rate 19 08/26/17 09:00 Blood Pressure 108/62 08/26/17 06:00 O2 Sat by Pulse Oximetry (%) 99 08/26/17 09:00 Constitutional: Yes: No Distress Eyes: Yes: WNL HENT: Yes: WNL Neck: Yes: WNL Cardiovascular: Yes: WNL Respiratory: Yes: WNL Gastrointestinal: Yes: WNL ...Rectal Exam: Yes: Deferred Renal/: Yes: WNL Breast(s): Yes: WNL Musculoskeletal: Yes: WNL Extremities: Yes: WNL Edema: No Edema: LUE: 1+, RUE: 1+, LLE: 1+, RLE: 1+ Peripheral Pulses WNL: No Peripheral Pulses: Left Radial: 1+, Right Radial: 1+, Left Doralis Pedis: 1+, Right Dorsalis Pedis: 1+, Left Femoral: 1+, Right Femoral: 1+ Integumentary: Yes: Other (sacral stage 2) Labs: CBC, BMP 08/25/17 08:00 08/26/17 07:15 Discharge Summary Reason For Visit: SEPSIS Current Active Problems FUO (fever of unknown origin) (Acute) History of cervical spinal surgery (Acute) Hypokalemia (Acute) Sepsis (Acute) Condition: Fair - Instructions Disposition: [facility] - Home Medications Comprehensive Discharge Medication List: Ambulatory Orders Aspirin [Ecotrin] 81 mg PO DAILY 08/22/17 Atorvastatin Ca [Lipitor] 20 mg PO HS 08/22/17 Clotrimazole/Betamethasone Dip [Clotrimazole-Betamethasone Lot] 30 ml TP DAILY 08/22/17 Collagenase Clostridium Hist. [Santyl] 1 applic TP DAILY 08/22/17 Ferrous Sulfate 325 mg PO BID 08/22/17 Furosemide [Lasix] 20 mg PO DAILY 08/22/17 Levothyroxine [Synthroid -] 150 mcg PO DAILY 08/22/17 Mesalamine [Asacol Hd -] 800 mg PO TID 08/22/17 Metoprolol Succinate 25 mg PO DAILY 08/22/17 Prednisone 10 mg PO DAILY 08/22/17 Raloxifene HCl [Evista] 60 mg PO DAILY 08/22/17
[2017-08-26] MEDS ORDERED: MESALAMINE 800 MG TABLET.DR PO SCH (14:00)
[2017-08-26] MEDS ORDERED: PT OWN MED DRAWER 7, Y5N ONE (14:39)
[2017-08-26 15:45] VITALS: BP 139/85; PULSE 92; TEMP 97.9
[2017-08-26] MEDS ORDERED: POTASSIUM CHLORIDE ORAL LIQUID 20 MEQ/15 ML PO ONE (16:29)
--- NOTE | 2017-08-26 16:32 | PN ---
Progress Note, Physician History of Present Illness: Pt seen and examined at bedside. She appears comfortable and is watching TV. - Current Medication List Current Medications: Active Medications Acetaminophen (Tylenol -) 650 mg PO Q6H PRN PRN Reason: PAIN OR FEVER Last Admin: 08/25/17 21:57 Dose: 650 mg Aspirin (Ecotrin -) 81 mg PO DAILY [facility] Last Admin: 08/26/17 09:50 Dose: 81 mg Collagenase (Santyl -) 1 applic TP DAILY [facility] Last Admin: 08/26/17 09:51 Dose: 1 applic Levothyroxine Sodium 150 mcg/ (Levothyroxine Sodium 25 mcg) 175 mcg PO DAILY@ 0700 [facility] Last Admin: 08/26/17 06:13 Dose: 175 mcg Mesalamine (Asacol Hd -) 800 mg PO TID [facility] Potassium Chloride (Potassium Chloride Oral Liquid) 40 meq PO ONCE ONE Stop: 08/26/17 16:30 - Objective Vital Signs: Vital Signs Temperature 97.9 F 08/26/17 14:43 Pulse Rate 92 H 08/26/17 14:43 Respiratory Rate 20 08/26/17 14:43 Blood Pressure 139/85 08/26/17 14:43 O2 Sat by Pulse Oximetry (%) 99 08/26/17 09:00 Constitutional: Yes: Calm Eyes: Yes: Conjunctiva Clear HENT: Yes: Atraumatic Cardiovascular: Yes: S1, S2 Respiratory: Yes: CTA Bilaterally Gastrointestinal: Yes: Soft Genitourinary: Yes: Incontinence Edema: No Neurological: Yes: Pre-Existing Deficit Labs: CBC, BMP 08/25/17 08:00 08/26/17 07:15 INR, PTT INR 1.10 (0.82-1.09) 08/22/17 11:38 Problem List - Problems (1) Hypokalemia Code(s): E87.6 - HYPOKALEMIA (2) CHF (congestive heart failure) Code(s): I50.9 - HEART FAILURE, UNSPECIFIED Qualifiers: Qualified Code(s): I50.33 - Acute on chronic diastolic (congestive) heart failure Assessment/Plan Current Medications Generic Name Dose Route Start Last Admin Trade Name Freq PRN Reason Stop Dose Admin Acetaminophen 650 mg 08/22/17 23:32 08/25/17 21:57 Tylenol - PO 650 mg Q6H PRN Administration PAIN OR FEVER Aspirin 81 mg 08/23/17 10:00 08/26/17 09:50 Ecotrin - PO 81 mg DAILY [facility] Administration Collagenase 1 applic 08/25/17 10:00 08/26/17 09:51 Santyl - TP 1 applic DAILY [facility] Administration Levothyroxine Sodium 150 mcg/ 175 mcg 08/24/17 07:00 08/26/17 06:13 Levothyroxine Sodium 25 mcg PO 175 mcg DAILY@0700 [facility] Administration Mesalamine 800 mg 08/26/17 14:00 Asacol Hd - PO TID [facility] Laboratory Tests 08/26/17 07:15 Magnesium 1.9 Impression 1. hypokalemia 2. Down sydrome 3. chf 4. hypothyroid Plan - will give a dose of potassium - mag level wnl - discussed with pmd, will get lasix q 48 hrs in times where she appears dehydrated - will need to monitor volume status - can workup hyponatremia as outpt if discharged today - will follow Dr Rodriguez
== END 2017-08-26 17:28 | DRG 871 ==
LOC: JER 10:58 → JERBED 13:40 → J5S 18:31
PROVIDERS: ADMIT Family Medicine; ATTEND Family Medicine
DX: A41.9 Sepsis, unspecified organism (principal); I50.33 Acute on chronic diastolic (congestive) heart failure; D47.1 Chronic myeloproliferative disease; E87.1 Hypo-osmolality and hyponatremia; E87.2 Acidosis; R50.9 Fever, unspecified; E03.9 Hypothyroidism, unspecified; Q90.9 Down syndrome, unspecified; R09.02 Hypoxemia; L89.622 Pressure ulcer of left heel, stage 2; L89.152 Pressure ulcer of sacral region, stage 2; I08.0 Rheumatic disorders of both mitral and aortic valves; D72.828 Other elevated white blood cell count; R26.81 Unsteadiness on feet; E87.6 Hypokalemia; M62.81 Muscle weakness (generalized); Z86.19 Personal history of other infectious and parasitic diseases; Z98.890 Other specified postprocedural states; Z85.3 Personal history of malignant neoplasm of breast
CPT/HCPCS: 36415; 71045-TC-FY; 80048; 80053; 81003; 82272; 82550; 82803; 83605; 83735; 84443; 84484; 85025; 85027; 85610; 85730; 86850; 86900; 86901; 87040; 87086; 87804; 93005; 93010; 97116-GP; 97161-GP; 99281-25; J1644